=== PATIENT | female | born 1940 | race Caucasian/White ===

== ENCOUNTER → 2016-10-30 | Outpatient (CLI) | payer MEDICARE ==
--- NOTE | 2016-10-30 10:31 | XR ---
EXAMINATION TYPE: XR chest 2V, XR ribs RT DATE OF EXAM: 10/30/2016 CLINICAL HISTORY: Pain, Fall Four views of the ribs fail demonstrate evidence for displaced rib fracture or secondary sign of rib fracture. Visualized lungs are clear. No evidence for pneumothorax. IMPRESSION: 1. No displaced rib fractures seen. ICD 10 NO FRACTURE, INITIAL EVALUATION EXAMINATION TYPE: XR chest 2V, XR ribs RT DATE OF EXAM: 10/30/2016 COMPARISON: NONE HISTORY: Shortness of breath TECHNIQUE: Frontal and lateral views of the chest are obtained. FINDINGS: Scattered senescent parenchymal changes noted. Hyperinflation compatible with COPD. No evidence for infiltrate. No evidence for atelectasis. Heart size is stable. Mediastinal structures are stable and grossly unremarkable. No evidence for hilar prominence. Degenerative changes dorsal spine. IMPRESSION: 1. No evidence for acute pulmonary disease.
== END | disposition home or self-care (01) ==
LOC: RADXRMAIN 10:01
PROVIDERS: ATTEND Family Medicine
DX: S20.219A Contusion of unspecified front wall of thorax, initial encounter (principal)
CPT/HCPCS: 71020

== ENCOUNTER → 2016-12-03 | Outpatient (CLI) | payer MEDICARE ==
--- NOTE | 2016-12-05 09:31 | MM ---
Reason for exam: additional evaluation requested from prior study. Last mammogram was performed 1 year ago. History: Patient is postmenopausal and has history of breast cancer at age 50. Family history of premenopausal breast cancer in mother at age 40. Mastectomy of the right breast, July 29, 2002. Malignant lumpectomy of the right breast, July 12, 2002. Benign stereotactic core biopsy of the right breast, December 04, 2001. Core biopsy of the right breast. Excisional biopsy of the right breast. Physical Findings: Nurse did not find any significant physical abnormalities on exam. MG 3D Diag Mammo W/Cad LT ML, MLO, CC, LM with magnification, and CC with magnification view(s) were taken of the left breast. Prior study comparison: November 30, 2015, left breast MG diagnostic mammo LT w CAD. Finding: There are amorphous, grouped calcifications in the upper outer quadrant, anterior position of the left breast, 5 centimeters from nipple. New finding since November 30, 2015. These results were verbally communicated with the patient and result sheet given to the patient on 12/03/16. ASSESSMENT: Suspicious, BI-RAD 4 RECOMMENDATION: Stereotactic core biopsy and surgical consultation of the left breast. Called Dr. Ness with mammographic findings and has scheduled an appointment for the patient for 12/11/16 at 1:[address] Peterson PRELIMINARY REPORT CALLED AND FAXED TO DR. PETERSON ON 12/03/16 AT 300/TMP.
== END | disposition home or self-care (01) ==
LOC: RADMAMWWP 08:35
PROVIDERS: ATTEND Obstetrics & Gynecology
DX: Z08 Encounter for follow-up examination after completed treatment for malignant neoplasm (principal); Z85.3 Personal history of malignant neoplasm of breast
CPT/HCPCS: G0206; G0279

== ENCOUNTER → 2017-08-12 | Outpatient (CLI) | payer MEDICARE ==
--- NOTE | 2017-08-12 12:30 | XR ---
EXAMINATION TYPE: XR cervical spine comp DATE OF EXAM: 08/12/2017 COMPARISON: NONE HISTORY: 77-year-old female neck pain, bilateral finger tingling TECHNIQUE: 7 views FINDINGS: Multilevel uncovertebral joint and facet degenerative change. On the right, this results in mild multilevel bony neuroforaminal narrowing. On the left, this result s in mild multilevel bony neuroforaminal narrowing, more moderate at C3-C4. Moderate disc/endplate degenerative change C6-C7 and mild endplate spondylosis multiple other levels. There is trace grade 1 anterolisthesis at C7-T1. Otherwise, the remaining alignment is maintained. IMPRESSION: 1. Moderate spondylotic change throughout. Mild multilevel neuroforaminal narrowing, more moderate on the left at C3-C4. 2. A trace grade 1 anterolisthesis at C7-T1 likely on a degenerative basis.
--- NOTE | 2017-08-12 13:34 | XR ---
EXAMINATION TYPE: XR shoulder complete BILAT DATE OF EXAM: 08/12/2017 COMPARISON: NONE HISTORY: 77-year-old female bilateral shoulder soreness and bilateral finger tingling TECHNIQUE: 3 views each side FINDINGS: On both sides, there is moderate to severe degenerative spurring at the AC joints. Fragmented spurs o r loose bodies are present superiorly along the joint. The subacromial space is preserved on both [place] es. No acute fracture, subluxation, or dislocation. Subtle soft tissue calcifications are noted above the left humeral head on the AP internal rotation view. IMPRESSION: 1. At least moderate bilateral AC joint OA. 2. Some subtle calcification above the left humeral head could represent calcific tendinitis, CPPD, o r subclinical gout. Correlate with symptomatology. 3. No acute osseous abnormality seen.
== END | disposition home or self-care (01) ==
LOC: RADXRMAIN 11:59
PROVIDERS: ATTEND Family Medicine
DX: M99.71 Connective tissue and disc stenosis of intervertebral foramina of cervical region (principal); M43.12 Spondylolisthesis, cervical region; M19.012 Primary osteoarthritis, left shoulder; M19.011 Primary osteoarthritis, right shoulder; M25.812 Other specified joint disorders, left shoulder
CPT/HCPCS: 72050

== ENCOUNTER 2017-10-20 19:04 | Inpatient (IN) | payer MEDICARE ==
[2017-10-20] MEDS ORDERED: SODIUM CHLORIDE 0.9% 1,000 ML IV STA (19:57)
[2017-10-20 20:20] LABS: Basophils # (A) 0.1 k/uL (0-0.2); Basophils % (A) 0 %; Eosinophils # (A) 0.2 k/uL (0-0.7); Eosinophils % (A) 1 %; HCT 42.6 % (34.0-46.0); HGB 14.6 gm/dL (11.4-16.0); Lymphocytes # (A) 1.6 k/uL (1.0-4.8); Lymphocytes % (A) 10 %; MCH 29.7 pg (25.0-35.0); MCHC 34.3 g/dL (31.0-37.0); MCV 86.4 fL (80.0-100.0); Mean Platelet Volume 6.9; Monocytes # (A) 0.9 k/uL (0-1.0); Monocytes % (A) 6 %; Neutrophils # (A) 13.1 k/uL (1.3-7.7); Neutrophils % (A) 82 %; Platelet Count 236 k/uL (150-450); RBC 4.93 m/uL (3.80-5.40); RDW 13.6 % (11.5-15.5)
[2017-10-20 20:33] LABS: ALT 29 U/L (9-52); AST 23 U/L (14-36); Albumin 4.4 g/dL (3.5-5.0); Alkaline Phosphatase 168 U/L (38-126); Amylase 77 U/L (30-110); Anion Gap 11 mmol/L; Blood Urea Nitrogen 28 mg/dL (7-17); Carbon Dioxide 26 mmol/L (22-30); Chloride 101 mmol/L (98-107); Glucose 166 mg/dL (74-99); Lipase 79 U/L (23-300); Sodium 138 mmol/L (137-145); Total Bilirubin 0.8 mg/dL (0.2-1.3); Total Protein 7.2 g/dL (6.3-8.2)
[2017-10-20 20:34] LABS: Appearance,Urine Cloudy (Clear); Bacteria,Urine Rare /hpf; Bilirubin,Urine 1+ (Negative); Blood,Urine Moderate (Negative); Color,Urine Dark Brown; Glucose,Urine (UA) Negative (Negative); Hyaline Casts,Urine 28 /lpf (0-2); Ketones,Urine Trace (Negative); Leukocyte Esterase,Urine Small (Negative); Mucus,Urine Rare /hpf; Nitrite,Urine Negative (Negative); PH, Urine 5.5 (5.0-8.0); Protein,Urine 1+ (Negative); RBC,Urine 22 /hpf (0-5); Specific Gravity,Urine 1.019 (1.001-1.035); Squamous Epithelial Cell,Urine 5 /hpf (0-4); WBC,Urine 5 /hpf (0-5)
--- NOTE | 2017-10-20 21:11 | XR ---
EXAMINATION TYPE: XR KUB DATE OF EXAM: 10/20/2017 COMPARISON: NONE HISTORY: Abdominal pain TECHNIQUE: 2 views FINDINGS: There is no sign of intestinal obstruction or pneumoperitoneum. There are some fluid levels in the right upper quadrant. There is 2 cm calcification over the left upper quadrant that could be calcified splenic granuloma. Lung bases appear clear of consolidation. There are no pathologic calcif ications over the kidneys. IMPRESSION: Intestinal scattered fluid levels in the right upper quadrant could relate to diarrhea. N o free air. No sign of mechanical obstruction.
[2017-10-20] MEDS ORDERED: DICYCLOMINE 20 MG TAB PO STA (21:24)
--- NOTE | 2017-10-20 22:02 | CT ---
EXAMINATION TYPE: CT abdomen pelvis w con DATE OF EXAM: 10/20/2017 COMPARISON: 02/04/2010 HISTORY: Lower abdominal pain today. CT DLP: 1624 mGycm Automated exposure control for dose reduction was used. TECHNIQUE: Helical acquisition of images was performed from the lung bases through the pelvis. CONTRAST: Performed without Oral Contrast and with IV Contrast, patient injected with 100ml mL of Isovue 300. FINDINGS: There is some coarse linear density at the left lung base. There is no pleural effusion. There is no pericardial effusion. Abdominal aorta is atheromatous. Liver appears normal. Bile ducts are not dilat ed. Spleen appears normal. The stomach is large. There is no pancreatic mass. Gallbladder appears nor mal. There is no adrenal mass. Kidneys show satisfactory contrast opacification. There is no hydronephrosi s. There are multiple sigmoid diverticula. There is some inflammatory change and fat stranding around the left colon extending from the splenic flexure to the sigmoid colon. The small bowel appears norm al. The lumbar vertebra have normal spacing and alignment. Posterior elements are intact. There is no com pression fracture. I see no bony destructive process. There is no retroperitoneal adenopathy. There i s no evidence of a pelvic mass. Uterus is anteverted. There is a small calcified uterine fibroid on t he uterine fundus. Bladder distends smoothly. Appendix is not seen. No sign of appendicitis. IMPRESSION: MODERATE LEFT-SIDED COLONIC DIVERTICULOSIS. THERE IS DIFFUSE INFLAMMATORY CHANGE INVOLVING A LONG SEG MENT OF THE DESCENDING COLON THAT IS CONSISTENT WITH COLITIS OR DIVERTICULITIS. NO ABSCESS. THERE IS ALSO INVOLVEMENT OF THE SPLENIC FLEXURE. ATHEROSCLEROTIC VASCULAR DISEASE. MODERATELY SEVERE SIGMOID DIVERTICULOSIS.
--- NOTE | 2017-10-20 22:03 | ED ---
General Adult HPI - General Source: patient, EMS, RN notes reviewed Mode of arrival: EMS <Osmin Acosta - Last Filed: 10/20/17 22:37> <Fran Vee - Last Filed: 10/20/17 23:05> - General Chief complaint: Abdominal Pain Stated complaint: abd pain Time Seen by Provider: 10/20/17 19:12 - History of Present Illness Initial comments: 77-year-old female presents to the emergency department for a chief complaint of lower abdominal pain. Patient states the pain is a cramping pain. Patient states she last had a bowel movement yesterday. Patient states it was of normal consistency. Patient denies blood or mucus in the stool. Patient states she feels like she has to have a bowel movement at this time but cannot. Patient denies fevers or chills at home. Patient denies past abdominal issues. Patient denies nausea or vomiting. Patient has no other complaints at this time including shortness of breath, chest pain, abdominal pain, nausea or vomiting, headache, or visual changes. (Osmin Acosta) - Related Data Home Medications Medication Instructions Recorded Confirmed Acetaminophen [Tylenol] 650 mg PO Q6H PRN 10/20/17 10/20/17 Lisinopril [Zestril] 20 mg PO DAILY 10/20/17 10/20/17 Metoprolol Tartrate 25 mg PO BID 10/20/17 10/20/17 Simvastatin [Zocor] 20 mg PO HS 10/20/17 10/20/17 traMADol HCL [Ultram] 50 mg PO Q6HR PRN 10/20/17 10/20/17 Allergies Allergy/AdvReac Type Severity Reaction Status Date / Time No Known Allergies Allergy Verified 11/11/13 10:57 Review of Systems ROS Other: All systems not noted in ROS Statement are negative. <Osmin Acosta - Last Filed: 10/20/17 22:37> ROS Other: All systems not noted in ROS Statement are negative. <Fran Vee - Last Filed: 10/20/17 23:05> ROS Statement: Those systems with pertinent positive or pertinent negative responses have been documented in the HPI. Past Medical History Past Medical History: Hyperlipidemia, Hypertension History of Any Multi-Drug Resistant Organisms: None Reported Smoking Status: Never smoker Past Alcohol Use History: Rare Past Drug Use History: None Reported <Osmin Acosta - Last Filed: 10/20/17 22:37> General Exam General appearance: alert, in no apparent distress Head exam: Present: atraumatic, normocephalic, normal inspection Eye exam: Present: normal appearance, PERRL, EOMI. Absent: scleral icterus, conjunctival injection, periorbital swelling ENT exam: Present: normal exam, mucous membranes moist Neck exam: Present: normal inspection, full ROM. Absent: tenderness, meningismus, lymphadenopathy Respiratory exam: Present: normal lung sounds bilaterally. Absent: respiratory distress, wheezes, rales, rhonchi, stridor Cardiovascular Exam: Present: regular rate, normal rhythm, normal heart sounds. Absent: systolic murmur, diastolic murmur, rubs, gallop, clicks GI/Abdominal exam: Present: soft, tenderness (Patient has diffuse abdominal tenderness, more prominent in the right and left lower quadrants.), normal bowel sounds. Absent: guarding, rebound, rigid <Osmin Acosta - Last Filed: 10/20/17 22:37> Vital Signs 10/20/17 10/20/17 10/20/17 19:12 20:37 22:10 Temperature 98.2 F 97.7 F Pulse Rate 84 82 110 H Respiratory 22 18 20 Rate Blood Pressure 135/62 151/66 164/74 O2 Sat by Pulse 94 L 98 96 Oximetry Medical Decision Making - Lab Data Result diagrams: 10/20/17 20:00 10/20/17 20:00 <Osmin Acosta - Last Filed: 10/20/17 22:37> - Lab Data Result diagrams: 10/20/17 20:00 10/20/17 20:00 <Fran Vee - Last Filed: 10/20/17 23:05> - Medical Decision Making 77-year-old female presents to the emergency department for a chief complaint of lower abdominal cramping 2 hours. Patient states she felt like she needs to have a bowel movement. When patient presented to the emergency department she began to have diarrhea. On exam patient does have diffuse abdominal tenderness. It is slightly distended. No rebound tenderness. No back pain. No shortness of breath or chest pain. CBC shows a white count of 16 with a left shift. Chemistry within normal limits. lactic WNL. CDIFF neg. X-ray shows intestinal scattered fluid-filled levels in the right upper quadrant that could relate diarrhea. No free air or sign of mechanical obstruction. CT shows diffuse inflammatory change involving a long segment of the descending colon consistent with colitis or diverticulitis. No abscess. Patient will be admitted to the hospital with IV antibiotics and pain mgmt. (Osmin Acosta) I saw this patient in conjunction with the physician administrative assistant coordinator. I performed independent history and physical exam. Agree with case management. After reevaluating the patient myself, I discussed case with Dr. Hardwick who will admit the patient for further IV antibiotic therapy to ensure that there is improvement. (Fran Vee) - Lab Data Lab Results 10/20/17 10/20/17 10/20/17 Range/Units 20:00 20:00 20:00 WBC 16.0 H (3.8-10.6) k/uL RBC 4.93 (3.80-5.40) m/uL Hgb 14.6 (11.4-16.0) gm/dL Hct 42.6 (34.0-46.0) % MCV 86.4 (80.0-100.0) fL MCH 29.7 (25.0-35.0) pg MCHC 34.3 (31.0-37.0) g/dL RDW 13.6 (11.5-15.5) % Plt Count 236 (150-450) k/uL Neutrophils % 82 % Lymphocytes % 10 % Monocytes % 6 % Eosinophils % 1 % Basophils % 0 % Neutrophils # 13.1 H (1.3-7.7) k/uL Lymphocytes # 1.6 (1.0-4.8) k/uL Monocytes # 0.9 (0-1.0) k/uL Eosinophils # 0.2 (0-0.7) k/uL Basophils # 0.1 (0-0.2) k/uL Sodium 138 (137-145) mmol/L Potassium 5.0 (3.5-5.1) mmol/L Chloride 101 (98-107) mmol/L Carbon Dioxide 26 (22-30) mmol/L Anion Gap 11 mmol/L BUN 28 H (7-17) mg/dL Creatinine 0.70 (0.52-1.04) mg/dL Est GFR (CKD-EPI)AfAm >90 (>60 ml/min/1.73 sqM) Est GFR (CKD-EPI)NonAf 84 (>60 ml/min/1.73 sqM) Glucose 166 H (74-99) mg/dL Plasma Lactic Acid Vito 1.4 (0.7-2.0) mmol/L Calcium 10.0 (8.4-10.2) mg/dL Total Bilirubin 0.8 (0.2-1.3) mg/dL AST 23 (14-36) U/L ALT 29 (9-52) U/L Alkaline Phosphatase 168 H (38-126) U/L Total Protein 7.2 (6.3-8.2) g/dL Albumin 4.4 (3.5-5.0) g/dL Amylase 77 (30-110) U/L Lipase 79 (23-300) U/L Urine Color Urine Appearance (Clear) Urine pH (5.0-8.0) Ur Specific [place] (1.001-1.035) Urine Protein (Negative) Urine Glucose (UA) (Negative) Urine Ketones (Negative) Urine Blood (Negative) Urine Nitrite (Negative) Urine Bilirubin (Negative) Urine Urobilinogen (<2.0) mg/dL Ur Leukocyte Esterase (Negative) Urine RBC (0-5) /hpf Urine WBC (0-5) /hpf Ur Squamous Epith Cells (0-4) /hpf Urine Bacteria (None) /hpf Hyaline Casts (0-2) /lpf Urine Mucus (None) /hpf C. difficile (EIA) Intrp (Negative) 10/20/17 10/20/17 Range/Units 20:20 20:37 WBC (3.8-10.6) k/uL RBC (3.80-5.40) m/uL Hgb (11.4-16.0) gm/dL Hct (34.0-46.0) % MCV (80.0-100.0) fL MCH (25.0-35.0) pg MCHC (31.0-37.0) g/dL RDW (11.5-15.5) % Plt Count (150-450) k/uL Neutrophils % % Lymphocytes % % Monocytes % % Eosinophils % % Basophils % % Neutrophils # (1.3-7.7) k/uL Lymphocytes # (1.0-4.8) k/uL Monocytes # (0-1.0) k/uL Eosinophils # (0-0.7) k/uL Basophils # (0-0.2) k/uL Sodium (137-145) mmol/L Potassium (3.5-5.1) mmol/L Chloride (98-107) mmol/L Carbon Dioxide (22-30) mmol/L Anion Gap mmol/L BUN (7-17) mg/dL Creatinine (0.52-1.04) mg/dL Est GFR (CKD-EPI)AfAm (>60 ml/min/1.73 sqM) Est GFR (CKD-EPI)NonAf (>60 ml/min/1.73 sqM) Glucose (74-99) mg/dL Plasma Lactic Acid Vito (0.7-2.0) mmol/L Calcium (8.4-10.2) mg/dL Total Bilirubin (0.2-1.3) mg/dL AST (14-36) U/L ALT (9-52) U/L Alkaline Phosphatase (38-126) U/L Total Protein (6.3-8.2) g/dL Albumin (3.5-5.0) g/dL Amylase (30-110) U/L Lipase (23-300) U/L Urine Color Dark Brown Urine Appearance Cloudy H (Clear) Urine pH 5.5 (5.0-8.0) Ur Specific [place] 1.019 (1.001-1.035) Urine Protein 1+ H (Negative) Urine Glucose (UA) Negative (Negative) Urine Ketones Trace H (Negative) Urine Blood Moderate H (Negative) Urine Nitrite Negative (Negative) Urine Bilirubin 1+ H (Negative) Urine Urobilinogen 6.0 (<2.0) mg/dL Ur Leukocyte Esterase Small H (Negative) Urine RBC 22 H (0-5) /hpf Urine WBC 5 (0-5) /hpf Ur Squamous Epith Cells 5 H (0-4) /hpf Urine Bacteria Rare H (None) /hpf Hyaline Casts 28 H (0-2) /lpf Urine Mucus Rare H (None) /hpf C. difficile (EIA) Intrp Negative (Negative) Disposition Time of Disposition: 22:30 <Osmin Acosta P - Last Filed: 10/20/17 22:37> <Fran Vee - Last Filed: 10/20/17 23:05> Clinical Impression: Diverticulitis Disposition: ADMITTED IP TO THIS [facility] Condition: Good Referrals: Brandon Hardwick MD [Primary Care Provider] - 1-2 days
[2017-10-20] MEDS ORDERED: NALOXONE 0.4 MG/ML 1 ML VIAL IV PRN (22:37)
[2017-10-20] MEDS ORDERED: MORPHINE SULFATE 2 MG/ML SYRINGE IV PRN (22:37)
[2017-10-20] MEDS ORDERED: ACETAMINOPHEN TAB 325 MG TAB PO PRN (22:39)
[2017-10-20] MEDS ORDERED: LEVOFLOXACIN 750MG-D5W PMX 750 MG in DEXTROSE/WATER 1 150ML.BAG IVPB STA (22:44)
[2017-10-20] MEDS ORDERED: metroNIDAZOLE-NS PMX 500 MG in SALINE 1 100ML.BAG IVPB SCH (22:45)
[2017-10-20] MEDS: DICYCLOMINE 20 MG TAB PO SCH (22:52)
[2017-10-20] MEDS: SODIUM CHLORIDE 0.9% 1,000 ML IV SCH (22:59)
[2017-10-21] MEDS: DICYCLOMINE 20 MG TAB PO SCH ×4 (04:36→22:08)
[2017-10-21 05:28] VITALS: BMI 38.9
[2017-10-21] MEDS: metroNIDAZOLE-NS PMX 500 MG in SALINE 1 100ML.BAG IVPB SCH ×3 (05:49→22:08)
[2017-10-21] MEDS: METOPROLOL TARTRATE 25 MG TAB PO SCH ×2 (08:44→20:17)
[2017-10-21] MEDS: LISINOPRIL 20 MG TAB PO SCH (08:44)
[2017-10-21] MEDS: SODIUM CHLORIDE 0.9% 1,000 ML IV SCH ×4 (10:51→23:38)
[2017-10-21] MEDS: traMADol 50 MG TAB PO PRN (15:07)
--- NOTE | 2017-10-21 15:55 | P.GSCN ---
<Linda Lopez Justa - Last Filed: 10/21/17 15:36> History of Present Illness Consult date: 10/21/17 Reason for Consult: Abdominal pain History of present illness: 77-year-old female admitted to the emergency room with a chief complaint of developing bilateral lower abdominal pain described as intense cramping. Patient stated it came on suddenly felt nauseated did vomit. Stated that she did have a bowel movement "I thought it was bright red blood in the toilet bowl " patient stated that she felt dizzy lightheaded activated the EMS system for the above-mentioned symptoms . Patient states she was told she had diverticulosis given the above clinical presentation a surgical consultation has been requested by the attending . Patient stated she is experiencing significant abdominal discomfort. Patient states she is normally sees Dr. Gunter had a colonoscopy 4 years ago and was told that there were no acute findings. Review of Systems Essentially unremarkable except as mentioned in the present Past Medical History Past Medical History: Hyperlipidemia, Hypertension History of Any Multi-Drug Resistant Organisms: None Reported Past Surgical History: No Surgical Hx Reported Past Anesthesia/Blood Transfusion Reactions: No Reported Reaction Past Psychological History: No Psychological Hx Reported Smoking Status: Never smoker Past Alcohol Use History: Rare Past Drug Use History: None Reported - Past Family History Mother Family Medical History: Hypertension Medications and Allergies Home Medications Medication Instructions Recorded Confirmed Type Acetaminophen [Tylenol] 650 mg PO Q6H PRN 10/20/17 10/20/17 History Lisinopril [Zestril] 20 mg PO DAILY 10/20/17 10/20/17 History Metoprolol Tartrate 25 mg PO BID 10/20/17 10/20/17 History Simvastatin [Zocor] 20 mg PO HS 10/20/17 10/20/17 History traMADol HCL [Ultram] 50 mg PO Q6HR PRN 10/20/17 10/20/17 History Allergies Allergy/AdvReac Type Severity Reaction Status Date / Time No Known Allergies Allergy Verified 11/11/13 10:57 Surgical - Exam Vital Signs Temp Pulse Resp BP Pulse Ox 98.2 F 84 22 135/62 94 L 10/20/17 19:12 10/20/17 19:12 10/20/17 19:12 10/20/17 19:12 10/20/17 19:12 GENERAL APPEARANCE: 77-year-old female sitting up in bed states pain medication has decreased the cramping but continues to report a crampy sensation Reports nausea sensation no active emesis VITAL SIGNS: Reviewed HEENT: Head is normocephalic and atraumatic. Pupils are equal and reactive. The nares are patent. Oropharynx is clear without lesions. NECK: Supple without lymphadenopathy. Traches midline. HEART: S1, S2. Regular rate and rhythm. Denies chest pain LUNGS: No crackles or wheezes are heard. Adequate air entry on room air ABDOMEN: Soft, diffuse tenderness mildly distended .few Hypoactive active bowel sounds. No peritoneal signs. No palpable organomegaly or masses. EXTREMITIES: Normal skin color and turgor. No cyanosis, rash, ulceration, clubbing or edema. Radial pedal pulses are 2/4 bilaterally. NEUROLOGICAL: No focal deficits. Strength and sensation are grossly intact. Results - Labs 10/20/17 20:00 10/20/17 20:00 Abnormal Lab Results - Last 24 Hours (Table) 10/20/17 10/20/17 10/20/17 Range/Units 20:00 20:00 20:20 WBC 16.0 H (3.8-10.6) k/uL Neutrophils # 13.1 H (1.3-7.7) k/uL BUN 28 H (7-17) mg/dL Glucose 166 H (74-99) mg/dL Alkaline Phosphatase 168 H (38-126) U/L Urine Appearance Cloudy H (Clear) Urine Protein 1+ H (Negative) Urine Ketones Trace H (Negative) Urine Blood Moderate H (Negative) Urine Bilirubin 1+ H (Negative) Ur Leukocyte Esterase Small H (Negative) Urine RBC 22 H (0-5) /hpf Ur Squamous Epith Cells 5 H (0-4) /hpf Urine Bacteria Rare H (None) /hpf Hyaline Casts 28 H (0-2) /lpf Urine Mucus Rare H (None) /hpf Stool Occult Blood (Negative) Stool Lactoferrin (NEGATIVE) 10/20/17 10/21/17 Range/Units 20:37 14:55 WBC (3.8-10.6) k/uL Neutrophils # (1.3-7.7) k/uL BUN (7-17) mg/dL Glucose (74-99) mg/dL Alkaline Phosphatase (38-126) U/L Urine Appearance (Clear) Urine Protein (Negative) Urine Ketones (Negative) Urine Blood (Negative) Urine Bilirubin (Negative) Ur Leukocyte Esterase (Negative) Urine RBC (0-5) /hpf Ur Squamous Epith Cells (0-4) /hpf Urine Bacteria (None) /hpf Hyaline Casts (0-2) /lpf Urine Mucus (None) /hpf Stool Occult Blood Positive H (Negative) Stool Lactoferrin POSITIVE H (NEGATIVE) Microbiology - Last 24 Hours (Table) 10/20/17 20:20 Urine Culture - Preliminary Urine,Voided 10/20/17 20:27 Stool Culture - Preliminary Stool Diabetes panel 10/20/17 Range/Units 20:00 Sodium 138 (137-145) mmol/L Potassium 5.0 (3.5-5.1) mmol/L Chloride 101 (98-107) mmol/L Carbon Dioxide 26 (22-30) mmol/L BUN 28 H (7-17) mg/dL Creatinine 0.70 (0.52-1.04) mg/dL Glucose 166 H (74-99) mg/dL Calcium 10.0 (8.4-10.2) mg/dL AST 23 (14-36) U/L ALT 29 (9-52) U/L Alkaline Phosphatase 168 H (38-126) U/L Total Protein 7.2 (6.3-8.2) g/dL Albumin 4.4 (3.5-5.0) g/dL Calcium panel 10/20/17 Range/Units 20:00 Calcium 10.0 (8.4-10.2) mg/dL Albumin 4.4 (3.5-5.0) g/dL Pituitary panel 10/20/17 Range/Units 20:00 Sodium 138 (137-145) mmol/L Potassium 5.0 (3.5-5.1) mmol/L Chloride 101 (98-107) mmol/L Carbon Dioxide 26 (22-30) mmol/L BUN 28 H (7-17) mg/dL Creatinine 0.70 (0.52-1.04) mg/dL Glucose 166 H (74-99) mg/dL Calcium 10.0 (8.4-10.2) mg/dL Adrenal panel 10/20/17 Range/Units 20:00 Sodium 138 (137-145) mmol/L Potassium 5.0 (3.5-5.1) mmol/L Chloride 101 (98-107) mmol/L Carbon Dioxide 26 (22-30) mmol/L BUN 28 H (7-17) mg/dL Creatinine 0.70 (0.52-1.04) mg/dL Glucose 166 H (74-99) mg/dL Calcium 10.0 (8.4-10.2) mg/dL Total Bilirubin 0.8 (0.2-1.3) mg/dL AST 23 (14-36) U/L ALT 29 (9-52) U/L Alkaline Phosphatase 168 H (38-126) U/L Total Protein 7.2 (6.3-8.2) g/dL Albumin 4.4 (3.5-5.0) g/dL Assessment and Plan Assessment: Impression Present on admission abdominal pain bloating suspect due to diverticulosis Computed tomography scan abdomen and pelvis show moderately severe sigmoid diverticulosis Computed tomography scan abdomen and pelvis moderate left-sided colon diverticulosis with diffuse inflammatory changes involving the descending colon consistent with colitis or diverticulitis no abscess Present on admission leukocytosis likely reactive Present on admission tachycardia likely reactive Plan IV fluid for hydration IV Flagyl and Levaquin as ordered Pain control DVT and GI prophylaxis Further recommendations pending Surgical consultation note dictated for Dr. Garcia The above impression and plan of care have been discussed and directed by signing physician. Linda Lopez nurse practitioner acting as scribe for signing physician. <Gloria Garcia N - Last Filed: 10/21/17 17:37> Surgical - Exam Vital Signs Temp Pulse Resp BP Pulse Ox 98.2 F 84 22 135/62 94 L 10/20/17 19:12 10/20/17 19:12 10/20/17 19:12 10/20/17 19:12 10/20/17 19:12 Results - Labs 10/20/17 20:00 10/20/17 20:00 Abnormal Lab Results - Last 24 Hours (Table) 10/20/17 10/20/17 10/20/17 Range/Units 20:00 20:00 20:20 WBC 16.0 H (3.8-10.6) k/uL Neutrophils # 13.1 H (1.3-7.7) k/uL BUN 28 H (7-17) mg/dL Glucose 166 H (74-99) mg/dL Alkaline Phosphatase 168 H (38-126) U/L Urine Appearance Cloudy H (Clear) Urine Protein 1+ H (Negative) Urine Ketones Trace H (Negative) Urine Blood Moderate H (Negative) Urine Bilirubin 1+ H (Negative) Ur Leukocyte Esterase Small H (Negative) Urine RBC 22 H (0-5) /hpf Ur Squamous Epith Cells 5 H (0-4) /hpf Urine Bacteria Rare H (None) /hpf Hyaline Casts 28 H (0-2) /lpf Urine Mucus Rare H (None) /hpf Stool Occult Blood (Negative) Stool Lactoferrin (NEGATIVE) 10/20/17 10/21/17 Range/Units 20:37 14:55 WBC (3.8-10.6) k/uL Neutrophils # (1.3-7.7) k/uL BUN (7-17) mg/dL Glucose (74-99) mg/dL Alkaline Phosphatase (38-126) U/L Urine Appearance (Clear) Urine Protein (Negative) Urine Ketones (Negative) Urine Blood (Negative) Urine Bilirubin (Negative) Ur Leukocyte Esterase (Negative) Urine RBC (0-5) /hpf Ur Squamous Epith Cells (0-4) /hpf Urine Bacteria (None) /hpf Hyaline Casts (0-2) /lpf Urine Mucus (None) /hpf Stool Occult Blood Positive H (Negative) Stool Lactoferrin POSITIVE H (NEGATIVE) Microbiology - Last 24 Hours (Table) 10/20/17 20:20 Urine Culture - Preliminary Urine,Voided 10/20/17 20:27 Stool Culture - Preliminary Stool Diabetes panel 10/20/17 Range/Units 20:00 Sodium 138 (137-145) mmol/L Potassium 5.0 (3.5-5.1) mmol/L Chloride 101 (98-107) mmol/L Carbon Dioxide 26 (22-30) mmol/L BUN 28 H (7-17) mg/dL Creatinine 0.70 (0.52-1.04) mg/dL Glucose 166 H (74-99) mg/dL Calcium 10.0 (8.4-10.2) mg/dL AST 23 (14-36) U/L ALT 29 (9-52) U/L Alkaline Phosphatase 168 H (38-126) U/L Total Protein 7.2 (6.3-8.2) g/dL Albumin 4.4 (3.5-5.0) g/dL Calcium panel 10/20/17 Range/Units 20:00 Calcium 10.0 (8.4-10.2) mg/dL Albumin 4.4 (3.5-5.0) g/dL Pituitary panel 10/20/17 Range/Units 20:00 Sodium 138 (137-145) mmol/L Potassium 5.0 (3.5-5.1) mmol/L Chloride 101 (98-107) mmol/L Carbon Dioxide 26 (22-30) mmol/L BUN 28 H (7-17) mg/dL Creatinine 0.70 (0.52-1.04) mg/dL Glucose 166 H (74-99) mg/dL Calcium 10.0 (8.4-10.2) mg/dL Adrenal panel 10/20/17 Range/Units 20:00 Sodium 138 (137-145) mmol/L Potassium 5.0 (3.5-5.1) mmol/L Chloride 101 (98-107) mmol/L Carbon Dioxide 26 (22-30) mmol/L BUN 28 H (7-17) mg/dL Creatinine 0.70 (0.52-1.04) mg/dL Glucose 166 H (74-99) mg/dL Calcium 10.0 (8.4-10.2) mg/dL Total Bilirubin 0.8 (0.2-1.3) mg/dL AST 23 (14-36) U/L ALT 29 (9-52) U/L Alkaline Phosphatase 168 H (38-126) U/L Total Protein 7.2 (6.3-8.2) g/dL Albumin 4.4 (3.5-5.0) g/dL Assessment and Plan Plan: CT of the abdomen and pelvis reviewed by me. No colon perforation identified. She reports feeling better today than yesterday. She is tolerating diet. She has tachycardia as she takes heart medications at baseline. No surgical intervention. Continue antibiotics. May benefit from resuming heart meds for her heart rhythm.
[2017-10-21] MEDS: PANTOPRAZOLE 40 MG/10 ML VIAL IVP SCH (16:38)
[2017-10-21] MEDS: LEVOFLOXACIN 500MG-D5W PMX 500 MG in DEXTROSE/WATER 1 100ML.BAG IVPB SCH (16:38)
[2017-10-21] MEDS: ATORVASTATIN 10 MG TAB PO SCH (20:17)
[2017-10-22] MEDS: DICYCLOMINE 20 MG TAB PO SCH ×4 (04:49→22:08)
--- NOTE | 2017-10-22 04:56 | HP ---
HISTORY AND PHYSICAL CHIEF COMPLAINT: A 77-year-old white female with left lower quadrant abdominal pain, intense cramping, came to the emergency room, was found to have diverticulitis and GI bleed versus hematuria, due to from due to bright red blood in the toilet bowl and some lightheadedness and dizziness and hypertension acceleration with severe tachycardia and near syncope. She was brought to the emergency room and was immediately admitted to the hospital. She had a colonoscopy 4 years ago and was normal. REVIEW OF SYSTEMS: Fourteen point review of systems negative except for mentioned in HPI. PAST MEDICAL HISTORY: Hypertension, dyslipidemia. No smoking. No alcohol. No illicit drugs. FAMILY HISTORY: Mother hypertension. HOME MEDICINES: 1. Metoprolol 25 b.i.d. 2. Zocor 20 daily. 3. Zestril 20 daily. 4. Tramadol 50 q.6 hours. ALLERGIES: Negative. PHYSICAL EXAMINATION: Pulse is in the 140s this morning to 120s, respiratory 18 to 22, blood pressure 130/60, temp 98.2, O2 saturation 94% on 4 L. CARDIOVASCULAR: S1, S2. LUNGS: Transmitted upper airway sounds. HEART: S1, S2, tachy. ABDOMEN: Tenderness to palpation left lower quadrant. Mild guarding. No rebound or tenderness. EXTREMITIES: No cyanosis, clubbing, edema. VASCULAR: Normal dorsalis pedis, posterior tibial radial pulse. OPHTHALMOLOGIC: Pupils equal, round, reactive to light and accommodation. White count is16, hemoglobin 14.6, BUN 28, creatinine 0.7, sodium 138, potassium 5.0. UA shows 22 red cells, rare bacteria, moderate blood. Stool Hemoccult positive. ASSESSMENT: 1. Acute diverticulitis. 2. Severe abdominal pain with gastrointestinal bleed secondary to diverticular bleed, likely sigmoid diverticulosis, colon diverticulosis. IV Flagyl, Levaquin were given. IV hydration given. Pain control. 3. Hypertension, acceleration. Cardiology will have to see. Cardiology medicines will be adjusted accordingly. Please see further orders. MMODL / IJN: [id number] /
[2017-10-22] MEDS: METOPROLOL TARTRATE 50 MG TAB PO SCH ×2 (07:35→18:57)
[2017-10-22] MEDS: metroNIDAZOLE-NS PMX 500 MG in SALINE 1 100ML.BAG IVPB SCH ×3 (07:35→22:52)
[2017-10-22] MEDS: PANTOPRAZOLE 40 MG/10 ML VIAL IVP SCH (07:35)
[2017-10-22] MEDS: LISINOPRIL 20 MG TAB PO SCH (07:35)
--- NOTE | 2017-10-22 12:35 | P.CRDCN ---
History of Present Illness History of present illness: Mrs. Perez is a pleasant 77-year-old female past medical history significant for hypertension and dyslipidemia. She denies history of coronary artery disease or diabetes mellitus. She follows with Dr. Li in the office. We have been asked to see her in consultation for tachycardia. She initially for abdominal pain and nausea. CT of abdomen/pelvis reveals moderate left-sided colonic diverticulosis with diffuse inflammatory change involving a long segment of the descending colon consistent with colitis or diverticulitis with no abscess evident. She has been seen in consultation by surgery and has been started on IV antibiotics and was initially NPO after midnight. Heart rate on admission was up as high as 130. Today she is much more controlled with heart rate 100 this morning. She takes lopressor 25 mg BID and lisinopril 20 mg daily. Lopressor was resumed at 50 mg BID yesterday evening per primary care team. She denies symptoms of chest pain, shortness of breath, diaphoresis, palpitations or dizziness. EKG reveals sinus mechanism with no acute ST or T-wave abnormalities. Telemetry tracings have been unremarkable for arrhythmia. She has maintained sinus mechanism. Laboratory data reviewed, WBC 16, hemoglobin 14.6, platelets 236, sodium 138, potassium 5.0, creatinine 0.7. Most recent echocardiogram performed in the office reveals preserved left ventricular systolic function with ejection fraction 50%. Review of Systems At the time of my exam: CONSTITUTIONAL: Denies fever. Denies chills. EYES: Denies blurred vision. Denies vision changes. Denies eye pain. EARS, NOSE, MOUTH & THROAT: Denies headache. Denies sore throat. Denies ear pain. CARDIOVASCULAR: Denies chest pain. Denies shortness of breath. Denies orthopnea. Denies PND. Denies palpitations. RESPIRATORY: Denies cough. GASTROINTESTINAL: Complains of mild but improving abdominal pain. Denies diarrhea. Denies constipation. Denies nausea. Denies vomiting. MUSCULOSKELETAL: Denies myalgias. INTEGUMENTARY: Denies pruitis. Denies rash. NEUROLOGIC: Denies numbness. Denies tingling. Denies weakness. PSYCHIATRIC: Denies anxiety. Denies depression. ENDOCRINE: Denies fatigue. Denies weight change. Denies polydipsia. Denies polyurina. GENITOURINARY: Denies burning, hematuria or urgency with micturation. HEMATOLOGIC: Denies history of anemia. Denies bleeding. Past Medical History Past Medical History: Hyperlipidemia, Hypertension History of Any Multi-Drug Resistant Organisms: None Reported Past Surgical History: No Surgical Hx Reported Past Anesthesia/Blood Transfusion Reactions: No Reported Reaction Past Psychological History: No Psychological Hx Reported Smoking Status: Never smoker Past Alcohol Use History: Rare Past Drug Use History: None Reported - Past Family History Mother Family Medical History: Hypertension Medications and Allergies Home Medications Medication Instructions Recorded Confirmed Type Acetaminophen [Tylenol] 650 mg PO Q6H PRN 10/20/17 10/20/17 History Lisinopril [Zestril] 20 mg PO DAILY 10/20/17 10/20/17 History Metoprolol Tartrate 25 mg PO BID 10/20/17 10/20/17 History Simvastatin [Zocor] 20 mg PO HS 10/20/17 10/20/17 History traMADol HCL [Ultram] 50 mg PO Q6HR PRN 10/20/17 10/20/17 History Allergies Allergy/AdvReac Type Severity Reaction Status Date / Time No Known Allergies Allergy Verified 11/11/13 10:57 Physical Exam Vitals: Vital Signs Temp Pulse Resp BP Pulse Ox 10/22/17 07:55 99.0 F 100 15 134/62 94 L 10/22/17 05:23 98.1 F 108 H 18 158/83 92 L 10/21/17 20:44 98.3 F 106 H 16 132/76 95 10/21/17 16:00 104 H 16 10/21/17 13:47 98.8 F 104 H 16 184/83 93 L Intake and Output 10/21/17 10/22/17 10/22/17 22:59 06:59 14:59 Other: Voiding Method Toilet Toilet Toilet # Voids 1 2 Weight 99.79 kg Blood pressure 134/62 heart rate 100 afebrile maintaining oxygen saturation on room air GENERAL: This is a 77-year-old female in no apparent distress at the time of my examination. Obese. HEENT: Head is atraumatic, normocephalic. Pupils are equal, round. Sclerae anicteric. Conjunctivae are clear. Mucous membranes of the mouth are moist. Neck is supple. There is no jugular venous distention. No carotid bruit is heard. LUNGS: Clear to auscultation no wheezes, rales or rhonchi. No chest wall tenderness is noted on palpation or with deep breathing. HEART: Regular rate and rhythm without murmurs, rubs or gallops. S1 and S2 heard. ABDOMEN: Soft, mildly tender tender, bloated. Bowel sounds are heard. No organomegaly noted. EXTREMITIES: No evidence of peripheral edema and no calf tenderness noted. VASCULAR: Radial and dorsalis pedis pulses palpated, no evidence of clubbing. NEUROLOGIC: Patient is awake, alert and oriented x3. Results 10/20/17 20:00 10/20/17 20:00 Current Medications Generic Name Dose Route Start Last Admin Trade Name Freq PRN Reason Stop Dose Admin Acetaminophen 650 mg 10/20/17 22:39 Tylenol Tab PO Q6H PRN Pain Atorvastatin Calcium 10 mg 10/21/17 21:00 10/21/17 20:17 Lipitor PO 10 mg HS RICKIE Administration Dicyclomine HCl 20 mg 10/20/17 22:45 10/22/17 04:49 Bentyl PO 20 mg Q6H RICKIE Administration Sodium Chloride 1,000 mls @ 125 mls/hr 10/20/17 22:45 10/21/17 23:38 Saline 0.9% IV 125 mls/hr .Q8H RICKIE Administration Metronidazole 500 mg/ IV 100 mls @ 100 mls/hr 10/21/17 07:00 10/22/17 07:35 Solution IVPB 100 mls/hr Q8H RICKIE Administration Levofloxacin 500 mg/ IV 100 mls @ 100 mls/hr 10/21/17 15:30 10/21/17 16:38 Solution IVPB 100 mls/hr Q24H RICKIE Administration Lisinopril 20 mg 10/21/17 09:00 10/22/17 07:35 Zestril PO 20 mg DAILY RICKIE Administration Metoprolol Tartrate 50 mg 10/22/17 09:00 10/22/17 07:35 Lopressor PO 50 mg BID RICKIE Administration Morphine Sulfate 4 mg 10/20/17 22:37 Morphine Sulfate (Inj) IV Q4HR PRN Severe Pain Naloxone HCl 0.2 mg 10/20/17 22:37 Narcan IV Q2M PRN Opioid Reversal Pantoprazole Sodium 40 mg 10/21/17 15:30 10/22/17 07:35 Protonix IVP 40 mg DAILY RICKIE Administration Tramadol HCl 50 mg 10/20/17 22:39 10/21/17 15:07 Ultram PO 50 mg Q6HR PRN Administration Pain Intake and Output 10/21/17 10/22/17 10/22/17 22:59 06:59 14:59 Other: Voiding Method Toilet Toilet Toilet # Voids 1 2 Weight 99.79 kg 10/20/17 20:00 10/20/17 20:00 Assessment and Plan Assessment: ASSESSMENT 1. Sinus tachycardia secondary to infectious process 2. Acute diverticulitis 3. Hypertension 4. Dyslipidemia 5. Leukocytosis PLAN Sinus tachycardia secondary to infectious process. Check magnesium, TSH and free T4. Ongoing medical management. Continue with beta blockers and antihypertensives as previously ordered. No further cardiac evaluation required at this time. Thank you kindly for this consultation. She can follow-up with Dr. Li in 2-3 weeks. Nurse Practitioner note has been reviewed, I agree with a documented findings and plan of care. Patient was seen and examined.
[2017-10-22 15:24] LABS: Basophils % (A) 0 %; Eosinophils # (A) 0.2 k/uL (0-0.7); Eosinophils % (A) 2 %; HCT 37.2 % (34.0-46.0); HGB 12.4 gm/dL (11.4-16.0); Lymphocytes # (A) 2.4 k/uL (1.0-4.8); Lymphocytes % (A) 18 %; MCH 28.9 pg (25.0-35.0); MCHC 33.4 g/dL (31.0-37.0); MCV 86.6 fL (80.0-100.0); Monocytes # (A) 0.6 k/uL (0-1.0); Monocytes % (A) 5 %; Neutrophils # (A) 9.6 k/uL (1.3-7.7); Neutrophils % (A) 74 %; Platelet Count 210 k/uL (150-450)
[2017-10-22] MEDS: SODIUM CHLORIDE 0.9% 1,000 ML IV SCH ×2 (15:24→15:25)
[2017-10-22 15:43] LABS: ALT 25 U/L (9-52); AST 18 U/L (14-36); Albumin 3.4 g/dL (3.5-5.0); Alkaline Phosphatase 84 U/L (38-126); Anion Gap 9 mmol/L; Blood Urea Nitrogen 11 mg/dL (7-17); Calcium 9.1 mg/dL (8.4-10.2); Carbon Dioxide 22 mmol/L (22-30); Chloride 106 mmol/L (98-107); Glucose 115 mg/dL (74-99); Magnesium 1.8 mg/dL (1.6-2.3); Potassium 4.1 mmol/L (3.5-5.1); Sodium 137 mmol/L (137-145); Total Bilirubin 1.1 mg/dL (0.2-1.3); Total Protein 5.9 g/dL (6.3-8.2)
[2017-10-22 15:58] LABS: T4, Free (Free Thyroxine) 1.16 ng/dL (0.78-2.19)
[2017-10-22] MEDS: LEVOFLOXACIN 500MG-D5W PMX 500 MG in DEXTROSE/WATER 1 100ML.BAG IVPB SCH (16:40)
[2017-10-22] MEDS: ATORVASTATIN 10 MG TAB PO SCH (19:41)
--- NOTE | 2017-10-22 21:38 | P.PN ---
Subjective Progress Note Date: 10/22/17 She feels much better today. Abdominal pain has improved. No reports of fevers or chills. She is tolerating diet. Objective - Vital Signs Vital signs: Vital Signs Temp 97.8 F 10/22/17 20:35 Pulse 75 10/22/17 20:35 Resp 16 10/22/17 20:35 BP 138/73 10/22/17 20:35 Pulse Ox 93 L 10/22/17 20:35 Intake & Output 10/22/17 10/22/17 10/23/17 06:59 18:59 06:59 Intake Total 700 Balance 700 Intake: Oral 700 Other: Voiding Method Toilet Toilet Toilet # Voids 2 3 1 - Exam ABDOMEN: No peritonitis. Soft, protuberant. Mild distension. GENERAL: Well developed and in no acute distress. Pleasant. HEENT: No sclera icterus. Extraocular movements grossly intact. Moist buccal mucosa. Head is atraumatic, normocephalic. Hears conversational speech. No nasal drainage. NECK: Supple without lymphadenopathy. CHEST: Non-labored respirations and equal bilateral excursions. CARDIOVASCULAR: Regular rate and rhythm. Palpable 2+ radial pulses. MUSCULOSKELETAL: No clubbing, cyanosis or edema. NEUROLOGIC: No focal or lateralizing signs. PSYCH: Appropriate affect. Alert and oriented to person, place and time. BREAST: There are no palpable lesions along the bilateral breasts. No axillary adenopathy. SKIN: Good skin turgor. Well perfused. - Labs CBC & Chem 7: 10/22/17 14:55 10/22/17 14:55 Labs: Abnormal Lab Results - Last 24 Hours (Table) 10/22/17 10/22/17 Range/Units 14:55 14:55 WBC 13.0 H (3.8-10.6) k/uL Neutrophils # 9.6 H (1.3-7.7) k/uL Creatinine 0.40 L (0.52-1.04) mg/dL Glucose 115 H (74-99) mg/dL Total Protein 5.9 L (6.3-8.2) g/dL Albumin 3.4 L (3.5-5.0) g/dL Microbiology - Last 24 Hours (Table) 10/20/17 20:27 Stool Culture - Preliminary Stool 10/20/17 20:20 Urine Culture - Preliminary Urine,Voided Gram Neg Bacilli 10/20/17 20:00 Blood Culture - Preliminary Blood No Growth after 24 hours Assessment and Plan (1) Diverticulitis Current Visit: Yes Status: Acute Code(s): K57.92 - DVTRCLI OF INTEST, PART UNSP, W/O PERF OR ABSCESS W/O BLEED SNOMED Code(s): 275667094 Plan: 1. Continue with conservative management. 2. Low residue diet. 3. Patient may be cleared from a surgical standpoint when tolerating low residue diet. 4. Follow up as outpatient. 5. No surgical intervention. 6. Continue course of antibiotics for 7 days.
--- NOTE | 2017-10-22 23:09 | PN ---
PROGRESS NOTE SUBJECTIVE: This is a 77-year-old white female with diverticulitis. Left lower quadrant abdominal pain has greatly improved. Remains on IV antibiotics x2. Diet will be advanced. CARDIOVASCULAR: S1, S2. LUNGS: Clear. GI: Increased bowel sounds. HEMATOLOGY: Negative Homans. PSYCH: Fair mood and affect. Possible discharge home in the next 24 to 48 hours. MMODL / IJN: [id number] /
[2017-10-23] MEDS: SODIUM CHLORIDE 0.9% 1,000 ML IV SCH ×4 (01:00→22:49)
[2017-10-23] MEDS: DICYCLOMINE 20 MG TAB PO SCH ×4 (05:35→22:04)
[2017-10-23] MEDS: PANTOPRAZOLE 40 MG/10 ML VIAL IVP SCH (07:23)
[2017-10-23] MEDS: METOPROLOL TARTRATE 50 MG TAB PO SCH ×2 (07:23→21:20)
[2017-10-23] MEDS: LISINOPRIL 20 MG TAB PO SCH (07:23)
[2017-10-23] MEDS: metroNIDAZOLE-NS PMX 500 MG in SALINE 1 100ML.BAG IVPB SCH ×3 (07:23→22:49)
[2017-10-23] MEDS: LEVOFLOXACIN 500MG-D5W PMX 500 MG in DEXTROSE/WATER 1 100ML.BAG IVPB SCH (16:07)
--- NOTE | 2017-10-23 19:34 | P.PN ---
Subjective Progress Note Date: 10/23/17 Abdominal pain is resolved. She is tolerating low residue diet. No reports of fevers or chills. Objective - Vital Signs Vital signs: Vital Signs Temp 98.1 F 10/23/17 15:00 Pulse 79 10/23/17 15:00 Resp 14 10/23/17 15:00 BP 136/75 10/23/17 15:00 Pulse Ox 94 L 10/23/17 15:47 Intake & Output 10/23/17 10/23/17 10/24/17 06:59 18:59 06:59 Intake Total 100 Balance 100 Intake: Intake, IV Titration 100 Amount metroNIDAZOLE-NS PMX 500 100 mg In Saline 1 100ml.bag @ 100 mls/hr IVPB Q8H RICKIE Rx#:[id number] Other: Voiding Method Toilet Toilet # Voids 2 - Exam ABDOMEN: No peritonitis. Soft, protuberant. Nontender. GENERAL: Well developed and in no acute distress. Pleasant. HEENT: No sclera icterus. Extraocular movements grossly intact. Moist buccal mucosa. Head is atraumatic, normocephalic. Hears conversational speech. No nasal drainage. NECK: Supple without lymphadenopathy. CHEST: Non-labored respirations and equal bilateral excursions. CARDIOVASCULAR: Regular rate and rhythm. Palpable 2+ radial pulses. MUSCULOSKELETAL: No clubbing, cyanosis or edema. NEUROLOGIC: No focal or lateralizing signs. PSYCH: Appropriate affect. Alert and oriented to person, place and time. BREAST: There are no palpable lesions along the bilateral breasts. No axillary adenopathy. SKIN: Good skin turgor. Well perfused. - Labs CBC & Chem 7: 10/22/17 14:55 10/22/17 14:55 Labs: Microbiology - Last 24 Hours (Table) 10/20/17 20:27 Stool Culture - Final Stool 10/20/17 20:20 Urine Culture - Final Urine,Voided Escherichia coli 10/20/17 20:00 Blood Culture - Preliminary Blood No Growth after 48 hours Assessment and Plan (1) Diverticulitis Current Visit: Yes Status: Acute Code(s): K57.92 - DVTRCLI OF INTEST, PART UNSP, W/O PERF OR ABSCESS W/O BLEED SNOMED Code(s): 362336556 Plan: 1. Repeat CBC for morning. 2. Patient may be clear from a surgical standpoint once leukocytosis resolved. 3. Follow-up with primary care provider upon discharge.
[2017-10-23] MEDS: ATORVASTATIN 10 MG TAB PO SCH (21:20)
[2017-10-23] MEDS: traMADol 50 MG TAB PO PRN (21:41)
[2017-10-24] MEDS: DICYCLOMINE 20 MG TAB PO SCH ×2 (03:59→12:02)
--- NOTE | 2017-10-24 06:23 | PN ---
PROGRESS NOTE SUBJECTIVE: A 77-year-old white female with diverticulitis, acute abdominal pain, left lower quadrant abdominal pain. Remains on IV antibiotics. Her diet will be advanced from clear liquid diet to soft. Remains on IV Flagyl and possible discharge home in the morning if patient continues to have no pain, which is minimal at this time with soft diet. CARDIOVASCULAR: S1, S2. LUNGS: Clear. GI is tender to palpation, minimal in left lower quadrant. ASSESSMENT: 1. Acute diverticulitis. 2. Left lower quadrant abdominal pain. 3. Multiple medical conditions. Continue on IV antibiotics. Possible discharge home in the morning if pain free, Labs are better and she continues to eat well without any abdominal pain. Clear liquids will be stopped. Soft diet will be given and advanced. MMODL / IJN: [id number] /
[2017-10-24 07:30] LABS: Basophils % (A) 0 %; Eosinophils # (A) 0.2 k/uL (0-0.7); Eosinophils % (A) 3 %; HCT 35.9 % (34.0-46.0); HGB 11.7 gm/dL (11.4-16.0); Lymphocytes # (A) 1.7 k/uL (1.0-4.8); Lymphocytes % (A) 23 %; MCH 28.7 pg (25.0-35.0); MCHC 32.6 g/dL (31.0-37.0); MCV 88.2 fL (80.0-100.0); Monocytes # (A) 0.4 k/uL (0-1.0); Monocytes % (A) 6 %; Neutrophils # (A) 4.8 k/uL (1.3-7.7); Neutrophils % (A) 66 %; Platelet Count 193 k/uL (150-450); RBC 4.07 m/uL (3.80-5.40); RDW 13.9 % (11.5-15.5); WBC 7.3 k/uL (3.8-10.6)
[2017-10-24] MEDS ORDERED: PANTOPRAZOLE 40 MG TABLET PO SCH (07:30)
[2017-10-24] MEDS: SODIUM CHLORIDE 0.9% 1,000 ML IV SCH ×2 (09:16→15:47)
[2017-10-24] MEDS: metroNIDAZOLE-NS PMX 500 MG in SALINE 1 100ML.BAG IVPB SCH ×2 (09:17→15:47)
[2017-10-24] MEDS: METOPROLOL TARTRATE 50 MG TAB PO SCH (09:18)
[2017-10-24] MEDS: LISINOPRIL 20 MG TAB PO SCH (10:46)
--- NOTE | 2017-10-24 12:51 | P.PN ---
<Linda Lopez M - Last Filed: 10/24/17 12:47> Subjective Progress Note Date: 10/24/17 77-year-old female sitting up in bed states is tolerating a diet no abdominal pain "has, no nausea no vomiting. States anxious to be discharged home afebrile Objective - Vital Signs Vital signs: Vital Signs Temp 98.2 F 10/24/17 06:13 Pulse 77 10/24/17 06:13 Resp 16 10/24/17 06:13 BP 172/83 10/24/17 06:13 Pulse Ox 91 L 10/24/17 06:13 Intake & Output 10/23/17 10/24/17 10/24/17 18:59 06:59 18:59 Intake Total 100 Balance 100 Intake: Intake, IV Titration 100 Amount metroNIDAZOLE-NS PMX 500 100 mg In Saline 1 100ml.bag @ 100 mls/hr IVPB Q8H RICKIE Rx#:[id number] Other: Voiding Method Toilet Toilet Toilet # Voids 1 # Bowel Movements 1 - Exam Physical exam 77-year-old female sitting up in bed appears in no acute distress no fever chills Lungs adequate air movement bilaterally on room air Heart S1-S2 audible regular Abdomen soft nontender states no abdominal pain no nausea no vomiting no frequent stooling Extremities no edema - Labs CBC & Chem 7: 10/24/17 07:16 10/22/17 14:55 Labs: Microbiology - Last 24 Hours (Table) 10/20/17 20:27 Stool Culture - Final Stool 10/20/17 20:00 Blood Culture - Preliminary Blood No Growth after 72 hours Assessment and Plan Assessment: Impression Present on admission abdominal pain bloating suspect due to diverticulosis Computed tomography scan abdomen and pelvis show moderately severe sigmoid diverticulosis Computed tomography scan abdomen and pelvis moderate left-sided colon diverticulosis with diffuse inflammatory changes involving the descending colon consistent with colitis or diverticulitis no abscess Present on admission leukocytosis likely reactive resolved Present on admission tachycardia likely reactive resolved Plan From a surgical perspective felt to be appropriate to be discharged home defer to the timing to the attending DVT and GI prophylaxis Surgical consultation note dictated for Dr. Garcia The above impression and plan of care have been discussed and directed by signing physician. Linda Lopez nurse practitioner acting as scribe for signing physician. <Radha,Gloria N - Last Filed: 10/24/17 21:39> Objective - Vital Signs Vital signs: Vital Signs Temp 97.7 F 10/24/17 14:04 Pulse 80 10/24/17 14:04 Resp 18 10/24/17 14:04 BP 132/76 10/24/17 14:04 Pulse Ox 95 10/24/17 14:04 Intake & Output 10/24/17 10/24/17 10/25/17 06:59 18:59 06:59 Weight 99.79 kg Other: Voiding Method Toilet Toilet # Voids 1 4 # Bowel Movements 1 1 - Labs CBC & Chem 7: 10/24/17 07:16 10/22/17 14:55 Labs: Microbiology - Last 24 Hours (Table) 10/20/17 20:27 Stool Culture - Final Stool 10/20/17 20:00 Blood Culture - Preliminary Blood No Growth after 72 hours Assessment and Plan (1) Diverticulitis Status: Acute Code(s): K57.92 - DVTRCLI OF INTEST, PART UNSP, W/O PERF OR ABSCESS W/O BLEED SNOMED Code(s): 628781461
[2017-10-24 15:39] VITALS: BP 132/76; PULSE 80; RESP 18; TEMP 97.7
[2017-10-24] MEDS ORDERED: LEVOFLOXACIN 500 MG TAB PO SCH (16:00)
== END 2017-10-24 16:25 | disposition home or self-care (01) | DRG 379 ==
LOC: EC 19:04 → 5MS5E 22:30
PROVIDERS: ADMIT Family Medicine; ATTEND Family Medicine
DX: K57.33 Diverticulitis of large intestine without perforation or abscess with bleeding (principal); E78.5 Hyperlipidemia, unspecified; I10 Essential (primary) hypertension; Z79.899 Other long term (current) drug therapy; Z82.49 Family history of ischemic heart disease and other diseases of the circulatory system; K52.9 Noninfective gastroenteritis and colitis, unspecified
CPT/HCPCS: 36415; 74018; 74177; 80053; 81001; 82150; 82272; 83605; 83630; 83690; 83735; 84439; 84443; 85025; 87040; 87045; 87046; 87077; 87086; 87186; 87324; 93005; 96361; 96365; 99285

== ENCOUNTER → 2018-01-23 | Outpatient (CLI) | payer MEDICARE ==
--- NOTE | 2018-01-23 13:34 | MM ---
Reason for exam: additional evaluation requested from prior study. Last mammogram was performed 1 year and 2 months ago. History: Patient is postmenopausal and has history of breast cancer at age 50. Family history of premenopausal breast cancer in mother at age 40. Mastectomy of the right breast, July 29, 2002. Malignant lumpectomy of the right breast, July 12, 2002. Benign stereotactic core biopsy of the right breast, December 04, 2001. Core biopsy of the right breast. Excisional biopsy of the right breast. Physical Findings: Nurse did not find any significant physical abnormalities on exam. MG 3D Diag Mammo W/Cad LT CC and MLO view(s) were taken of the left breast. Prior study comparison: December 03, 2016, left breast MG 3d diag mammo w/cad LT. November 30, 2015, left breast MG diagnostic mammo LT w CAD. The breast tissue is heterogeneously dense. This may lower the sensitivity of mammography. Stable benign calcifications. Stable spiculation left breast from prior biopsy. These results were verbally communicated with the patient and result sheet given to the patient on 01/23/18. ASSESSMENT: Benign, BI-RAD 2 RECOMMENDATION: Follow-up diagnostic mammogram of the left breast in 1 year.
== END | disposition home or self-care (01) ==
LOC: RADMAMWWP 12:41
PROVIDERS: ATTEND Student in an Organized Health Care Education/Training Program
DX: Z08 Encounter for follow-up examination after completed treatment for malignant neoplasm (principal); Z85.3 Personal history of malignant neoplasm of breast
CPT/HCPCS: 77065; G0279; 77061

== ENCOUNTER → 2018-03-24 | Outpatient (CLI) | payer MEDICARE ==
--- NOTE | 2018-03-24 14:25 | BD ---
EXAMINATION TYPE: Axial Bone Density DATE OF EXAM: 03/24/2018 COMPARISON: NONE CLINICAL HISTORY: Postmenopausal female. Osteoporosis screening. Height: 5 FT 2 1/4 IN Weight: 225 FRAX RISK QUESTIONS: Secondary Osteoporosis: 3. Menopause before 45: YES RISK FACTORS HISTORY OF: Active: YES Postmenopausal woman: AGE 37 MEDICATIONS: Additional Medications: HEART MEDS, CHOLESTEROL MEDS, BLOOD PRESSURE MEDS Additional History: EXAM MEASUREMENTS: Bone mineral densitometry was performed using the [employer] System. Bone mineral density as measured about the Lumbar spine is: ----- L1-L4(G/cm2): 0.984 T Score Values are as follows: ----- L2: -2.2 ----- L3: -1.2 ----- L4: -1.3 ----- L1-L4: -1.6 Bone mineral density has: INCREASED 4.6 % since study of: 2013 Bone mineral density about the R hip (g/cm2): 0.855 Bone mineral density about the L hip (g/cm2): 0.824 T Score values are as follows: -----R Neck: -1.3 -----L Neck: -1.5 -----R Total: -0.7 -----L Total: -0.7 Bone mineral density has: DECREASED -4.9 % since study of: 2013 IMPRESSION: Osteopenia (T Score between -2.5 and -1). There is slightly increased risk of fracture and the patient may be considered for treatment. Re-Screen 2-5 years. NOTE: T-SCORE=SD OF THE YOUNG ADULT MEAN.
== END | disposition home or self-care (01) ==
LOC: RADBDWWP 12:09
PROVIDERS: ATTEND Family Medicine
DX: M85.80 Other specified disorders of bone density and structure, unspecified site (principal); N95.1 Menopausal and female climacteric states
CPT/HCPCS: 77080

== ENCOUNTER → 2019-01-28 | Outpatient (CLI) | payer MEDICARE ==
--- NOTE | 2019-01-28 08:28 | MM ---
Reason for exam: additional evaluation requested from prior study. Last mammogram was performed 1 year ago. History: Patient is postmenopausal and has history of breast cancer at age 50. Family history of premenopausal breast cancer in mother at age 40. Excisional biopsy of the right breast, 2017. Mastectomy of the right breast, July 29, 2002. Malignant lumpectomy of the right breast, July 12, 2002. Benign stereotactic core biopsy of the right breast, December 04, 2001. Core biopsy of the right breast. Physical Findings: Nurse did not find any significant physical abnormalities on exam. MG 3D Diag Mammo W/Cad LT CC and MLO view(s) were taken of the left breast. Prior study comparison: January 23, 2018, left breast MG 3d diag mammo w/cad LT. December 03, 2016, left breast MG 3d diag mammo w/cad LT. The breast tissue is heterogeneously dense. This may lower the sensitivity of mammography. Benign similar appearing bilateral calcifications. No suspicious abnormality. Left post surgical change. These results were verbally communicated with the patient and result sheet given to the patient on 01/28/19. ASSESSMENT: Benign, BI-RAD 2 RECOMMENDATION: Follow-up diagnostic mammogram of the left breast in 1 year.
== END ==
LOC: RADMAMWWP 07:28
PROVIDERS: ATTEND Student in an Organized Health Care Education/Training Program
DX: R92.8 Other abnormal and inconclusive findings on diagnostic imaging of breast (principal)
CPT/HCPCS: 77065; G0279; 77061

== ENCOUNTER → 2020-03-28 | Outpatient (CLI) | payer MEDICARE ==
--- NOTE | 2020-03-28 09:55 | MM ---
Reason for exam: additional evaluation requested from abnormal screening. Last mammogram was performed 1 year and 2 months ago. History: Patient is postmenopausal and has history of breast cancer at age 50. Family history of premenopausal breast cancer in mother at age 40. Excisional biopsy of the left breast, 2017. Mastectomy of the right breast, July 29, 2002. Malignant lumpectomy of the right breast, July 12, 2002. Benign stereotactic core biopsy of the right breast, December 04, 2001. Core biopsy of the right breast. Physical Findings: Nurse did not find any significant physical abnormalities on exam. MG 3D Diag Mammo W/Cad LT CC and MLO view(s) were taken of the left breast. Prior study comparison: January 28, 2019, left breast MG 3d diag mammo w/cad LT. January 23, 2018, left breast MG 3d diag mammo w/cad LT. The breast tissue is heterogeneously dense. This may lower the sensitivity of mammography. There is chronic nodularity in the left breast laterally. Benign vascular calcifications. Stable post surgical scar central CC view. No significant new findings when compared with previous films. These results were verbally communicated with the patient and result sheet given to the patient on 03/28/20. ASSESSMENT: Benign, BI-RAD 2 RECOMMENDATION: Follow-up diagnostic mammogram of the left breast in 1 year.
== END | disposition home or self-care (01) ==
LOC: RADMAMWWP 08:33
PROVIDERS: ATTEND Student in an Organized Health Care Education/Training Program
DX: R92.8 Other abnormal and inconclusive findings on diagnostic imaging of breast (principal); Z85.3 Personal history of malignant neoplasm of breast
CPT/HCPCS: 77065; G0279; 77061

== ENCOUNTER → 2021-04-03 | Outpatient (CLI) | payer MEDICARE ==
--- NOTE | 2021-04-03 11:37 | MM ---
Reason for exam: additional evaluation requested from prior study. Last mammogram was performed 1 year ago. History: Patient is postmenopausal and has history of breast cancer at age 50. Family history of premenopausal breast cancer in mother at age 40. Excisional biopsy of the left breast, 2017. Mastectomy of the right breast, July 29, 2002. Malignant lumpectomy of the right breast, July 12, 2002. Benign stereotactic core biopsy of the right breast, December 04, 2001. Core biopsy of the right breast. Physical Findings: Nurse did not find any significant physical abnormalities on exam. MG 3D Diag Mammo W/Cad LT CC and MLO view(s) were taken of the left breast. Prior study comparison: March 28, 2020, left breast MG 3d diag mammo w/cad LT. January 28, 2019, left breast MG 3d diag mammo w/cad LT. There are scattered fibroglandular densities. There are benign appearing vascular calcifications in the left breast. No significant new findings when compared with previous films. These results were verbally communicated with the patient and result sheet given to the patient on 04/03/21. ASSESSMENT: Benign, BI-RAD 2 RECOMMENDATION: Follow-up diagnostic mammogram of the left breast in 1 year.
== END | disposition home or self-care (01) ==
LOC: RADMAMWWP 10:42
PROVIDERS: ATTEND Student in an Organized Health Care Education/Training Program
DX: Z85.3 Personal history of malignant neoplasm of breast (principal)
CPT/HCPCS: 77065; G0279; 77061

== ENCOUNTER → 2022-03-15 | Outpatient (CLI) | payer MEDICARE ==
--- NOTE | 2022-03-15 08:29 | MM ---
Reason for Exam: Additional evaluation requested from prior study. Last screening mammogram was performed 12 month(s) ago. Patient History: Menarche at age 13. First Full-Term at age 17. Postmenopausal. Breast cancer, right, age 50. Core Biopsy on the Right side. 2017, Excisional Biopsy on the Left side. 07/12/2002, Malignant Lumpectomy on the right side. 07/29/2002, Mastectomy on the Right side. 12/04/2001, Benign Stereotactic Core Biopsy on the right side. Mother had breast cancer, age 40. Prior Study Comparison: 01/28/2019 Left Diagnostic Mammogram, [facility]. 03/28/2020 Left Diagnostic Mammogram, [facility]. 04/03/2021 Left Diagnostic Mammogram, [facility]. Tissue Density: Left: The breast tissue is heterogeneously dense. This may lower the sensitivity of mammography. Findings: Analyzed By CAD. Distortion left breast from prior excisional biopsy. Benign punctate and vascular calcifications. No evidence for mass. Overall Assessment: Benign, BI-RAD 2 Management: Diagnostic Mammogram of the left breast in 1 year. A clinical breast exam by your physician is recommended on an annual basis and results should be correlated with mammographic findings. This exam should not preclude additional follow-up of suspicious palpable abnormalities. Results were given to the patient verbally at the time of exam. Electronically signed and approved by: Garrett Roy M.D. Radiologis
== END | disposition home or self-care (01) ==
LOC: RADMAMWWP 07:52
PROVIDERS: ATTEND Family Medicine
DX: Z85.3 Personal history of malignant neoplasm of breast (principal); Z78.0 Asymptomatic menopausal state; Z80.3 Family history of malignant neoplasm of breast
CPT/HCPCS: 77065; G0279; 77061

== ENCOUNTER 2022-11-10 16:00 | Emergency (ER) | payer MEDICARE ==
[2022-11-10 16:27] VITALS: TEMP 99.1
[2022-11-10] MEDS ORDERED: SULFAMETHOX-TMP 800-160MG 1 EACH TAB PO STA (17:17)
--- NOTE | 2022-11-10 17:18 | ED ---
Extremity Problem HPI - General Chief complaint: Extremity Problem,Nontraumatic Stated complaint: infection on feet Time Seen by Provider: 11/10/22 16:51 Source: patient Mode of arrival: ambulatory Limitations: no limitations - History of Present Illness Initial comments: This patient is an 82-year-old woman who presents evaluation of redness and swelling to her left foot. She states that the symptoms seem to be getting worse and have been present for nearly a week now. She has not noted fevers. No chest pain, dyspnea, or other systemic symptoms. No proximal symptoms of the leg, calf pain or other symptoms. MD Complaint: extremity swelling Onset/Timin -: week(s) Location: left Radiation: none Quality: burning Consistency: constant Improves with: nothing Worsens with: nothing Associated Symptoms: denies other symptoms - Related Data Home Medications Medication Instructions Recorded Confirmed Metoprolol Tartrate 25 mg PO BID 10/20/17 11/10/22 Simvastatin [Zocor] 20 mg PO W/SUPPER 10/20/17 11/10/22 lisinopriL [Zestril] 20 mg PO DAILY 10/20/17 11/10/22 Budesonide 0.5 mg INHALATION RT-BID 11/10/22 11/10/22 Bumetanide [BUMEX] 2 mg PO DAILY 11/10/22 11/10/22 Ferrous Sulfate [Feosol] 325 mg PO DAILY 11/10/22 11/10/22 Ipratropium-Albuterol Nebulize 3 ml INHALATION RT-BID 11/10/22 11/10/22 [Duoneb 0.5 mg-3 mg/3 ml Soln] Potassium Chloride ER [K-Dur 20] 20 meq PO DAILY 11/10/22 11/10/22 Previous Rx's Medication Instructions Recorded Cephalexin [Keflex] 500 mg PO Q6HR #28 cap 11/10/22 Sulfamethox-Tmp 800-160Mg [Bactrim 2 each PO Q12HR #28 tab 11/10/22 Ds] Allergies Allergy/AdvReac Type Severity Reaction Status Date / Time No Known Allergies Allergy Verified 11/10/22 20:35 Review of Systems ROS Statement: Those systems with pertinent positive or pertinent negative responses have been documented in the HPI. ROS Other: All systems not noted in ROS Statement are negative. Constitutional: Denies: fever, chills, weakness Respiratory: Denies: cough, dyspnea Cardiovascular: Denies: chest pain, palpitations, edema Gastrointestinal: Denies: abdominal pain, vomiting Skin: Reports: as per HPI, change in color Neurological: Denies: weakness, numbness, paresthesias Past Medical History Past Medical History: Hyperlipidemia, Hypertension History of Any Multi-Drug Resistant Organisms: None Reported Past Surgical History: No Surgical Hx Reported Past Anesthesia/Blood Transfusion Reactions: No Reported Reaction Past Psychological History: No Psychological Hx Reported Smoking Status: Never smoker Past Alcohol Use History: Rare Past Drug Use History: None Reported - Past Family History Mother Family Medical History: Hypertension General Exam Limitations: no limitations General appearance: alert, in no apparent distress Head exam: Present: atraumatic, normocephalic Respiratory exam: Present: normal lung sounds bilaterally. Absent: respiratory distress, wheezes, rales, rhonchi, stridor Cardiovascular Exam: Present: regular rate, normal rhythm, normal heart sounds. Absent: systolic murmur, diastolic murmur, rubs, gallop Extremities exam: Present: normal capillary refill. Absent: pedal edema, calf tenderness Neurological exam: Present: alert. Absent: motor sensory deficit (No sensory deficits throughout the left foot) Skin exam: Present: warm, dry, erythema (The patient does have cellulitis to the left foot. It is not circumferential. There is no ulceration or purulent drainage.) Course Vital Signs 11/10/22 11/10/22 16:24 19:56 Temperature 99.1 F Pulse Rate 80 70 Respiratory 18 20 Rate Blood Pressure 116/63 130/80 O2 Sat by Pulse 95 99 Oximetry Medical Decision Making - Medical Decision Making Was pt. sent in by a medical professional or institution (, PA, NEUROPSYCHOLOGY SERVICE DIRECTOR, urgent care, hospital, or senior living...) When possible be specific @ -[No] Did you speak to anyone other than the patient for history (EMS, parent, family, police, friend...)? What history was obtained from this source @ -[No] Did you review nursing and triage notes (agree or disagree)? Why? @ -[I reviewed and agree with nursing and triage notes] Were old charts reviewed (outside hosp., previous admission, EMS record, old EKG, old radiological studies, urgent care reports/EKG's, senior living records)? Report findings @ -[No old charts were reviewed] Differential Diagnosis (chest pain, altered mental status, abdominal pain women, abdominal pain men, vaginal bleeding, weakness, fever, dyspnea, syncope, headache, dizziness, GI bleed, back pain, seizure, CVA, palpatations, mental health, musculoskeletal)? @ -[Differential diagnosis for the patient's foot symptoms includes cellulitis, other soft tissue infection, osteomyelitis, vasculitis, dermatitis or other rash EKG interpreted by me (3pts min.). @ -[ X-rays interpreted by me (1pt min.). @ -[None done] CT interpreted by me (1pt min.). @ -[None done] U/S interpreted by me (1pt. min.). @ -[None done] What testing was considered but not performed or refused? (CT, X-rays, U/S, labs)? Why? @ -[None] What meds were considered but not given or refused? Why? @ -[None] Did you discuss the management of the patient with other professionals (professionals i.e. , PA, NEUROPSYCHOLOGY SERVICE DIRECTOR, lab, RT, psych nurse, home health care social worker, pattern designer, teacher, correction officer city or county jail, child support case officer)? Give summary @ -[No] Was smoking cessation discussed for >3mins.? @ -[No] Was critical care preformed (if so, how long)? @ -[No] Were there social determinants of health that impacted care today? How? (Homelessness, low income, unemployed, alcoholism, drug addiction, transportation, low edu. Level, literacy, decrease access to med. care, long-term, rehab)? @ -[No] Was there de-escalation of care discussed even if they declined (Discuss DNR or withdrawal of care, Hospice)? DNR status @ -[No] What co-morbidities impacted this encounter? (DM, HTN, Smoking, COPD, CAD, Cancer, CVA, ARF, Chemo, Hep., AIDS, mental health diagnosis, sleep apnea, morbid obesity)? @ -[None] Was patient admitted / discharged? Hospital course, mention meds given and route, prescriptions, significant lab abnormalities, going to OR and other pertinent info. @ -[Patient is a 82-year-old woman with early cellulitis of left foot. We discussed appropriate further care and follow-up, the outpatient course and that she should have a low threshold to return here if she is not seeing rapid improvement or if there is any worsening at all. Undiagnosed new problem with uncertain prognosis? @ -[No] Drug Therapy requiring intensive monitoring for toxicity (Heparin, Nitro, Insulin, Cardizem)? @ -[No] Were any procedures done? @ -[No] Diagnosis/symptom? @ -Acute foot cellulitis Acute, or Chronic, or Acute on Chronic? @ -[Acute Uncomplicated (without systemic symptoms) or Complicated (systemic symptoms)? @ -[Uncomplicated Side effects of treatment? @ -[No] Exacerbation, Progression, or Severe Exacerbation? @ -[No] Poses a threat to life or bodily function? How? (Chest pain, [place], [place], pneumonia, PE, COPD, DKA, ARF, appy, cholecystitis, CVA, Diverticulitis, Homicidal, Suicidal, threat to staff... and all critical care pts) @ -[No] Disposition Clinical Impression: Cellulitis Disposition: HOME SELF-CARE Condition: Good Instructions (If sedation given, give patient instructions): Cellulitis (ED) Prescriptions: Sulfamethox-Tmp 800-160Mg [Bactrim Ds] 2 each PO Q12HR #28 tab Cephalexin [Keflex] 500 mg PO Q6HR #28 cap Is patient prescribed a controlled substance at d/c from ED?: No Referrals: Brandon Hardwick MD [Primary Care Provider] - 1-2 days
[2022-11-10 20:00] VITALS: BP 130/80; PULSE 70; RESP 20
== END 2022-11-10 20:09 | disposition home or self-care (01) ==
LOC: EC 16:00
DX: L03.116 Cellulitis of left lower limb (principal); I10 Essential (primary) hypertension; E78.5 Hyperlipidemia, unspecified; Z79.899 Other long term (current) drug therapy
CPT/HCPCS: 99283; 96365; J0690

== ENCOUNTER → 2023-01-21 | Outpatient (CLI) | payer MEDICARE ==
--- NOTE | 2023-01-21 12:00 | XR ---
EXAMINATION TYPE: XR knee complete LT DATE OF EXAM: 01/21/2023 COMPARISON: None HISTORY: Pain x6-7 months TECHNIQUE: 3 view left knee FINDINGS: There is narrowing of the medial compartment joint space. Milder narrowing of the lateral c ompartment joint space is evident. Meniscal calcification is present. Small joint effusion may be pre sent. Posterior superior patellar spurring is present. IMPRESSION: 1. Moderate degenerative changes left knee 2. Suggestion of small joint effusion
== END | disposition home or self-care (01) ==
LOC: RADXRMAIN 10:10
PROVIDERS: ATTEND Family Medicine
DX: M17.12 Unilateral primary osteoarthritis, left knee (principal); M25.462 Effusion, left knee

== ENCOUNTER → 2023-03-17 | Outpatient (CLI) | payer MEDICARE ==
--- NOTE | 2023-03-17 10:23 | MM ---
Reason for Exam: Follow-up at short interval from prior study. Last screening mammogram was performed 12 month(s) ago. Patient History: Menarche at age 13. First Full-Term at age 17. Postmenopausal. Breast cancer, right, age 50. Core Biopsy on the Right side. 2017, Excisional Biopsy on the Left side. 07/12/2002, Malignant Lumpectomy on the right side. 07/29/2002, Mastectomy on the Right side. 12/04/2001, Benign Stereotactic Core Biopsy on the right side. Prior Study Comparison: 03/28/2020 Left Diagnostic Mammogram, [facility]. 04/03/2021 Left Diagnostic Mammogram, [facility]. 03/15/2022 Left MG 3D diag mammo w/cad , [facility]. Tissue Density: Left: The breast tissue is heterogeneously dense. This may lower the sensitivity of mammography. Findings: Analyzed By CAD. Stable postoperative distortion left breast. No evidence for mass. No suspicious calcifications identified calcifications redemonstrated. Overall Assessment: Benign, BI-RAD 2 Management: Screening Mammogram of the left breast in 1 year. . Results were given to the patient verbally at the time of exam. Patient should continue monthly self-breast exams. A clinical breast exam by your physician is recommended on an annual basis. This exam should not preclude additional follow-up of suspicious palpable abnormalities. Note on Hyacinth scores and lifetime risk: 1. A Hyacinth score greater than 3% is considered moderate risk. If this is the case, consider specialist referral to assess eligibility for a risk reducing agent. 2. If overall lifetime risk for the development of breast cancer is 20% or higher, the patient may qualify for future screening with alternating mammogram and breast MRI. Electronically signed and approved by: Garrett Roy M.D. Radiologis
== END | disposition home or self-care (01) ==
LOC: RADMAMWWP 10:01
PROVIDERS: ATTEND Family Medicine
DX: R92.332 Mammographic heterogeneous density, left breast (principal); Z85.3 Personal history of malignant neoplasm of breast; Z78.0 Asymptomatic menopausal state
CPT/HCPCS: 77065; G0279; 77061

== ENCOUNTER 2023-10-14 07:51 | Inpatient (IN) | payer MEDICARE ==
--- NOTE | 2023-10-14 08:05 | ED ---
General Adult HPI - General Chief complaint: Chest Pain Stated complaint: chest pain Time Seen by Provider: 10/14/23 07:53 Source: patient, RN notes reviewed, old records reviewed (No history of A-fib) Mode of arrival: ambulatory Limitations: no limitations - History of Present Illness Initial comments: Patient is a 83-year-old female presents to the emergency department with concerns with chest discomfort. Onset of symptoms was 2 or 3 days ago. Sym ptoms have been intermittent. Discomfort is currently 5/10. Discomfort feels like an ache. Patient does have some palpitations. Heart rate has been as high as 114. Patient does have some associated dyspnea. Patient denies leg swelling. No calf pain. No history of similar symptoms previously. - Related Data Home Medications Medication Instructions Recorded Confirmed Metoprolol Tartrate 25 mg PO BID 10/20/17 11/10/22 Simvastatin [Zocor] 20 mg PO W/SUPPER 10/20/17 11/10/22 lisinopriL [Zestril] 20 mg PO DAILY 10/20/17 11/10/22 Budesonide 0.5 mg INHALATION RT-BID 11/10/22 11/10/22 Bumetanide [BUMEX] 2 mg PO DAILY 11/10/22 11/10/22 Ferrous Sulfate [Feosol] 325 mg PO DAILY 11/10/22 11/10/22 Ipratropium-Albuterol Nebulize 3 ml INHALATION RT-BID 11/10/22 11/10/22 [Duoneb 0.5 mg-3 mg/3 ml Soln] Potassium Chloride ER [K-Dur 20] 20 meq PO DAILY 11/10/22 11/10/22 Previous Rx's Medication Instructions Recorded Cephalexin [Keflex] 500 mg PO Q6HR #28 cap 11/10/22 Sulfamethox-Tmp 800-160Mg [Bactrim 2 each PO Q12HR #28 tab 11/10/22 Ds] Allergies Allergy/AdvReac Type Severity Reaction Status Date / Time No Known Allergies Allergy Verified 10/14/23 07:56 Review of Systems ROS Statement: Those systems with pertinent positive or pertinent negative responses have been documented in the HPI. ROS Other: All systems not noted in ROS Statement are negative. Constitutional: Denies: fever Eyes: Denies: eye pain ENT: Denies: ear pain Respiratory: Reports: as per HPI Cardiovascular: Reports: as per HPI, chest pain, palpitations Endocrine: Denies: fatigue Musculoskeletal: Denies: back pain Past Medical History Past Medical History: Hyperlipidemia, Hypertension History of Any Multi-Drug Resistant Organisms: None Reported Past Surgical History: Breast Surgery Past Anesthesia/Blood Transfusion Reactions: No Reported Reaction Past Psychological History: No Psychological Hx Reported Smoking Status: Never smoker Past Alcohol Use History: Rare Past Drug Use History: None Reported - Past Family History Mother Family Medical History: Hypertension General Exam Limitations: no limitations General appearance: alert, in no apparent distress Head exam: Present: normocephalic Eye exam: Present: normal appearance Neck exam: Present: normal inspection Respiratory exam: Present: normal lung sounds bilaterally Cardiovascular Exam: Present: regular rate, normal rhythm Expanded Peripheral pulses: 2+: Radial (R), Radial (L), Dorsalis Pedis (R), Dorsalis Pedis (L) GI/Abdominal exam: Present: soft. Absent: tenderness Extremities exam: Present: pedal edema. Absent: calf tenderness Neurological exam: Present: alert Psychiatric exam: Present: normal affect, normal mood Skin exam: Present: normal color Course Vital Signs 10/14/23 10/14/23 07:53 08:00 Temperature 97.6 F Pulse Rate 89 Pulse Rate [ 89 Medical Imaging Director ] Respiratory 18 Rate Blood Pressure 112/49 O2 Sat by Pulse 96 Oximetry EKG Findings - EKG Results: EKG: interpreted by ERMD, normal axis, normal QRS, normal ST/T EKG shows: atrial fibrillation Medical Decision Making - Medical Decision Making Was pt. sent in by a medical professional or institution (, PA, HVAC MANAGER, urgent care, hospital, or residential...) When possible be specific @ -No Did you speak to anyone other than the patient for history (EMS, parent, family, police, friend...)? What history was obtained from this source @ -No Did you review nursing and triage notes (agree or disagree)? Why? @ -I reviewed and agree with nursing and triage notes Were old charts reviewed (outside hosp., previous admission, EMS record, old EKG, old radiological studies, urgent care reports/EKG's, residential records)? Report findings @ -Previous charts reviewed without evidence of A-fib Differential Diagnosis (chest pain, altered mental status, abdominal pain women, abdominal pain men, vaginal bleeding, weakness, fever, dyspnea, syncope, headache, dizziness, GI bleed, back pain, seizure, CVA, palpatations, mental health, musculoskeletal)? @ -Differential Chest Pain: Stable Angina, Unstable Angina, STEMI, NSTEMI Aortic Dissection, Pneumothorax, Musculoskeletal, Esophageal Spasm GERD, Cholecystitis, Pancreatitis, Zoster, this is not meant to be an all-inclusive list. EKG interpreted by me (3pts min.). @ -As above X-rays interpreted by me (1pt min.). @ -Chest x-ray shows no acute process CT interpreted by me (1pt min.). @ -Consider CT scan however acute kidney injury with potential for significant kidney damage with contrast. Therefore echo and VQ scan will be ordered U/S interpreted by me (1pt. min.). @ -None done What testing was considered but not performed or refused? (CT, X-rays, U/S, labs)? Why? @ -Echo and VQ scan ordered What meds were considered but not given or refused? Why? @ -None Did you discuss the management of the patient with other professionals (professionals i.e. , PA, HVAC MANAGER, lab, RT, psych nurse, social services, burner technician, teacher, deputy probation officer, mattress spring encaser)? Give summary @ -Case discussed with Dr. Hardwick who will admit his patient with cardiology consult. Was smoking cessation discussed for >3mins.? @ -No Was critical care preformed (if so, how long)? @ -No Were there social determinants of health that impacted care today? How? (Homelessness, low income, unemployed, alcoholism, drug addiction, transportation, low edu. Level, literacy, decrease access to med. care, long term, rehab)? @ -No Was there de-escalation of care discussed even if they declined (Discuss DNR or withdrawal of care, Hospice)? DNR status @ -No What co-morbidities impacted this encounter? (DM, HTN, Smoking, COPD, CAD, Can cer, CVA, ARF, Chemo, Hep., AIDS, mental health diagnosis, sleep apnea, morbid obesity)? @ -None Was patient admitted / discharged? Hospital course, mention meds given and route, prescriptions, significant lab abnormalities, going to OR and other pertinent info. @ -Patient presents with chest discomfort. Patient does have A-fib on original EKG. On reevaluation monitor shows sinus rhythm. Patient is updated on results and plan. Patient will be admitted with echo, ultrasound of aorta and kidneys and perfusion scan. Admission orders written. Cardiology will be placed on consult. Patient will receive hydration and repeat renal function testing will be ordered. Undiagnosed new problem with uncertain prognosis? @ -No Drug Therapy requiring intensive monitoring for toxicity (Heparin, Nitro, Insulin, Cardizem)? @ -No Were any procedures done? @ -No Diagnosis/symptom? @ -Chest pain, A-fib, acute kidney injury Acute, or Chronic, or Acute on Chronic? @ -Acute, acute, acute Uncomplicated (without systemic symptoms) or Complicated (systemic symptoms)? @ -Default Side effects of treatment? @ -No Exacerbation, Progression, or Severe Exacerbation? @ -No Poses a threat to life or bodily function? How? (Chest pain, USA, NC, pneumonia, PE, COPD, DKA, ARF, appy, cholecystitis, CVA, Diverticulitis, Homicidal, Suicidal, threat to staff... and all critical care pts) @ -Potential for renal failure. Potential for cardiac dysfunction - Lab Data Result diagrams: 10/14/23 08:33 10/14/23 08:33 Lab Results 10/14/23 10/14/23 10/14/23 Range/Units 08:33 08:33 08:33 WBC 10.3 (3.8-10.6) k/uL RBC 3.71 L (3.80-5.40) m/uL Hgb 10.7 L (11.4-16.0) gm/dL Hct 33.0 L (34.0-46.0) % MCV 88.9 (80.0-100.0) fL MCH 28.9 (25.0-35.0) pg MCHC 32.5 (31.0-37.0) g/dL RDW 13.4 (11.5-15.5) % Plt Count 324 (150-450) k/uL MPV 7.7 Neutrophils % 76 % Lymphocytes % 13 % Monocytes % 8 % Eosinophils % 2 % Basophils % 1 % Neutrophils # 7.8 H (1.3-7.7) k/uL Lymphocytes # 1.4 (1.0-4.8) k/uL Monocytes # 0.8 (0-1.0) k/uL Eosinophils # 0.2 (0-0.7) k/uL Basophils # 0.1 (0-0.2) k/uL PT 10.0 (10.0-12.5) sec INR 0.9 (<1.2) APTT 23.2 (22.0-30.0) sec D-Dimer 6.68 H (<0.60) mg/L FEU Sodium 135 L (137-145) mmol/L Potassium 5.5 H (3.5-5.1) mmol/L Chloride 102 (98-107) mmol/L Carbon Dioxide 26 (22-30) mmol/L Anion Gap 7 mmol/L BUN 81 H (7-17) mg/dL Creatinine 1.83 H (0.52-1.04) mg/dL Est GFR (CKD-EPI)AfAm 29 (>60 ml/min/1.73 sqM) Est GFR (CKD-EPI)NonAf 25 (>60 ml/min/1.73 sqM) Glucose 118 H (74-99) mg/dL Calcium 9.2 (8.4-10.2) mg/dL Magnesium 2.2 (1.6-2.3) mg/dL Total Bilirubin 1.1 (0.2-1.3) mg/dL AST 22 (14-36) U/L ALT 15 (4-34) U/L Alkaline Phosphatase 68 (38-126) U/L Troponin I (0.000-0.034) ng/mL Total Protein 6.4 (6.3-8.2) g/dL Albumin 3.7 (3.5-5.0) g/dL 10/14/23 Range/Units 08:33 WBC (3.8-10.6) k/uL RBC (3.80-5.40) m/uL Hgb (11.4-16.0) gm/dL Hct (34.0-46.0) % MCV (80.0-100.0) fL MCH (25.0-35.0) pg MCHC (31.0-37.0) g/dL RDW (11.5-15.5) % Plt Count (150-450) k/uL MPV Neutrophils % % Lymphocytes % % Monocytes % % Eosinophils % % Basophils % % Neutrophils # (1.3-7.7) k/uL Lymphocytes # (1.0-4.8) k/uL Monocytes # (0-1.0) k/uL Eosinophils # (0-0.7) k/uL Basophils # (0-0.2) k/uL PT (10.0-12.5) sec INR (<1.2) APTT (22.0-30.0) sec D-Dimer (<0.60) mg/L FEU Sodium (137-145) mmol/L Potassium (3.5-5.1) mmol/L Chloride (98-107) mmol/L Carbon Dioxide (22-30) mmol/L Anion Gap mmol/L BUN (7-17) mg/dL Creatinine (0.52-1.04) mg/dL Est GFR (CKD-EPI)AfAm (>60 ml/min/1.73 sqM) Est GFR (CKD-EPI)NonAf (>60 ml/min/1.73 sqM) Glucose (74-99) mg/dL Calcium (8.4-10.2) mg/dL Magnesium (1.6-2.3) mg/dL Total Bilirubin (0.2-1.3) mg/dL AST (14-36) U/L ALT (4-34) U/L Alkaline Phosphatase (38-126) U/L Troponin I <0.012 (0.000-0.034) ng/mL Total Protein (6.3-8.2) g/dL Albumin (3.5-5.0) g/dL Disposition Clinical Impression: Chest pain, Acute kidney injury Disposition: ADMITTED IP TO THIS [facility] Condition: Serious Is patient prescribed a controlled substance at d/c from ED?: No Referrals: Brandon Hardwick MD [Primary Care Provider] - 1-2 days Time of Disposition: 09:55
[2023-10-14] MEDS: NITROGLYCERIN OINT 1 INCH/GM PACKET TOPICAL STA (08:23)
[2023-10-14] MEDS: ASPIRIN 81 MG PO STA (08:23)
[2023-10-14 08:44] LABS: Basophils # (A) 0.1 k/uL (0-0.2); Basophils % (A) 1 %; Eosinophils # (A) 0.2 k/uL (0-0.7); Eosinophils % (A) 2 %; HGB 10.7 gm/dL (11.4-16.0); Lymphocytes # (A) 1.4 k/uL (1.0-4.8); Lymphocytes % (A) 13 %; MCH 28.9 pg (25.0-35.0); MCHC 32.5 g/dL (31.0-37.0); MCV 88.9 fL (80.0-100.0); Mean Platelet Volume 7.7; Monocytes # (A) 0.8 k/uL (0-1.0); Monocytes % (A) 8 %; Neutrophils # (A) 7.8 k/uL (1.3-7.7); Neutrophils % (A) 76 %; Platelet Count 324 k/uL (150-450); RBC 3.71 m/uL (3.80-5.40); RDW 13.4 % (11.5-15.5); WBC 10.3 k/uL (3.8-10.6)
[2023-10-14 08:48] LABS: ALT 15 U/L (4-34); AST 22 U/L (14-36); African American GFR (CKD) 29 (>60 ml/min/1.73 sqM); Albumin 3.7 g/dL (3.5-5.0); Alkaline Phosphatase 68 U/L (38-126); Anion Gap 7 mmol/L; Blood Urea Nitrogen 81 mg/dL (7-17); Calcium 9.2 mg/dL (8.4-10.2); Carbon Dioxide 26 mmol/L (22-30); Chloride 102 mmol/L (98-107); Glucose 118 mg/dL (74-99); Magnesium 2.2 mg/dL (1.6-2.3); Non-African American GFR(CKD) 25 (>60 ml/min/1.73 sqM); Potassium 5.5 mmol/L (3.5-5.1); Sodium 135 mmol/L (137-145); Total Bilirubin 1.1 mg/dL (0.2-1.3); Total Protein 6.4 g/dL (6.3-8.2)
[2023-10-14 08:56] LABS: INR 0.9 (<1.2); Partial Thromboplastin Time 23.2 sec (22.0-30.0)
--- NOTE | 2023-10-14 09:15 | XR ---
EXAMINATION TYPE: XR chest 2V DATE OF EXAM: 10/14/2023 COMPARISON: NONE HISTORY: Shortness of breath TECHNIQUE: Frontal and lateral views of the chest are obtained. FINDINGS: Scattered senescent parenchymal changes noted. Hyperinflation compatible with COPD. No evidence for infiltrate. No evidence for atelectasis. Heart size is stable. Mediastinal structures are stable and grossly unremarkable. No evidence for hilar prominence. Degenerative changes dorsal spine. IMPRESSION: 1. No evidence for acute pulmonary disease.
[2023-10-14] MEDS ORDERED: NALOXONE 0.4 MG/ML 1 ML VIAL IV PRN (09:55)
--- NOTE | 2023-10-14 10:50 | US ---
EXAMINATION TYPE: US duplex aorta DATE OF EXAM: 10/14/2023 COMPARISON: NONE CLINICAL INDICATION: Female, 83 years old with history of chest pain; ER patient with chest pain TECHNIQUE: Multiple sonographic images of the abdominal aorta are obtained. FINDINGS: EXAM MEASUREMENTS: Abdominal Aorta: Proximal: 2.2 x 2.1cm Mid: obscured Distal: obscured Bifurcation: obscured PORTFOLIO ASSISTANT NOTES: Technical limitations due to patient's body habitus and large amount of overlyin g bowel gas. only proximal portion visualized IMPRESSION: Technically limited examination.
--- NOTE | 2023-10-14 10:51 | US ---
EXAMINATION TYPE: US kidneys/renal and bladder DATE OF EXAM: 10/14/2023 COMPARISON: NONE CLINICAL INDICATION: Female, 83 years old with history of charles; EXAM MEASUREMENTS: Right Kidney: 9.9 x 4.5 x 4.0 cm Left Kidney: 10.0 x 5.3 x 4.6 cm Right Kidney: anechoic lesion 1.6 x 1.8 x 1.9cm Left Kidney: no evidence of hydronephrosis Bladder: not fully distended Bilateral Jets seen: no incidental finding: abdominal ascites There is no evidence for hydronephrosis at this point in time. No nephrolithiasis is seen. No solid masses are identified. The urinary bladder is anechoic. Bilateral ureteral jets are seen. IMPRESSION: 1. Incidental ascites. 2. Simple cyst right kidney.
[2023-10-14] MEDS: SODIUM CHLORIDE 0.9% 1,000 ML IV SCH (11:20)
--- NOTE | 2023-10-14 13:17 | NM ---
EXAMINATION TYPE: NM pul vent and perfuse DATE OF EXAM: 10/14/2023 CLINICAL INDICATION: Female, 83 years old with history of dyspnea; COMPARISON: NONE TECHNIQUE: Utilizing inhalation of 38.9 mCi Tc 99m DTPA aerosol and intravenous injection of 5.23 mC i of Tc 99m MAA, ventilation and perfusion images are acquired post injection in multiple projections . FINDINGS: There is moderate matched defect at the left lower lobe. There is no evidence of mismatched defects. IMPRESSION: Moderate matched defect at the left lower lobe. Intermediate probability for pulmonary embolism.
--- NOTE | 2023-10-14 13:27 | P.CRDCN ---
History of Present Illness History of present illness: HISTORY OF PRESENT ILLNESS: This is a 83-year-old female with a past medical history significant for hypertension, hyperlipidemia, and morbid obesity. Patient follows in the office with Dr. Key. We have been asked to see the patient in consultation for chest pain and atrial fibrillation. Patient examined this afternoon in the nuclear department. Patient states she presented to the hospital with a chief complaint of dizziness. She states over the past week she has been having episodes of dizziness. She denies having any syncopal episodes. She also reports some chest pain underneath her left breast. She reports mild shortness of breath. She states that she had a viral infection with flulike symptoms about 2 weeks ago. EKG interpreted by computer revealed atrial fibrillation. However upon personal review EKG reveals sinus mechanism. The patient does report having kimberlyn e palpitations recently. She has no known history of atrial fibrillation. Patient was also found to have acute kidney injury with a creatinine of 1.83. Patient is prescribed Bumex and lisinopril on an outpatient basis. Patient states she has been taking a [employer] brand pain medication at night but she is unsure if this is an NSAID. DIAGNOSTICS: - EKG reveals sinus mechanism with no signs of acute ischemia. - Chest xray negative for acute process. - Laboratory data: WBC 10.3. Hemoglobin 10.7. Platelet count 324. D-dimer 6.68. Sodium 135. Potassium 5.5. BUN 81. Creatinine 1.83. Troponin negative x 1. - Current home cardiac medications include Bumex 0.5 mg twice a day, metoprolol titrate 25 mg twice a day, simvastatin 20 mg with dinner, lisinopril 20 mg daily, aspirin 81 mg daily. - Most recent echocardiogram obtained in January 2023 revealed ejection fraction 55%, moderate LVH, mild mitral regurgitation, mild tricuspid regurgitation - Cardiac catheterization history: February 2012 revealing normal coronary arteries -Patient underwent Lexiscan stress test in the office on September 09, 2023 which was negative for ischemia REVIEW OF SYSTEMS: At the time of my exam: CONSTITUTIONAL: Denies fever or chills. HEENT: Denies blurred vision, vision changes, or eye pain. Denies hemoptysis CARDIOVASCULAR: Denies chest pain. Denies orthopnea. Denies PND. Denies palpitations RESPIRATORY: Denies shortness of breath. GASTROINTESTINAL: Denies abdominal pain. Denies nausea or vomiting. HEMATOLOGIC: Denies bleeding disorders. GENITOURINARY: Denies any blood in urine. SKIN: Denies pruitis. Denies rash. PHYSICAL EXAM: VITAL SIGNS: Reviewed. GENERAL: Well-developed in no acute distress. HEENT: Head is normocephalic. Pupils are equal, round. Sclerae anicteric. Mucous membranes of the mouth are moist. Neck supple. No JVD or thyromegaly LUNGS: Respirations even and unlabored. Lungs essentially clear to auscultation bilaterally. HEART: Regular rate and rhythm. S1 and S2 heard. ABDOMEN: Soft. Nondistended. Nontender. EXTREMITIES: Normal range of motion. No clubbing or cyanosis. Peripheral pulses intact. Trace bilateral lower extremity edema NEUROLOGIC: Awake and alert. Oriented x 3. ASSESSMENT: Dizziness, rule out arrhythmia Chest pain with recent normal outpatient Lexiscan stress test in 09/2023 Home oxygen use at night Hyperkalemia Acute kidney injury Elevated D-dimer, rule out pulmonary embolism Atrial fibrillation, ruled out, EKG reveals sinus mechanism Normal coronary arteries, per cardiac catheterization 2011 Hypertension Hyperlipidemia Morbid obesity: BMI 45.7 PLAN: Obtain 2D echo to assess cardiac structure and function EKG interpreted by computer as atrial fibrillation. However upon personal review EKG reveals sinus mechanism. Continue telemetry monitoring VQ scan pending Hold Bumex and lisinopril secondary to acute kidney injury Hold potassium supplementation secondary to hyperkalemia Patient to receive 2-week event monitor at the time of discharge to rule out arrhythmia due to recent dizziness and palpitations Further recommendations pending patient course Nurse practitioner note has been reviewed by physician. Signing provider agrees with the documented findings, assessment, and plan of care documented by CONE TRUCKER as a scribe. Past Medical History Past Medical History: Hyperlipidemia, Hypertension History of Any Multi-Drug Resistant Organisms: None Reported Past Surgical History: Breast Surgery Past Anesthesia/Blood Transfusion Reactions: No Reported Reaction Past Psychological History: No Psychological Hx Reported Smoking Status: Never smoker Past Alcohol Use History: Rare Past Drug Use History: None Reported - Past Family History Mother Family Medical History: Hypertension Medications and Allergies Home Medications Medication Instructions Recorded Confirmed Type Metoprolol Tartrate 25 mg PO BID 10/20/17 10/14/23 History Simvastatin [Zocor] 20 mg PO W/SUPPER 10/20/17 10/14/23 History lisinopriL [Zestril] 20 mg PO DAILY 10/20/17 10/14/23 History Aspirin 81 mg PO DAILY 10/14/23 10/14/23 History Bumetanide [BUMEX] 0.5 mg PO BID 10/14/23 10/14/23 History Potassium Chloride [Klor-Con M10] 10 meq PO DAILY 10/14/23 10/14/23 History Allergies Allergy/AdvReac Type Severity Reaction Status Date / Time No Known Allergies Allergy Verified 10/14/23 10:00 Physical Exam Vitals: Vital Signs Temp Pulse Pulse Resp BP Pulse Ox 10/14/23 11:30 25 H 147/110 94 L 10/14/23 11:00 80 18 93 L 10/14/23 10:30 80 20 144/76 94 L 10/14/23 10:00 75 18 94 L 10/14/23 09:30 75 22 95 10/14/23 08:17 14 10/14/23 08:00 89 10/14/23 07:53 97.6 F 89 18 112/49 96 Intake and Output 10/13/23 10/14/23 10/14/23 22:59 06:59 14:59 Other: Weight 113.398 kg Results 10/14/23 08:33 10/14/23 08:33 Cardiac Enzymes 10/14/23 10/14/23 Range/Units 08:33 08:33 AST 22 (14-36) U/L Troponin I <0.012 (0.000-0.034) ng/mL Coagulation 10/14/23 Range/Units 08:33 PT 10.0 (10.0-12.5) sec APTT 23.2 (22.0-30.0) sec CBC 10/14/23 Range/Units 08:33 WBC 10.3 (3.8-10.6) k/uL RBC 3.71 L (3.80-5.40) m/uL Hgb 10.7 L (11.4-16.0) gm/dL Hct 33.0 L (34.0-46.0) % Plt Count 324 (150-450) k/uL Comprehensive Metabolic Panel 10/14/23 Range/Units 08:33 Sodium 135 L (137-145) mmol/L Potassium 5.5 H (3.5-5.1) mmol/L Chloride 102 (98-107) mmol/L Carbon Dioxide 26 (22-30) mmol/L BUN 81 H (7-17) mg/dL Creatinine 1.83 H (0.52-1.04) mg/dL Glucose 118 H (74-99) mg/dL Calcium 9.2 (8.4-10.2) mg/dL AST 22 (14-36) U/L ALT 15 (4-34) U/L Alkaline Phosphatase 68 (38-126) U/L Total Protein 6.4 (6.3-8.2) g/dL Albumin 3.7 (3.5-5.0) g/dL Current Medications Generic Name Dose Route Start Last Admin Trade Name Freq PRN Reason Stop Dose Admin Aspirin 81 mg 10/15/23 09:00 Aspirin 81 Mg PO DAILY RICKIE Atorvastatin Calcium 10 mg 10/14/23 17:30 Atorvastatin 10 Mg Tab PO W/SUPPER RICKIE Sodium Chloride 1,000 mls @ 75 mls/hr 10/14/23 10:00 10/14/23 11:20 Saline 0.9% IV 75 mls/hr .[id number] RICKIE Administration Metoprolol Tartrate 25 mg 10/14/23 21:00 Metoprolol Tartrate 25 Mg Tab PO BID RICKIE Naloxone HCl 0.2 mg 10/14/23 09:55 Naloxone 0.4 Mg/Ml 1 Ml Vial IV Q2M PRN Opioid Reversal Intake and Output 10/13/23 10/14/23 10/14/23 22:59 06:59 14:59 Other: Weight 113.398 kg Patient Weight 10/15/23 06:59 Weight 113.398 kg 10/14/23 08:33 10/14/23 08:33
[2023-10-14] MEDS ORDERED: HEPARIN SODIUM 1,000 UN/ML (10ML VL) IV PRN (16:43)
[2023-10-14] MEDS: ATORVASTATIN 10 MG TAB PO SCH (16:49)
[2023-10-14] MEDS: HEPARIN SOD,PORK IN 0.45% NACL 25,000 UNIT in 0.45% NACL 1 250ML.BAG IV SCH (16:50)
[2023-10-14] MEDS: HEPARIN SODIUM 1,000 UN/ML (10ML VL) IV ONE (16:56)
--- NOTE | 2023-10-14 18:29 | CA ---
Transthoracic Echo Report Name: Nelsy Perez Age: 83 Gender: F : 1940 Exam Date: 10/14/2023 11:26 Exam Location: [facility] Ht (in): 62 Wt (lb): 250 Ordering Physician: Edmar Franklin DO Attending/Referring Phys: Computer Support Specialist Dora Armenta RDCS Procedure CPT: Indications: cp, dyspnea, a fib Cardiac Hx: Technical Quality: Technically difficult study Contrast 1: Definity Total Dose (mL): 2 Contrast 2: Total Dose (mL): MEASUREMENTS (Male / Female) Normal Values 2D ECHO LV Diastolic Diameter PLAX 3.7 cm 4.2 - 5.9 / 3.9 - 5.3 cm LV Systolic Diameter PLAX 2.5 cm IVS Diastolic Thickness 1.8 cm 0.6 - 1.0 / 0.6 - 0.9 cm LVPW Diastolic Thickness 1.6 cm 0.6 - 1.0 / 0.6 - 0.9 cm LV Relative Wall Thickness 0.9 RV Internal Dim ED PLAX 3.3 cm M-MODE Aortic Root Diameter MM 2.7 cm LA Systolic Diameter MM 4.9 cm LA Ao Ratio MM 1.8 AV Cusp Separation MM 2.1 cm DOPPLER AV Peak Velocity 117.3 cm/s AV Peak Gradient 5.5 mmHg AV Mean Velocity 94.0 cm/s AV Mean Gradient 3.8 mmHg AV Velocity Time Integral 22.9 cm LVOT Peak Velocity 86.3 cm/s LVOT Peak Gradient 3.0 mmHg LVOT Velocity Time Integral 15.8 cm MV Area PHT 3.1 cm??? Mitral E Point Velocity 74.5 cm/s Mitral A Point Velocity 112.1 cm/s Mitral E to A Ratio 0.7 MV Deceleration Time 246.5 ms TR Peak Velocity 246.3 cm/s TR Peak Gradient 24.3 mmHg FINDINGS Left Ventricle Moderately increased left ventricular wall thickness. Left ventricular cavity size normal. Normal left ventricular systolic function with no obvious regional wall motion abnormalities. Left ventricular ejection fraction is estimated at 55-60 %. Grade 1 diastolic dysfunction. Right Ventricle Normal right ventricular size and function. Right ventricular systolic pressure within normal limits. Right Atrium Normal right atrial size. Left Atrium Normal left atrial size. Mitral Valve Structurally normal mitral valve. Mild mitral regurgitation. Mild mitral annular calcification. Aortic Valve Trileaflet aortic valve. No aortic valve stenosis or regurgitation. Tricuspid Valve Mild tricuspid regurgitation. Pulmonic Valve Pulmonic valve not well visualized. Pericardium No pericardial effusion. Aorta Mildly dilated proximal ascending aorta (tube). CONCLUSIONS LVH with preserved systolic function No regional wall motion abnormalities Previewed by: Dr. Anand Edwards MD (Electronically Signed) Final Date: 14 October 2023 18:28
--- NOTE | 2023-10-14 18:43 | CT ---
EXAMINATION TYPE: CT chest wo con DATE OF EXAM: 10/14/2023 COMPARISON: NONE HISTORY: cap/pe CT DLP: 450.6 mGycm. Automated Exposure Control for Dose Reduction was Utilized. TECHNIQUE: CT scan of the thorax is performed without IV contrast. FINDINGS: LUNGS: Mild bibasilar linear scarring and/or atelectasis. Small focus of consolidation and/or atelect asis in the anterior inferior right middle lobe axial image 35. No pleural effusion or pneumothorax s een bilaterally. MEDIASTINUM: Lack of IV contrast is noted to limit evaluation for mediastinal and especially hilar ad enopathy. There are no definitive greater than 1 cm mediastinal lymph nodes. Heart size upper limits of normal. Trace Pericardial effusion is seen. Coronary artery calcification is present. Ascending ao rta measures up to 4.1 cm in diameter coronal image 43. OTHER: Interperitoneal ascites is partially imaged. There is dextroconvex scoliosis centered in the m idthoracic spine. IMPRESSION: 1. Mild minimal bibasilar linear scarring and/or atelectasis. More focal consolidation/atelectasis in the anterior inferior right middle lobe. 2. Intraperitoneal ascites is partially imaged. Ascending aortic aneurysm up to 4.1 cm.
[2023-10-14] MEDS: METOPROLOL TARTRATE 25 MG TAB PO SCH (19:47)
[2023-10-14] MEDS: IPRATROPIUM-ALBUTEROL 3 ML NEB INHALATION SCH (20:50)
--- NOTE | 2023-10-15 03:20 | P.CNPUL ---
History of Present Illness Consult date: 10/15/23 Requesting physician: Brandon Hardwick Reason for consult: other (Possible PE) Chief complaint: Left-sided chest pain History of present illness: Patient is a 83-year-old white female with past medical history significant for hypertension, hyperlipidemia, morbid obesity, remote breast cancer with previous right-sided mastectomy. A pulmonary consult was placed for possible pulmonary embolism. Patient presents to emergency department yesterday morning complaining of 5 to 6 days of intermittent stabbing/aching left-sided chest pain localized to under her left breast. Pain rated as a 5 on a 10 point numerical scale. Not currently experiencing any pain. Not particularly reproducible. She does have some associated dyspnea, mostly on exertion. She does chronically wear 2 L of supplemental oxygen only at night. Denies any pre-existing chronic pulmonary disease processes. Of note, patient reports recent flulike symptoms that she just got over approximately 2 weeks ago. At this time, she was having frequent coughing and intermittent diarrhea. Denies any current infectious symptoms. Denies hemoptysis. She has been weak and occasionally dizzy when ambulating. Denies losing consciousness or passing out. D-dimer was elevated on arrival 6.68. She has acute kidney injury, unable to undergo CT angio PE protocol. She did have a VQ scan showing a matched defect at the left lower l obe and intermediate probability for pulmonary embolism. Based on this finding, patient was started on IV heparin protocol. Patient denies any previous personal or family history of DVT/PE. No recent trauma, surgeries, or hospitalizations. No current active malignancy. She does occasionally have bilateral lower extremity swelling, not particularly unilateral. She takes Bumex outpatient. A follow-up echocardiogram this admission demonstrated LVH with preserved systolic function of 55 to 60% and normal RVSP. A follow-up noncontrast CT of the chest shows mild minimal bibasilar linear scarring and/or atelectasis. No major observable abnormalities or focal consolidations in the left lower lobe. Incidental findings included a ascending aortic aneurysm measuring up to 4.1 cm and intraperitoneal ascites. CBC: WBC count 10.3, hemoglobin 10.7, hematocrit 33, platelets 324. CMP: Sodium 135, potassium 5.5, chloride 102, serum bicarb 26, BUN 81, creatinine 1.83, glucose 118. LFTs not elevated. Normal saline infusing at 75 mL/h. Troponin less than 0.012 x 3. EKG shows normal sinus rhythm without any obvious acute ischemic changes. She is currently resting comfortably on 2 L/min nasal cannula. SpO2 97%. No acute respiratory distress. Not tachycardic. No signs of hemodynamic compromise. Review of Systems REVIEW OF SYSTEMS: CONSTITUTIONAL: Denies any recent significant weight loss or weight gain. EYES: Denies change in vision. EARS, NOSE, MOUTH, THROAT: Denies headaches, denies sore throat. CARDIOVASCULAR: See HPI RESPIRATORY: See HPI GASTROINTESTINAL: Denies change in appetite, abdominal pain, nausea and vomiting, or diarrhea GENITOURINARY: Denies hematuria, denies infections. MUSKULOSKELETAL: Denies pain, denies swelling. INTEGUMENTARY: Denies rash, denies eczema. NEUROLOGICAL: Denies recent memory loss, no recent seizure activity. PSYCHIATRIC: Denies anxiety, denies depression. HEMATOLOGIC/LYMPHATIC: Denies anemia, denies enlarged lymph node Past Medical History Past Medical History: Cancer, Hyperlipidemia, Hypertension Additional Past Medical History / Comment(s): right breast mastectomy, History of Any Multi-Drug Resistant Organisms: None Reported Past Surgical History: Appendectomy, Breast Surgery, Tonsillectomy Past Anesthesia/Blood Transfusion Reactions: No Reported Reaction Past Psychological History: No Psychological Hx Reported Smoking Status: Never smoker Past Alcohol Use History: Rare Past Drug Use History: None Reported - Past Family History Mother Family Medical History: Hypertension Medications and Allergies Home Medications Medication Instructions Recorded Confirmed Type Metoprolol Tartrate 25 mg PO BID 10/20/17 10/14/23 History Simvastatin [Zocor] 20 mg PO W/SUPPER 10/20/17 10/14/23 History lisinopriL [Zestril] 20 mg PO DAILY 10/20/17 10/14/23 History Aspirin 81 mg PO DAILY 10/14/23 10/14/23 History Bumetanide [BUMEX] 0.5 mg PO BID 10/14/23 10/14/23 History Potassium Chloride [Klor-Con M10] 10 meq PO DAILY 10/14/23 10/14/23 History Allergies Allergy/AdvReac Type Severity Reaction Status Date / Time No Known Allergies Allergy Verified 10/14/23 10:00 Physical Exam Vitals: Vital Signs Temp Pulse Pulse Resp BP BP Pulse Ox 10/15/23 00:25 98.1 F 83 14 100/63 97 10/14/23 19:39 98.2 F 100 16 116/67 95 10/14/23 18:25 97.8 F 89 18 104/63 94 L 10/14/23 16:40 97.9 F 93 16 109/67 97 10/14/23 14:00 18 10/14/23 13:50 89 16 126/53 95 10/14/23 11:30 25 H 147/110 94 L 10/14/23 11:00 80 18 93 L 10/14/23 10:30 80 20 144/76 94 L 10/14/23 10:00 75 18 94 L 10/14/23 09:30 75 22 95 10/14/23 08:17 14 10/14/23 08:00 89 10/14/23 07:53 97.6 F 89 18 112/49 96 Intake and Output 10/14/23 10/14/23 10/15/23 14:59 22:59 06:59 Intake Total 483.152 Balance 483.152 Intake: Intake, IV Titration 123.152 Amount Heparin Sod,Pork in 0.45% 123.152 NaCl 25,000 unit In 0.45 % NaCl 1 250ml.bag @ 18 UNITS/KG/HR 20.412 mls/hr IV .[id number] [facility] Rx#: [id number] Oral 360 Other: Voiding Method Toilet # Voids 1 2 # Bowel Movements 0 Weight 113.398 kg 113.398 kg GENERAL EXAM: Alert, morbidly obese 83-year-old white female, comfortable in no apparent distress. HEAD: Normocephalic and atraumatic EYES: Normal reaction of pupils, equal size. NOSE: Clear with pink turbinates. THROAT: No erythema or exudates. NECK: No masses, no JVD. CHEST: No chest wall deformity. LUNGS: Equal air entry with no crackles, wheeze, rhonchi or dullness. On 2 L/min nasal cannula. No conversational dyspnea or accessory muscle use.. CVS: S1 and S2 normal with no audible murmur, regular rhythm. No extra heart sounds ABDOMEN: Distended abdomen, no appreciated hepatosplenomegaly, active bowel sounds, no guarding or rigidity. SPINE: No scoliosis or deformity SKIN: No rashes CENTRAL NERVOUS SYSTEM: No focal deficits, tone is normal in all 4 extremities. EXTREMITIES: There is no peripheral edema, clubbing, or cyanosis. Peripheral pulses are intact. Results - Laboratory Findings CBC and BMP: 10/15/23 07:42 10/15/23 07:42 PT/INR, D-dimer PT 10.0 sec (10.0-12.5) 10/14/23 08:33 INR 0.9 (<1.2) 10/14/23 08:33 D-Dimer 6.68 mg/L FEU (<0.60) H 10/14/23 08:33 Abnormal lab findings: Abnormal Labs 10/14/23 10/14/23 10/14/23 08:33 08:33 08:33 RBC 3.71 L Hgb 10.7 L Hct 33.0 L Neutrophils # 7.8 H APTT D-Dimer 6.68 H Sodium 135 L Potassium 5.5 H BUN 81 H Creatinine 1.83 H Glucose 118 H 10/14/23 22:19 RBC Hgb Hct Neutrophils # APTT 57.0 H D-Dimer Sodium Potassium BUN Creatinine Glucose - Diagnostic Findings Chest x-ray: image reviewed CT scan - chest: image reviewed Assessment and Plan Assessment: Possible left lower lobe pulmonary embolism, VQ scan showing a matched defect at the left lower lobe and intermediate probability for pulmonary embolism, c urrently on the high intensity IV heparin protocol. Follow-up CT of the chest without contrast shows mild bibasilar linear scarring and/or atelectasis. There is also likely some anterior right middle lobe atelectasis. No focal consolidations, pleural effusions, or pneumothoraces. Elevated D-dimer, 6.68 Atypical left-sided chest pain, possibly pleuritic Acute kidney injury Intraperitoneal ascites Ascending aortic aneurysm, measuring up to 4.1 cm History of hypertension History of hyperlipidemia Morbid obesity, with a BMI of 45.7 kg/m Remote history breast cancer, status post right-sided mastectomy, > 10 years ago Plan: Currently on 2 L of supplemental oxygen versus room air Hemodynamically stable Unable to completely rule out segmental or subsegmental PE Patient continues on the high intensity IV heparin protocol Obtain venous Doppler bilateral lower extremities Continue IV maintenance fluids Case will be discussed with my supervising physician, Dr. Lopez, and further recommendations are forthcoming. I have personally seen and examined the patient, performed the documentation and the assessment and plan as written. Number of minutes spent on the visit:20 On 10/15/2023, I am seeing this patient in a joint evaluation along with the nurse practitioner. In summary, the patient comes in with flulike illness, dehydration and acute kidney failure. The patient also experienced some pain across the left chest along the breast area. Not clearly pleuritic. CAT scan of the chest was done without contrast showed some mild bibasilar linear scarring/atelectasis. No areas of consolidation. Nevertheless, based on elevated D-dimer of 6.6, the patient was started on IV heparin. Doppler of the lower extremity has been negative. On today's evaluation, the patient is feeling better and her renal function is improving and the creatinine is down to 1.1 and the BUN is down to 63. She remains on IV heparin. CBC shows a WBC count of 10.8 with a hemoglobin 10.6 and a platelet count of 325. The patient is on Zithromax as an empiric antibiotic coverage. The patient remains on IV heparin. IV fluids are in the form of normal saline at rate of 75 cc an hour I intend to continue the IV heparin for now and as long as the patient renal function continues to improve, the patient will undergo a CTA of the chest in a.m. She was also complaining of some abdominal distention/constipation and the patient is going to undergo a CAT scan of the abdomen and pelvis today. General surgery is on the case. Will continue to follow. Echocardiogram shows no signi ficant RV dysfunction. Left ventricular ejection fraction is around 55 to 60%. No significant on the. Time with Patient: Greater than 30
--- NOTE | 2023-10-15 07:46 | US ---
EXAMINATION TYPE: US venous doppler duplex LE DATE OF EXAM: 10/15/2023 2:36 AM COMPARISON: NONE CLINICAL INDICATION: Female, 83 years old with history of rule out DVTS; Patient denies any signs, sy mptoms, or relevant history SIDE PERFORMED: Bilateral TECHNIQUE: The lower extremity deep venous system is examined utilizing real time linear array sonog donna with graded compression, doppler sonography and color-flow sonography. VESSELS IMAGED: Common Femoral Vein Deep Femoral Vein Greater Saphenous Vein * Femoral Vein Popliteal Vein Small Saphenous Vein * Proximal Calf Veins (* superficial vessels) Right Leg: Negative for DVT Left Leg: Negative for DVT IMPRESSION: Grayscale, color doppler, spectral doppler imaging performed of the deep veins of the lo wer extremities. There is normal flow, compressibility, vascular waveforms.
[2023-10-15 08:08] LABS: Basophils # (A) 0.1 k/uL (0-0.2); Basophils % (A) 1 %; Eosinophils # (A) 0.2 k/uL (0-0.7); Eosinophils % (A) 2 %; HCT 30.4 % (34.0-46.0); HGB 10.6 gm/dL (11.4-16.0); Lymphocytes % (A) 19 %; MCH 31.1 pg (25.0-35.0); MCHC 34.8 g/dL (31.0-37.0); MCV 89.4 fL (80.0-100.0); Mean Platelet Volume 7.5; Monocytes # (A) 0.8 k/uL (0-1.0); Monocytes % (A) 7 %; Neutrophils # (A) 7.6 k/uL (1.3-7.7); Neutrophils % (A) 70 %; Platelet Count 325 k/uL (150-450); RDW 13.5 % (11.5-15.5); WBC 10.8 k/uL (3.8-10.6)
[2023-10-15] MEDS: ASPIRIN 81 MG PO SCH (08:21)
[2023-10-15 09:21] LABS: AST 23 U/L (14-36); African American GFR (CKD) 53 (>60 ml/min/1.73 sqM); Albumin 3.5 g/dL (3.5-5.0); Anion Gap 7 mmol/L; Blood Urea Nitrogen 63 mg/dL (7-17); Calcium 9.8 mg/dL (8.4-10.2); Carbon Dioxide 23 mmol/L (22-30); Chloride 110 mmol/L (98-107); Glucose 123 mg/dL (74-99); Non-African American GFR(CKD) 46 (>60 ml/min/1.73 sqM); Sodium 140 mmol/L (137-145); Total Bilirubin 0.9 mg/dL (0.2-1.3); Total Protein 6.2 g/dL (6.3-8.2)
[2023-10-15 10:08] LABS: ALT 15 U/L (4-34); Alkaline Phosphatase 64 U/L (38-126)
--- NOTE | 2023-10-15 11:16 | HP ---
HISTORY AND PHYSICAL HISTORY OF PRESENT ILLNESS: Nelsy Perez is an 83-year-old white female who came in with some chest discomfort for 2 to 3 days, intermittent, feels like some palpitations. Heart rate went up to 114. Possible atrial fibrillation, but now is back in sinus rhythm. Denies any leg swelling. HOME MEDICINES: 1. Zocor 25 b.i.d. 2. Budesonide 0.5 b.i.d. 3. Bumex 2 mg daily. 4. Iron sulfate 325 daily. 5. DuoNeb b.i.d. 6. K-Dur 10 mEq daily. 7. Zocor 20 daily. ALLERGIES: Negative. REVIEW OF SYSTEMS: A 14-point review of systems, weakness, fatigue, some diarrhea, chest tightness. PAST MEDICAL HISTORY: Hypertension, dyslipidemia, breast surgery, hypertension. FAMILY HISTORY: PHYSICAL EXAMINATION: VITAL SIGNS: Temperature 97.6, pulse 87 to 89, blood pressure 112/49, and O2 96. HEENT: Head normocephalic, atraumatic. Pupils equal, round, reactive. LUNGS: Show normal breath sounds. CARDIOVASCULAR: S1, S2. EXTREMITIES: 2+ edema. PSYCH: Fair mood and affect. SKIN: Warm and dry. She has a little bit of respiratory distress and difficulty breathing and started her back on her breathing treatments, steroids. CAT scan of the chest has been done, is nondiagnostic. CTA may moderate amount and moderate probability we put her on IV heparin. Pulmonary has been consulted for possible PE. CT chest was done without contrast due to worsening renal function. She has a high D-dimer at 6.68. Sodium is 135, potassium 5.5 chest pain, acute kidney injury, dehydration, moderate, rule out PE chance with the abnormal V/Q scan and elevated D-dimer, put her on heparin drip in the meantime. Prognosis guarded. Continue home medicines. MMODL / IJN: [id number] /
--- NOTE | 2023-10-15 12:55 | P.PN ---
Subjective HISTORY OF PRESENT ILLNESS: This is a 83-year-old female with a past medical history significant for hypertension, hyperlipidemia, and morbid obesity. Patient follows in the office with Dr. Key. We have been asked to see the patient in consultation for chest pain and atrial fibrillation. Patient examined this afternoon in the nuclear department. Patient states she presented to the hospital with a chief complaint of dizziness. She states over the past week she has been having episodes of dizziness. She denies having any syncopal episodes. She also reports some chest pain underneath her left breast. She reports mild shortness of breath. She states that she had a viral infection with flulike symptoms about 2 weeks ago. EKG interpreted by computer revealed atrial fibrillation. However upon personal review EKG reveals sinus mechanism. The patient does report having some palpitations recently. She has no known history of atrial fibrillation. Patient was also found to have acute kidney injury with a creatinine of 1.83. Patient is prescribed Bumex and lisinopril on an outpatient basis. Patient states she has been taking a [employer] brand pain medication at night but she is unsure if this is an NSAID. DIAGNOSTICS: - EKG reveals sinus mechanism with no signs of acute ischemia. - Chest xray negative for acute process. - Laboratory data: WBC 10.3. Hemoglobin 10.7. Platelet count 324. D-dimer 6.68. Sodium 135. Potassium 5.5. BUN 81. Creatinine 1.83. Troponin negative x 1. - Current home cardiac medications include Bumex 0.5 mg twice a day, metoprolol titrate 25 mg twice a day, simvastatin 20 mg with dinner, lisinopril 20 mg daily, aspirin 81 mg daily. - Most recent echocardiogram obtained in January 2023 revealed ejection fraction 55%, moderate LVH, mild mitral regurgitation, mild tricuspid regurgitation - Cardiac catheterization history: February 2012 revealing normal coronary arteries -Patient underwent Lexiscan stress test in the office on September 09, 2023 which was negative for ischemia 10/15/2023 Patient examined this morning at the bedside. Patient still reports mild shortness of breath this morning. She denies any chest pain or pressure. She underwent a VQ scan revealing intermediate probability of pulmonary embolism. She was started on IV heparin. Echocardiogram completed revealing ejection fraction 55 to 60%. Patient's creatinine has improved today to 1.1. PHYSICAL EXAM: VITAL SIGNS: Reviewed. GENERAL: Well-developed in no acute distress. HEENT: Head is normocephalic. Pupils are equal, round. Sclerae anicteric. Mucous membranes of the mouth are moist. Neck supple. No JVD or thyromegaly LUNGS: Respirations even and unlabored. Lungs essentially clear to auscultation bilaterally. HEART: Regular rate and rhythm. S1 and S2 heard. ABDOMEN: Soft. Nondistended. Nontender. EXTREMITIES: Normal range of motion. No clubbing or cyanosis. Peripheral pulses intact. Trace bilateral lower extremity edema NEUROLOGIC: Awake and alert. Oriented x 3. ASSESSMENT: Dizziness, rule out arrhythmia Chest pain with recent normal outpatient Lexiscan stress test in 09/2023, acute coronary syndrome ruled out Home oxygen use at night Hyperkalemia Acute kidney injury Elevated D-dimer, VQ scan reveals intermediate probability for pulmonary embolism Atrial fibrillation, ruled out, EKG reveals sinus mechanism Normal coronary arteries, per cardiac catheterization 2011 Hypertension Hyperlipidemia Morbid obesity: BMI 45.7 PLAN: EKG interpreted by computer as atrial fibrillation. However upon personal review EKG reveals sinus mechanism. Continue telemetry monitoring Hold Bumex and lisinopril secondary to acute kidney injury Patient to receive 2-week event monitor at the time of discharge to rule out arrhythmia due to recent dizziness and palpitations Defer anticoagulation for possible pulmonary embolism to primary medicine No further inpatient recommendations from a cardiac standpoint We will sign off. Please reconsult if needed. Nurse practitioner note has been reviewed by physician. Signing provider agrees with the documented findings, assessment, and plan of care documented by ELECTRICIAN MANAGER as a scribe. Objective - Vital Signs Vital signs: Vital Signs Temp 97.7 F 10/15/23 08:00 Pulse 89 10/15/23 08:00 Resp 18 10/15/23 08:00 BP 106/56 10/15/23 08:00 Pulse Ox 96 10/15/23 08:00 FiO2 Intake & Output 10/14/23 10/15/23 10/15/23 18:59 06:59 18:59 Intake Total 360 232.016 118.39 Balance 360 232.016 118.39 Weight 113.398 kg Intake: Intake, IV Titration 232.016 118.39 Amount Heparin Sod,Pork in 0.45% 232.016 118.39 NaCl 25,000 unit In 0.45 % NaCl 1 250ml.bag @ 18 UNITS/KG/HR 20.412 mls/hr IV .[id number] [facility] Rx#: [id number] Oral 360 Other: Voiding Method Toilet # Voids 2 2 # Bowel Movements 0 - Labs CBC & Chem 7: 10/15/23 07:42 10/15/23 07:42 Labs: Abnormal Lab Results - Last 24 Hours (Table) 10/14/23 10/14/23 10/15/23 Range/Units 17:21 22:19 07:42 WBC 10.8 H (3.8-10.6) k/uL RBC 3.40 L (3.80-5.40) m/uL Hgb 10.6 L (11.4-16.0) gm/dL Hct 30.4 L (34.0-46.0) % APTT 57.0 H (22.0-30.0) sec Chloride (98-107) mmol/L BUN (7-17) mg/dL Creatinine (0.52-1.04) mg/dL Glucose (74-99) mg/dL Total Protein (6.3-8.2) g/dL Procalcitonin 0.22 H (0.02-0.09) ng/mL 10/15/23 10/15/23 Range/Units 07:42 07:42 WBC (3.8-10.6) k/uL RBC (3.80-5.40) m/uL Hgb (11.4-16.0) gm/dL Hct (34.0-46.0) % APTT 133.2 H* (22.0-30.0) sec Chloride 110 H (98-107) mmol/L BUN 63 H (7-17) mg/dL Creatinine 1.11 H (0.52-1.04) mg/dL Glucose 123 H (74-99) mg/dL Total Protein 6.2 L (6.3-8.2) g/dL Procalcitonin (0.02-0.09) ng/mL
[2023-10-15] MEDS: AZITHROMYCIN 500 MG in SODIUM CHLORIDE 0.9% 250 ML IVPB SCH (13:23)
--- NOTE | 2023-10-15 13:57 | PN ---
PROGRESS NOTE SUBJECTIVE: This is an 83-year-old white female, continues to improve. OBJECTIVE: VITAL SIGNS: Temperature is 97.7, pulse 89, respiratory rate 16 to 18, blood pressure 106/56, and O2 96 on room air. CARDIOVASCULAR: S1, S2. LUNGS: Transmitted upper sounds. She feels much better. Creatinine and GFR are much improved with fluids overnight. She was with acute tubular necrosis, dehydration, prerenal azotemia. She had the flu for 2 weeks with severe diarrhea. She is improved now. Her sats are up. Oxygen levels 96 from 91, blood pressure 106/56, temp 97.7, pulse 89, respiratory rate 16 to 18, but she has acute abdominal distention of unclear etiology. We are going to CAT scan her belly and we are going to get a surgical consult with Dr. Gunter to look at her belly for abdominal distention based on GERD precautions. She may be aspirating and getting her breathing worse. I will rule out any intraabdominal process. Remain on heparin for pulmonary embolism likely at this time. Continue current treatments. Wait for pulmonary recommendations. Please see further orders. MMODL / IJN: [id number] /
--- NOTE | 2023-10-15 13:59 | P.GSCN ---
History of Present Illness Consult date: 10/15/23 History of present illness: CHIEF COMPLAINT: Chest pain HISTORY OF PRESENT ILLNESS: This is a 83-year-old female who presented with chest pain with dizziness and lightheadedness. She has been evaluated by cardiology service and is scheduled for an event monitor outpatient. She also was found to have evidence of a possible PE and is currently on IV heparin. She is followed by pulmonary service. Surgical service has been consulted in regards to patient's abdominal distention. Patient reports that her abdomen has been distended over the last couple of days. She denies any pain. She is having flatus. She denies any bowel movement for 2 days. She reports she has known history of constipation and sometimes is unable to have a bowel movement for 2 to 3 days. She does report she can become distended but she is a little more distended than usual. Last colonoscopy was over 4 years ago and reports it was normal. She denies any nausea or vomiting. Denies any fever chills or sweats. PAST MEDICAL HISTORY: See list. PAST SURGICAL HISTORY: Appendectomy and MEDICATIONS: See list. ALLERGIES: See list. SOCIAL HISTORY: No illicit drug use. REVIEW OF SYSTEMS: CONSTITUTIONAL: Denies fever or chills. HEENT: Denies blurred vision, vision changes, or eye pain. Denies hemoptysis ENDOCRINE: Denies heat or cold intolerance. CARDIOVASCULAR: Denies chest pain or pressure. RESPIRATORY: No shortness of breath. GASTROINTESTINAL: Denies abdominal pain. Denies nausea or vomiting. NEURO: Denies history of seizures. PSYCH: No depression or suicidal ideation HEMATOLOGIC: Denies bleeding disorders. LYMPHATIC: The patient denies any lumps and bumps around the neck. GENITOURINARY: Denies any blood in urine or increased urinary frequency. MUSCULOSKELETAL: Denies myalgias. Denies joint swelling. Denies decreased range of motion beyond patients baseline. SKIN: Denies pruitis. Denies rash. PHYSICAL EXAM: VITAL SIGNS: Reviewed GENERAL: Well-developed in no acute distress. HEENT: No sclera icterus. Extraocular movements grossly intact. Moist buccal mucosa. Head is atraumatic, normocephalic. Hears conversational speech. No nasal drainage. NECK: Supple without lymphadenopathy. CHEST: Non-labored respirations and equal bilateral excursions. CARDIOVASCULAR: Palpable 2+ radial pulses. ABDOMEN: Soft. Distended. Nontender. Reducible ventral hernia MUSCULOSKELETAL: No clubbing or cyanosis. NEUROLOGIC: No focal or lateralizing signs. Cranial nerves II through XII grossly intact. PSYCH: Appropriate affect. Alert and oriented to person, place and time. SKIN: Well perfused. Good skin turgor. LABORATORY DATA: WBC 10.8 Hgb 10.6 platelets 325 Sodium is 140 potassium is 5.0 creatinine 1.11 IMAGING: Chest CT mild minimal bibasilar linear scarring and/or atelectasis. More focal consolidation/atelectasis in the anterior inferior right middle lobe. Intraperitoneal ascites is partially imaged. Ascending aortic aneurysm 4.1 cm VQ scan reports moderate mixed defect left lower lobe. intermediate probability for PE ASSESSMENT: 1. Abdominal distention 2. Constipation 3. Possibility of PE 4. Chest pain and dizziness 5. Acute kidney injury 6. Hyperkalemia 7. History of abdominal aortic aneurysm 4.1 cm 8. Prior history of abdominal surgeries PLAN: -Follow-up on CT scan abdomen and pelvis -Continue supportive care -Continue IV fluids -Downgrade diet to full liquids -Further recommendations forthcoming per surgeon Physician Mine Boss note has been reviewed by physician. Signing provider agrees with the documented findings, assessment, and plan of care. Past Medical History Past Medical History: Cancer, Hyperlipidemia, Hypertension Additional Past Medical History / Comment(s): right breast mastectomy, History of Any Multi-Drug Resistant Organisms: None Reported Past Surgical History: Appendectomy, Breast Surgery, Tonsillectomy Past Anesthesia/Blood Transfusion Reactions: No Reported Reaction Past Psychological History: No Psychological Hx Reported Smoking Status: Never smoker Past Alcohol Use History: Rare Past Drug Use History: None Reported - Past Family History Mother Family Medical History: Hypertension Medications and Allergies Home Medications Medication Instructions Recorded Confirmed Type Metoprolol Tartrate 25 mg PO BID 10/20/17 10/14/23 History Simvastatin [Zocor] 20 mg PO W/SUPPER 10/20/17 10/14/23 History lisinopriL [Zestril] 20 mg PO DAILY 10/20/17 10/14/23 History Aspirin 81 mg PO DAILY 10/14/23 10/14/23 History Bumetanide [BUMEX] 0.5 mg PO BID 10/14/23 10/14/23 History Potassium Chloride [Klor-Con M10] 10 meq PO DAILY 10/14/23 10/14/23 History Allergies Allergy/AdvReac Type Severity Reaction Status Date / Time No Known Allergies Allergy Verified 10/14/23 10:00 Surgical - Exam Vital Signs Temp Pulse Resp BP Pulse Ox 97.6 F 89 18 112/49 96 10/14/23 07:53 10/14/23 07:53 10/14/23 07:53 10/14/23 07:53 10/14/23 07:53 Results - Labs 10/15/23 07:42 10/15/23 07:42 Abnormal Lab Results - Last 24 Hours (Table) 10/14/23 10/14/23 10/15/23 Range/Units 17:21 22:19 07:42 WBC 10.8 H (3.8-10.6) k/uL RBC 3.40 L (3.80-5.40) m/uL Hgb 10.6 L (11.4-16.0) gm/dL Hct 30.4 L (34.0-46.0) % APTT 57.0 H (22.0-30.0) sec Chloride (98-107) mmol/L BUN (7-17) mg/dL Creatinine (0.52-1.04) mg/dL Glucose (74-99) mg/dL Total Protein (6.3-8.2) g/dL Procalcitonin 0.22 H (0.02-0.09) ng/mL 10/15/23 10/15/23 Range/Units 07:42 07:42 WBC (3.8-10.6) k/uL RBC (3.80-5.40) m/uL Hgb (11.4-16.0) gm/dL Hct (34.0-46.0) % APTT 133.2 H* (22.0-30.0) sec Chloride 110 H (98-107) mmol/L BUN 63 H (7-17) mg/dL Creatinine 1.11 H (0.52-1.04) mg/dL Glucose 123 H (74-99) mg/dL Total Protein 6.2 L (6.3-8.2) g/dL Procalcitonin (0.02-0.09) ng/mL Diabetes panel 10/15/23 Range/Units 07:42 Sodium 140 (137-145) mmol/L Potassium 5.0 (3.5-5.1) mmol/L Chloride 110 H (98-107) mmol/L Carbon Dioxide 23 (22-30) mmol/L BUN 63 H (7-17) mg/dL Creatinine 1.11 H (0.52-1.04) mg/dL Glucose 123 H (74-99) mg/dL Calcium 9.8 (8.4-10.2) mg/dL AST 23 (14-36) U/L ALT 15 (4-34) U/L Alkaline Phosphatase 64 (38-126) U/L Total Protein 6.2 L (6.3-8.2) g/dL Albumin 3.5 (3.5-5.0) g/dL Calcium panel 10/15/23 Range/Units 07:42 Calcium 9.8 (8.4-10.2) mg/dL Albumin 3.5 (3.5-5.0) g/dL Pituitary panel 10/15/23 Range/Units 07:42 Sodium 140 (137-145) mmol/L Potassium 5.0 (3.5-5.1) mmol/L Chloride 110 H (98-107) mmol/L Carbon Dioxide 23 (22-30) mmol/L BUN 63 H (7-17) mg/dL Creatinine 1.11 H (0.52-1.04) mg/dL Glucose 123 H (74-99) mg/dL Calcium 9.8 (8.4-10.2) mg/dL Adrenal panel 10/15/23 Range/Units 07:42 Sodium 140 (137-145) mmol/L Potassium 5.0 (3.5-5.1) mmol/L Chloride 110 H (98-107) mmol/L Carbon Dioxide 23 (22-30) mmol/L BUN 63 H (7-17) mg/dL Creatinine 1.11 H (0.52-1.04) mg/dL Glucose 123 H (74-99) mg/dL Calcium 9.8 (8.4-10.2) mg/dL Total Bilirubin 0.9 (0.2-1.3) mg/dL AST 23 (14-36) U/L ALT 15 (4-34) U/L Alkaline Phosphatase 64 (38-126) U/L Total Protein 6.2 L (6.3-8.2) g/dL Albumin 3.5 (3.5-5.0) g/dL
--- NOTE | 2023-10-15 15:13 | CT ---
EXAMINATION TYPE: CT abdomen pelvis wo con DATE OF EXAM: 10/15/2023 HISTORY: abdominal distension CT DLP: 1114.4 mGycm. Automated Exposure Control for Dose Reduction was Utilized. TECHNIQUE: CT scan of the abdomen and pelvis is performed without oral or IV contrast. COMPARISON: CT 2018 FINDINGS: Within the limitations of a non-contrast study, the following observations are made. LUNG BASES: No significant abnormality is appreciated. LIVER/GB: Lobulated anterior contour to liver suggestive of cirrhosis. Adjacent ascites. PANCREAS: No significant abnormality is seen. SPLEEN: Normal in size. ADRENALS: No significant abnormality is seen. KIDNEYS: Cortical thinning in both kidneys. No renal stones or hydronephrosis seen bilaterally BOWEL: Diffuse colonic diverticulosis greatest distally. No abnormal small or large bowel dilatation GENITAL ORGANS: No gross abnormality seen. LYMPH NODES: No greater than 1cm abdominal or pelvic lymph nodes are appreciated. OSSEOUS STRUCTURES: Mild to Moderate disc space narrowing with vacuum disc phenomenon at L2-L3 level. Multilevel facet arthropathy in the lower lumbar spine. OTHER: Moderate calcified plaque of the aorta extends into branch vessels. Moderate amount of intrape ritoneal ascites greatest in the lower abdomen and pelvis. There is slight nodularity along the anter ior aspect. Nonsimple ascites is not entirely excluded. Clinical correlation and correlation with lab results on paracentesis advised. IMPRESSION: Confirmation of a moderate amount of intraperitoneal ascites causing abdominal distention . Possible underlying cirrhosis. Correlate clinically.
--- NOTE | 2023-10-15 16:27 | P.CONS ---
History of Present Illness - Reason for Consult Consult date: 10/15/23 High procalcitonin Requesting physician: Brandon Hardwick - Chief Complaint Chest discomfort x 1 day - History of Present Illness This is a telehealth visit Patient is a 83-year-old female with a past medical history significant for hypertension hyperlipidemia right breast cancer presenting to the hospital yesterday morning for evaluation of chest discomfort describing it more often aches symptom has been going on for 2 to 3 days and has been intermittent patient also have a cough moderate intensity with some clear sputum no hemoptysis patient did have some mild but no vomiting and no diarrhea patient denies having any headache or URI symptoms patient on presentation to the hospital was afebrile and no fever have recorded subsequently patient was not tachycardic hypotensive or hypoxic currently on room air patient did have a white count of 10.3 BUN/creatinine has been mildly elevated liver enzymes are normal procalcitonin 0.22 influenza RSV COVID testing has been negative patient did have a chest x-ray no evidence for acute pulmonary process patient did have a CT of the chest which did shows minimal bibasilar scaring or atelectasis focal consolidation in the anterior inferior right middle lobe that has prompted this infectious disease consultation patient is currently on Zithromax Review of Systems Positive point and negatives has been mentioned in the HPI, complete review of systems was performed and all other systems are negative Past Medical History Past Medical History: Cancer, Hyperlipidemia, Hypertension Additional Past Medical History / Comment(s): right breast mastectomy, History of Any Multi-Drug Resistant Organisms: None Reported Past Surgical History: Appendectomy, Breast Surgery, Tonsillectomy Past Anesthesia/Blood Transfusion Reactions: No Reported Reaction Past Psychological History: No Psychological Hx Reported Smoking Status: Never smoker Past Alcohol Use History: Rare Past Drug Use History: None Reported - Past Family History Mother Family Medical History: Hypertension Medications and Allergies Home Medications Medication Instructions Recorded Confirmed Type Metoprolol Tartrate 25 mg PO BID 10/20/17 10/14/23 History Aspirin 81 mg PO DAILY 10/14/23 10/14/23 History Ipratropium-Albuterol Nebulize 3 ml INHALATION RT-QID 30 Days 10/17/23 Rx [Duoneb 0.5 mg-3 mg/3 ml Soln] #120 each Montelukast [Singulair] 10 mg PO HS tab 10/17/23 Rx Dapagliflozin Propanediol [Farxiga] 5 mg PO DAILY #30 tab 10/24/23 Rx Furosemide [Lasix] 40 mg PO DAILY 30 Days #30 tablet 10/24/23 Rx Spironolactone [Aldactone] 50 mg PO BID 30 Days #60 tab 10/24/23 Rx Sulfamethox-Tmp 800-160Mg [Bactrim 1 tab PO Q12HR 7 Days #14 tab 10/24/23 Rx DS 800-160 mg] Allergies Allergy/AdvReac Type Severity Reaction Status Date / Time No Known Allergies Allergy Verified 10/14/23 10:00 Physical Exam Vitals: Vital Signs Temp Pulse Pulse Resp BP BP Pulse Ox 10/15/23 08:00 97.7 F 89 18 106/56 96 10/15/23 04:09 98.1 F 87 14 101/64 91 L 10/15/23 00:25 98.1 F 83 14 100/63 97 10/14/23 19:39 98.2 F 100 16 116/67 95 10/14/23 18:25 97.8 F 89 18 104/63 94 L 10/14/23 16:40 97.9 F 93 16 109/67 97 10/14/23 14:00 18 10/14/23 13:50 89 16 126/53 95 Intake and Output 10/14/23 10/15/23 10/15/23 22:59 06:59 14:59 Intake Total 483.152 108.864 118.39 Balance 483.152 108.864 118.39 Intake: Intake, IV Titration 123.152 108.864 118.39 Amount Heparin Sod,Pork in 0.45% 123.152 108.864 118.39 NaCl 25,000 unit In 0.45 % NaCl 1 250ml.bag @ 18 UNITS/KG/HR 20.412 mls/hr IV .[id number] [facility] Rx#: [id number] Oral 360 Other: Voiding Method Toilet Toilet # Voids 1 2 Weight 113.398 kg Elderly female lying in bed in no distress Respiratory system unlabored breathing decreased breath sound the base Heart S1-S2 regular Abdominal soft,no tenderness Extremities no edema feet Skin no rashes, no masses palpable Patient is awake alert oriented x 3 mood and affect is normal Exam compleetd with help of [employer]ER Results CBC & Chem 7: 10/22/23 10:40 10/24/23 08:38 Labs: Abnormal Lab Results - Last 24 Hours (Table) 10/14/23 10/14/23 10/15/23 Range/Units 17:21 22:19 07:42 WBC 10.8 H (3.8-10.6) k/uL RBC 3.40 L (3.80-5.40) m/uL Hgb 10.6 L (11.4-16.0) gm/dL Hct 30.4 L (34.0-46.0) % APTT 57.0 H (22.0-30.0) sec Chloride (98-107) mmol/L BUN (7-17) mg/dL Creatinine (0.52-1.04) mg/dL Glucose (74-99) mg/dL Total Protein (6.3-8.2) g/dL Procalcitonin 0.22 H (0.02-0.09) ng/mL 10/15/23 10/15/23 Range/Units 07:42 07:42 WBC (3.8-10.6) k/uL RBC (3.80-5.40) m/uL Hgb (11.4-16.0) gm/dL Hct (34.0-46.0) % APTT 133.2 H* (22.0-30.0) sec Chloride 110 H (98-107) mmol/L BUN 63 H (7-17) mg/dL Creatinine 1.11 H (0.52-1.04) mg/dL Glucose 123 H (74-99) mg/dL Total Protein 6.2 L (6.3-8.2) g/dL Procalcitonin (0.02-0.09) ng/mL Assessment and Plan (1) Elevated procalcitonin Status: Acute Code(s): R79.89 - OTHER SPECIFIED ABNORMAL FINDINGS OF BLOOD CHEMISTRY SNOMED Code(s): 855701224 (2) Leukocytosis Status: Acute Code(s): D72.829 - ELEVATED WHITE BLOOD CELL COUNT, UNSPECIFIED SNOMED Code(s): 809247952 (3) Pneumonia Status: Acute Code(s): J18.9 - PNEUMONIA, UNSPECIFIED ORGANISM SNOMED Code(s): 084258783 Plan: 1patient presented to hospital with some discomfort in the chest she also have a cough bringing up some sputum no hemoptysis patient did have elevated procalcitonin though mildly elevated however CT of the chest that shows evidence of the right middle lobe consolidation concerning for community-acquired pneumonia 2-we will try to obtain a sputum for Gram stain culture 3-continue with azithromycin and Rocephin 1 g daily We will follow on clinical condition and cultures to further adjust medication if needed Thank you for this consultation we will follow the patient along with you Dictation was produced using [employer] dictation software. please excuse any grammatical, word or spelling errors. Time with Patient: Greater than 30
[2023-10-15] MEDS: MAGNESIUM SULFATE-D5W PMX 1 GM in DEXTROSE/WATER 1 100ML.BAG IVPB SCH (16:36)
[2023-10-15] MEDS: PANTOPRAZOLE SODIUM 40 MG GRANULE PKT PO SCH (16:47)
[2023-10-15] MEDS: LACTULOSE 20 GM/30 ML CUP PO ONE (19:34)
[2023-10-15] MEDS: MONTELUKAST 10 MG TAB PO SCH (20:01)
[2023-10-16 10:00] LABS: Basophils # (A) 0.1 k/uL (0-0.2); Basophils % (A) 1 %; Eosinophils # (A) 0.2 k/uL (0-0.7); Eosinophils % (A) 2 %; HCT 34.5 % (34.0-46.0); HGB 10.2 gm/dL (11.4-16.0); Hypochromasia Slight; Lymphocytes # (A) 1.7 k/uL (1.0-4.8); Lymphocytes % (A) 15 %; MCH 27.9 pg (25.0-35.0); MCHC 29.6 g/dL (31.0-37.0); MCV 94.3 fL (80.0-100.0); Mean Platelet Volume 7.5; Monocytes # (A) 0.8 k/uL (0-1.0); Monocytes % (A) 7 %; Neutrophils # (A) 8.4 k/uL (1.3-7.7); Neutrophils % (A) 74 %; Platelet Count 351 k/uL (150-450); RBC 3.66 m/uL (3.80-5.40); RDW 13.4 % (11.5-15.5); WBC 11.4 k/uL (3.8-10.6)
[2023-10-16 10:06] LABS: ALT 15 U/L (4-34); AST 22 U/L (14-36); African American GFR (CKD) 74 (>60 ml/min/1.73 sqM); Albumin 3.4 g/dL (3.5-5.0); Alkaline Phosphatase 63 U/L (38-126); Anion Gap 7 mmol/L; Blood Urea Nitrogen 39 mg/dL (7-17); Calcium 8.7 mg/dL (8.4-10.2); Carbon Dioxide 19 mmol/L (22-30); Chloride 111 mmol/L (98-107); Glucose 155 mg/dL (74-99); Non-African American GFR(CKD) 64 (>60 ml/min/1.73 sqM); Potassium 4.5 mmol/L (3.5-5.1); Sodium 137 mmol/L (137-145); Total Bilirubin 0.6 mg/dL (0.2-1.3)
--- NOTE | 2023-10-16 12:24 | P.PN ---
Subjective Progress Note Date: 10/16/23 Patient is a 83-year-old white female with past medical history significant for hypertension, hyperlipidemia, morbid obesity, remote breast cancer with previous right-sided mastectomy. A pulmonary consult was placed for possible pulmonary embolism. Patient presents to emergency department yesterday morning complaining of 5 to 6 days of intermittent stabbing/aching left-sided chest pain localized to under her left breast. Pain rated as a 5 on a 10 point numerical scale. Not currently experiencing any pain. Not particularly reproducible. She does have some associated dyspnea, mostly on exertion. She does chronically wear 2 L of supplemental oxygen only at night. Denies any pre-existing chronic pulmonary disease processes. Of note, patient reports recent flulike symptoms that she just got over approximately 2 weeks ago. At this time, she was having frequent coughing and intermittent diarrhea. Denies any current infectious symptoms. Denies hemoptysis. She has been weak and occasionally dizzy when ambulating. Denies losing consciousness or passing out. D-dimer was elevated on arrival 6.68. She has acute kidney injury, unable to undergo CT angio PE protocol. She did have a VQ scan showing a matched defect at the left lower lobe and intermediate probability for pulmonary embolism. Based on this finding, patient was started on IV heparin protocol. Patient denies any previous personal or family history of DVT/PE. No recent trauma, surgeries, or hospitalizations. No current active malignancy. She does occasionally have bilateral lower extremity swelling, not particularly unilateral. She takes Bumex outpatient. A follow-up echocardiogram this admission demonstrated LVH with preserved systolic function of 55 to 60% and normal RVSP. A follow-up noncontrast CT of the chest shows mild minimal bibasilar linear scarring and/or atelectasis. No major observable abnormalities or focal consolidations in the left lower lobe. Incidental findings included a ascending aortic aneurysm measuring up to 4.1 cm and intraperitoneal ascites. CBC: WBC count 10.3, hemoglobin 10.7, hematocrit 33, platelets 324. CMP: Sodium 135, potassium 5.5, chloride 102, serum bicarb 26, BUN 81, creatinine 1.83, glucose 118. LFTs not elevated. Normal saline infusing at 75 mL/h. Troponin less than 0.012 x 3. EKG shows normal sinus rhythm without any obvious acute ischemic changes. She is currently resting comfortably on 2 L/min nasal cannula. SpO2 97%. No acute respiratory distress. Not tachycardic. No signs of hemodynamic compromise. 10/16/2023, the patient is being seen for a follow-up and the patient is currently free of any chest pain. She remains on IV heparin for suspected or embolism. She was noted to have some abdominal distention. Based on that, a CAT scan of the abdomen pelvis was done and it showed changes consistent with liver cirrhosis and ascites. There is also some slight nodularity along the anterior aspect of the peritoneum. Otherwise, no other significant events overnight. The patient remains on 3 days of oxygen by nasal cannula with a pulse ox of 97%. WBC count is 11.4, hemoglobin 10 point indicated count of 351. BUN 39 with a creatinine of 0.8 and serum bicarb is 19 with a sodium level of 137 and a potassium level of 4.5. Objective - Vital Signs Vital signs: Vital Signs Temp 98.1 F 10/16/23 08:00 Pulse 94 10/16/23 08:00 Resp 19 10/16/23 08:00 BP 120/66 10/16/23 08:00 Pulse Ox 97 10/16/23 08:00 FiO2 Intake & Output 10/15/23 10/16/23 10/16/23 18:59 06:59 18:59 Intake Total 718.39 131.61 120 Output Total 1 Balance 718.39 131.61 119 Intake: Intake, IV Titration 118.39 131.61 Amount Heparin Sod,Pork in 0.45% 118.39 131.61 NaCl 25,000 unit In 0.45 % NaCl 1 250ml.bag @ 18 UNITS/KG/HR 20.412 mls/hr IV .[id number] [facility] Rx#: [id number] Oral 600 120 Output: Stool 1 Other: Voiding Method Toilet Toilet # Voids 3 1 1 - Exam GENERAL EXAM: Alert, morbidly obese 83-year-old white female, comfortable in no apparent distress. The patient is currently on 3 L of O2 nasal cannula HEAD: Normocephalic and atraumatic EYES: Normal reaction of pupils, equal size. NOSE: Clear with pink turbinates. THROAT: No erythema or exudates. NECK: No masses, no JVD. CHEST: No chest wall deformity. LUNGS: Equal air entry with no crackles, wheeze, rhonchi or dullness. No conversational dyspnea or accessory muscle use.. CVS: S1 and S2 normal with no audible murmur, regular rhythm. No extra heart sounds ABDOMEN: Distended abdomen, no appreciated hepatosplenomegaly, active bowel sounds, no guarding or rigidity. SPINE: No scoliosis or deformity SKIN: No rashes CENTRAL NERVOUS SYSTEM: No focal deficits, tone is normal in all 4 extremities. EXTREMITIES: There is no peripheral edema, clubbing, or cyanosis. Peripheral pulses are intact. - Labs CBC & Chem 7: 10/16/23 09:10/16/23 09:31 Labs: Abnormal Lab Results - Last 24 Hours (Table) 10/15/23 10/15/23 10/15/23 Range/Units 07:42 17:31 20:43 WBC (3.8-10.6) k/uL RBC (3.80-5.40) m/uL Hgb (11.4-16.0) gm/dL MCHC (31.0-37.0) g/dL Neutrophils # (1.3-7.7) k/uL APTT 31.8 H 45.6 H (22.0-30.0) sec Chloride (98-107) mmol/L Carbon Dioxide (22-30) mmol/L BUN (7-17) mg/dL Glucose (74-99) mg/dL Magnesium 2.7 H (1.6-2.3) mg/dL Total Protein (6.3-8.2) g/dL Albumin (3.5-5.0) g/dL 10/16/23 10/16/23 10/16/23 Range/Units 09:31 09:31 09:31 WBC 11.4 H (3.8-10.6) k/uL RBC 3.66 L (3.80-5.40) m/uL Hgb 10.2 L (11.4-16.0) gm/dL MCHC 29.6 L (31.0-37.0) g/dL Neutrophils # 8.4 H (1.3-7.7) k/uL APTT 69.8 H (22.0-30.0) sec Chloride 111 H (98-107) mmol/L Carbon Dioxide 19 L (22-30) mmol/L BUN 39 H (7-17) mg/dL Glucose 155 H (74-99) mg/dL Magnesium (1.6-2.3) mg/dL Total Protein 6.0 L (6.3-8.2) g/dL Albumin 3.4 L (3.5-5.0) g/dL Assessment and Plan Assessment: Possible left lower lobe pulmonary embolism, VQ scan showing a matched defect at the left lower lobe and intermediate probability for pulmonary embolism, currently on the high intensity IV heparin protocol. Follow-up CT of the chest without contrast shows mild bibasilar linear scarring and/or atelectasis. There is also likely some anterior right middle lobe atelectasis. No focal consolidations, pleural effusions, or pneumothoraces. The patient remains on IV heparin. No reported chest pain. Hemodynamically stable. Doppler of the lower extremities were negative. Elevated D-dimer, 6.68 Atypical left-sided chest pain, possibly pleuritic, recovered Acute kidney injury, recovered Intraperitoneal ascites, rule out liver cirrhosis although there is some limited amount of nodularity along the peritoneal wall. May consider a diagnostic and therapeutic paracentesis at a later stage. Ascending aortic aneurysm, measuring up to 4.1 cm History of hypertension History of hyperlipidemia Morbid obesity, with a BMI of 45.7 kg/m Remote history breast cancer, status post right-sided mastectomy, > 10 years ago Plan: Currently on 3 L of supplemental oxygen versus room air Hemodynamically stable Unable to completely rule out segmental or subsegmental PE, and I am going to proceed with a CTA of the chest as the patient's renal function has essentially normalized. Meanwhile, we will continue the IV heparin Doppler lower extremities were negative Continue IV fluids Consider and diagnostic and therapeutic paracentesis later stage Echocardiogram shows no significant RV dysfunction. Left ventricular ejection fraction is around 55 to 60%. Will continue to follow and will decide on anticoagulation based on the results of the CTA this will be done today. Continue to follow
--- NOTE | 2023-10-16 13:50 | CT ---
EXAMINATION TYPE: CT angio chest CT DLP: 455.10 mGycm, Automated exposure control for dose reduction was used. DATE OF EXAM: 10/16/2023 1:27 PM COMPARISON: CT chest 10/14/2023 CLINICAL INDICATION:Female, 83 years old with history of rule out PE; Rule out PE, pt only had 22 g I V TECHNIQUE/CONTRAST: CTA scan of the thorax is performed with IV Contrast, patient injected with 100 mL of Isovue 370, pul monary embolism protocol. MIP images are created and reviewed. FINDINGS: Pulmonary Artery: There is no evidence for a filling defect within the pulmonary vasculature to sugge st acute pulmonary embolism. The pulmonary artery is of normal size. Lungs/Pleura: Mild biapical pleural-parenchymal scarring. No pleural effusion, pneumothorax, focal co nsolidation. Bibasilar linear scarring and atelectasis. No suspicious pulmonary nodule or mass. Airway: Large airways are patent. Heart: Moderately enlarged. No pericardial effusion. Ascending aorta measures up to 4.0 cm in diamete r. Stable from prior exam. Vasculature: No evidence of aortic aneurysm. Mild atherosclerotic calcification of the aorta and its branches. Mediastinum: No gross evidence of adenopathy. Musculoskeletal: No acute osseous abnormalities. Multilevel degenerative disc disease of the mid thor acic spine. Dextroconvex scoliosis centered in the midthoracic spine again. Soft Tissues: Unremarkable. Lower neck: No significant findings. Upper Abdomen: Intraperitoneal ascites is partially imaged again. Surface nodularity involving the li [place]. IMPRESSION: 1. No evidence of pulmonary embolism. 2. Partially imaged intraperitoneal ascites again. 3. Surface nodularity of the liver. Correlate for cirrhosis.
--- NOTE | 2023-10-16 14:39 | P.PN ---
Subjective Progress Note Date: 10/16/23 CHIEF COMPLAINT: Chest pain HISTORY OF PRESENT ILLNESS: This is an 83-year-old female present with chest pain, dizziness and lightheadedness. She is followed by pulmonary service for possible PE. Surgical service is following regards to patient's abdominal distention. Patient did have a bowel movement this morning. She denies any abdominal pain. Her abdomen does remain distended CT scan reported confirmation of moderate amount of intraperitoneal ascites causing abdominal distention. Possible underlying cirrhosis. Patient denies any prior history of alcohol use or liver cirrhosis. PHYSICAL EXAM: VITAL SIGNS: Reviewed GENERAL: Well-developed in no acute distress. HEENT: No sclera icterus. Extraocular movements grossly intact. Moist buccal mucosa. Head is atraumatic, normocephalic. Hears conversational speech. No nasal drainage. NECK: Supple without lymphadenopathy. CHEST: Non-labored respirations and equal bilateral excursions. CARDIOVASCULAR: Palpable 2+ radial pulses. ABDOMEN: Soft. Distended. Umbilical hernia reducible. Nontender. MUSCULOSKELETAL: No clubbing or cyanosis. NEUROLOGIC: No focal or lateralizing signs. Cranial nerves II through XII grossly intact. PSYCH: Appropriate affect. Alert and oriented to person, place and time. SKIN: Well perfused. Good skin turgor. ASSESSMENT: 1. Abdominal distention with CAT scan evidence of moderate amount of intraperitoneal ascites 2. Constipation improved 3. Possibility of PE 4. Chest pain and dizziness 5. Acute kidney injury 6. Hyperkalemia 7. History of abdominal aortic aneurysm 4.1 cm 8. Prior history of abdominal surgeries PLAN: -Recommend medicine service to manage the abdominal ascites -No surgical intervention planned -Continue supportive care Physician Bilingual Account Manager note has been reviewed by physician. Signing provider agrees with the documented findings, assessment, and plan of care. Please see additional documentation below CHIEF COMPLAINT: Abdominal swelling HISTORY OF PRESENT ILLNESS: The patient is a 83-year-old female admitted for shortness of breath. She is currently being treated in a pulmonary embolism protocol with additional diagnostic studies pending. Incidentally, patient came in with abdominal distention. She reports constipation however symptoms have im proved. She is passing flatus and had a bowel movement. Incidentally, patient reports having intermittent abdominal swelling which she thought was from a hernia. ROS: No reports of nausea and vomiting. No fevers or chills. PHYSICAL EXAM: VITAL SIGNS: Reviewed CONSTITUTIONAL: Well developed and in no acute distress. EYES: Conjuctivae without sclera icterus. Extraocular movements grossly intact. HEAD, EARS, NOSE, THROAT: Moist buccal mucosa. Head is atraumatic, normocephalic. Hears conversational speech. No nasal drainage. RESPIRATORY: Non-labored respirations and equal bilateral excursions. CARDIOVASCULAR: Palpable 2+ radial pulses. ABDOMEN: Reducible umbilical hernia. Obese. MUSCULOSKELETAL: No gross deformity of the lower extremities noted. No clubbing. No cyanosis. SKIN: Good skin turgor. Well perfused. NEUROLOGIC: Cranial nerves II through XII grossly intact. No focal or lateralizing signs. PSYCH: Appropriate affect. Alert and oriented to person, place and time. CLINICAL LABS: Reviewed. STUDIES: CT of the abdomen pelvis independently reviewed demonstrating moderate abdominal ascites. Umbilical ventral hernia identified without obstruction or incarceration. No free air or bowel obstruction. No moderate fecal retention. This is my independent or potation. REPORT: CT report reviewed also consistent with ascites. Risk of cirrhosis. ASSESSMENT: 1. Abdominal distention due to ascites 2. Morbid obesity due to excess calories, BMI 45.7 3. Constipation PLAN: 1. Patient has new abdominal distention with ascites of unclear etiology. Paracentesis ordered for cell cytology including cultures. 2. Patient does have ventral hernia which may be deferred as an elective outpatient management Objective - Vital Signs Vital signs: Vital Signs Temp 98.1 F 10/16/23 08:00 Pulse 94 10/16/23 08:00 Resp 19 10/16/23 08:00 BP 120/66 10/16/23 08:00 Pulse Ox 97 10/16/23 08:00 FiO2 Intake & Output 10/15/23 10/16/23 10/16/23 18:59 06:59 18:59 Intake Total 718.39 131.61 120 Output Total 1 Balance 718.39 131.61 119 Intake: Intake, IV Titration 118.39 131.61 Amount Heparin Sod,Pork in 0.45% 118.39 131.61 NaCl 25,000 unit In 0.45 % NaCl 1 250ml.bag @ 18 UNITS/KG/HR 20.412 mls/hr IV .[id number] [facility] Rx#: [id number] Oral 600 120 Output: Stool 1 Other: Voiding Method Toilet Toilet # Voids 3 1 1 - Labs CBC & Chem 7: 10/16/23 09:31 10/16/23 09:31 Labs: Abnormal Lab Results - Last 24 Hours (Table) 10/15/23 10/15/23 10/15/23 Range/Units 07:42 17:31 20:43 WBC (3.8-10.6) k/uL RBC (3.80-5.40) m/uL Hgb (11.4-16.0) gm/dL MCHC (31.0-37.0) g/dL Neutrophils # (1.3-7.7) k/uL APTT 31.8 H 45.6 H (22.0-30.0) sec Chloride (98-107) mmol/L Carbon Dioxide (22-30) mmol/L BUN (7-17) mg/dL Glucose (74-99) mg/dL Magnesium 2.7 H (1.6-2.3) mg/dL Total Protein (6.3-8.2) g/dL Albumin (3.5-5.0) g/dL 10/16/23 10/16/23 10/16/23 Range/Units 09:31 09:31 09:31 WBC 11.4 H (3.8-10.6) k/uL RBC 3.66 L (3.80-5.40) m/uL Hgb 10.2 L (11.4-16.0) gm/dL MCHC 29.6 L (31.0-37.0) g/dL Neutrophils # 8.4 H (1.3-7.7) k/uL APTT 69.8 H (22.0-30.0) sec Chloride 111 H (98-107) mmol/L Carbon Dioxide 19 L (22-30) mmol/L BUN 39 H (7-17) mg/dL Glucose 155 H (74-99) mg/dL Magnesium (1.6-2.3) mg/dL Total Protein 6.0 L (6.3-8.2) g/dL Albumin 3.4 L (3.5-5.0) g/dL
--- NOTE | 2023-10-16 16:38 | US ---
EXAMINATION TYPE: US abdomen limited DATE OF EXAM: 10/16/2023 COMPARISON: CT 10/15/2023 CLINICAL INDICATION: Female, 83 years old with history of Assess for ascites.; Ascites Technique: Scanned all four quadrants of the abdomen. Findings: Ascites was seen in all four quadrants, some internal echoes seen within the fluid. IMPRESSION: Small to moderate ascites.
--- NOTE | 2023-10-16 22:10 | PN ---
PROGRESS NOTE Nelsy Perez was admitted after 2 weeks history of virus with severe diarrhea. She has acute dehydration, possibly pulmonary embolism. She was given fluids. Her creatinine improved enough to get a CTA of the chest. CT of the chest shows bibasilar linear scarring and is negative for PE. Abdominal aortic aneurysm is unchanged from before. Partially imaged intraperitoneal ascites again surface nodularity correlate for cirrhosis. She had increased abdominal distention, for which Surgery saw her. Abdominal ultrasound was done, which shows mild to moderate ascites. Dr. Garcia saw her to assess abdominal distention. Moderate amount of fluid. Constipation, improved. Possibility of PE which was ruled out. Acute kidney injury, hyperkalemia, severe dehydration, abdominal aortic aneurysm. Medical Service to manage abdominal ascites. No surgical intervention. Continue to make sure she is not constipated. Possibly have to give some Lasix. Dr. Lopez saw the patient. Pleuritic chest pain recovered. Kidney injury recovered. Ascites, nodularity of the liver, possibly paracentesis long- term. Plan; aortic aneurysm stable, hypertension stable, obesity, dyslipidemia, history of breast cancer. CT of the chest is negative. Dopplers are negative. Ejection fraction 55% to 60%. Continue current treatment. Possibly go home soon as she appears to be improving. MMODL / IJN: [id number] /
--- NOTE | 2023-10-17 09:52 | P.PN ---
Subjective Progress Note Date: 10/17/23 CHIEF COMPLAINT: Chest pain HISTORY OF PRESENT ILLNESS: This is an 83-year-old female present with chest pain, dizziness and lightheadedness. Surgical service following in regards to patient's abdominal distention. She was found to have small to moderate abdominal ascites on ultrasound. She is scheduled for paracentesis today with interventional radiology. Her CTA was negative for PE. Patient denies any abdominal pain. But does complain of abdominal distention. Denies any nausea or vomiting. Does report having bowel movements. Afebrile. No new labs PHYSICAL EXAM: VITAL SIGNS: Reviewed GENERAL: Well-developed in no acute distress. HEENT: No sclera icterus. Extraocular movements grossly intact. Moist buccal mucosa. Head is atraumatic, normocephalic. Hears conversational speech. No nasal drainage. NECK: Supple without lymphadenopathy. CHEST: Non-labored respirations and equal bilateral excursions. CARDIOVASCULAR: Palpable 2+ radial pulses. ABDOMEN: Soft. Distended. Ventral hernia reducible. Nontender. MUSCULOSKELETAL: No clubbing or cyanosis. NEUROLOGIC: No focal or lateralizing signs. Cranial nerves II through XII grossly intact. PSYCH: Appropriate affect. Alert and oriented to person, place and time. SKIN: Well perfused. Good skin turgor. ASSESSMENT: 1. Abdominal distention due to ascites 2. Constipation improved 3. Chest pain and dizziness 4. Acute kidney injury improved 5. History of abdominal aortic aneurysm 4.1 cm 6. Prior history of abdominal surgeries PLAN: -Patient scheduled for paracentesis today with IR service for abdominal ascites. Abdominal ascites etiology is unclear. Paracentesis ordered for cell cytology and cultures - Patient does have ventral hernia which may be deferred as an elective outpatient management Physician Cigar Packer note has been reviewed by physician. Signing provider agrees with the documented findings, assessment, and plan of care. Please see additional documentation below CHIEF COMPLAINT: Abdominal swelling HISTORY OF PRESENT ILLNESS: The patient is a 83-year-old female admitted for s hortness of breath. She underwent paracentesis with over 6+ L removed. Patient denies any prior episodes. She reports moderate improvement of her shortness of breath. ROS: No reports of nausea and vomiting. No fevers or chills. PHYSICAL EXAM: VITAL SIGNS: Reviewed CONSTITUTIONAL: Well developed and in no acute distress. EYES: Conjuctivae without sclera icterus. Extraocular movements grossly intact. HEAD, EARS, NOSE, THROAT: Moist buccal mucosa. Head is atraumatic, normocephalic. Hears conversational speech. No nasal drainage. RESPIRATORY: Non-labored respirations and equal bilateral excursions. CARDIOVASCULAR: Palpable 2+ radial pulses. ABDOMEN: Decreased size of abdominal girth. MUSCULOSKELETAL: No gross deformity of the lower extremities noted. No clubbing. No cyanosis. SKIN: Good skin turgor. Well perfused. NEUROLOGIC: Cranial nerves II through XII grossly intact. No focal or lateralizing signs. PSYCH: Appropriate affect. Alert and oriented to person, place and time. CLINICAL LABS: Reviewed. LFTs within normal limits. WBC normal. REPORT: CT report was negative for pulmonary embolism on repeat. Paracentesis report 6.5 L removed otherwise over 14 pounds of fluid removed from the abdomen ASSESSMENT: 1. Abdominal distention due to ascites 2. Morbid obesity due to excess calories, BMI 45.7 3. Constipation 4. Cryptogenic ascites PLAN: 1. Patient has a new ascites of unclear etiology for what cell cytology and cultures were obtained. 2. Clinically, patient reports breathing much better since her procedure. 3. Discharge once medically stable however will likely need follow-up with biological scientist and further workup for cryptogenic ascites Objective - Vital Signs Vital signs: Vital Signs Temp 97.9 F 10/17/23 08:00 Pulse 92 10/17/23 08:00 Resp 20 10/17/23 08:00 BP 140/70 10/17/23 08:00 Pulse Ox 98 10/17/23 08:00 FiO2 Intake & Output 10/16/23 10/17/23 10/17/23 18:59 06:59 18:59 Intake Total 610 231.052 462 Output Total 1 Balance 609 231.052 462 Intake: Intake, IV Titration 250 231.052 Amount Heparin Sod,Pork in 0.45% 250 231.052 NaCl 25,000 unit In 0.45 % NaCl 1 250ml.bag @ 18 UNITS/KG/HR 20.412 mls/hr IV .[id number] [facility] Rx#: [id number] Oral 360 462 Output: Stool 1 Other: Voiding Method Toilet Toilet Toilet # Voids 2 1 - Labs CBC & Chem 7: 10/17/23 08:55 10/17/23 08:55 Labs: Abnormal Lab Results - Last 24 Hours (Table) 10/16/23 10/16/23 10/16/23 Range/Units 09:31 09:31 09:31 WBC 11.4 H (3.8-10.6) k/uL RBC 3.66 L (3.80-5.40) m/uL Hgb 10.2 L (11.4-16.0) gm/dL MCHC 29.6 L (31.0-37.0) g/dL Neutrophils # 8.4 H (1.3-7.7) k/uL APTT 69.8 H (22.0-30.0) sec Chloride 111 H (98-107) mmol/L Carbon Dioxide 19 L (22-30) mmol/L BUN 39 H (7-17) mg/dL Glucose 155 H (74-99) mg/dL Total Protein 6.0 L (6.3-8.2) g/dL Albumin 3.4 L (3.5-5.0) g/dL Microbiology - Last 24 Hours (Table) 10/15/23 11:14 Blood Culture - Preliminary Blood 10/15/23 11:30 Urine Culture - Final Urine,Clean Catch
[2023-10-17 10:30] LABS: Basophils # (A) 0.1 k/uL (0-0.2); Basophils % (A) 1 %; Eosinophils # (A) 0.2 k/uL (0-0.7); Eosinophils % (A) 2 %; HCT 32.7 % (34.0-46.0); HGB 10.1 gm/dL (11.4-16.0); Hypochromasia Slight; Lymphocytes # (A) 1.4 k/uL (1.0-4.8); Lymphocytes % (A) 16 %; MCH 29.2 pg (25.0-35.0); MCHC 30.8 g/dL (31.0-37.0); MCV 94.6 fL (80.0-100.0); Mean Platelet Volume 8.6; Monocytes # (A) 0.7 k/uL (0-1.0); Monocytes % (A) 7 %; Neutrophils # (A) 6.7 k/uL (1.3-7.7); Neutrophils % (A) 73 %; Platelet Count 306 k/uL (150-450); RBC 3.45 m/uL (3.80-5.40); RDW 13.5 % (11.5-15.5); WBC 9.2 k/uL (3.8-10.6)
[2023-10-17 11:03] LABS: ALT 15 U/L (4-34); AST 25 U/L (14-36); African American GFR (CKD) >90 (>60 ml/min/1.73 sqM); Alkaline Phosphatase 58 U/L (38-126); Anion Gap 4 mmol/L; Blood Urea Nitrogen 23 mg/dL (7-17); Calcium 8.7 mg/dL (8.4-10.2); Carbon Dioxide 21 mmol/L (22-30); Chloride 112 mmol/L (98-107); Glucose 147 mg/dL (74-99); Non-African American GFR(CKD) 80 (>60 ml/min/1.73 sqM); Potassium 4.5 mmol/L (3.5-5.1); Sodium 137 mmol/L (137-145); Total Bilirubin 0.6 mg/dL (0.2-1.3); Total Protein 5.6 g/dL (6.3-8.2)
--- NOTE | 2023-10-17 15:53 | US ---
Ultrasound-guided paracentesis. DATE OF EXAM: 10/17/2023 CLINICAL HISTORY: Ascites The procedure was discussed with the patient. The risks, complications, benefits, and alternatives we re discussed and any questions were answered. Informed consent was obtained. The patient was placed s upine on the ultrasound table and prepped and draped in the usual sterile fashion. All elements of maximal barrier technique were utilized. Under ultrasound guidance, access into the right lower quadrant was obtained, via the paracentesis catheter system and direct ultrasound guidanc e. Approximately 6.5 liters of straw-colored fluid was removed. The patient was stable throughout the pr ocedure and remained stable upon discharge from Department of Radiology. IMPRESSION: Successful paracentesis under ultrasound guidance.
--- NOTE | 2023-10-17 16:00 | P.PN ---
Subjective Progress Note Date: 10/17/23 Patient is a 83-year-old white female with past medical history significant for hypertension, hyperlipidemia, morbid obesity, remote breast cancer with previous right-sided mastectomy. A pulmonary consult was placed for possible pulmonary embolism. Patient presents to emergency department yesterday morning complaining of 5 to 6 days of intermittent stabbing/aching left-sided chest pain localized to under her left breast. Pain rated as a 5 on a 10 point numerical scale. Not currently experiencing any pain. Not particularly reproducible. She does have some associated dyspnea, mostly on exertion. She does chronically wear 2 L of supplemental oxygen only at night. Denies any pre-existing chronic pulmonary disease processes. Of note, patient reports recent flulike symptoms that she just got over approximately 2 weeks ago. At this time, she was having frequent coughing and intermittent diarrhea. Denies any current infectious symptoms. Denies hemoptysis. She has been weak and occasionally dizzy when ambulating. Denies losing consciousness or passing out. D-dimer was elevated on arrival 6.68. She has acute kidney injury, unable to undergo CT angio PE protocol. She did have a VQ scan showing a matched defect at the left lower lobe and intermediate probability for pulmonary embolism. Based on this finding, patient was started on IV heparin protocol. Patient denies any previous personal or family history of DVT/PE. No recent trauma, surgeries, or hospitalizations. No current active malignancy. She does occasionally have bilateral lower extremity swelling, not particularly unilateral. She takes Bumex outpatient. A follow-up echocardiogram this admission demonstrated LVH with preserved systolic function of 55 to 60% and normal RVSP. A follow-up noncontrast CT of the chest shows mild minimal bibasilar linear scarring and/or atelectasis. No major observable abnormalities or focal consolidations in the left lower lobe. Incidental findings included a ascending aortic aneurysm measuring up to 4.1 cm and intraperitoneal ascites. CBC: WBC count 10.3, hemoglobin 10.7, hematocrit 33, platelets 324. CMP: Sodium 135, potassium 5.5, chloride 102, serum bicarb 26, BUN 81, creatinine 1.83, glucose 118. LFTs not elevated. Normal saline infusing at 75 mL/h. Troponin less than 0.012 x 3. EKG shows normal sinus rhythm without any obvious acute ischemic changes. She is currently resting comfortably on 2 L/min nasal cannula. SpO2 97%. No acute respiratory distress. Not tachycardic. No signs of hemodynamic compromise. 10/16/2023, the patient is being seen for a follow-up and the patient is currently free of any chest pain. She remains on IV heparin for suspected or embolism. She was noted to have some abdominal distention. Based on that, a CAT scan of the abdomen pelvis was done and it showed changes consistent with liver cirrhosis and ascites. There is also some slight nodularity along the anterior aspect of the peritoneum. Otherwise, no other significant events overnight. The patient remains on 3 days of oxygen by nasal cannula with a pulse ox of 97%. WBC count is 11.4, hemoglobin 10 point indicated count of 351. BUN 39 with a creatinine of 0.8 and serum bicarb is 19 with a sodium level of 137 and a potassium level of 4.5. On 10/17/2023, the patient is being seen for a follow-up. The patient is doing well. No specific complaints. A CT of the chest was done yesterday on 10/18/2023 and the patient was found to have no evidence of any pulmonary embolism. There was again abdominal ascites and findings consistent with liver cirrhosis. Based on that, IV heparin has been discontinued and the patient is to undergo a paracentesis for diagnostic and therapeutic purposes. White cell count is at 9 with a hemoglobin level of 10.1 and a platelet count of 306. The patient also has a BUN of 23 with a creatinine 0.7 and sodium is at 137. The patient is currently on IV Rocephin. IV heparin has been discontinued. The patient is also on normal citrate of 75 cc an hour. No respiratory difficulties. The patient is currently on 2 L of oxygen by nasal cannula with a pulse ox of 95%. Objective - Vital Signs Vital signs: Vital Signs Temp 98.2 F 10/17/23 15:52 Pulse 95 10/17/23 15:52 Resp 20 10/17/23 15:52 BP 139/66 10/17/23 15:52 Pulse Ox 95 10/17/23 15:52 FiO2 Intake & Output 10/16/23 10/17/23 10/17/23 18:59 06:59 18:59 Intake Total 610 231.052 702 Output Total 1 Balance 609 231.052 702 Intake: Intake, IV Titration 250 231.052 Amount Heparin Sod,Pork in 0.45% 250 231.052 NaCl 25,000 unit In 0.45 % NaCl 1 250ml.bag @ 18 UNITS/KG/HR 20.412 mls/hr IV .[id number] [facility] Rx#: [id number] Oral 360 702 Output: Stool 1 Other: Voiding Method Toilet Toilet Toilet # Voids 2 1 1 - Exam GENERAL EXAM: Alert, morbidly obese 83-year-old white female, comfortable in no apparent distress. The patient is currently on 3 L of O2 nasal cannula HEAD: Normocephalic and atraumatic EYES: Normal reaction of pupils, equal size. NOSE: Clear with pink turbinates. THROAT: No erythema or exudates. NECK: No masses, no JVD. CHEST: No chest wall deformity. LUNGS: Equal air entry with no crackles, wheeze, rhonchi or dullness. No conversational dyspnea or accessory muscle use.. CVS: S1 and S2 normal with no audible murmur, regular rhythm. No extra heart sounds ABDOMEN: Distended abdomen, no appreciated hepatosplenomegaly, active bowel sounds, no guarding or rigidity. SPINE: No scoliosis or deformity SKIN: No rashes CENTRAL NERVOUS SYSTEM: No focal deficits, tone is normal in all 4 extremities. EXTREMITIES: There is no peripheral edema, clubbing, or cyanosis. Peripheral pu lses are intact. - Labs CBC & Chem 7: 10/17/23 08:55 10/17/23 08:55 Labs: Abnormal Lab Results - Last 24 Hours (Table) 10/17/23 10/17/23 Range/Units 08:55 08:55 RBC 3.45 L (3.80-5.40) m/uL Hgb 10.1 L (11.4-16.0) gm/dL Hct 32.7 L (34.0-46.0) % MCHC 30.8 L (31.0-37.0) g/dL Chloride 112 H (98-107) mmol/L Carbon Dioxide 21 L (22-30) mmol/L BUN 23 H (7-17) mg/dL Glucose 147 H (74-99) mg/dL Total Protein 5.6 L (6.3-8.2) g/dL Albumin 3.0 L (3.5-5.0) g/dL Microbiology - Last 24 Hours (Table) 10/15/23 11:14 Blood Culture - Preliminary Blood 10/15/23 11:30 Urine Culture - Final Urine,Clean Catch Assessment and Plan Assessment: Suspected pulmonary embolism based on a VQ scan showing a matched defect at the left lower lobe and intermediate probability for pulmonary embolism, currently on the high intensity IV heparin protocol. Follow-up CT of the chest without contrast shows mild bibasilar linear scarring and/or atelectasis. There is also likely some anterior right middle lobe atelectasis. No focal consolidations, pleural effusions, or pneumothoraces. The patient remains on IV heparin. No reported chest pain. Hemodynamically stable. Doppler of the lower extremities were negative. Furthermore, CT of the chest was done on 10/16/2023 and there was no evidence of any filling defects and the patient will be taken off the IV heparin. Elevated D-dimer, 6.68 Atypical left-sided chest pain, possibly pleuritic, recovered Acute kidney injury, recovered Intraperitoneal ascites, rule out liver cirrhosis although there is some limited amount of nodularity along the peritoneal wall. Paracentesis today Ascending aortic aneurysm, measuring up to 4.1 cm History of hypertension History of hyperlipidemia Morbid obesity, with a BMI of 45.7 kg/m Remote history breast cancer, status post right-sided mastectomy, > 10 years ago Plan: Currently on 2 L of O2 nasal cannula Hemodynamically stable No evidence of any pulmonary embolism and IV heparin will be discontinued Doppler lower extremities were negative Continue IV fluids Paracentesis today IV Rocephin Echocardiogram shows no significant RV dysfunction. Left ventricular ejection fraction is around 55 to 60%. Will continue to follow and will decide on anticoagulation based on the results of the CTA this will be done today. Continue to follow
[2023-10-17] MEDS: ALBUMIN HUMAN 25% 50 ML in EMPTY BAG 1 BAG IVPB SCH (17:08)
--- NOTE | 2023-10-17 20:37 | PN ---
PROGRESS NOTE SUBJECTIVE: An 83-year-old white female, on Rocephin, DuoNeb. GERD. Currently, she had her bowel tap for paracentesis today, which she had a normal bowel. OBJECTIVE: VITAL SIGNS: Oxygen is 95 on 2 L. Blood pressure 139/66, respiratory rate 18 to 20, temp 98.2. White count is 9.2, hemoglobin is 10.1. Sodium 137, potassium 4.5, glucose 140s, albumin is 3. Surgery apparently ordered a paracentesis. Dr. Garcia apparently did this, I do not know how much he took off, approximately 6.5 L of straw-colored fluid with monitored overnight at this point for blood pressure. Gave her 2 g albumin postop. Prognosis guarded. Please see further orders. MMODL / IJN: [id number] /
[2023-10-18 05:06] LABS: Appearance,BF Cloudy (Clear)
--- NOTE | 2023-10-18 07:59 | P.PN ---
Progress Note - Text Progress Note Date: 10/18/23 CHIEF COMPLAINT: Chest pain HISTORY OF PRESENT ILLNESS: NAEO PHYSICAL EXAM: VITAL SIGNS: Reviewed GENERAL: Well-developed in no acute distress. HEENT: No sclera icterus. Extraocular movements grossly intact. Moist buccal mucosa. Head is atraumatic, normocephalic. Hears conversational speech. No nasal drainage. NECK: Supple without lymphadenopathy. CHEST: Non-labored respirations and equal bilateral excursions. CARDIOVASCULAR: Palpable 2+ radial pulses. ABDOMEN: Soft. Distended. Ventral hernia reducible. Nontender. MUSCULOSKELETAL: No clubbing or cyanosis. NEUROLOGIC: No focal or lateralizing signs. Cranial nerves II through XII grossly intact. PSYCH: Appropriate affect. Alert and oriented to person, place and time. SKIN: Well perfused. Good skin turgor. ASSESSMENT: 1. Abdominal distention due to ascites 2. Constipation improved 3. Chest pain and dizziness 4. Acute kidney injury improved 5. History of abdominal aortic aneurysm 4.1 cm 6. Prior history of abdominal surgeries PLAN: -Paracentesis per IR. Abdominal ascites etiology is unclear. Paracentesis ordered for cell cytology and cultures - Patient does have ventral hernia which may be deferred as an elective outpatient management
--- NOTE | 2023-10-18 11:52 | PN ---
PROGRESS NOTE An 83-year-old white female. Temperature 96.8, pulse is 86, respiratory rate 16 to 18, saturating on 2 L of 97%. Possibly going home today. She is status post paracentesis yesterday. White count is normal. LABORATORY DATA: is 10.1. BUN is 23, creatinine . Fluid shows of lymphocytes, nothing terribly abnormal. White cells are 1100. Please see further orders. Await for recommendations for surgery. Possibly discharge home. MMODL / IJN: [id number] /
[2023-10-18 13:29] LABS: Hepatitis A Antibody IgM Nonreactive (Nonreactive); Hepatitis B Core IgM Nonreactive (Nonreactive); Hepatitis B Surface Antigen Nonreactive (Nonreactive); Hepatitis C IgG Antibody Nonreactive (Nonreactive)
--- NOTE | 2023-10-18 14:23 | P.PN ---
Subjective Progress Note Date: 10/16/23 Principal diagnosis: Reason for follow-up is possible pneumonia Patient is a 83-year-old female with a past medical history significant for hypertension hyperlipidemia right breast cancer presenting to the hospital for evaluation of chest discomfort weakness and generalized bodyaches patient did have CT of the chest focal consolidation in the anterior right middle lobe prompting this consultation. On today's evaluation that is 10/16/2023, patient has been afebrile, patient is breathing comfortably and is currently on 2 L nasal cannula oxygen , patient denies having any significant cough no chest pain shortness of breath, patient denies nausea vomiting or diarrhea and no abdominal pain. Patient white count is 11.4, creatinine 0.84, procalcitonin 0.22 Objective - Vital Signs Vital signs: Vital Signs Temp 98.1 F 10/16/23 08:00 Pulse 94 10/16/23 08:00 Resp 19 10/16/23 08:00 BP 120/66 10/16/23 08:00 Pulse Ox 97 10/16/23 08:00 FiO2 Intake & Output 10/15/23 10/16/23 10/16/23 18:59 06:59 18:59 Intake Total 718.39 131.61 120 Output Total 1 Balance 718.39 131.61 119 Intake: Intake, IV Titration 118.39 131.61 Amount Heparin Sod,Pork in 0.45% 118.39 131.61 NaCl 25,000 unit In 0.45 % NaCl 1 250ml.bag @ 18 UNITS/KG/HR 20.412 mls/hr IV .[id number] [facility] Rx#: [id number] Oral 600 120 Output: Stool 1 Other: Voiding Method Toilet Toilet # Voids 3 1 1 - Exam GENERAL DESCRIPTION: An elderly female lying in bed in no distress RESPIRATORY SYSTEM: Unlabored breathing , decreased breath sounds at bases HEART: S1 S2 regular rate and rhythm , ABDOMEN: Soft , no tenderness EXTREMITIES: No edema feet Exam completed with help of POLYSOMNOGRAPHIC TECHNOLOGIST - Labs CBC & Chem 7: 10/17/23 08:55 10/17/23 08:55 Labs: Abnormal Lab Results - Last 24 Hours (Table) 10/15/23 10/15/23 10/15/23 Range/Units 07:42 17:31 20:43 APTT 31.8 H 45.6 H (22.0-30.0) sec Magnesium 2.7 H (1.6-2.3) mg/dL Assessment and Plan (1) Pneumonia Current Visit: Yes Status: Acute Code(s): J18.9 - PNEUMONIA, UNSPECIFIED ORGANISM SNOMED Code(s): 364139530 (2) Elevated procalcitonin Current Visit: Yes Status: Acute Code(s): R79.89 - OTHER SPECIFIED ABNORMAL FINDINGS OF BLOOD CHEMISTRY SNOMED Code(s): 618248968 (3) Leukocytosis Current Visit: Yes Status: Acute Code(s): D72.829 - ELEVATED WHITE BLOOD CELL COUNT, UNSPECIFIED SNOMED Code(s): 044394053 Plan: This is a telehealth visit 1patient presented to hospital with some discomfort in the chest she also have a cough bringing up some sputum no hemoptysis patient did have elevated procalcitonin though mildly elevated however CT of the chest that shows evidence of the right middle lobe consolidation concerning for community-acquired pneumonia 2-patient to continue with with azithromycin and Rocephin 1 g daily while alan madeline for the workup to be completed Dictation was produced using [employer] dictation software. please excuse any grammatical, word or spelling errors. Time with Patient: Less than 30
--- NOTE | 2023-10-18 14:25 | P.PN ---
Subjective Progress Note Date: 10/17/23 Principal diagnosis: Reason for follow-up is possible pneumonia, ascites and question of SBP Patient is a 83-year-old female with a past medical history significant for hypertension hyperlipidemia right breast cancer presenting to the hospital for evaluation of chest discomfort weakness and generalized bodyaches patient did have CT of the chest focal consolidation in the anterior right middle lobe prompting this consultation. On today's evaluation that is 10/17/2023, Patient is afebrile this morning and denies any chills, patient mention breathing comfortably and is currently on 2 L nasal cannula oxygen, patient denies any chest pain occasional cough patient did have some chronic constipation abdominal distention nausea but no vomiting patient white count is normal at 9.2 creatinine 0.70 Objective - Vital Signs Vital signs: Vital Signs Temp 97.9 F 10/17/23 20:00 Pulse 98 10/17/23 20:00 Resp 18 10/17/23 20:00 BP 129/62 10/17/23 20:00 Pulse Ox 96 10/17/23 20:00 FiO2 Intake & Output 10/17/23 10/17/23 10/18/23 06:59 18:59 06:59 Intake Total 081.508 3352 Balance 090.490 2873 Intake: Intake, IV Titration 855.074 6952 Amount Albumin Human 25% 50 ml 100 In Empty Bag 1 bag @ 50 mls/hr IVPB Q1H [facility] Rx#: [id number] Azithromycin 500 mg In 250 Sodium Chloride 0.9% 250 ml @ 250 mls/hr IVPB DAILY [facility] Rx#:[id number] Heparin Sod,Pork in 0.45% 231.052 NaCl 25,000 unit In 0.45 % NaCl 1 250ml.bag @ 18 UNITS/KG/HR 20.412 mls/hr IV .[id number] [facility] Rx#: [id number] Sodium Chloride 0.9% 1, 600 000 ml @ 75 mls/hr IV . [id number] [facility] Rx#:[id number] cefTRIAXone 1 gm In 50 Sodium Chloride 0.9% 50 ml @ 100 mls/hr IVPB Q24HR [facility] Rx#:[id number] Oral 702 Other: Voiding Method Toilet Toilet Toilet # Voids 1 1 - Labs CBC & Chem 7: 10/17/23 08:55 10/17/23 08:55 Labs: Abnormal Lab Results - Last 24 Hours (Table) 10/17/23 10/17/23 Range/Units 08:55 08:55 RBC 3.45 L (3.80-5.40) m/uL Hgb 10.1 L (11.4-16.0) gm/dL Hct 32.7 L (34.0-46.0) % MCHC 30.8 L (31.0-37.0) g/dL Chloride 112 H (98-107) mmol/L Carbon Dioxide 21 L (22-30) mmol/L BUN 23 H (7-17) mg/dL Glucose 147 H (74-99) mg/dL Total Protein 5.6 L (6.3-8.2) g/dL Albumin 3.0 L (3.5-5.0) g/dL Microbiology - Last 24 Hours (Table) 10/15/23 11:14 Blood Culture - Preliminary Blood Assessment and Plan (1) Ascites Current Visit: Yes Status: Acute Code(s): R18.8 - OTHER ASCITES SNOMED Code(s): 003576750 (2) Elevated procalcitonin Current Visit: Yes Status: Acute Code(s): R79.89 - OTHER SPECIFIED ABNORMAL FINDINGS OF BLOOD CHEMISTRY SNOMED Code(s): 491503927 (3) Leukocytosis Current Visit: Yes Status: Acute Code(s): D72.829 - ELEVATED WHITE BLOOD CELL COUNT, UNSPECIFIED SNOMED Code(s): 700139175 (4) Pneumonia Current Visit: Yes Status: Acute Code(s): J18.9 - PNEUMONIA, UNSPECIFIED ORGANISM SNOMED Code(s): 906836544 Plan: This is a telehealth visit 1patient presented to hospital with some discomfort in the chest she also have a cough bringing up some sputum no hemoptysis patient did have elevated procalcitonin though mildly elevated however CT of the chest that shows evidence of the right middle lobe consolidation concerning for community-acquired pneumonia 2-patient did have a new onset ascites in this patient with no history of heavy drinking hepatitis panel has been negative CT abdominal pelvis showed ascites but no other abnormality currently waiting for paracentesis recommend holding the discharge till the workup is completed patient is covered with Rocephin ascitic fluid should be sent for Gram stain and culture as well as cell count Dictation was produced using [employer] dictation software. please excuse any grammatical, word or spelling errors. Time with Patient: Less than 30
--- NOTE | 2023-10-18 14:26 | P.PN ---
Subjective Progress Note Date: 10/18/23 Principal diagnosis: Reason for follow-up is possible pneumonia, ascites and question of SBP Patient is a 83-year-old female with a past medical history significant for hypertension hyperlipidemia right breast cancer presenting to the hospital for evaluation of chest discomfort weakness and generalized bodyaches patient did have CT of the chest focal consolidation in the anterior right middle lobe prompting this consultation. On today's evaluation that is 10/18/2023,the patient denies any fever or any chills, patient is breathing comfortably on 2 L nasal oxygen, the patient denies chest pain shortness of breath and no significant cough, patient has been complaining of some abdominal pain from the paracentesis yesterday nausea but no vomiting he did have a chronic constipation denies any change in the bowel pattern. Patient did have a paracentesis done yesterday which was cloudy with 1100 WBC 39% PMN patient did have abdominal pelvis CT moderate ascites and possible cirrhosis Objective - Vital Signs Vital signs: Vital Signs Temp 96.8 F L 10/18/23 07:42 Pulse 72 10/18/23 11:09 Resp 18 10/18/23 11:09 BP 118/56 10/18/23 11:09 Pulse Ox 97 10/18/23 11:09 FiO2 Intake & Output 10/17/23 10/18/23 10/18/23 18:59 06:59 18:59 Intake Total 1702 540 220 Balance 1702 540 220 Intake: Intake, IV Titration 1000 Amount Albumin Human 25% 50 ml 100 In Empty Bag 1 bag @ 50 mls/hr IVPB Q1H [facility] Rx#: [id number] Azithromycin 500 mg In 250 Sodium Chloride 0.9% 250 ml @ 250 mls/hr IVPB DAILY [facility] Rx#:[id number] Sodium Chloride 0.9% 1, 600 000 ml @ 75 mls/hr IV . [id number] [facility] Rx#:[id number] cefTRIAXone 1 gm In 50 Sodium Chloride 0.9% 50 ml @ 100 mls/hr IVPB Q24HR [facility] Rx#:[id number] Oral 702 540 220 Other: Voiding Method Toilet Toilet Toilet # Voids 1 3 2 - Exam GENERAL DESCRIPTION: An elderly female lying in bed in no distress RESPIRATORY SYSTEM: Unlabored breathing , decreased breath sounds at bases HEART: S1 S2 regular rate and rhythm , ABDOMEN: Soft , no tenderness EXTREMITIES: No edema feet - Labs CBC & Chem 7: 10/17/23 08:55 10/17/23 08:55 Labs: Abnormal Lab Results - Last 24 Hours (Table) 10/17/23 Range/Units 14:20 Fluid Appearance Cloudy A (Clear) Microbiology - Last 24 Hours (Table) 10/15/23 11:14 Blood Culture - Preliminary Blood Assessment and Plan (1) Ascites Current Visit: Yes Status: Acute Code(s): R18.8 - OTHER ASCITES SNOMED Code(s): 590803542 (2) Elevated procalcitonin Current Visit: Yes Status: Acute Code(s): R79.89 - OTHER SPECIFIED ABNORMAL FINDINGS OF BLOOD CHEMISTRY SNOMED Code(s): 746345372 (3) Leukocytosis Current Visit: Yes Status: Acute Code(s): D72.829 - ELEVATED WHITE BLOOD CELL COUNT, UNSPECIFIED SNOMED Code(s): 328343589 Plan: 1patient presented to hospital with some discomfort in the chest she also have a cough bringing up some sputum no hemoptysis patient did have elevated procalcitonin though mildly elevated however CT of the chest that shows evidence of the right middle lobe consolidation concerning for community-acquired pneumonia 2-patient did have a new onset ascites in this patient with no history of heavy drinking hepatitis panel has been negative CT abdominal pelvis showed ascites but no other abnormality hepatitis panel has been negative, patient did have a white count of 1100 and the ascitic fluid concerning for SBP patient white count normalized we will give the patient Rocephin while waiting for the peritoneal fluid cultures to be completed at the bedside multiple questions were answered Dictation was produced using [email or web address] dictation software. please excuse any grammatical, word or spelling errors. Time with Patient: Less than 30
--- NOTE | 2023-10-18 18:28 | P.PN ---
Subjective Progress Note Date: 10/18/23 Patient is a 83-year-old white female with past medical history significant for hypertension, hyperlipidemia, morbid obesity, remote breast cancer with previous right-sided mastectomy. A pulmonary consult was placed for possible pulmonary embolism. Patient presents to emergency department yesterday morning complaining of 5 to 6 days of intermittent stabbing/aching left-sided chest pain localized to under her left breast. Pain rated as a 5 on a 10 point numerical scale. Not currently experiencing any pain. Not particularly reproducible. She does have some associated dyspnea, mostly on exertion. She does chronically wear 2 L of supplemental oxygen only at night. Denies any pre-existing chronic pulmonary disease processes. Of note, patient reports recent flulike symptoms that she just got over approximately 2 weeks ago. At this time, she was having frequent coughing and intermittent diarrhea. Denies any current infectious symptoms. Denies hemoptysis. She has been weak and occasionally dizzy when ambulating. Denies losing consciousness or passing out. D-dimer was elevated on arrival 6.68. She has acute kidney injury, unable to undergo CT angio PE protocol. She did have a VQ scan showing a matched defect at the left lower lobe and intermediate probability for pulmonary embolism. Based on this finding, patient was started on IV heparin protocol. Patient denies any previous personal or family history of DVT/PE. No recent trauma, surgeries, or hospitalizations. No current active malignancy. She does occasionally have bilateral lower extremity swelling, not particularly unilateral. She takes Bumex outpatient. A follow-up echocardiogram this admission demonstrated LVH with preserved systolic function of 55 to 60% and normal RVSP. A follow-up noncontrast CT of the chest shows mild minimal bibasilar linear scarring and/or atelectasis. No major observable abnormalities or focal consolidations in the left lower lobe. Incidental findings included a ascending aortic aneurysm measuring up to 4.1 cm and intraperitoneal ascites. CBC: WBC count 10.3, hemoglobin 10.7, hematocrit 33, platelets 324. CMP: Sodium 135, potassium 5.5, chloride 102, serum bicarb 26, BUN 81, creatinine 1.83, glucose 118. LFTs not elevated. Normal saline infusing at 75 mL/h. Troponin less than 0.012 x 3. EKG shows normal sinus rhythm without any obvious acute ischemic changes. She is currently resting comfortably on 2 L/min nasal cannula. SpO2 97%. No acute respiratory distress. Not tachycardic. No signs of hemodynamic compromise. 10/16/2023, the patient is being seen for a follow-up and the patient is currently free of any chest pain. She remains on IV heparin for suspected or embolism. She was noted to have some abdominal distention. Based on that, a CAT scan of the abdomen pelvis was done and it showed changes consistent with liver cirrhosis and ascites. There is also some slight nodularity along the anterior aspect of the peritoneum. Otherwise, no other significant events overnight. The patient remains on 3 days of oxygen by nasal cannula with a pulse ox of 97%. WBC count is 11.4, hemoglobin 10 point indicated count of 351. BUN 39 with a creatinine of 0.8 and serum bicarb is 19 with a sodium level of 137 and a potassium level of 4.5. On 10/17/2023, the patient is being seen for a follow-up. The patient is doing well. No specific complaints. A CT of the chest was done yesterday on 10/18/2023 and the patient was found to have no evidence of any pulmonary embolism. There was again abdominal ascites and findings consistent with liver cirrhosis. Based on that, IV heparin has been discontinued and the patient is to undergo a paracentesis for diagnostic and therapeutic purposes. White cell count is at 9 with a hemoglobin level of 10.1 and a platelet count of 306. The patient also has a BUN of 23 with a creatinine 0.7 and sodium is at 137. The patient is currently on IV Rocephin. IV heparin has been discontinued. The patient is also on normal citrate of 75 cc an hour. No respiratory difficulties. The patient is currently on 2 L of oxygen by nasal cannula with a pulse ox of 95%. 10/18/2023, patient is being seen for a follow-up. Patient is doing well with no specific complaints. No chest pain. No shortness of breath. Paracentesis was done and the patient is abdomen seems to be less distended. The ascitic fluid showed a higher count of white cell which was in order of 1100. Consider the possibility of spontaneous bacterial peritonitis. The patient is currently on IV Rocephin. White cell count is at 9.2 with a hemoglobin of 10 and a platelet count of 306. IV fluids are running at rate of 75 cc an hour and the patient's creatinine is at 0.7. Objective - Vital Signs Vital signs: Vital Signs Temp 96.8 F L 10/18/23 07:42 Pulse 72 10/18/23 11:09 Resp 18 10/18/23 11:09 BP 118/56 10/18/23 11:09 Pulse Ox 97 10/18/23 11:09 FiO2 Intake & Output 10/17/23 10/18/23 10/18/23 18:59 06:59 18:59 Intake Total 1702 540 110 Balance 1702 540 110 Intake: Intake, IV Titration 1000 Amount Albumin Human 25% 50 ml 100 In Empty Bag 1 bag @ 50 mls/hr IVPB Q1H [facility] Rx#: [id number] Azithromycin 500 mg In 250 Sodium Chloride 0.9% 250 ml @ 250 mls/hr IVPB DAILY [facility] Rx#:[id number] Sodium Chloride 0.9% 1, 600 000 ml @ 75 mls/hr IV . [id number] [facility] Rx#:[id number] cefTRIAXone 1 gm In 50 Sodium Chloride 0.9% 50 ml @ 100 mls/hr IVPB Q24HR [facility] Rx#:[id number] Oral 702 540 110 Other: Voiding Method Toilet Toilet Toilet # Voids 1 3 - Exam GENERAL EXAM: Alert, morbidly obese 83-year-old white female, comfortable in no apparent distress. The patient is currently on 3 L of O2 nasal cannula HEAD: Normocephalic and atraumatic EYES: Normal reaction of pupils, equal size. NOSE: Clear with pink turbinates. THROAT: No erythema or exudates. NECK: No masses, no JVD. CHEST: No chest wall deformity. LUNGS: Equal air entry with no crackles, wheeze, rhonchi or dullness. No conversational dyspnea or accessory muscle use.. CVS: S1 and S2 normal with no audible murmur, regular rhythm. No extra heart sounds ABDOMEN: Distended abdomen, no appreciated hepatosplenomegaly, active bowel sounds, no guarding or rigidity. SPINE: No scoliosis or deformity SKIN: No rashes CENTRAL NERVOUS SYSTEM: No focal deficits, tone is normal in all 4 extremities. EXTREMITIES: There is no peripheral edema, clubbing, or cyanosis. Peripheral pulses are intact. - Labs CBC & Chem 7: 10/17/23 08:55 10/17/23 08:55 Labs: Abnormal Lab Results - Last 24 Hours (Table) 10/17/23 Range/Units 14:20 Fluid Appearance Cloudy A (Clear) Microbiology - Last 24 Hours (Table) 10/15/23 11:14 Blood Culture - Preliminary Blood Assessment and Plan Assessment: Suspected pulmonary embolism based on a VQ scan showing a matched defect at the left lower lobe and intermediate probability for pulmonary embolism, currently on the high intensity IV heparin protocol. Follow-up CT of the chest without contrast shows mild bibasilar linear scarring and/or atelectasis. There is also likely some anterior right middle lobe atelectasis. No focal consolidations, pleural effusions, or pneumothoraces. The patient remains on IV heparin. No reported chest pain. Hemodynamically stable. Doppler of the lower extremities were negative. Furthermore, CT of the chest was done on 10/16/2023 and there was no evidence of any filling defects and the patient will be taken off the IV heparin. Elevated D-dimer, 6.68 Atypical left-sided chest pain, possibly pleuritic, recovered Acute kidney injury, recovered Spontaneous bacterial peritonitis and the patient had intraperitoneal ascites, secondary to liver cirrhosis although there is some limited amount of nodularity along the peritoneal wall. Paracentesis was completed and the cell count is elevated, cultures are still pending, consider spontaneous bacterial peritonitis and the patient is currently on IV Rocephin. Ascending aortic aneurysm, measuring up to 4.1 cm History of hypertension History of hyperlipidemia Morbid obesity, with a BMI of 45.7 kg/m Remote history breast cancer, status post right-sided mastectomy, > 10 years ago Plan: Currently on 2 L of O2 nasal cannula Hemodynamically stable No evidence of any pulmonary embolism and IV heparin was discontinued Doppler lower extremities were negative Continue IV fluids Paracentesis completed and the patient is currently on IV Rocephin IV Rocephin to be continued pending cultures Echocardiogram shows no significant RV dysfunction. Left ventricular ejection fraction is around 55 to 60%. Continue to follow
--- NOTE | 2023-10-19 12:12 | P.PN ---
Subjective Progress Note Date: 10/19/23 Patient is a 83-year-old white female with past medical history significant for hypertension, hyperlipidemia, morbid obesity, remote breast cancer with previous right-sided mastectomy. A pulmonary consult was placed for possible pulmonary embolism. Patient presents to emergency department yesterday morning complaining of 5 to 6 days of intermittent stabbing/aching left-sided chest pain localized to under her left breast. Pain rated as a 5 on a 10 point numerical scale. Not currently experiencing any pain. Not particularly reproducible. She does have some associated dyspnea, mostly on exertion. She does chronically wear 2 L of supplemental oxygen only at night. Denies any pre-existing chronic pulmonary disease processes. Of note, patient reports recent flulike symptoms that she just got over approximately 2 weeks ago. At this time, she was having frequent coughing and intermittent diarrhea. Denies any current infectious symptoms. Denies hemoptysis. She has been weak and occasionally dizzy when ambulating. Denies losing consciousness or passing out. D-dimer was elevated on arrival 6.68. She has acute kidney injury, unable to undergo CT angio PE protocol. She did have a VQ scan showing a matched defect at the left lower lobe and intermediate probability for pulmonary embolism. Based on this finding, patient was started on IV heparin protocol. Patient denies any previous personal or family history of DVT/PE. No recent trauma, surgeries, or hospitalizations. No current active malignancy. She does occasionally have bilateral lower extremity swelling, not particularly unilateral. She takes Bumex outpatient. A follow-up echocardiogram this admission demonstrated LVH with preserved systolic function of 55 to 60% and normal RVSP. A follow-up noncontrast CT of the chest shows mild minimal bibasilar linear scarring and/or atelectasis. No major observable abnormalities or focal consolidations in the left lower lobe. Incidental findings included a ascending aortic aneurysm measuring up to 4.1 cm and intraperitoneal ascites. CBC: WBC count 10.3, hemoglobin 10.7, hematocrit 33, platelets 324. CMP: Sodium 135, potassium 5.5, chloride 102, serum bicarb 26, BUN 81, creatinine 1.83, glucose 118. LFTs not elevated. Normal saline infusing at 75 mL/h. Troponin less than 0.012 x 3. EKG shows normal sinus rhythm without any obvious acute ischemic changes. She is currently resting comfortably on 2 L/min nasal cannula. SpO2 97%. No acute respiratory distress. Not tachycardic. No signs of hemodynamic compromise. 10/16/2023, the patient is being seen for a follow-up and the patient is currently free of any chest pain. She remains on IV heparin for suspected or embolism. She was noted to have some abdominal distention. Based on that, a CAT scan of the abdomen pelvis was done and it showed changes consistent with liver cirrhosis and ascites. There is also some slight nodularity along the anterior aspect of the peritoneum. Otherwise, no other significant events overnight. The patient remains on 3 days of oxygen by nasal cannula with a pulse ox of 97%. WBC count is 11.4, hemoglobin 10 point indicated count of 351. BUN 39 with a creatinine of 0.8 and serum bicarb is 19 with a sodium level of 137 and a potassium level of 4.5. On 10/17/2023, the patient is being seen for a follow-up. The patient is doing well. No specific complaints. A CT of the chest was done yesterday on 10/18/2023 and the patient was found to have no evidence of any pulmonary embolism. There was again abdominal ascites and findings consistent with liver cirrhosis. Based on that, IV heparin has been discontinued and the patient is to undergo a paracentesis for diagnostic and therapeutic purposes. White cell count is at 9 with a hemoglobin level of 10.1 and a platelet count of 306. The patient also has a BUN of 23 with a creatinine 0.7 and sodium is at 137. The patient is currently on IV Rocephin. IV heparin has been discontinued. The patient is also on normal citrate of 75 cc an hour. No respiratory difficulties. The patient is currently on 2 L of oxygen by nasal cannula with a pulse ox of 95%. 10/18/2023, patient is being seen for a follow-up. Patient is doing well with no specific complaints. No chest pain. No shortness of breath. Paracentesis was done and the patient is abdomen seems to be less distended. The ascitic fluid showed a higher count of white cell which was in order of 1100. Consider the possibility of spontaneous bacterial peritonitis. The patient is currently on IV Rocephin. White cell count is at 9.2 with a hemoglobin of 10 and a platelet count of 306. IV fluids are running at rate of 75 cc an hour and the patient's creatinine is at 0.7. 10/19/2023, patient is being seen for a follow-up. The patient is doing extremely well and the patient is currently on 2 L of oxygen by nasal cannula with pulse ox of 98%. She is being treated with IV Rocephin for a suspected SBP. Ascitic fluid culture still pending. Pulm embolism was ruled out by a CT angiogram. The patient is currently on no anticoagulants. She is known to have underlying liver cirrhosis. Blood work is still pending from today. She remains on IV Rocephin. IV fluids will be cut down to KVO. No other significan t events. Objective - Vital Signs Vital signs: Vital Signs Temp 98.2 F 10/19/23 07:47 Pulse 92 10/19/23 07:47 Resp 24 10/19/23 07:47 BP 137/71 10/19/23 07:47 Pulse Ox 98 10/19/23 07:47 FiO2 Intake & Output 10/18/23 10/19/23 10/19/23 18:59 06:59 18:59 Intake Total 330 540 240 Balance 330 540 240 Intake: Oral 330 540 240 Other: Voiding Method Toilet Toilet # Voids 2 3 1 - Exam GENERAL EXAM: Alert, morbidly obese 83-year-old white female, comfortable in no apparent distress. The patient is currently on 2 L of O2 nasal cannula HEAD: Normocephalic and atraumatic EYES: Normal reaction of pupils, equal size. NOSE: Clear with pink turbinates. THROAT: No erythema or exudates. NECK: No masses, no JVD. CHEST: No chest wall deformity. LUNGS: Equal air entry with no crackles, wheeze, rhonchi or dullness. No conversational dyspnea or accessory muscle use.. CVS: S1 and S2 normal with no audible murmur, regular rhythm. No extra heart sounds ABDOMEN: Distended abdomen, no appreciated hepatosplenomegaly, active bowel sounds, no guarding or rigidity. SPINE: No scoliosis or deformity SKIN: No rashes CENTRAL NERVOUS SYSTEM: No focal deficits, tone is normal in all 4 extremities. EXTREMITIES: There is no peripheral edema, clubbing, or cyanosis. Peripheral pulses are intact. - Labs CBC & Chem 7: 10/17/23 08:55 10/17/23 08:55 Labs: Microbiology - Last 24 Hours (Table) 10/17/23 14:20 Gram Stain - Preliminary Ascites Fluid Body Fluid Culture - Preliminary 10/15/23 11:14 Blood Culture - Preliminary Blood Assessment and Plan Assessment: Suspected pulmonary embolism based on a VQ scan showing a matched defect at the left lower lobe and intermediate probability for pulmonary embolism, currently on the high intensity IV heparin protocol. Follow-up CT of the chest without contrast shows mild bibasilar linear scarring and/or atelectasis. There is also likely some anterior right middle lobe atelectasis. No focal consolidations, pleural effusions, or pneumothoraces. The patient remains on IV heparin. No reported chest pain. Hemodynamically stable. Doppler of the lower extremities were negative. Furthermore, CT of the chest was done on 10/16/2023 and there was no evidence of any filling defects and the patient will be taken off the IV heparin. Elevated D-dimer, 6.68, nonspecific, could be related to SBP, Atypical left-sided chest pain, possibly pleuritic, recovered Acute kidney injury, recovered Spontaneous bacterial peritonitis and the patient had intraperitoneal ascites, secondary to liver cirrhosis although there is some limited amount of nodularity along the peritoneal wall. Paracentesis was completed and the cell count is elevated, cultures are still pending, consider spontaneous bacterial peritonitis and the patient is currently on IV Rocephin. Ascending aortic aneurysm, measuring up to 4.1 cm History of hypertension History of hyperlipidemia Morbid obesity, with a BMI of 45.7 kg/m Remote history breast cancer, status post right-sided mastectomy, > 10 years ago Plan: Currently on 2 L of O2 nasal cannula, should be able to wean down to room air Hemodynamically stable No evidence of any pulmonary embolism and IV heparin was discontinued Doppler lower extremities were negative IV fluids to KVO Paracentesis completed and the patient is currently on IV Rocephin IV Rocephin to be continued pending cultures Echocardiogram shows no significant RV dysfunction. Left ventricular ejection fraction is around 55 to 60%. Respiratory status is stable
--- NOTE | 2023-10-19 14:52 | P.PN ---
Subjective Progress Note Date: 10/19/23 CHIEF COMPLAINT: Abdominal swelling HISTORY OF PRESENT ILLNESS: The patient is a 83-year-old female admitted for shortness of breath. She underwent paracentesis with over 6+ L removed. She denies diffuse abdominal pain. She remains short of breath. She is being followed by infectious disease including pulmonary team. She is tolerating diet. ROS: No reports of nausea and vomiting. No fevers or chills. PHYSICAL EXAM: VITAL SIGNS: Reviewed CONSTITUTIONAL: Well developed and in no acute distress. EYES: Conjuctivae without sclera icterus. Extraocular movements grossly intact. HEAD, EARS, NOSE, THROAT: Moist buccal mucosa. Head is atraumatic, normocephalic. Hears conversational speech. No nasal drainage. RESPIRATORY: Non-labored respirations and equal bilateral excursions. CARDIOVASCULAR: Palpable 2+ radial pulses. ABDOMEN: Decreased size of abdominal girth. Palpable incisional hernia without obstruction MUSCULOSKELETAL: No gross deformity of the lower extremities noted. No clubbing. No cyanosis. SKIN: Good skin turgor. Well perfused. NEUROLOGIC: Cranial nerves II through XII grossly intact. No focal or lateralizing signs. PSYCH: Appropriate affect. Alert and oriented to person, place and time. CLINICAL LABS: Reviewed. WBC normal. MICROBIOLOGY: Results are still pending. ASSESSMENT: 1. Abdominal distention due to ascites 2. Morbid obesity due to excess calories, BMI 45.7 3. Constipation 4. Cryptogenic ascites with paracentesis 6 L removed over PLAN: 1. Ideally follow-up with gastroenterology for cryptogenic ascites advised. 2. Antibiotic management per infectious disease. 3. At this time, pulmonary risk assessment in progress. 4. Do recommend consultation to GI for cryptogenic ascites which may be performed as outpatient. Objective - Vital Signs Vital signs: Vital Signs Temp 98.2 F 10/19/23 07:47 Pulse 77 10/19/23 13:56 Resp 24 10/19/23 11:20 BP 145/74 10/19/23 11:20 Pulse Ox 98 10/19/23 11:55 FiO2 Intake & Output 10/18/23 10/19/23 10/19/23 18:59 06:59 18:59 Intake Total 330 540 360 Balance 330 540 360 Intake: Oral 330 540 360 Other: Voiding Method Toilet Toilet Toilet # Voids 2 3 1 - Labs CBC & Chem 7: 10/17/23 08:55 10/17/23 08:55 Labs: Microbiology - Last 24 Hours (Table) 10/17/23 14:20 Gram Stain - Preliminary Ascites Fluid Body Fluid Culture - Preliminary 10/15/23 11:14 Blood Culture - Preliminary Blood
--- NOTE | 2023-10-19 14:53 | P.PN ---
Subjective Progress Note Date: 10/19/23 Principal diagnosis: Reason for follow-up is possible pneumonia, ascites and question of SBP Patient is a 83-year-old female with a past medical history significant for hypertension hyperlipidemia right breast cancer presenting to the hospital for evaluation of chest discomfort weakness and generalized bodyaches patient did have CT of the chest focal consolidation in the anterior right middle lobe prompting this consultation. On today's evaluation that is 10/19/2023,the patient remains to be afebrile, patient is on 2 L nasal cannula supplemental oxygen and denies any worsening shortness of breath no chest pain or any worsening cough.Patient denies having any nausea or vomiting, no abdominal pain and no diarrhea has been reported. Patient white count is 9.2 as of 614 no new labs has been obtained today cultures currently pending Objective - Vital Signs Vital signs: Vital Signs Temp 98.2 F 10/19/23 07:47 Pulse 92 10/19/23 07:47 Resp 24 10/19/23 07:47 BP 137/71 10/19/23 07:47 Pulse Ox 95 10/19/23 09:22 FiO2 Intake & Output 10/18/23 10/19/23 10/19/23 18:59 06:59 18:59 Intake Total 330 540 240 Balance 330 540 240 Intake: Oral 330 540 240 Other: Voiding Method Toilet Toilet Toilet # Voids 2 3 1 - Exam GENERAL DESCRIPTION: An elderly female lying in bed in no distress RESPIRATORY SYSTEM: Unlabored breathing , decreased breath sounds at bases HEART: S1 S2 regular rate and rhythm , ABDOMEN: Soft , no tenderness EXTREMITIES: No edema feet - Labs CBC & Chem 7: 10/17/23 08:55 10/17/23 08:55 Labs: Microbiology - Last 24 Hours (Table) 10/17/23 14:20 Gram Stain - Preliminary Ascites Fluid Body Fluid Culture - Preliminary 10/15/23 11:14 Blood Culture - Preliminary Blood Assessment and Plan (1) Ascites Current Visit: Yes Status: Acute Code(s): R18.8 - OTHER ASCITES SNOMED Cod e(s): 567164633 (2) Elevated procalcitonin Current Visit: Yes Status: Acute Code(s): R79.89 - OTHER SPECIFIED ABNORMAL FINDINGS OF BLOOD CHEMISTRY SNOMED Code(s): 107836530 (3) Leukocytosis Current Visit: Yes Status: Acute Code(s): D72.829 - ELEVATED WHITE BLOOD CELL COUNT, UNSPECIFIED SNOMED Code(s): 398382328 Plan: 1patient presented to hospital with some discomfort in the chest she also have a cough bringing up some sputum no hemoptysis patient did have elevated procalcitonin though mildly elevated however CT of the chest that shows evidence of the right middle lobe consolidation concerning for community-acquired pneumonia 2-patient did have a new onset ascites in this patient with no history of heavy drinking hepatitis panel has been negative CT abdominal pelvis showed ascites but no other abnormality hepatitis panel has been negative, patient did have a white count of 1100 and the ascitic fluid concerning for SBP patient white count normalized patient is currently covered Rocephin to continue while waiting for the peritoneal fluid culture finalized will benefit from GI evaluation for f urther workup for her cirrhosis which is a new diagnosis for her discussed with admitting physician Dictation was produced using [employer] dictation software. please excuse any grammatical, word or spelling errors. Time with Patient: Less than 30
--- NOTE | 2023-10-19 21:55 | PN ---
PROGRESS NOTE 83-year-old white female. Blood pressure is 137/71. She is breathing better now. Oxygen levels 95 on room air, temp 98.2, pulse 80-90, respiratory rate 18-24. White count is . Dr. Yousif was consulted for abnormal paracentesis, possible for infection. We are going to await for the culture of the paracentesis fluid. She has 1100 white blood cells, 39% PMN. She has possible cirrhosis on abdominal CT. Ascites is thought secondary to viral syndrome, autoimmune hepatitis. Hepatitis panel pending. Abdomen is soft better, nontender. Lungs are better. Less wheezing and rhonchi. Cardiovascular S1, S2. Hemoglobin is 10.1. BUN is 23, creatinine 0.7. ASSESSMENT: Ascites, elevated procalcitonin, leukocytosis, had no paracentesis. X-ray of chest showed evidence of right middle lobe pneumonia, which we have been treating her for. No new onset ascites. Status post paracentesis 6.5 L. Waiting for cultures to be completed. Continue with IV antibiotics. PROGNOSIS: Guarded. MMODL / IJN: [id number] /
[2023-10-20 09:39] LABS: Basophils # (A) 0.1 k/uL (0-0.2); Basophils % (A) 1 %; Eosinophils # (A) 0.1 k/uL (0-0.7); Eosinophils % (A) 1 %; HCT 29.7 % (34.0-46.0); HGB 9.4 gm/dL (11.4-16.0); Hypochromasia Slight; Lymphocytes # (A) 1.2 k/uL (1.0-4.8); Lymphocytes % (A) 11 %; MCH 29.6 pg (25.0-35.0); MCHC 31.5 g/dL (31.0-37.0); Mean Platelet Volume 7.6; Monocytes # (A) 0.8 k/uL (0-1.0); Monocytes % (A) 8 %; Neutrophils # (A) 8.4 k/uL (1.3-7.7); Neutrophils % (A) 79 %; Platelet Count 276 k/uL (150-450); RBC 3.16 m/uL (3.80-5.40); RDW 13.3 % (11.5-15.5); WBC 10.7 k/uL (3.8-10.6)
[2023-10-20 09:58] LABS: ALT 17 U/L (4-34); AST 24 U/L (14-36); African American GFR (CKD) >90 (>60 ml/min/1.73 sqM); Albumin 2.9 g/dL (3.5-5.0); Alkaline Phosphatase 54 U/L (38-126); Anion Gap 5 mmol/L; Blood Urea Nitrogen 11 mg/dL (7-17); Calcium 8.9 mg/dL (8.4-10.2); Carbon Dioxide 24 mmol/L (22-30); Chloride 108 mmol/L (98-107); Glucose 144 mg/dL (74-99); Non-African American GFR(CKD) 81 (>60 ml/min/1.73 sqM); Potassium 4.1 mmol/L (3.5-5.1); Sodium 137 mmol/L (137-145); Total Bilirubin 0.9 mg/dL (0.2-1.3); Total Protein 5.4 g/dL (6.3-8.2)
--- NOTE | 2023-10-20 13:11 | P.PN ---
Subjective Progress Note Date: 10/20/23 CHIEF COMPLAINT: Chest pain HISTORY OF PRESENT ILLNESS: This is an 83-year-old female present with chest pain, dizziness and lightheadedness. Patient status post paracentesis with over 6 L removed. She denies any abdominal pain. She reports tolerating diet. She is having bowel movements. Afebrile. Patient's ascites fluid had elevated white count. There are concerns for possible SBP. Fluid culture pending. WBC 10.7 Hgb 9.4 PLT 276 PHYSICAL EXAM: VITAL SIGNS: Reviewed GENERAL: Well-developed in no acute distress. HEENT: No sclera icterus. Extraocular movements grossly intact. Moist buccal mucosa. Head is atraumatic, normocephalic. Hears conversational speech. No nasal drainage. NECK: Supple without lymphadenopathy. CHEST: Non-labored respirations and equal bilateral excursions. CARDIOVASCULAR: Palpable 2+ radial pulses. ABDOMEN: Soft. Distended. Ventral hernia reducible. Nontender. MUSCULOSKELETAL: No clubbing or cyanosis. NEUROLOGIC: No focal or lateralizing signs. Cranial nerves II through XII grossly intact. PSYCH: Appropriate affect. Alert and oriented to person, place and time. SKIN: Well perfused. Good skin turgor. ASSESSMENT: 1. Abdominal distention due to ascites with paracentesis and over 6 L removed 2. Possible spontaneous bacterial peritonitis. Culture results pending 3. Constipation 4. Cryptogenic ascites 5. Reducible ventral hernia PLAN: -Recommend follow-up with gastroenterology for abdominal ascites -Antibiotic management per infectious disease -Continue supportive care Physician Feather Baler note has been reviewed by physician. Signing provider agrees with the documented findings, assessment, and plan of care. Objective - Vital Signs Vital signs: Vital Signs Temp 98.4 F 10/20/23 03:08 Pulse 94 10/20/23 03:08 Resp 20 10/20/23 03:08 BP 146/72 10/20/23 03:08 Pulse Ox 93 L 10/20/23 03:08 FiO2 Intake & Output 10/19/23 10/20/23 10/20/23 18:59 06:59 18:59 Intake Total 360 120 Balance 360 120 Weight 101.7 kg Intake: Oral 360 120 Other: Voiding Method Toilet Toilet # Voids 1 3 - Labs CBC & Chem 7: 10/20/23 08:34 10/20/23 08:34 Labs: Abnormal Lab Results - Last 24 Hours (Table) 10/20/23 10/20/23 Range/Units 08:34 08:34 WBC 10.7 H (3.8-10.6) k/uL RBC 3.16 L (3.80-5.40) m/uL Hgb 9.4 L (11.4-16.0) gm/dL Hct 29.7 L (34.0-46.0) % Neutrophils # 8.4 H (1.3-7.7) k/uL Chloride 108 H (98-107) mmol/L Glucose 144 H (74-99) mg/dL Total Protein 5.4 L (6.3-8.2) g/dL Albumin 2.9 L (3.5-5.0) g/dL Microbiology - Last 24 Hours (Table) 10/17/23 14:20 Anaerobic Culture - Preliminary Ascites Fluid
[2023-10-20] MEDS: HYDROcodone/APAP 5-325MG 1 EACH TAB PO PRN (17:00)
[2023-10-20] MEDS ORDERED: FUROSEMIDE 10 MG/ML 4 ML VIAL IV SCH (18:15)
[2023-10-20] MEDS: PIPERACILLIN-TAZOBACTAM 3.375 GM in SODIUM CHLORIDE 0.9% 100 ML IVPB SCH (18:31)
[2023-10-20] MEDS: methylPREDNISolone SOD SUCCI 40 MG/ML 1 ML VIAL IV SCH (18:31)
--- NOTE | 2023-10-20 20:47 | CT ---
EXAMINATION TYPE: CT chest wo con CT DLP: 500.5 mGycm, Automated exposure control for dose reduction was used. DATE OF EXAM: 10/20/2023 8:32 PM COMPARISON: 10/16/2023 CLINICAL INDICATION:Female, 83 years old with history of worsening breathing/ca p; PHH, kelly TECHNIQUE: Multiple axial images were obtained through the chest. Sagittal and coronal reformats were created for review. Contrast used: mL of (None if empty) Oral contrast used: (None if empty) FINDINGS: LUNGS/ PLEURA: No focal consolidation, pneumothorax or pleural effusion. AIRWAY: Patent and unremarkable. HEART: The heart is enlarged for size.r the thoracic aorta ectasia up to 42 mm. Moderate coronary art alma calcifications. MEDIASTINUM: No gross evidence of adenopathy. VASCULATURE: No aortic aneurysm. Atherosclerosis of the arterial vasculature. MUSCULOSKELETAL: Mild disc degeneration changes are present throughout the thoracolumbar spine. SOFT TISSUES/LYMPH NODES: Unremarkable. LOWER NECK: No significant findings. UPPER ABDOMEN:Trace abdominal ascites partially visualized. There is a nodular contour to liver. IMPRESSION: 1. No significant change from prior. No airspace consolidation. Trace right pleural effusion. 2. Cardiomegaly. 3. Ascending thoracic aorta ectasia upper 42 mm. 4. Nodular contour to liver with trace ascites correlate for hepatic cirrhosis.
[2023-10-20] MEDS: FORMOTEROL FUMARATE 20 MCG/2 ML NEBU INHALATION SCH (20:48)
--- NOTE | 2023-10-20 23:16 | PN ---
PROGRESS NOTE An 83-year-old white female, paracentesis, over 6 L of fluid removed, suspected possible spontaneous bacterial peritonitis. Cultures are pending. Cryptogenic abscess, ventral hernia, right lower lobe pneumonia, COPD, viral syndrome for 2 weeks at home prior to admission. White count is a little bit elevated. Hemoglobin is 9 4, platelets 276. IV Rocephin until cultures come back. Physically, she is better. She is moving around better. Nonlabored breathing. Normally, she wears oxygen at home at night, but not during the day. Abdomen is distended, but soft. Ventral hernia, reducible, nontender. Skin warm, dry, intact. Hepatitis panel is negative. Hemoglobin is 9.4, white count is 10.7. Cultures, ascitic fluid pending. Continue Rocephin. Wait for Dr. Fu's recommendations for possible cirrhosis. Possibly use Xifaxan outpatient. Wait for cytology specimen prior to discharge. Otherwise, she possibly could go home if cleared. Prognosis guarded. MMODL / IJN: [id number] /
[2023-10-21] MEDS ORDERED: VANCOMYCIN IV PER PHARMACY 1 EACH MISC MISCELLANE PRN (08:49)
--- NOTE | 2023-10-21 08:49 | P.PN ---
Subjective Progress Note Date: 10/20/23 Principal diagnosis: Reason for follow-up is possible pneumonia, ascites and question of SBP Patient is a 83-year-old female with a past medical history significant for hypertension hyperlipidemia right breast cancer presenting to the hospital for evaluation of chest discomfort weakness and generalized bodyaches patient did have CT of the chest focal consolidation in the anterior right middle lobe prompting this consultation. On today's evaluation that is 10/20/2023, the patient continues to be afebrile, the patient is on 2 L nasal cannula oxygen and breathing comfortably, the Pt denies having any chest pain or worsening cough, the patient denies having any abdominal pain no vomiting or any diarrhea has been reported by the nursing staff. Patient white count is 10.7, creatinine 0.69 abdominal cultures currently pending Objective - Vital Signs Vital signs: Vital Signs Temp 98.4 F 10/20/23 03:08 Pulse 94 10/20/23 03:08 Resp 20 10/20/23 03:08 BP 146/72 10/20/23 03:08 Pulse Ox 93 L 10/20/23 03:08 FiO2 Intake & Output 10/19/23 10/20/23 10/20/23 18:59 06:59 18:59 Intake Total 360 120 Balance 360 120 Weight 101.7 kg Intake: Oral 360 120 Other: Voiding Method Toilet Toilet # Voids 1 3 - Exam GENERAL DESCRIPTION: An elderly female lying in bed in no distress RESPIRATORY SYSTEM: Unlabored breathing , decreased breath sounds at bases HEART: S1 S2 regular rate and rhythm , ABDOMEN: Soft , no tenderness - Labs CBC & Chem 7: 10/20/23 08:34 10/20/23 08:34 Labs: Abnormal Lab Results - Last 24 Hours (Table) 10/20/23 10/20/23 Range/Units 08:34 08:34 WBC 10.7 H (3.8-10.6) k/uL RBC 3.16 L (3.80-5.40) m/uL Hgb 9.4 L (11.4-16.0) gm/dL Hct 29.7 L (34.0-46.0) % Neutrophils # 8.4 H (1.3-7.7) k/uL Chloride 108 H (98-107) mmol/L Glucose 144 H (74-99) mg/dL Total Protein 5.4 L (6.3-8.2) g/dL Albumin 2.9 L (3.5-5.0) g/dL Microbiology - Last 24 Hours (Table) 10/17/23 14:20 Anaerobic Culture - Preliminary Ascites Fluid Assessment and Plan (1) Ascites Current Visit: Yes Status: Acute Code(s): R18.8 - OTHER ASCITES SNOMED Code(s): 305516836 (2) Elevated procalcitonin Current Visit: Yes Status: Acute Code(s): R79.89 - OTHER SPECIFIED ABNORMAL FINDINGS OF BLOOD CHEMISTRY SNOMED Code(s): 182332708 (3) Leukocytosis Current Visit: Yes Status: Acute Code(s): D72.829 - ELEVATED WHITE BLOOD CELL COUNT, UNSPECIFIED SNOMED Code(s): 513613715 Plan: 1patient presented to hospital with some discomfort in the chest she also have a cough bringing up some sputum no hemoptysis patient did have elevated proca lcitonin though mildly elevated however CT of the chest that shows evidence of the right middle lobe consolidation concerning for community-acquired pneumonia 2-patient did have a new onset ascites in this patient with no history of heavy drinking hepatitis panel has been negative CT abdominal pelvis showed ascites but no other abnormality hepatitis panel has been negative, patient did have a white count of 1100 and the ascitic fluid concerning for SBP patient white count normalized patient peritoneal fluid culture currently pending to continue with Rocephin while waiting for the culture to finalize Dictation was produced using [employer] dictation software. please excuse any grammatical, word or spelling errors. Time with Patient: Less than 30
[2023-10-21] MEDS: FUROSEMIDE 10 MG/ML 4 ML VIAL IV SCH (09:27)
[2023-10-21] MEDS: AZITHROMYCIN 500 MG in SODIUM CHLORIDE 0.9% 250 ML IVPB SCH (09:27)
[2023-10-21] MEDS: VANCOMYCIN 1,750 MG in SODIUM CHLORIDE 0.9% 500 ML 500 ML IVPB SCH (11:59)
--- NOTE | 2023-10-21 12:46 | P.CONS ---
History of Present Illness - Reason for Consult Consult date: 10/21/23 Cryptogenic ascites Requesting physician: Gloria Garcia - Chief Complaint Shortness of breath - History of Present Illness This is a pleasant 83-year-old female admitted 8 days ago with complaints of shortness of breath and chest pain. She has a past medical history including hyperlipidemia, hypertension, and remote history of left breast cancer s/p mastectomy. Patient was noted to have elevated D-dimer on admission was concerned and worked up for possible pulmonary embolism was suspected PE on VQ scan. She was started on a heparin infusion. She had a repeat chest CT angiogram that showed no pulmonary embolism and anticoagulation was discontinued. Apparently patient also had abdominal distention and general surgery was consulted. They did a CT of the abdomen pelvis that showed moderate amount of ascites and nodular liver with possible underlying liver disease. They had ordered a paracentesis with fluid studies, culture and cytology. Patient did have a white count on admission. They were concerned for possible SBP and patient was started on Rocephin. Preliminary fluid culture positive for coagulase negative staph. Patient remains on IV Rocephin. Gastroenterology was consulted for ascites. Patient denies any previous history of liver disease, no history of alcoholism and no previous paracentesis. She states that she has been overweight for much of her life. She was started on Lasix and is currently on IV Lasix 40 mg daily. She currently has 2 L of nasal cannula oxygen supplementation, no abdominal pain, nausea or vomiting. She has been afebrile. Chest pain improved, shortness of breath improved. Patient underwent paracentesis on 10/17/2023 with 6.5 L removed. Cytology pending. Review of Systems REVIEW OF SYSTEMS: CARDIOPULMONARY: No chest pain or shortness of breath. Gastrointestinal: No abdominal pain. No nausea or vomiting. No hematemesis, coffee-ground emesis. No rectal bleeding, or melena. GENITOURINARY: No dysuria or hematuria. MUSCULOSKELETAL: Reports normal range of motion., Joint pain. SKIN: No rashes. No jaundice. ENDOCRINE: No chills, fevers. No excessive weight gain or loss. No polydipsia or polyuria. PSYCHIATRIC: Unremarkable. NEUROLOGY: No change in mental status. Denies dizziness, headache. ENT: Vision unremarkable. CONSTITUTIONAL: No recent weight loss. No fever, chills, night sweats. Past Medical History Past Medical History: Cancer, Hyperlipidemia, Hypertension Additional Past Medical History / Comment(s): right breast mastectomy, History of Any Multi-Drug Resistant Organisms: None Reported Past Surgical History: Appendectomy, Breast Surgery, Tonsillectomy Past Anesthesia/Blood Transfusion Reactions: No Reported Reaction Past Psychological History: No Psychological Hx Reported Smoking Status: Never smoker Past Alcohol Use History: Rare Past Drug Use History: None Reported - Past Family History Mother Family Medical History: Hypertension Medications and Allergies Home Medications Medication Instructions Recorded Confirmed Type Metoprolol Tartrate 25 mg PO BID 10/20/17 10/14/23 History Simvastatin [Zocor] 20 mg PO W/SUPPER 10/20/17 10/14/23 History Aspirin 81 mg PO DAILY 10/14/23 10/14/23 History Bumetanide [BUMEX] 0.5 mg PO BID 10/14/23 10/14/23 History Potassium Chloride [Klor-Con M10] 10 meq PO DAILY 10/14/23 10/14/23 History Ipratropium-Albuterol Nebulize 3 ml INHALATION RT-QID 30 Days 10/17/23 Rx [Duoneb 0.5 mg-3 mg/3 ml Soln] #120 each Montelukast [Singulair] 10 mg PO HS tab 10/17/23 Rx Allergies Allergy/AdvReac Type Severity Reaction Status Date / Time No Known Allergies Allergy Verified 10/14/23 10:00 Physical Exam Vitals: Vital Signs Temp Pulse Resp BP Pulse Ox 10/21/23 03:12 74 20 120/62 95 10/20/23 23:09 73 18 113/69 96 10/20/23 19:50 98.9 F 96 20 129/70 93 L 10/20/23 15:58 98.5 F 88 20 126/64 95 10/20/23 14:00 94 20 10/20/23 12:00 98.4 F 90 20 142/65 97 Intake and Output 10/20/23 10/21/23 10/21/23 22:59 06:59 14:59 Intake Total 730 120 Balance 730 120 Intake: Intake, IV Titration 130 Amount Sodium Chloride 0.9% 1, 80 000 ml @ 10 mls/hr IV . Q24H [facility] Rx#:[id number] cefTRIAXone 1 gm In 50 Sodium Chloride 0.9% 50 ml @ 100 mls/hr IVPB Q24HR [facility] Rx#:[id number] Oral 600 120 Other: Voiding Method Toilet Toilet # Voids 4 3 Weight 101.5 kg General appearance: The patient is alert, oriented, appears in no acute distress. HET: Head is normocephalic and atraumatic. Conjunctiva pink. Sclera anicteric. Neck: Supple without lymphadenopathy. Trachea midline. Heart: Regular. Lungs: Equal expansion, normal respiratory effort. Abdomen: Soft, nontender, reducible ventral hernia, nondistended. Skin: No rashes. No jaundice. Extremities: Normal skin color and turgor. No pedal edema. Neurological: No focal deficits. Alert and oriented x3. Results CBC & Chem 7: 10/20/23 08:34 10/20/23 08:34 Labs: Abnormal Lab Results - Last 24 Hours (Table) 10/20/23 10/20/23 10/20/23 Range/Units 08:34 08:34 18:11 WBC 10.7 H (3.8-10.6) k/uL RBC 3.16 L (3.80-5.40) m/uL Hgb 9.4 L (11.4-16.0) gm/dL Hct 29.7 L (34.0-46.0) % Neutrophils # 8.4 H (1.3-7.7) k/uL Chloride 108 H (98-107) mmol/L Glucose 144 H (74-99) mg/dL Total Protein 5.4 L (6.3-8.2) g/dL Albumin 2.9 L (3.5-5.0) g/dL Procalcitonin 0.17 H (0.02-0.09) ng/mL Microbiology - Last 24 Hours (Table) 10/15/23 11:14 Blood Culture - Final Blood 10/17/23 14:20 Gram Stain - Preliminary Ascites Fluid Body Fluid Culture - Preliminary Coagulase Negative Staph Comments: CT abdomen pelvis without contrast reports confirmation of moderate amount of intraperitoneal ascites causing abdominal distention. Possibly underlying cirrhosis. Correlate clinically. Abdominal ultrasound reports mild to moderate ascites Assessment and Plan (1) Ascites Narrative/Plan: 83-year-old presenting with shortness of breath and chest pain found to have abdominal distention with CT evidence of ascites. New onset of ascites from portal hypertension secondary to liver cirrhosis. No previous history of known liver disease, no previous ascites. Hepatitis panel nonreactive. CT scan shows nodular liver consider possible underlying cirrhosis. Unclear etiology, possible fatty liver disease. Will obtain further liver serologies. Unfortunately fluid albumin and protein were not collected. Peritoneal fluid preliminary culture positive, continue with Rocephin. Current Visit: Yes Status: Acute Code(s): R18.8 - OTHER ASCITES SNOMED Code(s): 243839013 (2) Spontaneous bacterial peritonitis Current Visit: Yes Status: Acute Code(s): K65.2 - SPONTANEOUS BACTERIAL SHIRA TONITIS SNOMED Code(s): 58894234 (3) Urinary tract infection Current Visit: Yes Status: Acute Code(s): N39.0 - URINARY TRACT INFECTION, SITE NOT SPECIFIED SNOMED Code(s): 97051531 (4) Leukocytosis Current Visit: Yes Status: Acute Code(s): D72.829 - ELEVATED WHITE BLOOD CELL COUNT, UNSPECIFIED SNOMED Code(s): 017970349 Plan: 1. Continue symptomatic and supportive care 2. Continue Lasix 40 mg daily 3. Spironolactone 50 mg twice daily ordered 4. Continue Rocephin 5. Await fluid cytology and final fluid culture 6. Liver serologies ordered 7. Recommend patient follow-up with gastroenterology on discharge Thank you for this consultation, we will continue to follow. Dr. Rubin Lemus I agree with the dictator's note, documented as a scribe by Bethany Edwards.
--- NOTE | 2023-10-21 13:25 | P.PN ---
Subjective Progress Note Date: 10/21/23 CHIEF COMPLAINT: Chest pain HISTORY OF PRESENT ILLNESS: This is an 83-year-old female present abdominal d istention and evidence of abdominal ascites. Status post paracentesis. She currently denies any abdominal pain. Culture was positive with coagulase- negative staph. Antibiotics have been adjusted per infectious disease. Patient reports having bowel movements. She has been seen by GI service. Afebrile. PHYSICAL EXAM: VITAL SIGNS: Reviewed GENERAL: Well-developed in no acute distress. HEENT: No sclera icterus. Extraocular movements grossly intact. Moist buccal mucosa. Head is atraumatic, normocephalic. Hears conversational speech. No nasal drainage. NECK: Supple without lymphadenopathy. CHEST: Non-labored respirations and equal bilateral excursions. CARDIOVASCULAR: Palpable 2+ radial pulses. ABDOMEN: Soft. Distended. ventral hernia reducible. Nontender. MUSCULOSKELETAL: No clubbing or cyanosis. NEUROLOGIC: No focal or lateralizing signs. Cranial nerves II through XII grossly intact. PSYCH: Appropriate affect. Alert and oriented to person, place and time. SKIN: Well perfused. Good skin turgor. ASSESSMENT: 1. Abdominal distention due to ascites with paracentesis and over 6 L removed 2. Possible spontaneous bacterial peritonitis. Culture results pending 3. Constipation improved 4. Cryptogenic ascites 5. Reducible ventral hernia PLAN: -GI recommendations appreciated -Antibiotic management per infectious disease -No surgical intervention planned Physician Pyroglazer note has been reviewed by physician. Signing provider agrees with the documented findings, assessment, and plan of care. Objective - Vital Signs Vital signs: Vital Signs Temp 98.9 F 10/20/23 19:50 Pulse 74 10/21/23 03:12 Resp 20 10/21/23 03:12 BP 120/62 10/21/23 03:12 Pulse Ox 95 10/21/23 03:12 FiO2 Intake & Output 10/20/23 10/21/23 10/21/23 18:59 06:59 18:59 Intake Total 850 240 Output Total 2 Balance 848 240 Weight 101.5 kg Intake: Intake, IV Titration 130 Amount Sodium Chloride 0.9% 1, 80 000 ml @ 10 mls/hr IV . Q24H [facility] Rx#:[id number] cefTRIAXone 1 gm In 50 Sodium Chloride 0.9% 50 ml @ 100 mls/hr IVPB Q24HR [facility] Rx#:[id number] Oral 720 240 Output: Stool 2 Other: Voiding Method Toilet Toilet # Voids 4 3 - Labs CBC & Chem 7: 10/20/23 08:34 10/20/23 08:34 Labs: Abnormal Lab Results - Last 24 Hours (Table) 10/20/23 Range/Units 18:11 Procalcitonin 0.17 H (0.02-0.09) ng/mL Microbiology - Last 24 Hours (Table) 10/15/23 11:14 Blood Culture - Final Blood 10/17/23 14:20 Gram Stain - Preliminary Ascites Fluid Body Fluid Culture - Preliminary Coagulase Negative Staph
[2023-10-21 15:03] VITALS: BMI 40.9
[2023-10-21] MEDS: SPIRONOLACTONE 25 MG TAB PO SCH (19:55)
--- NOTE | 2023-10-22 00:28 | PN ---
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 Started antibiotics for pneumonia. OBJECTIVE: VITAL SIGNS: Temp 98.2, blood pressure 160/58, O2 is 94 on 2 L, pulse 95, respiratory rate 18 to 16. CARDIOVASCULAR: S1, S2. LUNGS: Scattered rhonchi and wheeze and she has 2 L of oxygen on. EXTREMITIES: No edema. Chest CT shows moderate coronary artery disease, trace ascites, nodular contour of liver, cardiomegaly, possibly hepatic cirrhosis. GI recommendations, wait for cultures to come back from the peritoneal tap, and the patient possibly can be discharged home once antibiotics have cleared up, much better overnight with IV Lasix, etc. Please refer Dr. Yousif's recommendations. Coagulase-negative Staph from the body fluid. We are not sure what sounds to be that is going to be and when antibiotics to be given. Prognosis guarded. MMODL / IJN: [id number] /
[2023-10-22 11:13] LABS: Basophils % (A) 0 %; Eosinophils % (A) 0 %; HCT 30.8 % (34.0-46.0); HGB 9.7 gm/dL (11.4-16.0); Hypochromasia Slight; Lymphocytes # (A) 0.8 k/uL (1.0-4.8); Lymphocytes % (A) 6 %; MCH 29.2 pg (25.0-35.0); MCHC 31.4 g/dL (31.0-37.0); MCV 92.9 fL (80.0-100.0); Mean Platelet Volume 7.8; Monocytes # (A) 0.5 k/uL (0-1.0); Monocytes % (A) 4 %; Neutrophils # (A) 11.7 k/uL (1.3-7.7); Neutrophils % (A) 89 %; Platelet Count 291 k/uL (150-450); RBC 3.32 m/uL (3.80-5.40); RDW 13.3 % (11.5-15.5); WBC 13.2 k/uL (3.8-10.6)
[2023-10-22 12:17] LABS: ALT 123 U/L (4-34); AST 143 U/L (14-36); African American GFR (CKD) 61 (>60 ml/min/1.73 sqM); Albumin 3.1 g/dL (3.5-5.0); Alkaline Phosphatase 85 U/L (38-126); Anion Gap 9 mmol/L; Blood Urea Nitrogen 31 mg/dL (7-17); Calcium 8.8 mg/dL (8.4-10.2); Carbon Dioxide 23 mmol/L (22-30); Chloride 105 mmol/L (98-107); Glucose 343 mg/dL (74-99); Non-African American GFR(CKD) 53 (>60 ml/min/1.73 sqM); Potassium 4.1 mmol/L (3.5-5.1); Sodium 137 mmol/L (137-145); Total Bilirubin 0.5 mg/dL (0.2-1.3); Total Protein 5.7 g/dL (6.3-8.2)
--- NOTE | 2023-10-22 12:21 | P.PN ---
Subjective Progress Note Date: 10/22/23 Principal diagnosis: Reason for follow-up is possible pneumonia, ascites and question of SBP Patient is a 83-year-old female with a past medical history significant for hypertension hyperlipidemia right breast cancer presenting to the hospital for evaluation of chest discomfort weakness and generalized bodyaches patient did have CT of the chest focal consolidation in the anterior right middle lobe prompting this consultation. On today's evaluation that is 10/22/2023, patient has been afebrile, patient is breathing comfortably and is currently on 2 L current oxygen patient denies having any significant cough no chest pain shortness of breath, patient denies nausea vomiting or diarrhea and no abdominal pain, mention feeling better. Patient white count is 13.2 creatinine 0.99 Objective - Vital Signs Vital signs: Vital Signs Temp 98.1 F 10/22/23 03:05 Pulse 84 10/22/23 08:00 Resp 18 10/22/23 08:00 BP 147/62 10/22/23 08:00 Pulse Ox 96 10/22/23 08:07 FiO2 Intake & Output 10/21/23 10/22/23 10/22/23 18:59 06:59 18:59 Intake Total 1590 240 Output Total 2 2 Balance 1588 238 Weight 101.5 kg Intake: Intake, IV Titration 750 Amount Azithromycin 500 mg In 250 Sodium Chloride 0.9% 250 ml @ 250 mls/hr IVPB DAILY [facility] Rx#:[id number] Vancomycin 1,750 mg In 500 Sodium Chloride 0.9% 500 ml 500 ml @ 167 mls/hr IVPB Q24H [facility] Rx#: [id number] Oral 840 240 Output: Stool 2 2 Other: Voiding Method Toilet Toilet # Voids 4 3 - Exam GENERAL DESCRIPTION: An elderly female up in the chair in no distress RESPIRATORY SYSTEM: Unlabored breathing , decreased breath sounds at bases HEART: S1 S2 regular rate and rhythm , ABDOMEN: Soft , mild distention Extremities no edema feet - Labs CBC & Chem 7: 10/22/23 10:40 10/22/23 10:40 Labs: Microbiology - Last 24 Hours (Table) 10/17/23 14:20 Anaerobic Culture - Final Ascites Fluid 10/17/23 14:20 Gram Stain - Final Ascites Fluid Body Fluid Culture - Final Coagulase Negative Staph Assessment and Plan (1) Ascites Current Visit: Yes Status: Acute Code(s): R18.8 - OTHER ASCITES SNOMED Code(s): 437793187 (2) Elevated procalcitonin Current Visit: Yes Status: Acute Code(s): R79.89 - OTHER SPECIFIED ABNORMAL FINDINGS OF BLOOD CHEMISTRY SNOMED Code(s): 944691000 (3) Leukocytosis Current Visit: Yes Status: Acute Code(s): D72.829 - ELEVATED WHITE BLOOD CELL COUNT, UNSPECIFIED SNOMED Code(s): 604920160 Plan: 1patient presented to hospital with some discomfort in the chest she also have a cough bringing up some sputum no hemoptysis patient did have elevated procalcitonin though mildly elevated however CT of the chest that shows evidence of the right middle lobe consolidation concerning for community-acquired pneumonia 2-patient did have a new onset ascites in this patient with no history of heavy drinking hepatitis panel has been negative CT abdominal pelvis showed ascites but no other abnormality hepatitis panel has been negative, patient did have a white count of 1100 in the ascitic fluid concerning for SBP, patient peritoneal fluid culture currently growing coagulase-negative staph with sensitivities pending, patient to continue vancomycin with the discharge antibiotics once sensitivities are finalized 3-leukocytosis more likely steroid related and will be monitored closely Dictation was produced using [employer] dictation software. please excuse any grammatical, word or spelling errors. Time with Patient: Less than 30
--- NOTE | 2023-10-22 12:21 | P.PN ---
Subjective Progress Note Date: 10/21/23 Principal diagnosis: Reason for follow-up is possible pneumonia, ascites and question of SBP Patient is a 83-year-old female with a past medical history significant for hypertension hyperlipidemia right breast cancer presenting to the hospital for evaluation of chest discomfort weakness and generalized bodyaches patient did have CT of the chest focal consolidation in the anterior right middle lobe prompting this consultation. On today's evaluation that is 10/21/2023, Patient is afebrile patient is currently on 2 L current oxygen and denies having any shortness of breath, the patient denies any chest pain or cough, the patient denies any nausea vomiting did not have any abdominal pain, abdominal distention slightly decreased and no diarrhea. Patient did not have any lab draw today, abdominal fluid with COVID is negative staff Objective - Vital Signs Vital signs: Vital Signs Temp 98.9 F 10/20/23 19:50 Pulse 74 10/21/23 03:12 Resp 20 10/21/23 03:12 BP 120/62 10/21/23 03:12 Pulse Ox 95 10/21/23 03:12 FiO2 Intake & Output 10/20/23 10/21/23 10/21/23 18:59 06:59 18:59 Intake Total 850 240 Output Total 2 Balance 848 240 Weight 101.5 kg Intake: Intake, IV Titration 130 Amount Sodium Chloride 0.9% 1, 80 000 ml @ 10 mls/hr IV . Q24H [facility] Rx#:[id number] cefTRIAXone 1 gm In 50 Sodium Chloride 0.9% 50 ml @ 100 mls/hr IVPB Q24HR [facility] Rx#:[id number] Oral 720 240 Output: Stool 2 Other: Voiding Method Toilet Toilet # Voids 4 3 - Exam GENERAL DESCRIPTION: An elderly female up in the chair in no distress RESPIRATORY SYSTEM: Unlabored breathing , decreased breath sounds at bases HEART: S1 S2 regular rate and rhythm , ABDOMEN: Soft , mild distention Extremities no edema feet - Labs CBC & Chem 7: 10/22/23 10:40 10/22/23 10:40 Labs: Abnormal Lab Results - Last 24 Hours (Table) 10/20/23 Range/Units 18:11 Procalcitonin 0.17 H (0.02-0.09) ng/mL Microbiology - Last 24 Hours (Table) 10/15/23 11:14 Blood Culture - Final Blood 10/17/23 14:20 Gram Stain - Preliminary Ascites Fluid Body Fluid Culture - Preliminary Coagulase Negative Staph Assessment and Plan (1) Ascites Current Visit: Yes Status: Acute Code(s): R18.8 - OTHER ASCITES SNOMED Code(s): 090716803 (2) Elevated procalcitonin Current Visit: Yes Status: Acute Code(s): R79.89 - OTHER SPECIFIED ABNORMAL FINDINGS OF BLOOD CHEMISTRY SNOMED Code(s): 328512644 (3) Leukocytosis Current Visit: Yes Status: Acute Code(s): D72.829 - ELEVATED WHITE BLOOD CELL COUNT, UNSPECIFIED SNOMED Code(s): 729651661 Plan: 1patient presented to hospital with some discomfort in the chest she also have a cough bringing up some sputum no hemoptysis patient did have elevated procalcitonin though mildly elevated however CT of the chest that shows evidence of the right middle lobe consolidation concerning for community-acquired pneumonia 2-patient did have a new onset ascites in this patient with no history of heavy drinking hepatitis panel has been negative CT abdominal pelvis showed ascites but no other abnormality hepatitis panel has been negative, patient did have a white count of 1100 in the ascitic fluid concerning for SBP, patient peritoneal fluid culture currently growing coagulase-negative staph with sensitivities pending vancomycin has been added clinical not behaving as pneumonia discontinue Zosyn to decrease risk of nephrotoxicity Dictation was produced using [employer] dictation software. please excuse any grammatical, word or spelling errors. Time with Patient: Less than 30
--- NOTE | 2023-10-22 13:06 | P.PN ---
Subjective Progress Note Date: 10/22/23 Principal diagnosis: New onset ascites This is a pleasant 83-year-old female admitted 8 days ago with complaints of shortness of breath and chest pain. She has a past medical history including hyperlipidemia, hypertension, and remote history of left breast cancer s/p mastectomy. Patient was noted to have elevated D-dimer on admission was concerned and worked up for possible pulmonary embolism was suspected PE on VQ scan. She was started on a heparin infusion. She had a repeat chest CT angiogram that showed no pulmonary embolism and anticoagulation was discontinued. Apparently patient also had abdominal distention and general surgery was consulted. They did a CT of the abdomen pelvis that showed moderate amount of ascites and nodular liver with possible underlying liver disease. They had ordered a paracentesis with fluid studies, culture and cytology. Patient did have a white count on admission. They were concerned for possible SBP and patient was started on Rocephin. Preliminary fluid culture positive for coagulase negative staph. Patient remains on IV Rocephin. Gastroenterology was consulted for ascites. Patient denies any previous history of liver disease, no history of alcoholism and no previous paracentesis. She states that she has been overweight for much of her life. She was started on Lasix and is currently on IV Lasix 40 mg daily. She currently has 2 L of nasal cannula oxygen supplementation, no abdominal pain, nausea or vomiting. She has been afebrile. Chest pain improved, shortness of breath improved. Patient underwent parac entesis on 10/17/2023 with 6.5 L removed. Cytology pending. 10/22/2023 Patient seen and examined today as a follow-up. She is without any complaints. No abdominal pain, nausea or vomiting. She is afebrile. Final fluid culture coagulase-negative staph. AST and ALT elevated today 143 and 123 respectively. Rocephin was discontinued and patient started on IV vancomycin and IV azithromycin. Objective - Vital Signs Vital signs: Vital Signs Temp 98.1 F 10/22/23 03:05 Pulse 80 10/22/23 03:05 Resp 18 10/22/23 03:05 BP 148/80 10/22/23 03:05 Pulse Ox 96 10/22/23 08:07 FiO2 Intake & Output 10/21/23 10/22/23 10/22/23 18:59 06:59 18:59 Intake Total 1590 240 Output Total 2 2 Balance 1588 238 Weight 101.5 kg Intake: Intake, IV Titration 750 Amount Azithromycin 500 mg In 250 Sodium Chloride 0.9% 250 ml @ 250 mls/hr IVPB DAILY [facility] Rx#:[id number] Vancomycin 1,750 mg In 500 Sodium Chloride 0.9% 500 ml 500 ml @ 167 mls/hr IVPB Q24H [facility] Rx#: [id number] Oral 840 240 Output: Stool 2 2 Other: Voiding Method Toilet Toilet # Voids 4 3 - Exam General appearance: The patient is alert, oriented, appears in no acute distress. HET: Head is normocephalic and atraumatic. Conjunctiva pink. Sclera anicteric. Neck: Supple without lymphadenopathy. Abdomen: Soft, nontender, nondistended, reducible ventral hernia. Extremities: Normal skin color and turgor. No pedal edema Skin: No rashes, no jaundice Neurological: No focal deficits. Alert and oriented. - Labs CBC & Chem 7: 10/22/23 10:40 10/22/23 10:40 Labs: Microbiology - Last 24 Hours (Table) 10/17/23 14:20 Anaerobic Culture - Final Ascites Fluid 10/17/23 14:20 Gram Stain - Final Ascites Fluid Body Fluid Culture - Final Coagulase Negative Staph Assessment and Plan (1) Ascites Narrative/Plan: 83-year-old presenting with shortness of breath and chest pain found to have abdominal distention with CT evidence of ascites. New onset of ascites from portal hypertension secondary to liver cirrhosis. No previous history of known liver disease, no previous ascites. Hepatitis panel nonreactive. CT scan shows nodular liver consider possible underlying cirrhosis. Unclear etiology, possible fatty liver disease. Will obtain further liver serologies. Unfortunately fluid albumin and protein were not collected. Peritoneal fluid p reliminary culture positive, continue with Rocephin. Current Visit: Yes Status: Acute Code(s): R18.8 - OTHER ASCITES SNOMED Code(s): 216965496 (2) Spontaneous bacterial peritonitis Current Visit: Yes Status: Acute Code(s): K65.2 - SPONTANEOUS BACTERIAL PERITONITIS SNOMED Code(s): 90701665 (3) Urinary tract infection Current Visit: Yes Status: Acute Code(s): N39.0 - URINARY TRACT INFECTION, SITE NOT SPECIFIED SNOMED Code(s): 25992743 (4) Leukocytosis Current Visit: Yes Status: Acute Code(s): D72.829 - ELEVATED WHITE BLOOD CELL COUNT, UNSPECIFIED SNOMED Code(s): 371818567 (5) Elevated LFTs Narrative/Plan: Likely medication induced, avoid hepatotoxic medications. Hold atorvastatin for now. Current Visit: Yes Status: Acute Code(s): R79.89 - OTHER SPECIFIED ABNORMAL FINDINGS OF BLOOD CHEMISTRY SNOMED Code(s): 895134663 Plan: 1. Continue symptomatic and supportive care 2. Continue Lasix 40 mg daily 3. Spironolactone 50 mg twice daily ordered 4. Antibiotics per recommendations from infectious disease, avoid hepatotoxic medications. Patient with acute elevation AST and ALT 5. Avoid hepatotoxic medications. Hold atorvastatin. 6. Liver serologies ordered 7. Recommend patient follow-up with gastroenterology on discharge Thank you for this consultation, we will continue to follow. Dr. Rubin Lemus I agree with the dictator's note, documented as a scribe by Bethany Edwards.
[2023-10-22] MEDS: DAPAGLIFLOZIN PROPANEDIOL 5 MG TABLET PO SCH (17:09)
[2023-10-23 09:19] LABS: African American GFR (CKD) 54 (>60 ml/min/1.73 sqM); Non-African American GFR(CKD) 47 (>60 ml/min/1.73 sqM)
--- NOTE | 2023-10-23 10:51 | PN ---
PROGRESS NOTE DATE OF SERVICE: 10/22/2023 SUBJECTIVE: 83-year-old white female with chest pain, acute kidney injury, status post paracentesis for flash autoimmune hepatitis. She has 6.5 L gram-negative bacilli. Wait for Dr. Yousif to finalize final cultures. She possibly wants to go home on oral antibiotics, if possible tomorrow. Breathing is much better with the IV Lasix, IV steroids, IV antibiotics. She will need to be tapered off this at home and she will have to go home on oral Lasix daily supply once a day 20 mg to 40 mg. Wait for final cultures from Dr. Yousif. OBJECTIVE: CARDIOVASCULAR: S1, S2. ABDOMEN: Soft. LUNGS: Transmitted upper sounds. She is on 2 L oxygen currently. Tried to wean her down on her daytime oxygen. She wears nighttime oxygen at home. Continue current breathing treatments and antibiotics per Dr. Yousif. Possible discharge home in the morning. DIAGNOSES: Aspiration pneumonia/autoimmune hepatitis. Acute on chronic diastolic heart failure. Aspiration pneumonia causing acute hypoxemic respiratory failure. Prognosis guarded. Possibly discharge home tomorrow on oral antibiotics or IV antibiotics. MMODL / IJN: [id number] /
--- NOTE | 2023-10-23 13:24 | P.PN ---
Subjective Progress Note Date: 10/23/23 Patient is a 83-year-old female with a past medical history significant for hypertension hyperlipidemia right breast cancer presenting to the hospital for evaluation of chest discomfort weakness and generalized bodyaches patient did have CT of the chest focal consolidation in the anterior right middle lobe 10/22. Patient seen examined. States she feels much better. Currently we are waiting on final culture results REVIEW OF SYSTEMS: CONSTITUTIONAL: No fever, no malaise,. CARDIOVASCULAR: No chest pain, no palpitations, no syncope. PULMONARY: No shortness of breath, no cough, GASTROINTESTINAL: No diarrhea, no nausea, no vomiting, no abdominal pain. NEUROLOGICAL: No headaches, no weakness, PHYSICAL EXAMINATION: GENERAL: The patient is alert and oriented x3, not in any acute distress. Well developed, well nourished. HEENT: Pupils are round and equally reacting to light. EOMI. No scleral icterus. No conjunctival pallor. Normocephalic, atraumatic. No pharyngeal erythema. No thyromegaly. CARDIOVASCULAR: S1 and S2 present. No murmurs, rubs, or gallops. PULMONARY: Chest is clear to auscultation, no wheezing or crackles. ABDOMEN: Soft, nontender, nondistended, normoactive bowel sounds. No palpable organomegaly. MUSCULOSKELETAL: No joint swelling or deformity. EXTREMITIES: No cyanosis, clubbing, or pedal edema. NEUROLOGICAL: Gross neurological examination did not reveal any focal deficits. SKIN: No rashes. Assessment and plan Ascites SBP Leukocytosis Acute on chronic diastolic heart failure Aspiration pneumonia Hypertension hyperlipidemia Elevated LFTs History of left breast cancer Monitor vital signs Monitor CBC Monitor CMP Follow-up on ascitc fluid cultures Continue Lasix, Aldactone Continue pharmacy vancomycin Continue IV Lasix Continue IV Solu-Medrol GI following ID following Labs and medication were reviewed.. Continue same treatment. Continue with symptomatic treatment. Resume home medication. Monitor labs and vitals. DVT and GI prophylaxis. Further recommendations as per clinical course of the patient Dictation was produced using [employer] dictation software. please excuse any grammatical, word or spelling errors. Objective - Vital Signs Vital signs: Vital Signs Temp 97.3 F L 10/23/23 11:42 Pulse 84 10/23/23 13:01 Resp 20 10/23/23 11:42 BP 170/75 10/23/23 11:42 Pulse Ox 91 L 10/23/23 11:42 FiO2 Intake & Output 10/22/23 10/23/23 10/23/23 18:59 06:59 18:59 Intake Total 360 Output Total 2 Balance 358 Weight 103 kg Intake: Oral 360 Output: Stool 2 Other: Voiding Method Toilet Toilet Toilet # Voids 2 1 - Labs CBC & Chem 7: 10/22/23 10:40 10/23/23 07:49 Labs: Abnormal Lab Results - Last 24 Hours (Table) 10/22/23 10/23/23 Range/Units 16:13 07:49 Creatinine 1.10 H (0.52-1.04) mg/dL [id number]-[id number] 275.0 H (99.0-242.0) mg/dL
--- NOTE | 2023-10-23 16:25 | P.PN ---
Subjective Progress Note Date: 10/23/23 Principal diagnosis: New onset ascites This is a pleasant 83-year-old female admitted 8 days ago with complaints of shortness of breath and chest pain. She has a past medical history including hyperlipidemia, hypertension, and remote history of left breast cancer s/p mastectomy. Patient was noted to have elevated D-dimer on admission was concerned and worked up for possible pulmonary embolism was suspected PE on VQ scan. She was started on a heparin infusion. She had a repeat chest CT angiogram that showed no pulmonary embolism and anticoagulation was discontinued. Apparently patient also had abdominal distention and general surgery was consulted. They did a CT of the abdomen pelvis that showed moderate amount of ascites and nodular liver with possible underlying liver disease. They had ordered a paracentesis with fluid studies, culture and cytology. Patient did have a white count on admission. They were concerned for possible SBP and patient was started on Rocephin. Preliminary fluid culture positive for coagulase negative staph. Patient remains on IV Rocephin. Gastroenterology was consulted for ascites. Patient denies any previous history of liver disease, no history of alcoholism and no previous paracentesis. She states that she has been overweight for much of her life. She was started on Lasix and is currently on IV Lasix 40 mg daily. She currently has 2 L of nasal cannula oxygen supplementation, no abdominal pain, nausea or vomiting. She has been afebrile. Chest pain improved, shortness of breath improved. Patient underwent parac entesis on 10/17/2023 with 6.5 L removed. Cytology pending. 10/22/2023 Patient seen and examined today as a follow-up. She is without any complaints. No abdominal pain, nausea or vomiting. She is afebrile. Final fluid culture coagulase-negative staph. AST and ALT elevated today 143 and 123 respectively. Rocephin was discontinued and patient started on IV vancomycin and IV azithromycin. 10/23/2023 Patient seen and examined today as a follow-up. Continues without any complaints of abdominal pain, nausea or vomiting. No abdominal distention. Swelling in her lower extremities improving. She remains on diuretics. Liver serologies negative to date. Objective - Vital Signs Vital signs: Vital Signs Temp 97.3 F L 10/23/23 11:42 Pulse 84 10/23/23 13:01 Resp 20 10/23/23 11:42 BP 170/75 10/23/23 11:42 Pulse Ox 91 L 10/23/23 11:42 FiO2 Intake & Output 10/22/23 10/23/23 10/23/23 18:59 06:59 18:59 Intake Total 360 Output Total 2 Balance 358 Weight 103 kg Intake: Oral 360 Output: Stool 2 Other: Voiding Method Toilet Toilet Toilet # Voids 2 1 - Exam General appearance: The patient is alert, oriented, appears in no acute distress. HET: Head is normocephalic and atraumatic. Conjunctiva pink. Sclera anicteric. Neck: Supple without lymphadenopathy. Abdomen: Soft, nontender, nondistended, reducible ventral hernia. Extremities: Normal skin color and turgor. No pedal edema Skin: No rashes, no jaundice Neurological: No focal deficits. Alert and oriented. - Labs CBC & Chem 7: 10/22/23 10:40 10/23/23 07:49 Labs: Abnormal Lab Results - Last 24 Hours (Table) 10/22/23 10/23/23 Range/Units 16:13 07:49 Creatinine 1.10 H (0.52-1.04) mg/dL Trzdu-3-Jsidabmnlwf 275.0 H (99.0-242.0) mg/dL Assessment and Plan (1) Ascites Narrative/Plan: 83-year-old presenting with shortness of breath and chest pain found to have abdominal distention with CT evidence of ascites. New onset of ascites from portal hypertension secondary to liver cirrhosis. No previous history of known liver disease, no previous ascites. Hepatitis panel nonreactive. CT scan shows nodular liver consider possible underlying cirrhosis. Unclear etiology, possible fatty liver disease. Will obtain further liver serologies. Unfortunately fluid albumin and protein were not collected. Peritoneal fluid preliminary culture positive, continue with Rocephin. Current Visit: Yes Status: Acute Code(s): R18.8 - OTHER ASCITES SNOMED Code(s): 600207735 (2) Spontaneous bacterial peritonitis Current Visit: Yes Status: Acute Code(s): K65.2 - SPONTANEOUS BACTERIAL PERITONITIS SNOMED Code(s): 19167845 (3) Urinary tract infection Current Visit: Yes Status: Acute Code(s): N39.0 - URINARY TRACT INFECTION, SITE NOT SPECIFIED SNOMED Code(s): 01625481 (4) Leukocytosis Current Visit: Yes Status: Acute Code(s): D72.829 - ELEVATED WHITE BLOOD CELL COUNT, UNSPECIFIED SNOMED Code(s): 573993950 (5) Elevated LFTs Narrative/Plan: Likely medication induced, avoid hepatotoxic medications. Hold atorvastatin for now. Current Visit: Yes Status: Acute Code(s): R79.89 - OTHER SPECIFIED ABNORMAL FINDINGS OF BLOOD CHEMISTRY SNOMED Code(s): 239962049 Plan: 1. Continue symptomatic and supportive care 2. Continue Lasix 40 mg daily 3. Spironolactone 50 mg twice daily ordered 4. Antibiotics per recommendations from infectious disease, avoid hepatotoxic medications. Patient with acute elevation AST and ALT 5. Avoid hepatotoxic medications. Hold atorvastatin. 6. Liver serologies ordered and reviewed 7. Recommend patient follow-up with gastroenterology on discharge Thank you for this consultation, patient is cleared from gastroenterology for discharge. We will sign off at this time. Dr. Rubin Lemus I agree with the dictator's note, documented as a scribe by Bethany Edwards.
[2023-10-24 03:53] VITALS: RESP 19
[2023-10-24 08:44] VITALS: TEMP 97.6
[2023-10-24 09:53] LABS: African American GFR (CKD) 52 (>60 ml/min/1.73 sqM); Non-African American GFR(CKD) 46 (>60 ml/min/1.73 sqM)
[2023-10-24 12:19] VITALS: BP 172/74; PULSE 80
--- NOTE | 2023-10-24 12:54 | P.DS ---
Providers Date of admission: 10/14/23 09:58 Expected date of discharge: 10/24/23 Attending physician: Brandon Hardwick Consults: 10/14/23 16:42 Consult Physician Urgent Consulting Provider: Mely Lopez Consult Reason/Comments: poss Pulmonary embolism Do you want consulting provider notified?: Yes 10/15/23 10:41 Consult Physician Routine Consulting Provider: Ly Yousif Consult Reason/Comments: high procalcitonin Do you want consulting provider notified?: Yes [facility] Course: Discharge diagnoses; Ascites SBP Leukocytosis Acute on chronic diastolic heart failure Aspiration pneumonia Hypertension hyperlipidemia Elevated LFTs History of left breast cancer Hospital course; Patient is a 83-year-old female with a past medical history significant for hypertension hyperlipidemia right breast cancer presenting to the hospital for evaluation of chest discomfort weakness and generalized bodyaches patient did have CT of the chest focal consolidation in the anterior right middle lobe 10/22. Patient seen examined. States she feels much better. Currently we are waiting on final culture results 10/23. Dr. Calvillo took over care. Discussed with ID, they recommended starting patient on Bactrim. Patient needs to be on Lasix and Aldactone for her cirrhosis, Aldactone to be started after completing a course of Bactrim. PHYSICAL EXAMINATION: GENERAL: The patient is alert and oriented x3, not in any acute distress. Well developed, well nourished. HEENT: Pupils are round and equally reacting to light. EOMI. No scleral icterus. No conjunctival pallor. Normocephalic, atraumatic. No pharyngeal erythema. No thyromegaly. CARDIOVASCULAR: S1 and S2 present. No murmurs, rubs, or gallops. PULMONARY: Chest is clear to auscultation, no wheezing or crackles. ABDOMEN: Soft, nontender, nondistended, normoactive bowel sounds. No palpable organomegaly. MUSCULOSKELETAL: No joint swelling or deformity. EXTREMITIES: No cyanosis, clubbing, or pedal edema. NEUROLOGICAL: Gross neurological examination did not reveal any focal deficits. SKIN: No rashes. Dictation was produced using [employer] dictation software. please excuse any grammatical, word or spelling errors. Patient Condition at Discharge: Good Plan - Discharge Summary Discharge Rx Participant: No New Discharge Prescriptions: New Spironolactone [Aldactone] 50 mg PO BID 30 Days #60 tab Furosemide [Lasix] 40 mg PO DAILY 30 Days #30 tablet Ipratropium-Albuterol Nebulize [Duoneb 0.5 mg-3 mg/3 ml Soln] 3 ml INHALATION RT-QID 30 Days #120 each Montelukast [Singulair] 10 mg PO HS tab Sulfamethox-Tmp 800-160Mg [Bactrim DS 800-160 mg] 1 tab PO Q12HR 7 Days #14 tab Dapagliflozin Propanediol [Farxiga] 5 mg PO DAILY #30 tab Continue Metoprolol Tartrate 25 mg PO BID Aspirin 81 mg PO DAILY Discontinued lisinopriL [Zestril] 20 mg PO DAILY Simvastatin [Zocor] 20 mg PO W/SUPPER Potassium Chloride [Klor-Con M10] 10 meq PO DAILY Bumetanide [BUMEX] 0.5 mg PO BID Discharge Medication List Metoprolol Tartrate 25 mg PO BID 10/20/17 [History] Aspirin 81 mg PO DAILY 10/14/23 [History] Ipratropium-Albuterol Nebulize [Duoneb 0.5 mg-3 mg/3 ml Soln] 3 ml INHALATION RT-QID 30 Days #120 each 10/17/23 [Rx] Montelukast [Singulair] 10 mg PO HS tab 10/17/23 [Rx] Dapagliflozin Propanediol [Farxiga] 5 mg PO DAILY #30 tab 10/24/23 [Rx] Furosemide [Lasix] 40 mg PO DAILY 30 Days #30 tablet 10/24/23 [Rx] Spironolactone [Aldactone] 50 mg PO BID 30 Days #60 tab 10/24/23 [Rx] Sulfamethox-Tmp 800-160Mg [Bactrim DS 800-160 mg] 1 tab PO Q12HR 7 Days #14 tab 10/24/23 [Rx] Follow up Appointment(s)/Referral(s): Amber Lafleur [facility] [REFERRING] - 2 Weeks (Gastroenterology follow-up for new onset ascites) Brandon Hardwick MD [Primary Care Provider] - 1 Week Patient Instructions/Handouts: Cirrhosis (DC), Ascites (DC), DASH Eating Plan (DC), Low-Sodium Diet (DC) Activity/Diet/Wound Care/Special Instructions: Start taking Aldactone from 10/30 after completing the course of Bactrim Discharge Disposition: HOME SELF-CARE
--- NOTE | 2023-10-24 17:36 | P.PN ---
Subjective Progress Note Date: 10/24/23 Principal diagnosis: Reason for follow-up is possible pneumonia, ascites and question of SBP Patient is a 83-year-old female with a past medical history significant for hypertension hyperlipidemia right breast cancer presenting to the hospital for evaluation of chest discomfort weakness and generalized bodyaches patient did have CT of the chest focal consolidation in the anterior right middle lobe prompting this consultation. On today's evaluation that is 10/24/2023,the patient denies any fever or any chills, patient is breathing comfortably on 2 L current oxygen the patient denies chest pain shortness of breath and no significant cough, patient denies abdominal pain, no nausea vomiting or diarrhea, patient mention feeling better wants to go home Patient did have a creatinine 1.12 labs have not finalized sensitivities on the coagulase-negative staph even though 2 days ago did mention they were doing it Objective - Vital Signs Vital signs: Vital Signs Temp 97.6 F 10/24/23 08:40 Pulse 86 10/24/23 10:12 Resp 19 10/24/23 10:12 BP 147/75 10/24/23 08:40 Pulse Ox 94 L 10/24/23 11:55 FiO2 Intake & Output 10/23/23 10/24/23 10/24/23 18:59 06:59 18:59 Intake Total 928 Output Total 1 Balance 928 -1 Intake: Intake, IV Titration 810 Amount Azithromycin 500 mg In 250 Sodium Chloride 0.9% 250 ml @ 250 mls/hr IVPB DAILY RICKIE Rx#:[id number] Sodium Chloride 0.9% 1, 60 000 ml @ 10 mls/hr IV . Q24H RICKIE Rx#:[id number] Vancomycin 1,750 mg In 500 Sodium Chloride 0.9% 500 ml 500 ml @ 167 mls/hr IVPB Q24H RICKIE Rx#: [id number] Oral 118 Output: Stool 1 Other: Voiding Method Toilet Toilet Toilet # Voids 1 1 - Exam GENERAL DESCRIPTION: An elderly female up in the chair in no distress RESPIRATORY SYSTEM: Unlabored breathing , decreased breath sounds at bases HEART: S1 S2 regular rate and rhythm , ABDOMEN: Soft , mild distention Extremities no edema feet - Labs CBC & Chem 7: 10/22/23 10:40 10/24/23 08:38 Labs: Abnormal Lab Results - Last 24 Hours (Table) 10/24/23 Range/Units 08:38 Creatinine 1.12 H (0.52-1.04) mg/dL Assessment and Plan (1) Ascites Status: Acute Code(s): R18.8 - OTHER ASCITES SNOMED Code(s): 849897875 (2) Elevated procalcitonin Status: Acute Code(s): R79.89 - OTHER SPECIFIED ABNORMAL FINDINGS OF BLOOD CHEMISTRY SNOMED Code(s): 668085517 (3) Leukocytosis Status: Acute Code(s): D72.829 - ELEVATED WHITE BLOOD CELL COUNT, UNSPECIFIED SNOMED Code(s): 789782195 Plan: 1patient presented to hospital with some discomfort in the chest she also have a cough bringing up some sputum no hemoptysis patient did have elevated procalcitonin though mildly elevated however CT of the chest that shows evidence of the right middle lobe consolidation concerning for community-acquired pneumonia 2-patient did have a new onset ascites in this patient with no history of heavy drinking hepatitis panel has been negative CT abdominal pelvis showed ascites but no other abnormality hepatitis panel has been negative, patient did have a white count of 1100 in the ascitic fluid concerning for SBP, patient peritoneal fluid culture currently growing coagulase-negative staph with sensitivities pending micro lab 2 days ago mention they were doing it today they are saying they cannot do it we cannot keep the patient to hospital any further as she has been insisting on going home we will consider a 7-day course of oral Bactrim DS on discharge and close outpatient follow-up advised if any worsening abdominal pain or fever come back to the hospital right away Dictation was produced using [employer] dictation software. please excuse any grammatical, word or spelling errors. Time with Patient: Less than 30
--- NOTE | 2023-10-24 17:36 | P.PN ---
Subjective Progress Note Date: 10/23/23 Principal diagnosis: Reason for follow-up is possible pneumonia, ascites and question of SBP Patient is a 83-year-old female with a past medical history significant for hypertension hyperlipidemia right breast cancer presenting to the hospital for evaluation of chest discomfort weakness and generalized bodyaches patient did have CT of the chest focal consolidation in the anterior right middle lobe prompting this consultation. On today's evaluation that is 10/23/2023, Patient is afebrile this morning and denies any chills, patient mention breathing comfortably and is currently on 2 L current oxygen, patient denies any chest pain occasional cough patient denies any abdominal pain no diarrhea no nausea no vomiting No CBC was done today creatinine is 1.10 abdominal culture the coagulase- negative staph sensitivities pending Objective - Vital Signs Vital signs: Vital Signs Temp 97.9 F 10/23/23 08:00 Pulse 79 10/23/23 08:00 Resp 20 10/23/23 08:00 BP 149/76 10/23/23 08:00 Pulse Ox 96 10/23/23 08:00 FiO2 Intake & Output 10/22/23 10/23/23 10/23/23 18:59 06:59 18:59 Intake Total 360 Output Total 2 Balance 358 Weight 103 kg Intake: Oral 360 Output: Stool 2 Other: Voiding Method Toilet Toilet Toilet # Voids 2 1 - Exam GENERAL DESCRIPTION: An elderly female up in the chair in no distress RESPIRATORY SYSTEM: Unlabored breathing , decreased breath sounds at bases HEART: S1 S2 regular rate and rhythm , ABDOMEN: Soft , mild distention Extremities no edema feet - Labs CBC & Chem 7: 10/22/23 10:40 10/24/23 08:38 Labs: Abnormal Lab Results - Last 24 Hours (Table) 10/22/23 10/22/23 10/22/23 Range/Units 10:40 10:40 16:13 WBC 13.2 H (3.8-10.6) k/uL RBC 3.32 L (3.80-5.40) m/uL Hgb 9.7 L (11.4-16.0) gm/dL Hct 30.8 L (34.0-46.0) % Neutrophils # 11.7 H (1.3-7.7) k/uL Lymphocytes # 0.8 L (1.0-4.8) k/uL BUN 31 H (7-17) mg/dL Creatinine (0.52-1.04) mg/dL Glucose 343 H (74-99) mg/dL AST 143 H (14-36) U/L ALT 123 H (4-34) U/L Total Protein 5.7 L (6.3-8.2) g/dL Albumin 3.1 L (3.5-5.0) g/dL Bshsb-4-Lswbnvahcvc 275.0 H (99.0-242.0) mg/dL 10/23/23 Range/Units 07:49 WBC (3.8-10.6) k/uL RBC (3.80-5.40) m/uL Hgb (11.4-16.0) gm/dL Hct (34.0-46.0) % Neutrophils # (1.3-7.7) k/uL Lymphocytes # (1.0-4.8) k/uL BUN (7-17) mg/dL Creatinine 1.10 H (0.52-1.04) mg/dL Glucose (74-99) mg/dL AST (14-36) U/L ALT (4-34) U/L Total Protein (6.3-8.2) g/dL Albumin (3.5-5.0) g/dL Plmxf-6-Euuifkvchlw (99.0-242.0) mg/dL Assessment and Plan (1) Ascites Status: Acute Code(s): R18.8 - OTHER ASCITES SNOMED Code(s): 670759366 (2) Elevated procalcitonin Status: Acute Code(s): R79.89 - OTHER SPECIFIED ABNORMAL FINDINGS OF BLOOD CHEMISTRY SNOMED Code(s): 927719798 (3) Leukocytosis Status: Acute Code(s): D72.829 - ELEVATED WHITE BLOOD CELL COUNT, UNSPECIFIED SNOMED Code(s): 565671165 Plan: 1patient presented to hospital with some discomfort in the chest she also have a cough bringing up some sputum no hemoptysis patient did have elevated procalcitonin though mildly elevated however CT of the chest that shows evidence of the right middle lobe consolidation concerning for community-acquired pneumonia 2-patient did have a new onset ascites in this patient with no history of heavy drinking hepatitis panel has been negative CT abdominal pelvis showed ascites but no other abnormality hepatitis panel has been negative, patient did have a white count of 1100 in the ascitic fluid concerning for SBP, patient peritoneal fluid culture currently growing coagulase-negative staph with sensitivities pending not sent off has been advised to contact the micro lab again to get the sensitivities so we can discharge the patient for now continue with the vancomycin while watching her clinical course closely Dictation was produced using [employer] dictation software. please excuse any grammatical, word or spelling errors. Time with Patient: Less than 30
[2023-10-25] MEDS ORDERED: VANCOMYCIN TROUGH DUE 1 EACH MISC MISCELLANE ONE (09:00)
== END 2023-10-24 14:48 | disposition home or self-care (01) | DRG 175 ==
LOC: EC 07:51 → 3SCARD 09:58
PROVIDERS: ADMIT Family Medicine; ATTEND Family Medicine
DX: I26.99 Other pulmonary embolism without acute cor pulmonale (principal); I50.33 Acute on chronic diastolic (congestive) heart failure; J69.0 Pneumonitis due to inhalation of food and vomit; K65.2 Spontaneous bacterial peritonitis; J98.11 Atelectasis; N17.9 Acute kidney failure, unspecified; R18.8 Other ascites; Z68.42 Body mass index [BMI] 45.0-49.9, adult; K76.6 Portal hypertension; N39.0 Urinary tract infection, site not specified; E66.01 Morbid (severe) obesity due to excess calories; Z20.822 Contact with and (suspected) exposure to COVID-19; E78.5 Hyperlipidemia, unspecified; I10 Essential (primary) hypertension; I71.21 Aneurysm of the ascending aorta, without rupture; Z85.3 Personal history of malignant neoplasm of breast; K59.00 Constipation, unspecified; Z86.79 Personal history of other diseases of the circulatory system; E86.0 Dehydration; E87.5 Hyperkalemia; I11.0 Hypertensive heart disease with heart failure; I48.91 Unspecified atrial fibrillation; K21.9 Gastro-esophageal reflux disease without esophagitis; R07.89 Other chest pain; K74.60 Unspecified cirrhosis of liver; K75.4 Autoimmune hepatitis; Z79.82 Long term (current) use of aspirin; Z82.49 Family history of ischemic heart disease and other diseases of the circulatory system; Z79.899 Other long term (current) drug therapy; Z90.13 Acquired absence of bilateral breasts and nipples; Z79.84 Long term (current) use of oral hypoglycemic drugs
CPT/HCPCS: 36415; 49083; 71046; 71250; 71275; 74176; 76705; 76770; 78582; 80053; 80074; 82103; 82390; 82565; 83516; 83735; 83880; 84145; 84484; 85025; 85379; 85610; 85730; 86038; 87040; 87070; 87075; 87086; 87102; 87205; 87449; 87636; 88108; 88305; 88341; 88342; 89050; 93005; 93270; 93306; 93970; 93979; 94640; 94760; 99285

== ENCOUNTER → 2023-11-03 | Outpatient (CLI) | payer MEDICARE ==
--- NOTE | 2023-11-03 14:58 | MM ---
Reason for Exam: Hx of breast cancer, mastectomy. Last screening mammogram was performed 8 month(s) ago. Patient History: Menarche at age 13. First Full-Term at age 17. Postmenopausal. Breast cancer, right, age 50. Core Biopsy on the Right side. 2017, Excisional Biopsy on the Left side. 07/12/2002, Malignant Lumpectomy on the right side. 07/29/2002, Mastectomy on the Right side. 12/04/2001, Benign Stereotactic Core Biopsy on the right side. Prior Study Comparison: 04/03/2021 Left Diagnostic Mammogram, [facility]. 03/15/2022 Left MG 3D diag mammo w/cad LT, [facility]. 03/17/2023 Left MG 3D diag mammo w/cad LT, [facility]. Tissue Density: Left: There are scattered areas of fibroglandular density. Findings: Analyzed By CAD. Vascular calcification. Unchanged tiny intramammary lymph node upper aspect of the left breast anterior depth. Subtle asymmetry 12:00 middle depth less pronounced compared to older priors, compatible with excisional scar. No significant change from prior exams. Overall Assessment: Incomplete: need additional imaging evaluation, BI-RAD 0 Management: Diagnostic Breast Ultrasound of both breasts. As ordered. Electronically signed and approved by: Brenda Arora M.D. Radiologist
--- NOTE | 2023-11-03 18:06 | USB ---
Reason for Exam: Additional evaluation requested from abnormal screening. Patient History: Menarche at age 13. First Full-Term at age 17. Postmenopausal. Breast cancer, right, age 50. Core Biopsy on the Right side. 2017, Excisional Biopsy on the Left side. 07/12/2002, Malignant Lumpectomy on the right side. 07/29/2002, Mastectomy on the Right side. 12/04/2001, Benign Stereotactic Core Biopsy on the right side. Prior Study Comparison: 04/03/2021 Left Diagnostic Mammogram, [facility]. 03/15/2022 Left MG 3D diag mammo w/cad LT, [facility]. 03/17/2023 Left MG 3D diag mammo w/cad LT, [facility]. Findings: The whole breast of the left breast, the periareolar of the right breast, the axilla of both breasts and the retroareolar of both breasts were scanned. Targeted ultrasound right chest wall status post mastectomy shows no suspicious solid or cystic lesion or axillary lymphadenopathy. Additional whole left breast ultrasound including scanning of the subareolar region and axilla. There is a benign 5 mm cyst at 11:00. Additional tiny benign 3 mm cyst at 2:00. No other solid or cystic lesion or axillary lymphadenopathy. Overall Assessment: Benign, BI-RAD 2 Management: Screening Mammogram of the left breast in 1 year. But with appropriate oncologic management of patient's known recurrence; malignant ascites. Results were given to the patient verbally at the time of exam. Electronically signed and approved by: Brenda Arora M.D. Radiologist
== END | disposition home or self-care (01) ==
LOC: RADMAMWWP 14:19
PROVIDERS: ATTEND Family Medicine
DX: R92.322 Mammographic fibroglandular density, left breast (principal); Z85.3 Personal history of malignant neoplasm of breast; Z78.0 Asymptomatic menopausal state
CPT/HCPCS: 77065; 76642; G0279; 77061

== ENCOUNTER → 2023-11-20 | Outpatient (CLI) | payer MEDICARE ==
--- NOTE | 2023-11-24 18:26 | PE ---
EXAMINATION TYPE: PET CT fusion skull to thigh DATE OF EXAM: 11/20/2023 COMPARISON: CT chest 10/20/2023 Prior PET/CT: None dislocation HISTORY: Breast cancer TECHNIQUE: Following the intravenous administration of 11.53 mCi of F-18 FDG, whole body images are performed from the skull base to the midthigh. Images are reviewed on the computer in the coronal, a xial, and sagittal planes. Reconstructed rotating images are created on independent workstation and reviewed on the computer. A localization and attenuation correction CT is performed in conjunction with the PET scan. DLP: 704.2 mGycm SCAN: Initial Blood glucose: 122 mg/dL Average Mediastinum SUV: 2.31 Average Liver SUV: 3.07 FINDINGS: NECK: No abnormal uptake THORAX: No abnormal uptake ABDOMEN: There may be some hepatic uptake, image 142, SUV 8.99 and image 142, SUV 7.82. Medial right lobe image 155, SUV 7.7 PELVIS: There may be abnormal uptake within the bilateral adenexa. Right SUV image 198, SUV 9.71. Le ft-sided image 194, SUV 10.29. Some uptake may be within the Fundus of the uterus. OSSEOUS STRUCTURES: There is uptake within the posterior lateral upper thoracic spine, image 64, SUV 9.56 there may be some mild uptake within the midthoracic vertebral body, image 86, SUV 4.62. There i s uptake within the anterior mid thoracic vertebral body, image 94, SUV 6. Some additional uptake is within some osseous spurring mid thoracic level. Image 99, SUV 5.95 there is uptake within the building components designer ior lumbar spine, image 176, SUV 5.87 focus of radiotracer is within the posterior lateral left sacra l level, image 179, SUV 7.77. Some uptake is within the pubic symphysis which could be related to deg enerative change, SUV is elevated at 6.0. LOCALIZATION CT: There is a prominent lymph node near the epigastric region anterior to the heart, im age 9. There is some mild uptake in 3.74. There is a hypodense collection adjacent to the liver could be a subcapsular hematoma. Small amount of free fluid is within the pelvis COMPARISON: No significant change IMPRESSION: 1. Mild uptake within a epigastric enlarged lymph node. 2. At least 3 hepatic lesions suspicious for metastasis. 3. Suspicious uptake within the adnexa and possibly uterus. 4. Multiple osseous metastasis within the spine.
== END | disposition home or self-care (01) ==
LOC: RADPETMAIN 13:30
PROVIDERS: ATTEND Family Medicine
DX: C50.919 Malignant neoplasm of unspecified site of unspecified female breast (principal); C79.51 Secondary malignant neoplasm of bone; K76.9 Liver disease, unspecified; R59.0 Localized enlarged lymph nodes
CPT/HCPCS: 78815; A9552

== ENCOUNTER → 2023-11-28 | Outpatient (CLI) | payer MEDICARE ==
--- NOTE | 2023-11-28 14:32 | US ---
EXAMINATION TYPE: US pelvic complete DATE OF EXAM: 11/28/2023 COMPARISON: NONE CLINICAL INDICATION: Female, 83 years old with history of C55 MALIGNANT NEOPLASM OF UTERUS, PART UNSP ECIFIED; abnormal PET scan TECHNIQUE: Transabdominal (TA). Transabdominal sonographic images of the pelvis were acquired. Tra nsvaginal sonographic images were medically necessary to better assess the following anatomy: patient refused TV at this time Date of LMP: unknown EXAM MEASUREMENTS: Uterus: 8.9 x 3.3 x 3.9 cm Endometrial Stripe: 0.4 cm Right Ovary: 2.6 x 2.6 x 1.4 cm Left Ovary: unable to visualize 1. Uterus: Anteverted heterogeneous. calcification fundus = 1.4cm 2. Endometrium: fluid within 3. Right Ovary: cystic area = 1.0 x 1.1 x 1.4cm 4. Left Ovary: Obscured by overlying bowel gas 5. Bilateral Adnexa: appears wnl 6. Posterior cul-de-sac: wnl IMPRESSION: Cyst right ovary. Fibroid uterus
== END | disposition home or self-care (01) ==
LOC: RADUSWWP 12:49
PROVIDERS: ATTEND Family Medicine
DX: C55 Malignant neoplasm of uterus, part unspecified (principal); N83.201 Unspecified ovarian cyst, right side; D25.9 Leiomyoma of uterus, unspecified
CPT/HCPCS: 76856

== ENCOUNTER → 2023-12-09 | Day surgery (SDC) | payer MEDICARE ==
--- NOTE | 2024-01-06 12:45 | US ---
EXAMINATION TYPE: US paracentesis abd w/image DATE OF EXAM: 12/29/2023 CLINICAL HISTORY: 83-year-old female when distention, referred for paracentesis The procedure was discussed with the patient. The risks, complications, benefits, and alternatives we re discussed and any questions were answered. Informed consent was obtained. The patient was placed s upine on the ultrasound table and prepped and draped in the usual sterile fashion. All elements of maximal barrier technique were utilized. Ultrasound was utilized to determine the precise skin entry site along the right lower quadrant. Utilizing 5 [place] one-step catheter, access into the right lower quadrant was obtained with direct u ltrasound guidance. Approximately 1.7 liters of fluid was removed. The patient was stable throughout the procedure and re mained stable upon discharge from Department of Radiology. IMPRESSION: Successful paracentesis under ultrasound guidance. 1.7 L of fluid removed.
== END ==
LOC: RADPROMAIN 08:36
PROVIDERS: ATTEND Internal Medicine
DX: R18.8 Other ascites (principal)
CPT/HCPCS: 49083; 85049; 85610

== ENCOUNTER 2024-01-08 06:41 | Emergency (ER) | payer MEDICARE, SELFPAY ==
[2024-01-08 06:46] VITALS: TEMP 97.9
--- NOTE | 2024-01-08 07:08 | ED ---
Abdominal Pain HPI - General Chief Complaint: Abdominal Pain Stated Complaint: Constipation, Fluid retention Time Seen by Provider: 01/08/24 06:47 Source: patient, RN notes reviewed Mode of arrival: wheelchair Limitations: no limitations - History of Present Illness Initial Comments: 83-year-old female presents emergency department chief plaint of abdominal pain, abdominal distention. Patient states she has ovarian cancer with metastasis. Patient states she is scheduled for paracentesis today she states that her oncologist Dr. Lepe she does receive chemotherapy she states she is on her second round tomorrow. Patient states that she just does not feel well she has been constipated, decreased oral intake and feels dehydrated. Patient denies any chest pain palpitations no reported fever. Patient states she is on medications for constipation but is not helping. - Related Data Home Medications Medication Instructions Recorded Confirmed Metoprolol Tartrate 25 mg PO BID 10/20/17 01/08/24 Aspirin 81 mg PO DAILY 10/14/23 01/08/24 Previous Rx's Medication Instructions Recorded Ipratropium-Albuterol Nebulize 3 ml INHALATION RT-QID 30 Days 10/17/23 [Duoneb 0.5 mg-3 mg/3 ml Soln] #120 each Spironolactone [Aldactone] 50 mg PO BID 30 Days #60 tab 10/24/23 Allergies Allergy/AdvReac Type Severity Reaction Status Date / Time No Known Allergies Allergy Verified 01/08/24 13:47 Review of Systems ROS Statement: Those systems with pertinent positive or pertinent negative responses have been documented in the HPI. ROS Other: All systems not noted in ROS Statement are negative. Past Medical History Past Medical History: Cancer, Hyperlipidemia, Hypertension Additional Past Medical History / Comment(s): right breast mastectomy, new cancer diagnosis, ovarian and liver 12/2023. History of Any Multi-Drug Resistant Organisms: None Reported Past Surgical History: Appendectomy, Breast Surgery, Tonsillectomy Past Anesthesia/Blood Transfusion Reactions: No Reported Reaction Past Psychological History: No Psychological Hx Reported Smoking Status: Never smoker Past Alcohol Use History: Rare Past Drug Use History: None Reported - Past Family History Mother Family Medical History: Hypertension General Exam Limitations: no limitations General appearance: alert, in no apparent distress Head exam: Present: atraumatic, normocephalic, normal inspection Eye exam: Present: normal appearance, PERRL, EOMI. Absent: scleral icterus, conjunctival injection, periorbital swelling Neck exam: Present: normal inspection. Absent: tenderness, meningismus, lymphadenopathy Respiratory exam: Present: normal lung sounds bilaterally. Absent: respiratory distress, wheezes, rales, rhonchi, stridor Cardiovascular Exam: Present: normal rhythm, tachycardia, normal heart sounds. Absent: systolic murmur, diastolic murmur, rubs, gallop, clicks GI/Abdominal exam: Present: soft, distended, tenderness, rigid, normal bowel sounds. Absent: guarding, rebound Neurological exam: Present: alert, oriented X3 Skin exam: Present: warm, dry, intact, normal color. Absent: rash Course Vital Signs 01/08/24 01/08/24 01/08/24 06:42 07:00 09:05 Temperature 97.9 F Pulse Rate 112 H 107 H 91 Respiratory 18 18 16 Rate Blood Pressure 153/76 148/82 142/72 O2 Sat by Pulse 97 96 98 Oximetry Medical Decision Making - Medical Decision Making Was pt. sent in by a medical professional or institution (Dr. PA, CONSTRUCTION LABORER, urgent care, hospital, or fpc...) When possible be specific @ -No Did you speak to anyone other than the patient for history (EMS, parent, family, police, friend...)? What history was obtained from this source @ -No Did you review nursing and triage notes (agree or disagree)? Why? @ -I reviewed and agree with nursing and triage notes Were old charts reviewed (outside hosp., previous admission, EMS record, old EKG, old radiological studies, urgent care reports/EKG's, fpc records)? Report findings @ -No old charts were reviewed Differential Diagnosis (chest pain, altered mental status, abdominal pain women, abdominal pain men, vaginal bleeding, weakness, fever, dyspnea, syncope, headache, dizziness, GI bleed, back pain, seizure, CVA, palpatations, mental health, musculoskeletal)? @ -Differential Abdominal Pain Women: Appendicitis, Cholecystitis, diverticulosis, ischemic bowel, pancreatitis, hepatitis, UTI, gastroenteritis, AAA, incarcerated hernia, bowel obstruction, constipation, inflammatory bowel, hepatitis, peptic ulcer disease, splenic infarction, perforated viscus, vulvitis, ovarian torsion, PID, kidney stone, placenta abruption, this is not meant to be an all-inclusive list EKG interpreted by me (3pts min.). @ -None X-rays interpreted by me (1pt min.). @ -X-ray shows constipation CT interpreted by me (1pt min.). @ -None done U/S interpreted by me (1pt. min.). @ -None done What testing was considered but not performed or refused? (CT, X-rays, U/S, labs)? Why? @ -None What meds were considered but not given or refused? Why? @ -None Did you discuss the management of the patient with other professionals (professionals i.e. DrPanda, PA, CONSTRUCTION LABORER, lab, RT, psych nurse, high school social studies tutor, medical records receptionist, teacher, forest fire control officer, skilled nursing case manager)? Give summary @ -No Was smoking cessation discussed for >3mins.? @ -No Was critical care preformed (if so, how long)? @ -No Were there social determinants of health that impacted care today? How? (Homelessness, low income, unemployed, alcoholism, drug addiction, transportation, low edu. Level, literacy, decrease access to med. care, half-way, rehab)? @ -No Was there de-escalation of care discussed even if they declined (Discuss DNR or withdrawal of care, Hospice)? DNR status @ -No What co-morbidities impacted this encounter? (DM, HTN, Smoking, COPD, CAD, Cancer, CVA, ARF, Chemo, Hep., AIDS, mental health diagnosis, sleep apnea, morbid obesity)? @ -Metastatic ovarian cancer Was patient admitted / discharged? Hospital course, mention meds given and route, prescriptions, significant lab abnormalities, going to OR and other pertinent info. @ -Discharge patient was found to have constipation patient of feels improved wi th IV fluids and analgesics. She is scheduled for paracentesis at 1:00 she prefers to wait to treat her constipation with oral medications after her paracentesis. Patient is discharged in stable condition with close follow-up return for as discussed Undiagnosed new problem with uncertain prognosis? @ -No Drug Therapy requiring intensive monitoring for toxicity (Heparin, Nitro, Insulin, Cardizem)? @ -No Were any procedures done? @ -No Diagnosis/symptom? @ -Abdominal pain, ascites, metastatic cancer, constipation Acute, or Chronic, or Acute on Chronic? @ -Acute Uncomplicated (without systemic symptoms) or Complicated (systemic symptoms)? @ -Complicated Side effects of treatment? @ -No Exacerbation, Progression, or Severe Exacerbation? @ -No Poses a threat to life or bodily function? How? (Chest pain, USA, ME, pneumonia, PE, COPD, DKA, ARF, appy, cholecystitis, CVA, Diverticulitis, Homicidal, Suicidal, threat to staff... and all critical care pts) @ -No - Lab Data Result diagrams: 01/08/24 07:34 01/08/24 07:34 Lab Results 01/08/24 01/08/24 01/08/24 Range/Units 07:34 07:34 07:34 WBC 8.9 (3.8-10.6) k/uL RBC 4.28 (3.80-5.40) m/uL Hgb 12.0 (11.4-16.0) gm/dL Hct 36.8 (34.0-46.0) % MCV 85.9 (80.0-100.0) fL MCH 28.0 (25.0-35.0) pg MCHC 32.6 (31.0-37.0) g/dL RDW 14.9 (11.5-15.5) % Plt Count 411 (150-450) k/uL MPV 6.9 Neutrophils % 78 % Lymphocytes % 15 % Monocytes % 3 % Eosinophils % 3 % Basophils % 0 % Neutrophils # 7.0 (1.3-7.7) k/uL Lymphocytes # 1.4 (1.0-4.8) k/uL Monocytes # 0.2 (0-1.0) k/uL Eosinophils # 0.2 (0-0.7) k/uL Basophils # 0.0 (0-0.2) k/uL PT 10.2 (10.0-12.5) sec INR 0.9 (<1.2) APTT 22.4 (22.0-30.0) sec Sodium 129 L (137-145) mmol/L Potassium 4.7 (3.5-5.1) mmol/L Chloride 94 L (98-107) mmol/L Carbon Dioxide 28 (22-30) mmol/L Anion Gap 7 mmol/L BUN 33 H (7-17) mg/dL Creatinine 0.97 (0.52-1.04) mg/dL Est GFR (CKD-EPI)AfAm 63 (>60 ml/min/1.73 sqM) Est GFR (CKD-EPI)NonAf 54 (>60 ml/min/1.73 sqM) Glucose 137 H (74-99) mg/dL Plasma Lactic Acid Vito (0.7-2.0) mmol/L Calcium 9.2 (8.4-10.2) mg/dL Total Bilirubin 1.4 H (0.2-1.3) mg/dL AST 27 (14-36) U/L ALT 15 (4-34) U/L Alkaline Phosphatase 81 (38-126) U/L Total Protein 5.9 L (6.3-8.2) g/dL Albumin 3.4 L (3.5-5.0) g/dL Lipase 56 (23-300) U/L Urine Color Urine Appearance (Clear) Urine pH (5.0-8.0) Ur Specific [place] (1.001-1.035) Urine Protein (Negative) Urine Glucose (UA) (Negative) Urine Ketones (Negative) Urine Blood (Negative) Urine Nitrite (Negative) Urine Bilirubin (Negative) Urine Urobilinogen (<2.0) mg/dL Ur Leukocyte Esterase (Negative) Urine WBC (0-5) /hpf Ur Squamous Epith Cells (0-4) /hpf Urine Bacteria (None) /hpf Hyaline Casts (0-2) /lpf Urine Mucus (None) /hpf 01/08/24 01/08/24 Range/Units 07:34 07:34 WBC (3.8-10.6) k/uL RBC (3.80-5.40) m/uL Hgb (11.4-16.0) gm/dL Hct (34.0-46.0) % MCV (80.0-100.0) fL MCH (25.0-35.0) pg MCHC (31.0-37.0) g/dL RDW (11.5-15.5) % Plt Count (150-450) k/uL MPV Neutrophils % % Lymphocytes % % Monocytes % % Eosinophils % % Basophils % % Neutrophils # (1.3-7.7) k/uL Lymphocytes # (1.0-4.8) k/uL Monocytes # (0-1.0) k/uL Eosinophils # (0-0.7) k/uL Basophils # (0-0.2) k/uL PT (10.0-12.5) sec INR (<1.2) APTT (22.0-30.0) sec Sodium (137-145) mmol/L Potassium (3.5-5.1) mmol/L Chloride (98-107) mmol/L Carbon Dioxide (22-30) mmol/L Anion Gap mmol/L BUN (7-17) mg/dL Creatinine (0.52-1.04) mg/dL Est GFR (CKD-EPI)AfAm (>60 ml/min/1.73 sqM) Est GFR (CKD-EPI)NonAf (>60 ml/min/1.73 sqM) Glucose (74-99) mg/dL Plasma Lactic Acid Vito 1.1 (0.7-2.0) mmol/L Calcium (8.4-10.2) mg/dL Total Bilirubin (0.2-1.3) mg/dL AST (14-36) U/L ALT (4-34) U/L Alkaline Phosphatase (38-126) U/L Total Protein (6.3-8.2) g/dL Albumin (3.5-5.0) g/dL Lipase (23-300) U/L Urine Color Yellow Urine Appearance Clear (Clear) Urine pH 5.0 (5.0-8.0) Ur Specific [place] 1.018 (1.001-1.035) Urine Protein Negative (Negative) Urine Glucose (UA) Negative (Negative) Urine Ketones Negative (Negative) Urine Blood Negative (Negative) Urine Nitrite Negative (Negative) Urine Bilirubin Negative (Negative) Urine Urobilinogen <2.0 (<2.0) mg/dL Ur Leukocyte Esterase Moderate H (Negative) Urine WBC 3 (0-5) /hpf Ur Squamous Epith Cells 5 H (0-4) /hpf Urine Bacteria Rare H (None) /hpf Hyaline Casts 14 H (0-2) /lpf Urine Mucus Rare H (None) /hpf Disposition Clinical Impression: Ascites, Abdominal pain, Constipation Disposition: HOME SELF-CARE Condition: Stable Instructions (If sedation given, give patient instructions): Abdominal Pain (ED) Additional Instructions: Please return to the Emergency Department if symptoms worsen or any other concerns. Is patient prescribed a controlled substance at d/c from ED?: No Referrals: Brandon Hardwick MD [Primary Care Provider] - 1-2 days Time of Disposition: 08:57
[2024-01-08] MEDS: MORPHINE SULFATE 2 MG/ML SYRINGE IVP ONE (07:39)
[2024-01-08] MEDS: ONDANSETRON 4 MG/2 ML VIAL IVP STA (07:39)
[2024-01-08] MEDS: SODIUM CHLORIDE 0.9% 1,000 ML IV STA (07:40)
[2024-01-08 07:59] LABS: Basophils % (A) 0 %; Eosinophils # (A) 0.2 k/uL (0-0.7); Eosinophils % (A) 3 %; HCT 36.8 % (34.0-46.0); Lymphocytes # (A) 1.4 k/uL (1.0-4.8); Lymphocytes % (A) 15 %; MCHC 32.6 g/dL (31.0-37.0); MCV 85.9 fL (80.0-100.0); Mean Platelet Volume 6.9; Monocytes # (A) 0.2 k/uL (0-1.0); Monocytes % (A) 3 %; Neutrophils % (A) 78 %; Platelet Count 411 k/uL (150-450); RBC 4.28 m/uL (3.80-5.40); RDW 14.9 % (11.5-15.5); WBC 8.9 k/uL (3.8-10.6)
[2024-01-08 08:11] LABS: ALT 15 U/L (4-34); AST 27 U/L (14-36); African American GFR (CKD) 63 (>60 ml/min/1.73 sqM); Albumin 3.4 g/dL (3.5-5.0); Alkaline Phosphatase 81 U/L (38-126); Anion Gap 7 mmol/L; Blood Urea Nitrogen 33 mg/dL (7-17); Calcium 9.2 mg/dL (8.4-10.2); Carbon Dioxide 28 mmol/L (22-30); Chloride 94 mmol/L (98-107); Glucose 137 mg/dL (74-99); INR 0.9 (<1.2); Lipase 56 U/L (23-300); Non-African American GFR(CKD) 54 (>60 ml/min/1.73 sqM); Partial Thromboplastin Time 22.4 sec (22.0-30.0); Potassium 4.7 mmol/L (3.5-5.1); Prothrombin Time 10.2 sec (10.0-12.5); Sodium 129 mmol/L (137-145); Total Bilirubin 1.4 mg/dL (0.2-1.3); Total Protein 5.9 g/dL (6.3-8.2)
--- NOTE | 2024-01-08 08:16 | XR ---
EXAMINATION TYPE: XR KUB DATE OF EXAM: 01/08/2024 Comparison: 10/20/2017 Clinical History: 83-year-old female Abdominal pain, constipation Findings: Prominent overlying soft tissue densities at the lower lungs. No evidence for free intraperitoneal air. No dilated small bowel or air-fluid levels. Moderate stool within the lower abdomen. Increased centra l abdominal density likely reflects underlying ascites fluid. IMPRESSION: 1. Overall nonobstructive bowel gas pattern. No evidence for free air. 2. Moderate stool within the lower abdomen. 3. Increased central abdominal density suggesting the presence of underlying ascites fluid.
[2024-01-08 08:38] LABS: Appearance,Urine Clear (Clear); Bacteria,Urine Rare /hpf; Bilirubin,Urine Negative (Negative); Blood,Urine Negative (Negative); Color,Urine Yellow; Glucose,Urine (UA) Negative (Negative); Hyaline Casts,Urine 14 /lpf (0-2); Ketones,Urine Negative (Negative); Leukocyte Esterase,Urine Moderate (Negative); Mucus,Urine Rare /hpf; Nitrite,Urine Negative (Negative); Protein,Urine Negative (Negative); Specific Gravity,Urine 1.018 (1.001-1.035); Squamous Epithelial Cell,Urine 5 /hpf (0-4); Urobilinogen,Urine <2.0 mg/dL (<2.0); WBC,Urine 3 /hpf (0-5)
[2024-01-08] MEDS: MAGNESIUM CITRATE 296 ML BOTTLE PO ONE (09:01)
[2024-01-08 09:07] VITALS: BP 142/72; PULSE 91; RESP 16
== END 2024-01-08 09:07 | disposition home or self-care (01) ==
LOC: EC 06:41
CPT/HCPCS: 36415; 74018; 80053; 81001; 83605; 83690; 85025; 85610; 85730; 96374; 96375; 99284

== ENCOUNTER 2024-01-08 12:23 | Day surgery (SDC) | payer MEDICARE, SELFPAY ==
[2024-01-08 14:04] VITALS: RESP 18; TEMP 98.1
--- NOTE | 2024-01-08 14:59 | US ---
Ultrasound-guided paracentesis. DATE OF EXAM: 01/08/2024 CLINICAL HISTORY: Ascites The procedure was discussed with the patient. The risks, complications, benefits, and alternatives we re discussed and any questions were answered. Informed consent was obtained. The patient was placed s upine on the ultrasound table and prepped and draped in the usual sterile fashion. All elements of maximal barrier technique were utilized. Under ultrasound guidance, access into the right lower quadrant was obtained, via the paracentesis catheter system and direct ultrasound guidanc e. Approximately 8.6 liters of straw-colored fluid was removed. The patient was stable throughout the pr ocedure and remained stable upon discharge from Department of Radiology. IMPRESSION: Successful paracentesis under ultrasound guidance.
[2024-01-08 15:46] VITALS: BP 128/78; PULSE 74
== END 2024-01-08 15:25 | disposition home or self-care (01) ==
LOC: RADPROMAIN 12:23
PROVIDERS: ATTEND Internal Medicine
DX: R18.8 Other ascites (principal)
CPT/HCPCS: 49083

== ENCOUNTER 2024-01-12 06:06 | Emergency (ER) | payer MEDICARE, SELFPAY ==
[2024-01-12 06:11] VITALS: TEMP 98.2
--- NOTE | 2024-01-12 06:36 | ED ---
Weakness HPI - General Chief complaint: Weakness Stated complaint: Nausea, Diarrhea Time Seen by Provider: 01/12/24 06:12 Source: patient, RN notes reviewed Mode of arrival: wheelchair Limitations: no limitations - History of Present Illness Initial comments: This is an 83-year-old female who presents to the emergency department for weakness and diarrhea. Patient is currently receiving chemotherapy for ovarian cancer. She had her second round of chemotherapy 3 days ago and states that she is supposed to be getting it each week. She has since been experiencing diarrhea and going to the bathroom every 1-2 hours. Reports generalized abdominal discomfort from the diarrhea and minor nausea. Denies any vomiting. Denies any chest pain, shortness of breath, fevers, or chills. States that she just feels very weak and rundown and has no energy. Her abdomen is fairly bloated, and states that she has a history of ascites requiring paracentesis, w hich she most recently had a couple of days ago. MD Complaint: generalized weakness - Related Data Home Medications Medication Instructions Recorded Confirmed Metoprolol Tartrate 25 mg PO BID 10/20/17 01/08/24 Aspirin 81 mg PO DAILY 10/14/23 01/08/24 Previous Rx's Medication Instructions Recorded Ipratropium-Albuterol Nebulize 3 ml INHALATION RT-QID 30 Days 10/17/23 [Duoneb 0.5 mg-3 mg/3 ml Soln] #120 each Spironolactone [Aldactone] 50 mg PO BID 30 Days #60 tab 10/24/23 Amoxic-Pot Clav 875-125Mg 1 tab PO Q12HR 10 Days #20 tab 01/12/24 [Augmentin 875-125] Allergies Allergy/AdvReac Type Severity Reaction Status Date / Time No Known Allergies Allergy Verified 01/08/24 13:47 Review of Systems ROS Statement: Those systems with pertinent positive or pertinent negative responses have been documented in the HPI. ROS Other: All systems not noted in ROS Statement are negative. Past Medical History Past Medical History: Cancer, Hyperlipidemia, Hypertension Additional Past Medical History / Comment(s): right breast mastectomy, new cancer diagnosis, ovarian and liver 12/2023. History of Any Multi-Drug Resistant Organisms: None Reported Past Surgical History: Appendectomy, Breast Surgery, Tonsillectomy Past Anesthesia/Blood Transfusion Reactions: No Reported Reaction Past Psychological History: No Psychological Hx Reported Smoking Status: Never smoker Past Alcohol Use History: Rare Past Drug Use History: None Reported - Past Family History Mother Family Medical History: Hypertension General Exam Limitations: no limitations General appearance: alert, in no apparent distress Head exam: Present: atraumatic, normocephalic, normal inspection Respiratory exam: Present: normal lung sounds bilaterally. Absent: respiratory distress, wheezes, rales, rhonchi, stridor Cardiovascular Exam: Present: regular rate, normal rhythm, normal heart sounds. Absent: systolic murmur, diastolic murmur, rubs, gallop, clicks GI/Abdominal exam: Present: distended, tenderness, normal bowel sounds Neurological exam: Present: alert, oriented X3, CN II-XII intact Psychiatric exam: Present: normal affect, normal mood Skin exam: Present: warm, dry, intact, normal color. Absent: rash Course Vital Signs 01/12/24 01/12/24 01/12/24 06:08 08:11 08:57 Temperature 98.2 F Pulse Rate 104 H 90 Respiratory 20 18 18 Rate Blood Pressure 141/66 131/73 131/72 O2 Sat by Pulse 96 96 98 Oximetry Medical Decision Making - Medical Decision Making This is an 83-year-old female who presents to the emergency department for weakness. Was pt. sent in by a medical professional or institution? @ -No Did you speak to anyone other than the patient for history? @ -No Did you review nursing and triage notes? @ -Yes, and I agree, it is accurate with regards to the patient's symptoms. Were old charts reviewed? @ -No Differential Diagnosis? @ -Differential Weakness: Hypoglycemia, shock, sepsis, hyponatremia, anemia, infection, NM, ETOH, adverse medicine reaction, overdose, stroke, this is not meant to be an all-inclusive list. EKG interpreted by me (3pts min.)? @ -EKG interpreted by me demonstrating the following: Sinus tachycardia with occasional PVCs. Ventricular rate 100 bpm, [place] interval 160 ms, QRS duration 86 ms, QTc 390 ms. X-rays interpreted by me (1pt min.)? @ -Not obtained CT interpreted by me (1pt min.)? @ -CT scan of the abdomen and pelvis obtained. My interpretation identifies abdominal pelvic ascites. U/S interpreted by me (1pt. min.)? @ -Not obtained What testing was considered but not performed? (CT, X-rays, U/S, labs)? Why? @ -None What meds were considered but not given? Why? @ -None Did you discuss the management of the patient with other professionals? @ -No Did you reconcile home meds? @ -No Was smoking cessation discussed for >3mins.? @ -No Was critical care preformed (if so, how long)? @ -No Were there social determinants of health that impacted care today? How? (Homelessness, low income, unemployed, alcoholism, drug addiction, transportation, low edu. Level, literacy, decrease access to med. care, long term, rehab)? @ -No Was there de-escalation of care discussed even if they declined? (Discuss DNR or withdrawal of care, Hospice)? @ -No What co-morbidities impacted this encounter? (DM, HTN, Smoking, COPD, CAD, Cancer, CVA, Hep., AIDS, mental health diagnosis, sleep apnea, morbid obesity)? @ -Ovarian cancer Was patient admitted / discharged? @ -Discharged. Lab work demonstrates signs of dehydration and was otherwise unremarkable. COVID, influenza, and RSV testing negative. Urinalysis negative for signs of infection. CT scan of the abdomen and pelvis obtained demonstrating known peritoneal disease with scattered omental caking and peritoneal deposits along the adnexa and cul-de-sac. There is worsening now moderate abdominal pelvic ascites. She also has new moderate circumferential thickening along the mid sigmoid colon. Acute diverticulitis is not excluded. New serosal disease is also a possibility. There is also some increasing prominence of the bile duct. LFTs are within normal limits. Findings reviewed with the patient. I did offer admission for further management, however she declined and requested to go home. Prescription for Augmentin provided for possible diverticulitis. Otherwise advised close follow-up with her PCP and oncology. Patient discharged home in stable condition. Case discussed with ED attending Dr. Duval. Return precautions reviewed in depth, the patient is instructed to return to the emergency department with any new, worsening, or concerning symptoms. Patient verbalized understanding. Undiagnosed new problem with uncertain prognosis? @ -None Drug Therapy requiring intensive monitoring for toxicity (Heparin, Nitro, Insulin, Cardizem)? @ -None Were any procedures done? @ -None Diagnosis/symptom? @ -Diverticulitis, diarrhea Acute, or Chronic, or Acute on Chronic? @ -Acute Uncomplicated (without systemic symptoms) or Complicated (systemic symptoms)? @ -Uncomplicated Side effects of treatment? @ -None Exacerbation, Progression, or Severe Exacerbation] @ -Not applicable Poses a threat to life or bodily function? @ -No - Lab Data Result diagrams: 01/12/24 06:36 01/12/24 06:36 Lab Results 01/12/24 01/12/24 01/12/24 Range/Units 06:36 06:36 06:36 WBC 6.8 (3.8-10.6) k/uL RBC 4.15 (3.80-5.40) m/uL Hgb 11.9 (11.4-16.0) gm/dL Hct 35.5 (34.0-46.0) % MCV 85.5 (80.0-100.0) fL MCH 28.7 (25.0-35.0) pg MCHC 33.6 (31.0-37.0) g/dL RDW 15.2 (11.5-15.5) % Plt Count 343 (150-450) k/uL MPV 7.2 Neutrophils % 74 % Lymphocytes % 20 % Monocytes % 2 % Eosinophils % 3 % Basophils % 0 % Neutrophils # 5.0 (1.3-7.7) k/uL Lymphocytes # 1.3 (1.0-4.8) k/uL Monocytes # 0.2 (0-1.0) k/uL Eosinophils # 0.2 (0-0.7) k/uL Basophils # 0.0 (0-0.2) k/uL PT 10.0 (10.0-12.5) sec INR 0.9 (<1.2) APTT 22.8 (22.0-30.0) sec Sodium 131 L (137-145) mmol/L Potassium 4.0 (3.5-5.1) mmol/L Chloride 98 (98-107) mmol/L Carbon Dioxide 29 (22-30) mmol/L Anion Gap 4 mmol/L BUN 24 H (7-17) mg/dL Creatinine 0.60 (0.52-1.04) mg/dL Est GFR (CKD-EPI)AfAm >90 (>60 ml/min/1.73 sqM) Est GFR (CKD-EPI)NonAf 85 (>60 ml/min/1.73 sqM) Glucose 130 H (74-99) mg/dL Plasma Lactic Acid Vito (0.7-2.0) mmol/L Calcium 8.2 L (8.4-10.2) mg/dL Phosphorus 2.6 (2.5-4.5) mg/dL Magnesium 2.0 (1.6-2.3) mg/dL Total Bilirubin 1.0 (0.2-1.3) mg/dL AST 25 (14-36) U/L ALT 16 (4-34) U/L Alkaline Phosphatase 87 (38-126) U/L Troponin I (0.000-0.034) ng/mL Total Protein 4.9 L (6.3-8.2) g/dL Albumin 2.7 L (3.5-5.0) g/dL Urine Color Urine Appearance (Clear) Urine pH (5.0-8.0) Ur Specific [place] (1.001-1.035) Urine Protein (Negative) Urine Glucose (UA) (Negative) Urine Ketones (Negative) Urine Blood (Negative) Urine Nitrite (Negative) Urine Bilirubin (Negative) Urine Urobilinogen (<2.0) mg/dL Ur Leukocyte Esterase (Negative) Urine RBC (0-5) /hpf Urine WBC (0-5) /hpf Ur Squamous Epith Cells (0-4) /hpf Hyaline Casts (0-2) /lpf Urine Mucus (None) /hpf Influenza Type A (PCR) (Not Detectd) Influenza Type B (PCR) (Not Detectd) RSV (PCR) (Not Detectd) SARS-CoV-2 (PCR) (Not Detectd) 01/12/24 01/12/24 01/12/24 Range/Units 06:36 06:36 06:36 WBC (3.8-10.6) k/uL RBC (3.80-5.40) m/uL Hgb (11.4-16.0) gm/dL Hct (34.0-46.0) % MCV (80.0-100.0) fL MCH (25.0-35.0) pg MCHC (31.0-37.0) g/dL RDW (11.5-15.5) % Plt Count (150-450) k/uL MPV Neutrophils % % Lymphocytes % % Monocytes % % Eosinophils % % Basophils % % Neutrophils # (1.3-7.7) k/uL Lymphocytes # (1.0-4.8) k/uL Monocytes # (0-1.0) k/uL Eosinophils # (0-0.7) k/uL Basophils # (0-0.2) k/uL PT (10.0-12.5) sec INR (<1.2) APTT (22.0-30.0) sec Sodium (137-145) mmol/L Potassium (3.5-5.1) mmol/L Chloride (98-107) mmol/L Carbon Dioxide (22-30) mmol/L Anion Gap mmol/L BUN (7-17) mg/dL Creatinine (0.52-1.04) mg/dL Est GFR (CKD-EPI)AfAm (>60 ml/min/1.73 sqM) Est GFR (CKD-EPI)NonAf (>60 ml/min/1.73 sqM) Glucose (74-99) mg/dL Plasma Lactic Acid Vito 1.1 (0.7-2.0) mmol/L Calcium (8.4-10.2) mg/dL Phosphorus (2.5-4.5) mg/dL Magnesium (1.6-2.3) mg/dL Total Bilirubin (0.2-1.3) mg/dL AST (14-36) U/L ALT (4-34) U/L Alkaline Phosphatase (38-126) U/L Troponin I <0.012 (0.000-0.034) ng/mL Total Protein (6.3-8.2) g/dL Albumin (3.5-5.0) g/dL Urine Color Urine Appearance (Clear) Urine pH (5.0-8.0) Ur Specific [place] (1.001-1.035) Urine Protein (Negative) Urine Glucose (UA) (Negative) Urine Ketones (Negative) Urine Blood (Negative) Urine Nitrite (Negative) Urine Bilirubin (Negative) Urine Urobilinogen (<2.0) mg/dL Ur Leukocyte Esterase (Negative) Urine RBC (0-5) /hpf Urine WBC (0-5) /hpf Ur Squamous Epith Cells (0-4) /hpf Hyaline Casts (0-2) /lpf Urine Mucus (None) /hpf Influenza Type A (PCR) Not Detected (Not Detectd) Influenza Type B (PCR) Not Detected (Not Detectd) RSV (PCR) Not Detected (Not Detectd) SARS-CoV-2 (PCR) Not Detected (Not Detectd) 01/12/24 Range/Units 06:53 WBC (3.8-10.6) k/uL RBC (3.80-5.40) m/uL Hgb (11.4-16.0) gm/dL Hct (34.0-46.0) % MCV (80.0-100.0) fL MCH (25.0-35.0) pg MCHC (31.0-37.0) g/dL RDW (11.5-15.5) % Plt Count (150-450) k/uL MPV Neutrophils % % Lymphocytes % % Monocytes % % Eosinophils % % Basophils % % Neutrophils # (1.3-7.7) k/uL Lymphocytes # (1.0-4.8) k/uL Monocytes # (0-1.0) k/uL Eosinophils # (0-0.7) k/uL Basophils # (0-0.2) k/uL PT (10.0-12.5) sec INR (<1.2) APTT (22.0-30.0) sec Sodium (137-145) mmol/L Potassium (3.5-5.1) mmol/L Chloride (98-107) mmol/L Carbon Dioxide (22-30) mmol/L Anion Gap mmol/L BUN (7-17) mg/dL Creatinine (0.52-1.04) mg/dL Est GFR (CKD-EPI)AfAm (>60 ml/min/1.73 sqM) Est GFR (CKD-EPI)NonAf (>60 ml/min/1.73 sqM) Glucose (74-99) mg/dL Plasma Lactic Acid Vito (0.7-2.0) mmol/L Calcium (8.4-10.2) mg/dL Phosphorus (2.5-4.5) mg/dL Magnesium (1.6-2.3) mg/dL Total Bilirubin (0.2-1.3) mg/dL AST (14-36) U/L ALT (4-34) U/L Alkaline Phosphatase (38-126) U/L Troponin I (0.000-0.034) ng/mL Total Protein (6.3-8.2) g/dL Albumin (3.5-5.0) g/dL Urine Color Yellow Urine Appearance Clear (Clear) Urine pH 5.5 (5.0-8.0) Ur Specific [place] 1.020 (1.001-1.035) Urine Protein Negative (Negative) Urine Glucose (UA) Negative (Negative) Urine Ketones Negative (Negative) Urine Blood Small H (Negative) Urine Nitrite Negative (Negative) Urine Bilirubin Negative (Negative) Urine Urobilinogen 2.0 (<2.0) mg/dL Ur Leukocyte Esterase Trace H (Negative) Urine RBC 2 (0-5) /hpf Urine WBC 2 (0-5) /hpf Ur Squamous Epith Cells 1 (0-4) /hpf Hyaline Casts 1 (0-2) /lpf Urine Mucus Rare H (None) /hpf Influenza Type A (PCR) (Not Detectd) Influenza Type B (PCR) (Not Detectd) RSV (PCR) (Not Detectd) SARS-CoV-2 (PCR) (Not Detectd) - Radiology Data Radiology results: report reviewed, image reviewed Disposition Clinical Impression: Diverticulitis, Diarrhea Disposition: HOME SELF-CARE Instructions (If sedation given, give patient instructions): Diverticulitis (ED) Additional Instructions: Return to the emergency department with any new, worsening, or concerning symptoms. Take the antibiotic as prescribed for 10 days. Follow up with your primary care provider in 1-2 days. Prescriptions: Amoxic-Pot Clav 875-125Mg [Augmentin 875-125] 1 tab PO Q12HR 10 Days #20 tab Is patient prescribed a controlled substance at d/c from ED?: No Referrals: Brandon Hardwick MD [Primary Care Provider] - 1-2 days Time of Disposition: 10:20
[2024-01-12 06:47] LABS: Basophils % (A) 0 %; Eosinophils # (A) 0.2 k/uL (0-0.7); Eosinophils % (A) 3 %; HCT 35.5 % (34.0-46.0); HGB 11.9 gm/dL (11.4-16.0); Lymphocytes # (A) 1.3 k/uL (1.0-4.8); Lymphocytes % (A) 20 %; MCH 28.7 pg (25.0-35.0); MCHC 33.6 g/dL (31.0-37.0); MCV 85.5 fL (80.0-100.0); Mean Platelet Volume 7.2; Monocytes # (A) 0.2 k/uL (0-1.0); Monocytes % (A) 2 %; Neutrophils % (A) 74 %; Platelet Count 343 k/uL (150-450); RBC 4.15 m/uL (3.80-5.40); RDW 15.2 % (11.5-15.5); WBC 6.8 k/uL (3.8-10.6)
[2024-01-12 06:58] LABS: INR 0.9 (<1.2); Partial Thromboplastin Time 22.8 sec (22.0-30.0)
[2024-01-12] MEDS: SODIUM CHLORIDE 0.9% 500 ML 500 ML IV STA (06:58)
[2024-01-12 07:15] LABS: Appearance,Urine Clear (Clear); Bilirubin,Urine Negative (Negative); Blood,Urine Small (Negative); Color,Urine Yellow; Glucose,Urine (UA) Negative (Negative); Hyaline Casts,Urine 1 /lpf (0-2); Ketones,Urine Negative (Negative); Leukocyte Esterase,Urine Trace (Negative); Mucus,Urine Rare /hpf; Nitrite,Urine Negative (Negative); PH, Urine 5.5 (5.0-8.0); Protein,Urine Negative (Negative); RBC,Urine 2 /hpf (0-5); Squamous Epithelial Cell,Urine 1 /hpf (0-4); WBC,Urine 2 /hpf (0-5)
[2024-01-12 07:36] LABS: ALT 16 U/L (4-34); AST 25 U/L (14-36); African American GFR (CKD) >90 (>60 ml/min/1.73 sqM); Albumin 2.7 g/dL (3.5-5.0); Alkaline Phosphatase 87 U/L (38-126); Anion Gap 4 mmol/L; Blood Urea Nitrogen 24 mg/dL (7-17); Calcium 8.2 mg/dL (8.4-10.2); Carbon Dioxide 29 mmol/L (22-30); Chloride 98 mmol/L (98-107); Glucose 130 mg/dL (74-99); Non-African American GFR(CKD) 85 (>60 ml/min/1.73 sqM); Phosphorus 2.6 mg/dL (2.5-4.5); Sodium 131 mmol/L (137-145); Total Protein 4.9 g/dL (6.3-8.2)
[2024-01-12 08:21] VITALS: PULSE 90; RESP 18
[2024-01-12] MEDS: DIPHENOX-ATROP 2.5-0.025 MG 1 EACH TAB PO STA (08:57)
[2024-01-12 09:00] VITALS: BP 131/72
--- NOTE | 2024-01-12 10:01 | CT ---
EXAMINATION TYPE: CT abdomen pelvis w con DATE OF EXAM: 01/12/2024 COMPARISON: 11/20/2023 HISTORY: 83-year-old female Abdominal pain, diarrhea TECHNIQUE: Contiguous axial scanning of the abdomen and pelvis following administration of 100 ml Iso tod 300 IV contrast. Delayed images through the kidneys and coronal/sagittal reconstructions perform ed. CT DLP: 1473 mGycm Automated exposure control for dose reduction was used. FINDINGS: The heart is mildly enlarged with prominent epicardial fat pad. Prominent subpleural atelec tasis or scarring at the left lung base. No pleural effusion. Gallbladder is hydropic measuring 4.2 cm wide, similar to prior exam. There may be some increasing pr ominence of the bile duct measuring up to 8 mm. Portal venous system is patent. No focal liver lesion . Adrenal glands, left kidney, spleen, atrophic pancreas grossly unremarkable. 1.8 cm centrally located cyst within the upper to midpole right kidney. Mild to moderate atherosclerotic calcifications throughout the abdominal aorta and iliac arteries. No dilated small bowel or free air. Increasing now moderate abdominopelvic ascites. Redemonstrated scattered omental cake, for example, a xial images 32, 40, 42, and 52 Redemonstrated is soft tissue thickening along the left and right adnexa and cul-de-sac uterus is ant everted. Scattered mild stool. There is left-sided colonic diverticulosis. There is moderate annular thickenin g along the mid sigmoid colon, for example, axial image 63. The presence of generalized mesenteric edema limits assessment for pericolonic inflammation. Bones: Osseous pubis. Moderate changes left hip. Osteopenia. Advanced hypertrophic facet arthropathy mid to lower lumbar spine. Levoconvex curvature lumbar spine. IMPRESSION: 1. Known peritoneal disease with scattered omental caking and peritoneal deposits along the adnexa an d cul-de-sac. Worsening, now moderate abdominopelvic ascites. 2. New moderate circumferential thickening along the mid sigmoid colon. There is background diverticu losis. Acute diverticulitis not excluded. No abscess or free air. New serosal disease is also a diffe rential consideration. 3. Some increasing prominence to the bile duct now measuring up to 8 mm. Correlate with alkaline phos phatase and bilirubin levels to exclude biliary obstruction.
== END 2024-01-12 10:34 | disposition home or self-care (01) ==
LOC: EC 06:06
DX: K57.32 Diverticulitis of large intestine without perforation or abscess without bleeding (principal)
CPT/HCPCS: 36415; 74177; 80053; 81001; 83605; 83735; 84100; 84484; 85025; 85610; 85730; 87636; 93005; 96360; 96361; 99285

== ENCOUNTER 2024-01-12 16:09 | Observation (INO) | payer MEDICARE, SELFPAY ==
--- NOTE | 2024-01-12 17:05 | ED ---
Nausea/Vomiting/Diarrhea HPI - General Source: patient, RN notes reviewed Mode of arrival: wheelchair Limitations: no limitations <Lee Ann Weiner - Last Filed: 01/12/24 17:04> <Vandana Schmidt - Last Filed: 01/13/24 01:39> - General Chief complaint: Nausea/Vomiting/Diarrhea Stated complaint: Abdominal Pain Time Seen by Provider: 01/12/24 17:04 - History of Present Illness Initial comments: Quick note: 83-year-old female presented to the ER with a chief complaint of abdominal pain. Patient seen here earlier today and was diagnosed with diverticulitis. Patient was offered admission for symptom control. Patient refused. Patient returns as she "changed her mind and would like to be admitted". (Lee Ann Weiner) Patient is a pleasant 83-year-old female presenting today for cramping abdominal pain, diarrhea and decreased appetite. History ovarian cancer actively receiving chemotherapy. Presented this morning for similar complaint stated that she had imaging and labs done and was discharged home on antibiotics was offered admission however attempted wanting to try to go home. Said upon returning home she felt too weak, became nauseous and realize she could not control the pain at home I did not feel if she would be able to keep her antibiotics down at home. Denies any change in symptoms since earlier today. No new pain. No vomiting. No bloody stools does have history of hemorrhoids. No dysuria or hematuria. (Vandana Schmidt) - Related Data Home Medications Medication Instructions Recorded Confirmed Metoprolol Tartrate 25 mg PO BID 10/20/17 01/12/24 Aspirin 81 mg PO DAILY 10/14/23 01/12/24 Furosemide [Lasix] 20 mg PO DAILY 01/12/24 01/12/24 Ondansetron [Zofran] 4 - 8 mg PO Q4H PRN 01/12/24 01/12/24 Allergies Allergy/AdvReac Type Severity Reaction Status Date / Time No Known Allergies Allergy Verified 01/12/24 18:52 Review of Systems ROS Other: All systems not noted in ROS Statement are negative. <Lee Ann Weiner - Last Filed: 01/12/24 17:04> ROS Other: All systems not noted in ROS Statement are negative. <Vandana Schmidt - Last Filed: 01/13/24 01:39> ROS Statement: Those systems with pertinent positive or pertinent negative responses have been documented in the HPI. Past Medical History Past Medical History: Cancer, Hyperlipidemia, Hypertension Additional Past Medical History / Comment(s): right breast mastectomy, new cancer diagnosis, ovarian and liver 12/2023. History of Any Multi-Drug Resistant Organisms: None Reported Past Surgical History: Appendectomy, Breast Surgery, Tonsillectomy Past Anesthesia/Blood Transfusion Reactions: No Reported Reaction Past Psychological History: No Psychological Hx Reported Smoking Status: Never smoker Past Alcohol Use History: Rare Past Drug Use History: None Reported - Past Family History Mother Family Medical History: Hypertension <Lee Ann Weiner - Last Filed: 01/12/24 17:04> General Exam Limitations: no limitations <Lee Ann Weiner - Last Filed: 01/12/24 17:04> <Vandana Schmidt - Last Filed: 01/13/24 01:39> - General Exam Comments Initial Comments: Visual Physical Exam Vital signs reviewed General: Well-appearing, nontoxic, no acute distress. Head: Normocephalic, atraumatic Eyes: PERRLA, EOMI ENT: Airway patent Chest: Nonlabored breathing Skin: No visual rash, normal skin tone Neuro: Alert and oriented 3 Musculoskeletal: No gross abnormalities (Lee Ann Weiner) PE: CONSTITUTIONAL: No apparent distress, well appearing SKIN: Warm, dry, no jaundice, hives or petechiae EYES: Pupils are equally round, extraocular movements intact without nystagmus, clear conjunctiva, non-icteric sclera HENT: Normocephalic, atraumatic, dry mucus membranes, oropharynx clear without exudates NECK: , Full range of motion, normal appearance PULMONARY: Clear to auscultation without wheezes, rhonchi, or rales, normal excursion, no accessory muscle use and no stridor CARDIOVASCULAR: Regular rate, rhythm, normal S1 and S2. No appreciated murmurs, rubs or gallops. Strong radial pulses with intact distal perfusion. No lower extremity edema GASTROINTESTINAL: Soft, distended, mid abdominal TTP, no palpable masses, no rebound or guarding. No hepatosplenomegaly MUSCULOSKELETAL: Extremities have no gross deformity, no edema, redness, or swelling NEUROLOGIC:_a/o x 3, GCS 15, normal mentation and speech. Moves all extremities x 4 without motor or sensory deficit PSYCHIATRIC:_normal mood and affect, thought process is clear and linear (Vandana Schmidt) Course Vital Signs 01/12/24 01/12/24 16:12 19:48 Temperature 97.9 F Pulse Rate 95 72 Respiratory 16 16 Rate Blood Pressure 121/64 128/84 O2 Sat by Pulse 94 L 93 L Oximetry Medical Decision Making <Lee Ann Weiner - Last Filed: 01/12/24 17:04> - Lab Data Result diagrams: 01/12/24 17:04 01/12/24 17:04 <Vandana Schmidt - Last Filed: 01/13/24 01:39> - Medical Decision Making I performed the quick note portion of this chart. Electronically signed by Lee Ann Weiner PA-C (Lee Ann Weiner) Was pt. sent in by a medical professional or institution (JOHN Briceno, BAR ATTENDANT, urgent care, hospital, or alf...) When possible be specific @ -No Did you speak to anyone other than the patient for history (EMS, parent, family, police, friend...)? What history was obtained from this source @ -No Did you review nursing and triage notes (agree or disagree)? Why? @ -I reviewed and agree with nursing and triage notes Were old charts reviewed (outside hosp., previous admission, EMS record, old EKG, old radiological studies, urgent care reports/EKG's, alf records)? Report findings @I reviewed CT scan performed this morning, does not show appear to show acute any acute surgical process does seem to show possible diverticulitis and ascites reviewed labs from this morning, patient had no leukocytosis or anemia sodium 131, potassium 4, chloride 98, bicarb 29 creatinine 0.60, GFR 85 total bilirubin 1.0, AST/ALT 25/16, alkaline phosphatase 87 troponin was less than 0.012 Differential Diagnosis (chest pain, altered mental status, abdominal pain women, abdominal pain men, vaginal bleeding, weakness, fever, dyspnea, syncope, heada chelo, dizziness, GI bleed, back pain, seizure, CVA, palpatations, mental health, musculoskeletal)? @ Differential dx remains broad however top considerations include diverticulitis, diverticulosis, obstruction, ileus, gastroenteritis this is not all inclusive list EKG interpreted by me (3pts min.). @ -As above X-rays interpreted by me (1pt min.). @ -None done CT interpreted by me (1pt min.). @ -None done U/S interpreted by me (1pt. min.). @ -None done What testing was considered but not performed or refused? (CT, X-rays, U/S, labs)? Why? @ Considered repeat CT however pt had one performed in the same day and symptoms have not changed since that imaging was performed, patient has not had any acute changes from earlier What meds were considered but not given or refused? Why? @ -None Did you discuss the management of the patient with other professionals (professionals i.e. DrPanda, PA, BAR ATTENDANT, lab, RT, psych nurse, professor of social work, medication technician, teacher, title officer, nurse outreach case manager)? Give summary @ -No Was smoking cessation discussed for >3mins.? @ -No Was critical care preformed (if so, how long)? @ -No Were there social determinants of health that impacted care today? How? (Homelessness, low income, unemployed, alcoholism, drug addiction, transportation, low edu. Level, literacy, decrease access to med. care, senior living, rehab)? @ -No Was there de-escalation of care discussed even if they declined (Discuss DNR or withdrawal of care, Hospice)? @ -No What co-morbidities impacted this encounter? (DM, HTN, Smoking, COPD, CAD, Cancer, CVA, ARF, Chemo, Hep., AIDS, mental health diagnosis, sleep apnea, morbid obesity)? @ Ovarian CA Was patient admitted / discharged? Hospital course, mention meds given and route, prescriptions, significant lab abnormalities, going to OR and other pertinent info. @ -Hospital course admitted- Pt is a pleasant 83 y/o female hx Ovarian CA presenting for lower abdominal pain, diarrhea, was here earlier and labs imaging done indicated diverticulitis. Pt offered discharged home and intended to go home however was too uncomfortable to remain home and cannot tolerate PO intake. Plan for admission. Pt admitted for inpt treatment diverticulitis. Abx, pain control ordered. Discussed with Dr. Hardwick, kindly accepts for admission. Undiagnosed new problem with uncertain prognosis? @ -No Drug Therapy requiring intensive monitoring for toxicity (Heparin, Nitro, Insulin, Cardizem)? @ -No Were any procedures done? @ -No Diagnosis/symptom? @ -Acute diverticulitis Acute, or Chronic, or Acute on Chronic? @ Acute Uncomplicated (without systemic symptoms) or Complicated (systemic symptoms)? @ -Complicated Side effects of treatment? @ -No Exacerbation, Progression, or Severe Exacerbation? @ -No Poses a threat to life or bodily function? How? (Chest pain, [place], [place], pneumonia, PE, COPD, DKA, ARF, appy, cholecystitis, CVA, Diverticulitis, Homicidal, Suicidal, threat to staff... and all critical care pts) @ -Unlikely, however if infection remained untreated or patient was unable to tolerate oral antibiotics or p.o. intake could potentially progress to sepsis (Vandana Schmidt) - Lab Data Lab Results 01/12/24 01/12/24 01/12/24 Range/Units 17:04 17:04 17:04 WBC 6.2 (3.8-10.6) k/uL RBC 4.00 (3.80-5.40) m/uL Hgb 11.2 L (11.4-16.0) gm/dL Hct 34.4 (34.0-46.0) % MCV 85.9 (80.0-100.0) fL MCH 28.1 (25.0-35.0) pg MCHC 32.7 (31.0-37.0) g/dL RDW 15.2 (11.5-15.5) % Plt Count 327 (150-450) k/uL MPV 7.1 Neutrophils % 74 % Lymphocytes % 19 % Monocytes % 3 % Eosinophils % 3 % Basophils % 0 % Neutrophils # 4.6 (1.3-7.7) k/uL Lymphocytes # 1.2 (1.0-4.8) k/uL Monocytes # 0.2 (0-1.0) k/uL Eosinophils # 0.2 (0-0.7) k/uL Basophils # 0.0 (0-0.2) k/uL Sodium 131 L (137-145) mmol/L Potassium 4.1 (3.5-5.1) mmol/L Chloride 99 (98-107) mmol/L Carbon Dioxide 31 H (22-30) mmol/L Anion Gap 1 mmol/L BUN 22 H (7-17) mg/dL Creatinine 0.59 (0.52-1.04) mg/dL Est GFR (CKD-EPI)AfAm >90 (>60 ml/min/1.73 sqM) Est GFR (CKD-EPI)NonAf 85 (>60 ml/min/1.73 sqM) Glucose 138 H (74-99) mg/dL Calcium 8.0 L (8.4-10.2) mg/dL Total Bilirubin 1.3 (0.2-1.3) mg/dL AST 27 (14-36) U/L ALT 15 (4-34) U/L Alkaline Phosphatase 72 (38-126) U/L Total Protein 5.0 L (6.3-8.2) g/dL Albumin 2.7 L (3.5-5.0) g/dL Urine Color Yellow Urine Appearance Clear (Clear) Urine pH 5.5 (5.0-8.0) Ur Specific [place] 1.031 (1.001-1.035) Urine Protein Negative (Negative) Urine Glucose (UA) Negative (Negative) Urine Ketones Negative (Negative) Urine Blood Moderate H (Negative) Urine Nitrite Negative (Negative) Urine Bilirubin Negative (Negative) Urine Urobilinogen <2.0 (<2.0) mg/dL Ur Leukocyte Esterase Negative (Negative) Urine RBC 1 (0-5) /hpf Urine WBC 2 (0-5) /hpf Ur Squamous Epith Cells 1 (0-4) /hpf Disposition <Lee Ann Weiner - Last Filed: 01/12/24 17:04> <Vandana Schmidt - Last Filed: 01/13/24 01:39> Clinical Impression: Diverticulitis Disposition: ADMITTED IP TO THIS HOSP Condition: Good
[2024-01-12] MEDS ORDERED: NALOXONE 0.4 MG/ML 1 ML VIAL IV PRN (18:20)
[2024-01-12] MEDS ORDERED: CALCIUM CARBONATE 500 MG CHEWABLE PO PRN (18:20)
[2024-01-12] MEDS ORDERED: MAG HYDROX/AL HYDROX/SIMETH 30 ML CUP PO PRN (18:20)
[2024-01-12] MEDS ORDERED: ONDANSETRON 4 MG/2 ML VIAL IVP PRN (18:20)
[2024-01-12] MEDS: cefTRIAXone IN SWFI 1,000 MG/10 ML SYRINGE IVP SCH (18:21)
[2024-01-12] MEDS: SODIUM CHLORIDE 0.9% 1,000 ML IV ONE (18:22)
[2024-01-12] MEDS: fentaNYL (PF) 50 MCG/ML 2 ML AMP IVP STA (18:22)
[2024-01-12] MEDS: ONDANSETRON 4 MG/2 ML VIAL IVP STA (18:22)
[2024-01-12 18:28] LABS: Basophils % (A) 0 %; Eosinophils # (A) 0.2 k/uL (0-0.7); Eosinophils % (A) 3 %; HCT 34.4 % (34.0-46.0); HGB 11.2 gm/dL (11.4-16.0); Lymphocytes # (A) 1.2 k/uL (1.0-4.8); Lymphocytes % (A) 19 %; MCH 28.1 pg (25.0-35.0); MCHC 32.7 g/dL (31.0-37.0); MCV 85.9 fL (80.0-100.0); Mean Platelet Volume 7.1; Monocytes # (A) 0.2 k/uL (0-1.0); Monocytes % (A) 3 %; Neutrophils # (A) 4.6 k/uL (1.3-7.7); Neutrophils % (A) 74 %; Platelet Count 327 k/uL (150-450); RDW 15.2 % (11.5-15.5); WBC 6.2 k/uL (3.8-10.6)
[2024-01-12 18:33] LABS: Appearance,Urine Clear (Clear); Bilirubin,Urine Negative (Negative); Blood,Urine Moderate (Negative); Color,Urine Yellow; Glucose,Urine (UA) Negative (Negative); Ketones,Urine Negative (Negative); Leukocyte Esterase,Urine Negative (Negative); Nitrite,Urine Negative (Negative); PH, Urine 5.5 (5.0-8.0); Protein,Urine Negative (Negative); RBC,Urine 1 /hpf (0-5); Specific Gravity,Urine 1.031 (1.001-1.035); Squamous Epithelial Cell,Urine 1 /hpf (0-4); Urobilinogen,Urine <2.0 mg/dL (<2.0); WBC,Urine 2 /hpf (0-5)
[2024-01-12 18:38] LABS: ALT 15 U/L (4-34); African American GFR (CKD) >90 (>60 ml/min/1.73 sqM); Albumin 2.7 g/dL (3.5-5.0); Anion Gap 1 mmol/L; Blood Urea Nitrogen 22 mg/dL (7-17); Carbon Dioxide 31 mmol/L (22-30); Chloride 99 mmol/L (98-107); Glucose 138 mg/dL (74-99); Non-African American GFR(CKD) 85 (>60 ml/min/1.73 sqM); Sodium 131 mmol/L (137-145); Total Bilirubin 1.3 mg/dL (0.2-1.3)
[2024-01-12 18:40] LABS: AST 27 U/L (14-36); Alkaline Phosphatase 72 U/L (38-126); Potassium 4.1 mmol/L (3.5-5.1)
[2024-01-12] MEDS: SODIUM CHLORIDE 0.9% 1,000 ML IV SCH (20:05)
[2024-01-12] MEDS: FAMOTIDINE 20 MG TAB PO SCH (20:06)
[2024-01-12] MEDS: metroNIDAZOLE-NS PMX 500 MG in SALINE 1 100ML.BAG IVPB SCH (20:06)
[2024-01-12] MEDS: METOPROLOL TARTRATE 25 MG TAB PO SCH (21:23)
--- NOTE | 2024-01-12 22:27 | HP ---
HISTORY AND PHYSICAL HISTORY OF PRESENT ILLNESS: This is an 83-year-old female, came back with abdominal pain, diverticulitis, chronic abdominal pain, diarrhea, decreased appetite, history of ovarian cancer recently after receiving chemotherapy. She went home on oral antibiotics and was sent back because she was too weak, could not control the pain at home. She was unable to keep the antibiotics down. She is admitted to hospital at this time for severe dehydration and generalized weakness. C diff culture is pending. MEDICATIONS: See list. ALLERGIES: Negative. REVIEW OF SYSTEMS: A 14-point review of systems, weakness, fatigue, diarrhea, otherwise, negative. PAST MEDICAL HISTORY: History of ovarian cancer, on chemotherapy; hypertension; dyslipidemia; history of breast cancer. PAST SURGICAL HISTORY: Right breast mastectomy; appendectomy; breast surgery; tonsillectomy. SOCIAL HISTORY: Does not smoke. Does not drink alcohol. FAMILY HISTORY: Mother with hypertension. PHYSICAL EXAMINATION: GENERAL: Well appearing, nontoxic, in no acute distress. CARDIOVASCULAR: S1, S2. NEUROLOGIC: Cranial nerves intact. PSYCH: Fair mood and affect. INTEGUMENT: Dry skin turgor. VITAL SIGNS: Temp 97.9, pulse 95, respiratory rate 16 to 18, blood pressure 121/64, O2 94. ASSESSMENT: Dehydration, abdominal pain, COPD, ascites, history of breast cancer, ovarian cancer. Continue home medications. Keep her on oxygen. Continue to rehydrate. Prognosis guarded. Please see further orders. MMODL / IJN: [id number] /
[2024-01-13] MEDS: IPRATROPIUM-ALBUTEROL 3 ML NEB INHALATION SCH (08:41)
[2024-01-13] MEDS: ASPIRIN 81 MG PO SCH (08:58)
[2024-01-13 10:10] LABS: Basophils # (A) 0.02 X 10*3/uL (0.00-0.10); Basophils % (A) 0.4 %; HCT 34.9 % (37.2-46.3); HGB 10.9 g/dL (12.0-15.0); Lymphocytes # (A) 1.51 X 10*3/uL (0.90-5.00); Lymphocytes % (A) 29.9 %; MCH 28.2 pg (27.0-32.0); MCHC 31.2 g/dL (32.0-37.0); MCV 90.4 FL (80.0-97.0); Mean Platelet Volume 9.4 FL (9.5-12.2); Monocytes # (A) 0.22 X 10*3/uL (0.20-1.00); Monocytes % (A) 4.4 %; NRBC Per 100 WBC 0 X 10*3/uL (0.00-0.01); Neutrophils # (A) 3.07 X 10*3/uL (1.80-7.70); Neutrophils % (A) 60.7 %; Platelet Count 279 X 10*3/uL (140-440); RBC 3.86 X 10*6/uL (4.10-5.20); RDW 15.4 % (11.5-14.5); WBC 5.05 X 10*3/uL (4.50-10.00)
[2024-01-13 10:25] LABS: ALT 15 U/L (8-44); AST 21 U/L (13-35); Albumin 2.7 g/dL (3.8-4.9); Alkaline Phosphatase 82 U/L (41-126); BUN/Creat Ratio 25.17 Ratio (12.00-20.00); Blood Urea Nitrogen 15.1 mg/dL (9.0-27.0); Carbon Dioxide 26.9 mmol/L (21.6-31.8); Chloride 102 mmol/L (96-109); Globulin 1.8 g/dL (1.6-3.3); Glucose 103 mg/dL (70-110); Sodium 137 mmol/L (135-145); Total Bilirubin 0.6 mg/dL (0.3-1.2); Total Protein 4.5 g/dL (6.2-8.2)
--- NOTE | 2024-01-13 14:42 | P.GSCN ---
History of Present Illness Consult date: 01/13/24 History of present illness: CHIEF COMPLAINT: Abdominal pain HISTORY OF PRESENT ILLNESS: This is a 83-year-old female with a known history of metastatic ovarian cancer. Her last chemo treatment was on Friday, 4 days ago. Patient reports she had been doing well on Friday and then started having abdominal pain mostly across the lower abdomen and diarrhea. She reports she has had a few small amounts of blood in the stool and contributes that to hemorrhoids. She denies any nausea or vomiting. But reports a decreased appetite. She came into the ER early yesterday and was diagnosed with diverticulitis but discharged home with antibiotics. Patient returned and felt that she was unable to manage at home. CT scan abdomen pelvis had reported peritoneal disease with scattered omental caking and peritoneal deposits along the adnexa and cul-de-sac. Worsening moderate abdominal pelvic ascites. New moderate thickening of along the sigmoid colon. Acute diverticulitis not excluded. No abscess or free air. Some increasing prominence to the bile duct now measuring up to 8 mm. Patient does report history of diverticulitis. She reports her last colonoscopy was 7 years ago and was unremarkable. Her last paracentesis with 8.6 L removed was on January 07. Her past abdominal surgeries include appendectomy and . Patient also has a known history of breast cancer with mastectomy. Patient also with a known history of spontaneous bacterial peritonitis. Surgical service consulted for abdominal pain. PAST MEDICAL HISTORY: Ovarian cancer with mets to bone and liver diagnosed December 2023, hyperlipidemia, hypertension PAST SURGICAL HISTORY: Appendectomy, breast surgery, tonsillectomy, MEDICATIONS: See below ALLERGIES: See below SOCIAL HISTORY: No illicit drug use. Denies alcohol use REVIEW OF SYSTEMS: CONSTITUTIONAL: Denies fever or chills. HEENT: Denies blurred vision, vision changes, or eye pain. Denies hemoptysis CARDIOVASCULAR: Denies chest pain or pressure. RESPIRATORY: No shortness of breath. GASTROINTESTINAL: See HPI for pertinent findings HEMATOLOGIC: Denies bleeding disorders. GENITOURINARY: Denies any blood in urine or increased urinary frequency. SKIN: Denies pruitis. Denies rash. PHYSICAL EXAM: VITAL SIGNS: Reviewed GENERAL: in no acute distress. ABDOMEN: Soft. Distended. Tenderness palpation across the lower abdomen. NEUROLOGIC: Alert and oriented. Cranial nerves II through XII grossly intact. LABORATORY DATA: WBC 5.05 Hgb 10.9 platelets 279 Sodium 137 potassium is 4.0 creatinine 0.6 Total bilirubin 0.6 AST 21 ALT 15 alk phos 82 IMAGING: CT scan abdomen pelvis known peritoneal disease with scattered omental caking and peritoneal deposits along the adnexa and cul-de-sac. Worsening now moderate abdominal pelvic ascites. New moderate circumferential thickening along the sigmoid colon. Acute diverticulitis not excluded. Increasing prominence of bile duct now measuring 8 mm. ASSESSMENT: 1. Lower abdominal pain, abdominal distention with diarrhea 2. Abdominal pain is likely related to patient's metastatic ovarian cancer and ascites. Patient with evidence of diverticulosis unlikely to be diverticulitis. Patient has normal white count. CAT scan revealing scattered omental caking and peritoneal deposits along the adnexa and cul-de-sac 3. History of malignant abdominal ascites 4. History of ovarian cancer with metastatic disease to the back and liver 5. Recent chemotherapy 4 days ago PLAN: -Continue antibiotics for possible diverticulitis. No surgical intervention planned. -Continue with clear liquid diet -Follow-up on abdominal ultrasound results to evaluate for ascites -Continue to monitor Case discussed with Dr. Terry Physician [place] [facility] note has been reviewed by physician. Signing provider agrees with the documented findings, assessment, and plan of care. Past Medical History Past Medical History: Cancer, Hyperlipidemia, Hypertension Additional Past Medical History / Comment(s): right breast mastectomy, new cancer diagnosis, ovarian and liver 12/2023. History of Any Multi-Drug Resistant Organisms: None Reported Past Surgical History: Appendectomy, Breast Surgery, Tonsillectomy Past Anesthesia/Blood Transfusion Reactions: No Reported Reaction Past Psychological History: No Psychological Hx Reported Smoking Status: Never smoker Past Alcohol Use History: Rare Past Drug Use History: None Reported - Past Family History Mother Family Medical History: Hypertension Medications and Allergies Home Medications Medication Instructions Recorded Confirmed Type Metoprolol Tartrate 25 mg PO BID 10/20/17 01/12/24 History Aspirin 81 mg PO DAILY 10/14/23 01/12/24 History Furosemide [Lasix] 20 mg PO DAILY 01/12/24 01/12/24 History Ondansetron [Zofran] 4 - 8 mg PO Q4H PRN 01/12/24 01/12/24 History Allergies Allergy/AdvReac Type Severity Reaction Status Date / Time No Known Allergies Allergy Verified 01/12/24 18:52 Surgical - Exam Vital Signs Temp Pulse Resp BP Pulse Ox 97.9 F 95 16 121/64 94 L 01/12/24 16:12 01/12/24 16:12 01/12/24 16:12 01/12/24 16:12 01/12/24 16:12 Results - Labs 01/13/24 06:39 01/13/24 06:39 Abnormal Lab Results - Last 24 Hours (Table) 01/12/24 01/12/24 01/12/24 Range/Units 17:04 17:04 17:04 RBC (4.10-5.20) X 10*6/uL Hgb 11.2 L (11.4-16.0) gm/dL Hct (37.2-46.3) % MCHC (32.0-37.0) g/dL RDW (11.5-14.5) % MPV (9.5-12.2) FL Sodium 131 L (137-145) mmol/L Carbon Dioxide 31 H (22-30) mmol/L BUN 22 H (7-17) mg/dL BUN/Creatinine Ratio (12.00-20.00) Ratio Glucose 138 H (74-99) mg/dL Calcium 8.0 L (8.4-10.2) mg/dL Total Protein 5.0 L (6.3-8.2) g/dL Albumin 2.7 L (3.5-5.0) g/dL Albumin/Globulin Ratio (1.60-3.17) Ratio Urine Blood Moderate H (Negative) 01/13/24 01/13/24 Range/Units 06:39 06:39 RBC 3.86 L (4.10-5.20) X 10*6/uL Hgb 10.9 L (11.4-16.0) gm/dL Hct 34.9 L (37.2-46.3) % MCHC 31.2 L (32.0-37.0) g/dL RDW 15.4 H (11.5-14.5) % MPV 9.4 L (9.5-12.2) FL Sodium (137-145) mmol/L Carbon Dioxide (22-30) mmol/L BUN (7-17) mg/dL BUN/Creatinine Ratio 25.17 H (12.00-20.00) Ratio Glucose (74-99) mg/dL Calcium 8.0 L (8.4-10.2) mg/dL Total Protein 4.5 L (6.3-8.2) g/dL Albumin 2.7 L (3.5-5.0) g/dL Albumin/Globulin Ratio 1.50 L (1.60-3.17) Ratio Urine Blood (Negative) Diabetes panel 01/12/24 01/13/24 Range/Units 17:04 06:39 Sodium 131 L 137 (137-145) mmol/L Potassium 4.1 4.0 (3.5-5.1) mmol/L Chloride 99 102 (98-107) mmol/L Carbon Dioxide 31 H 26.9 (22-30) mmol/L BUN 22 H 15.1 (7-17) mg/dL Creatinine 0.59 0.6 (0.52-1.04) mg/dL Glucose 138 H 103 (74-99) mg/dL Calcium 8.0 L 8.0 L (8.4-10.2) mg/dL AST 27 21 (14-36) U/L ALT 15 15 (4-34) U/L Alkaline Phosphatase 72 82 (38-126) U/L Total Protein 5.0 L 4.5 L (6.3-8.2) g/dL Albumin 2.7 L 2.7 L (3.5-5.0) g/dL Calcium panel 01/12/24 01/13/24 Range/Units 17:04 06:39 Calcium 8.0 L 8.0 L (8.4-10.2) mg/dL Albumin 2.7 L 2.7 L (3.5-5.0) g/dL Pituitary panel 01/12/24 01/13/24 Range/Units 17:04 06:39 Sodium 131 L 137 (137-145) mmol/L Potassium 4.1 4.0 (3.5-5.1) mmol/L Chloride 99 102 (98-107) mmol/L Carbon Dioxide 31 H 26.9 (22-30) mmol/L BUN 22 H 15.1 (7-17) mg/dL Creatinine 0.59 0.6 (0.52-1.04) mg/dL Glucose 138 H 103 (74-99) mg/dL Calcium 8.0 L 8.0 L (8.4-10.2) mg/dL Adrenal panel 01/12/24 01/13/24 Range/Units 17:04 06:39 Sodium 131 L 137 (137-145) mmol/L Potassium 4.1 4.0 (3.5-5.1) mmol/L Chloride 99 102 (98-107) mmol/L Carbon Dioxide 31 H 26.9 (22-30) mmol/L BUN 22 H 15.1 (7-17) mg/dL Creatinine 0.59 0.6 (0.52-1.04) mg/dL Glucose 138 H 103 (74-99) mg/dL Calcium 8.0 L 8.0 L (8.4-10.2) mg/dL Total Bilirubin 1.3 0.6 (0.2-1.3) mg/dL AST 27 21 (14-36) U/L ALT 15 15 (4-34) U/L Alkaline Phosphatase 72 82 (38-126) U/L Total Protein 5.0 L 4.5 L (6.3-8.2) g/dL Albumin 2.7 L 2.7 L (3.5-5.0) g/dL
--- NOTE | 2024-01-13 20:28 | PN ---
PROGRESS NOTE The patient is improving daily. Now, she is on IV antibiotics, IV Flagyl, and wait for surgical consult for diverticulitis. We will just wait for the ultrasound. Get Dr. Yousif involved to make sure there is no peritoneal infection. Ultrasound check for any kind of ascites. Wait for Infectious Disease. Surgical consult. C diff for diarrhea, which has improved. C diff is pending. Prognosis is guarded. Ambulate as tolerated. She feels much better than yesterday. Continue current treatments. MMODL / IJN: [id number] /
[2024-01-13] MEDS: traMADol 50 MG TAB PO PRN (21:08)
[2024-01-14 08:25] LABS: ALT 15 U/L (4-34); AST 24 U/L (14-36); African American GFR (CKD) >90 (>60 ml/min/1.73 sqM); Albumin 2.5 g/dL (3.5-5.0); Alkaline Phosphatase 83 U/L (38-126); Anion Gap 3 mmol/L; Blood Urea Nitrogen 11 mg/dL (7-17); Calcium 8.2 mg/dL (8.4-10.2); Carbon Dioxide 27 mmol/L (22-30); Chloride 103 mmol/L (98-107); Glucose 94 mg/dL (74-99); Non-African American GFR(CKD) 90 (>60 ml/min/1.73 sqM); Potassium 3.9 mmol/L (3.5-5.1); Sodium 133 mmol/L (137-145); Total Bilirubin 0.9 mg/dL (0.2-1.3); Total Protein 4.6 g/dL (6.3-8.2)
[2024-01-14 08:59] LABS: Basophils % (A) 1 %; Eosinophils # (A) 0.2 k/uL (0-0.7); Eosinophils % (A) 3 %; HCT 37.4 % (34.0-46.0); Lymphocytes # (A) 1.8 k/uL (1.0-4.8); Lymphocytes % (A) 30 %; MCH 28.2 pg (25.0-35.0); MCHC 32.2 g/dL (31.0-37.0); MCV 87.7 fL (80.0-100.0); Mean Platelet Volume 7.3; Monocytes # (A) 0.3 k/uL (0-1.0); Monocytes % (A) 5 %; Neutrophils # (A) 3.6 k/uL (1.3-7.7); Neutrophils % (A) 61 %; Platelet Count 321 k/uL (150-450); RBC 4.26 m/uL (3.80-5.40); RDW 15.3 % (11.5-15.5); WBC 5.8 k/uL (3.8-10.6)
--- NOTE | 2024-01-14 10:07 | US ---
EXAMINATION TYPE: US abdomen complete DATE OF EXAM: 01/14/2024 COMPARISON: NONE CLINICAL INDICATION: Female, 83 years old with history of cirrhosis/ascites; ? Ovarian cancer TECHNIQUE: Multiple sonographic images of the abdomen are obtained. FINDINGS: EXAM MEASUREMENTS: Liver Length: 15.8 cm Gallbladder Wall: 0.4 cm CBD: 1.2 cm Spleen: 12.1 cm Right Kidney: 10.3 x 4.8 x 4.7 cm Left Kidney: 10.0 x 6.4 x 4.8 cm SERVICE OR WORK DISPATCHER NOTES: Pancreas: Obscured by bowel gas Liver: Lobular and difficult to evaluate Gallbladder: Hydropic Evidence for sonographic Isabel's sign: No CBD: Dilated Spleen: wnl Right Kidney: Simple cyst noted medial mid pole Left Kidney: wnl Upper IVC: wnl Abd Aorta: wnl in upper abdomen The pancreas is obscured by overlying bowel gas. Lobulated appearance of the liver without focal lesi on identified. Ascites demonstrated. Hydropic gallbladder redemonstrated. Negative sonographic Isabel 's sign. Dilated common bile duct redemonstrated. Spleen is within normal limits. Simple cyst identif ied within the right kidney. Left kidney is unremarkable. No hydronephrosis. The visualized portions of the upper IVC and abdominal aorta are within normal limits. IMPRESSION: 1. Gallbladder hydrops with dilated common bile duct redemonstrated. Correlate with alkaline phospha tase and bilirubin levels to exclude biliary extraction. Otherwise consider further evaluation with M VIDEOTAPE OPERATOR/ERCP. 2. Ascites. 3. Lobulated appearance of the liver without focal lesion identified. Possible cirrhosis. Correlate w ith liver function tests.
--- NOTE | 2024-01-14 10:56 | P.CONS ---
History of Present Illness - Reason for Consult Consult date: 01/14/24 Abdominal pain/ascites Requesting physician: Brandon Hardwick - Chief Complaint Abdominal pain, diarrhea - History of Present Illness This is a 83-year-old female with a known history of metastatic ovarian cancer. She was seen by gastroenterology back in October of this year with new onset of abdominal ascites. Her last chemo treatment was on Friday, 4 days ago. Patient reports she had been doing well on Friday and then started having abdominal pain mostly across the lower abdomen and diarrhea following her chemo. She reports she has had a few small amounts of blood in the stool and contributes that to hemorrhoids. She denies any nausea or vomiting. But reports a decreased appetite. She came into the ER Friday morning and was diagnosed with diverticulitis, discharged home with antibiotics. However, patient states she was still not feeling well and did not feel she could manage at home so return to the emergency department. She was admitted at that time. CT scan abdomen pelvis had reported peritoneal disease with scattered omental caking and peritoneal deposits along the adnexa and cul-de-sac. Worsening moderate abdominal pelvic ascites. New moderate thickening of along the sigmoid colon. Acute diverticulitis not excluded. No abscess or free air. Some increasing prominence to the bile duct now measuring up to 8 mm. Patient does report histo ry of diverticulitis. She reports her last colonoscopy was 7 years ago and was unremarkable. Her last paracentesis with 8.6 L removed was on January 07. Her past abdominal surgeries include appendectomy and . Patient also has a known history of breast cancer with mastectomy. Patient was treated for spontaneous bacterial peritonitis in October of this year. She follows with oncologist Dr. Lepe who manages her paracentesis. She states abdominal pain is controlled right now with pain medication, she has no further diarrhea since she has been admitted to the hospital and no nausea or vomiting. She is tolerating her diet. Patient has been afebrile, no leukocytosis. LFTs are all normal. Review of Systems REVIEW OF SYSTEMS: CARDIOPULMONARY: No chest pain or shortness of breath. Gastrointestinal: Abdominal pain. No nausea or vomiting. No hematemesis, coffee-ground emesis. No rectal bleeding, or melena. Patient had diarrhea now resolved. GENITOURINARY: No dysuria or hematuria. MUSCULOSKELETAL: Reports normal range of motion. SKIN: No rashes. No jaundice. ENDOCRINE: No chills, fevers. No excessive weight gain or loss. No polydipsia or polyuria. PSYCHIATRIC: Unremarkable. NEUROLOGY: No change in mental status. Denies dizziness, headache. ENT: Vision unremarkable. CONSTITUTIONAL: No recent weight loss. No fever, chills, night sweats. Generalized weakness. Past Medical History Past Medical History: Cancer, Hyperlipidemia, Hypertension Additional Past Medical History / Comment(s): right breast mastectomy, new cancer diagnosis, ovarian and liver 12/2023. History of Any Multi-Drug Resistant Organisms: None Reported Past Surgical History: Appendectomy, Breast Surgery, Tonsillectomy Past Anesthesia/Blood Transfusion Reactions: No Reported Reaction Past Psychological History: No Psychological Hx Reported Smoking Status: Never smoker Past Alcohol Use History: Rare Past Drug Use History: None Reported - Past Family History Mother Family Medical History: Hypertension Medications and Allergies Home Medications Medication Instructions Recorded Confirmed Type Metoprolol Tartrate 25 mg PO BID 10/20/17 01/12/24 History Aspirin 81 mg PO DAILY 10/14/23 01/12/24 History Furosemide [Lasix] 20 mg PO DAILY 01/12/24 01/12/24 History Ondansetron [Zofran] 4 - 8 mg PO Q4H PRN 01/12/24 01/12/24 History Allergies Allergy/AdvReac Type Severity Reaction Status Date / Time No Known Allergies Allergy Verified 01/12/24 18:52 Physical Exam Vitals: Vital Signs Temp Pulse Pulse Resp BP BP Pulse Ox 01/14/24 08:18 72 01/14/24 08:07 74 01/14/24 07:00 98.2 F 92 17 140/60 94 L 01/14/24 00:14 97.8 F 76 15 98/43 95 01/13/24 19:03 97.8 F 102 H 18 128/61 96 01/13/24 16:20 72 01/13/24 16:10 67 01/13/24 15:00 98.2 F 67 17 110/46 96 01/13/24 13:00 101 H 01/13/24 12:52 103 H 01/13/24 11:26 62 18 119/56 95 01/13/24 08:52 90 Intake and Output 01/13/24 01/14/24 01/14/24 22:59 06:59 14:59 Intake Total 10 10 Balance 10 10 Intake: IV 10 10 Invasive Line 1 10 10 Other: # Voids 1 2 # Bowel Movements 0 General appearance: The patient is alert, oriented, appears in no acute distress. HET: Head is normocephalic and atraumatic. Conjunctiva pink. Sclera anicteric. Neck: Supple without lymphadenopathy. Trachea midline. Heart: Regular. Lungs: Equal expansion, normal respiratory effort. Abdomen: Soft, abdominal hernia, mild tenderness with palpation along lower abdomen, nondistended. Skin: No rashes. No jaundice. Extremities: Normal skin color and turgor. No pedal edema. Neurological: No focal deficits. Alert and oriented x3. Results CBC & Chem 7: 01/14/24 07:33 01/14/24 07:33 Labs: Abnormal Lab Results - Last 24 Hours (Table) 01/13/24 01/13/24 01/14/24 Range/Units 06:39 06:39 07:33 RBC 3.86 L (4.10-5.20) X 10*6/uL Hgb 10.9 L (12.0-15.0) g/dL Hct 34.9 L (37.2-46.3) % MCHC 31.2 L (32.0-37.0) g/dL RDW 15.4 H (11.5-14.5) % MPV 9.4 L (9.5-12.2) FL Sodium 133 L (137-145) mmol/L Creatinine 0.51 L (0.52-1.04) mg/dL BUN/Creatinine Ratio 25.17 H (12.00-20.00) Ratio Calcium 8.0 L 8.2 L (8.7-10.3) mg/dL Total Protein 4.5 L 4.6 L (6.2-8.2) g/dL Albumin 2.7 L 2.5 L (3.8-4.9) g/dL Albumin/Globulin Ratio 1.50 L (1.60-3.17) Ratio Comments: CT scan abdomen pelvis had reported peritoneal disease with scattered omental caking and peritoneal deposits along the adnexa and cul-de-sac. Worsening moderate abdominal pelvic ascites. New moderate thickening of along the sigmoid colon. Acute diverticulitis not excluded. No abscess or free air. Some increasing prominence to the bile duct now measuring up to 8 mm. Patient does report history of diverticulitis. Assessment and Plan (1) Abdominal pain Narrative/Plan: 83-year-old female with metastatic ovarian cancer currently following with oncology with new onset abdominal ascites diagnosed in October of this year also at that time being treated for SBP. Patient returns to the emergency department 2 days ago with complaints of weakness, diarrhea and abdominal pain following chemotherapy. She is on her second treatment of chemotherapy last Friday and following that over the weekend she was very weak, had diarrhea and abdominal pain. She is scheduled to have chemo again this Friday. On admission she had no leukocytosis and has been afebrile. She was thought to have possible diverticulitis and started on Rocephin and Flagyl. Gastroenterology consulted for ascites and abdominal pain. Oncology manages her ascites secondary to metastatic ovarian cancer. Will consult with interventional radiology for therapeutic paracentesis, can obtain culture and cell count however not likely dealing with SBP. Current Visit: No Status: Acute Code(s): R10.9 - UNSPECIFIED ABDOMINAL PAIN SNOMED Code(s): 34309478 (2) Ascites Narrative/Plan: Unlikely SBP as ascites is secondary to malignancy not cirrhosis of the liver Current Visit: No Status: Acute Code(s): R18.8 - OTHER ASCITES SNOMED Code(s): 940935517 (3) Diarrhea Narrative/Plan: Resolved, likely secondary to chemotherapy Current Visit: No Status: Acute Code(s): R19.7 - DIARRHEA, UNSPECIFIED SNOMED Code(s): 64238191 (4) Adenocarcinoma Current Visit: Yes Status: Acute Code(s): C80.1 - MALIGNANT (PRIMARY) NEOPLASM, UNSPECIFIED SNOMED Code(s): 064051274 (5) History of breast cancer Current Visit: Yes Status: Acute Code(s): Z85.3 - PERSONAL HISTORY OF MALIGNANT NEOPLASM OF BREAST SNOMED Code(s): 306529835 (6) Ovarian cancer Current Visit: Yes Status: Acute Code(s): C56.9 - MALIGNANT NEOPLASM OF UNSPECIFIED OVARY SNOMED Code(s): 837896862 Plan: 1. Continue symptomatic and supportive care 2. Consult to interventional radiology for possible therapeutic paracentesis 3. Oncology consulted as they are managing patient for recent chemotherapy and ascites 4. Continue with recommendations from general surgery 5. No further workup indicated by gastroenterology. LFTs are all normal. Thank you for this consultation, we will continue to follow. Dr. Rubin Lemus I agree with the dictator's note, documented as a scribe by Bethany Edwards.
[2024-01-14] MEDS ORDERED: ONDANSETRON 4 MG/2 ML VIAL IVP PRN (12:41)
[2024-01-14 13:28] LABS: Prothrombin Time 10.7 sec (10.0-12.5)
--- NOTE | 2024-01-14 13:35 | P.PN ---
Subjective Progress Note Date: 01/14/24 CHIEF COMPLAINT: Abdominal pain HISTORY OF PRESENT ILLNESS: Patient reports being able to eat breakfast. She continues to have pain across the lower abdomen. She reports the pain is better though than yesterday. Denies any nausea or vomiting. Afebrile. Abdominal ultrasound reports gallbladder hydrops with dilated common bile duct demonstrated. Ascites. Lobulated appearance of the liver with focal lesion identified. Possible cirrhosis. WBC 5.8 Hgb 12 platelets 321 sodium is 133 potassium 3.9 creatinine 0.51 LFTs and bilirubin are normal. IR consulted for evaluation of possible paracentesis. Patient seen and examined with Dr. Terry PHYSICAL EXAM: VITAL SIGNS: Reviewed. GENERAL: no acute distress. ABDOMEN: Soft. distended. tender across lower abdomen NEUROLOGIC: Alert and oriented. Cranial nerves II through XII grossly intact. ASSESSMENT: 1. Lower abdominal pain, abdominal distention with diarrhea 2. Abdominal pain is likely related to patient's metastatic ovarian cancer and ascites. Patient with evidence of diverticulosis, unlikely to be diverticulitis. Patient has normal white count. CAT scan revealing scattered omental caking and peritoneal deposits along the adnexa and cul-de-sac 3. History of malignant abdominal ascites 4. History of ovarian cancer with metastatic disease to the back and liver 5. Recent chemotherapy 4 days ago 6. Chronic cholecystitis PLAN: -Continue antibiotics for possible diverticulitis. -Discussed ultrasound results with Dr. Terry. Findings are likely due to chronic cholecystitis. No surgical intervention planned -Agree with regular diet Physician Payable Representative note has been reviewed by physician. Signing provider agrees with the documented findings, assessment, and plan of care. Objective - Vital Signs Vital signs: Vital Signs Temp 98.2 F 01/14/24 07:00 Pulse 72 01/14/24 08:18 Resp 17 01/14/24 08:00 BP 140/60 01/14/24 07:00 Pulse Ox 94 L 01/14/24 07:00 FiO2 Intake & Output 01/13/24 01/14/24 01/14/24 18:59 06:59 18:59 Intake Total 20 10 Balance 20 10 Intake: IV 20 10 Invasive Line 1 20 10 Other: # Voids 1 2 # Bowel Movements 0 - Labs CBC & Chem 7: 01/14/24 07:33 01/14/24 07:33 Labs: Abnormal Lab Results - Last 24 Hours (Table) 01/14/24 Range/Units 07:33 Sodium 133 L (137-145) mmol/L Creatinine 0.51 L (0.52-1.04) mg/dL Calcium 8.2 L (8.4-10.2) mg/dL Total Protein 4.6 L (6.3-8.2) g/dL Albumin 2.5 L (3.5-5.0) g/dL
[2024-01-14 15:01] VITALS: BMI 38.4
[2024-01-14] MEDS: ACETAMINOPHEN TAB 325 MG TAB PO PRN (20:08)
--- NOTE | 2024-01-14 20:37 | P.CONS ---
History of Present Illness - Reason for Consult Consult date: 01/14/24 hx ovarian cancer Requesting physician: Bethany Hu - Chief Complaint abd pain, diarrhea - History of Present Illness Ms. Perez is an 83-year-old woman with a history of ovarian cancer. She follows with Dr. Neil Lepe. She was admitted to [facility] on 10/14/2023 with chest discomfort along with generalized weakness. Abdominal imaging noted abdominal ascites along with possible cirrhosis. She underwent paracentesis on 10/17/2023 for obtaining 6.5 L of straw-colored fluid. Cytology was reported as adenocarcinoma with possible mammary primary that was positive for MOC-31 and E-cadherin along with focal GATA3 positivity. Mammogram on 11/03/2023 noted subtle asymmetry at the 12 o'clock position in the middle depth of the left breast with breast ultrasound revealing benign cyst measuring 5 mm 11 o'clock position with no findings concerning for malignancy in either breast. PET/CT on 11/20/2023 noted concern for FDG avid malignancy in the thoracic and lumbar spine, 3 FDG avid lesions in the liver along with enlarged bilateral adnexa. Pelvic ultrasound of the uterus on 11/28/2023 revealed cyst in the right ovary measuring 1.4 cm in the largest parameter with fibroid uterus. She had a history of breast cancer in the right breast status post mastectomy in 2002 and subsequently had lumpectomy in the left breast in 2017. She did not receive any adjuvant radiation, endocrine, or chemotherapy. PET/CT performed on 11/20/2023 noted evidence of FDG avid malignancy in the thoracic and lumbar spine, liver, and bilateral adnexa. Following discussion with pathology, in light of the clinical findings on PET/CT, additional testing was performed and it was felt that the adenocarcinoma was of an ovarian primary She was started on weekly carboplatin/paclitaxel and completed cycle 1 day 8 on 01/09/24 Patient presented to the emergency room for abdominal pain, nausea and diarrhea. She was also reporting weakness, lightheadedness and decreased oral intake. Of note patient was seen on 01/08/2024 and underwent paracentesis with 8.6L removed. She was then again seen on 01/11 and was diagnosed with diverticulitis but declined admission and was sent home on oral antibiotics. However, patient had persisting symptoms and represented the same day and was admitted. Patient currently on Flagyl and Rocephin. Labs reviewed, WBC 5.8, hemoglobin 12.0, platelets are in 21,000. Bilirubin 1.3, LFTs WNL. Magnesium 2.0. Creatinine 0.59, GFR 90. Sodium 131, potassium 4.0. Patient states she was experiencing lower abdominal cramping and persisting diarrhea but did take Imodium with some relief in symptoms. She denies vomiting and states since admission nausea has subsided and diarrhea is improving. C. difficile has been ordered. Abd US showing gallbladder hydrops with dilated common bile duct redemonstrated. Ascites and lobulated appearance of the liver without focal lesion. GI following and IR has been consulted for repeat paracentesis. Pt afebrile, HDS Review of Systems 10 point ROS is negative except as stated in the HPI Past Medical History Past Medical History: Cancer, Hyperlipidemia, Hypertension Additional Past Medical History / Comment(s): right breast mastectomy, new cancer diagnosis, ovarian and liver 12/2023. History of Any Multi-Drug Resistant Organisms: None Reported Past Surgical History: Appendectomy, Breast Surgery, Tonsillectomy Past Anesthesia/Blood Transfusion Reactions: No Reported Reaction Past Psychological History: No Psychological Hx Reported Smoking Status: Never smoker Past Alcohol Use History: Rare Past Drug Use History: None Reported - Past Family History Mother Family Medical History: Hypertension Medications and Allergies Home Medications Medication Instructions Recorded Confirmed Type Metoprolol Tartrate 25 mg PO BID 10/20/17 01/12/24 History Aspirin 81 mg PO DAILY 10/14/23 01/12/24 History Furosemide [Lasix] 20 mg PO DAILY 01/12/24 01/12/24 History Ondansetron [Zofran] 4 - 8 mg PO Q4H PRN 01/12/24 01/12/24 History Allergies Allergy/AdvReac Type Severity Reaction Status Date / Time No Known Allergies Allergy Verified 01/12/24 18:52 Physical Exam Vitals: Vital Signs Temp Pulse Pulse Resp BP Pulse Ox 01/14/24 08:18 72 01/14/24 08:07 74 01/14/24 08:00 92 17 01/14/24 07:00 98.2 F 92 17 140/60 94 L 01/14/24 00:14 97.8 F 76 15 98/43 95 01/13/24 19:03 97.8 F 102 H 18 128/61 96 01/13/24 16:20 72 01/13/24 16:10 67 01/13/24 15:00 98.2 F 67 17 110/46 96 01/13/24 13:00 101 H 01/13/24 12:52 103 H Intake and Output 01/13/24 01/14/24 01/14/24 22:59 06:59 14:59 Intake Total 10 10 10 Balance 10 10 10 Intake: IV 10 10 10 Invasive Line 1 10 10 10 Other: # Voids 1 2 # Bowel Movements 0 - Constitutional General appearance: no acute distress - EENT Eyes: anicteric sclerae, EOMI ENT: hearing grossly normal - Respiratory Respiratory: bilateral: CTA - Cardiovascular Rhythm: regular - Gastrointestinal General gastrointestinal: distended, tenderness - Integumentary Integumentary: no cyanotic, no jaundiced - Neurologic Neurologic: CNII-XII intact - Musculoskeletal Musculoskeletal: strength equal bilaterally - Psychiatric Psychiatric: A&O x's 3 Results CBC & Chem 7: 01/14/24 07:33 01/14/24 07:33 Labs: Abnormal Lab Results - Last 24 Hours (Table) 01/14/24 Range/Units 07:33 Sodium 133 L (137-145) mmol/L Creatinine 0.51 L (0.52-1.04) mg/dL Calcium 8.2 L (8.4-10.2) mg/dL Total Protein 4.6 L (6.3-8.2) g/dL Albumin 2.5 L (3.5-5.0) g/dL CT scan - abdomen: report reviewed CT scan - pelvis: report reviewed US - abdomen: report reviewed Assessment and Plan (1) Diverticulitis Current Visit: Yes Status: Acute Code(s): K57.92 - DVTRCLI OF INTEST, PART UNSP, W/O PERF OR ABSCESS W/O BLEED SNOMED Code(s): 711001548 (2) Ovarian cancer Current Visit: Yes Status: Acute Priority: High Code(s): C56.9 - MALIGNANT NEOPLASM OF UNSPECIFIED OVARY SNOMED Code(s): 328061103 (3) Abdominal pain Current Visit: Yes Status: Acute Priority: High Code(s): R10.9 - UNSPECIFIED ABDOMINAL PAIN SNOMED Code(s): 60250595 (4) Ascites Current Visit: Yes Status: Acute Priority: High Code(s): R18.8 - OTHER ASCITES SNOMED Code(s): 077371835 Plan: Abd pain, recurrent ascites, diverticulitis: Presented to the emergency room for abdominal pain, nausea and diarrhea. Patient was seen in the ER on 01/08/2024 and underwent paracentesis with 8.6L removed. She was then again seen on 01/11 and was diagnosed with diverticulitis but declined admission and was sent home on oral antibiotics. However, patient had persisting symptoms and represented the same day and was admitted. -Currently on Flagyl and Rocephin. -Admit labs showing WBC 5.8, hemoglobin 12.0, platelets are in 21,000. Bilirubin 1.3, LFTs WNL. Magnesium 2.0. Creatinine 0.59, GFR 90. Sodium 131, potassium 4.0. -C. difficile ordered -Abd US showing gallbladder hydrops with dilated common bile duct redemonstrated. Ascites and lobulated appearance of the liver without focal lesion -GI following and IR has been consulted for repeat paracentesis -Continue supportive medications, IV hydration Ovarian cancer: -Oncology history and plan as dictated in HPI -Completed cycle 1 day 8 of weekly Carbo/Taxol on 01/09/24 -Will likely have to delay treatment by 1 week. Will f/u on abx recommendations attests: I have seen and examined patient, performed H&P, developed impression and plan of care. Discussed with dictator. Agree with documentation, dictated as a scribe
--- NOTE | 2024-01-14 22:09 | P.CONS ---
History of Present Illness - Reason for Consult Consult date: 01/14/24 Abdominal infection Requesting physician: Brandon Hardwick - Chief Complaint Not feeling well x few days - History of Present Illness Patient is a 83-year-old female with a past medical history significant for metastatic ovarian cancer for the patient has been on c hemotherapy last chemo was on Friday 2 days before admission to the hospital presenting to the hospital for evaluation of abdominal distention pain and diarrhea patient symptom has been going on for about a day or 2 before presentation to the hospital. Pain is mostly in the lower abdominal area mod erate intensity without any radiation associated nausea no vomiting did have some diarrhea apparently did have some blood in the stool patient was initially evaluated in the ER and the patient did have a CT of abdominal pelvis completed on January 12, 2024 known peritoneal disease with scattered omental caking and peritoneal deposit moderate abdominal pelvic ascites moderate circumferential thickening along the mid sigmoid colon acute diverticulitis not excluded. The patient was discharged on oral antibiotics however the patient did have persistent abdominal and presenting back to the hospital and was admitted the hospital he was started on Rocephin and Flagyl infectious disease was consulted last night for further management of antibiotic therapy, patient did have abdominal ultrasound this morning with gallbladder hydrops dilated common bile duct redemonstrated lobulated appearance of the liver without focal lesion identified, patient on presentation to the hospital was afebrile and no fever have recorded subsequently patient did have a white count of 5.8 creatinine has been normal electrolytes are normal liver isms normal urine has been negative Review of Systems Positive point and negatives has been mentioned in the HPI, complete review of systems was performed and all other systems are negative Past Medical History Past Medical History: Cancer, Hyperlipidemia, Hypertension Additional Past Medical History / Comment(s): right breast mastectomy, new cancer diagnosis, ovarian and liver 12/2023. History of Any Multi-Drug Resistant Organisms: None Reported Past Surgical History: Appendectomy, Breast Surgery, Tonsillectomy Past Anesthesia/Blood Transfusion Reactions: No Reported Reaction Past Psychological History: No Psychological Hx Reported Smoking Status: Never smoker Past Alcohol Use History: Rare Past Drug Use History: None Reported - Past Family History Mother Family Medical History: Hypertension Medications and Allergies Home Medications Medication Instructions Recorded Confirmed Type Metoprolol Tartrate 25 mg PO BID 10/20/17 01/12/24 History Aspirin 81 mg PO DAILY 10/14/23 01/12/24 History Furosemide [Lasix] 20 mg PO DAILY 01/12/24 01/12/24 History Ondansetron [Zofran] 4 - 8 mg PO Q4H PRN 01/12/24 01/12/24 History Allergies Allergy/AdvReac Type Severity Reaction Status Date / Time No Known Allergies Allergy Verified 01/12/24 18:52 Physical Exam Vitals: Vital Signs Temp Pulse Pulse Resp BP BP Pulse Ox 01/14/24 08:18 72 01/14/24 08:07 74 01/14/24 08:00 92 17 01/14/24 07:00 98.2 F 92 17 140/60 94 L 01/14/24 00:14 97.8 F 76 15 98/43 95 01/13/24 19:03 97.8 F 102 H 18 128/61 96 01/13/24 16:20 72 01/13/24 16:10 67 01/13/24 15:00 98.2 F 67 17 110/46 96 01/13/24 13:00 101 H 01/13/24 12:52 103 H 01/13/24 11:26 62 18 119/56 95 Intake and Output 01/13/24 01/14/24 01/14/24 22:59 06:59 14:59 Intake Total 10 10 10 Balance 10 10 10 Intake: IV 10 10 10 Invasive Line 1 10 10 10 Other: # Voids 1 2 # Bowel Movements 0 GENERAL DESCRIPTION: Elderly female lying in bed, no distress. No tachypnea or a ccessory muscle of respiration use. HEENT: Shows Pallor , no scleral icterus. Oral mucous membrane is dry. No pharyngeal erythema or thrush NECK: Trachea central, no thyromegaly. LUNGS: Unlabored breathing. Clear to auscultation anteriorly. No wheeze or crackle. HEART: S1, S2, regular rate and rhythm. No loud murmur ABDOMEN: Soft, did have significant distention but no tenderness EXTREMITIES: No edema of feet. SKIN: No rash, no masses palpable. NEUROLOGICAL: The patient is awake, alert, oriented x3, mood and affect normal. Results CBC & Chem 7: 01/14/24 07:33 01/14/24 07:33 Labs: Abnormal Lab Results - Last 24 Hours (Table) 01/14/24 Range/Units 07:33 Sodium 133 L (137-145) mmol/L Creatinine 0.51 L (0.52-1.04) mg/dL Calcium 8.2 L (8.4-10.2) mg/dL Total Protein 4.6 L (6.3-8.2) g/dL Albumin 2.5 L (3.5-5.0) g/dL Assessment and Plan (1) Diverticulitis Current Visit: Yes Status: Acute Code(s): K57.92 - DVTRCLI OF INTEST, PART UNSP, W/O PERF OR ABSCESS W/O BLEED SNOMED Code(s): 561765669 Plan: 1patient with metastatic ovarian cancer on chemotherapy presents hospital abdominal pain in this patient with evidence of ascites and there was concern for possible acute semidiverticulitis patient however not running any fever did not have any elevated white count 2-IR has been consulted for paracentesis fluid should be sent for Gram stain and culture 3-continue with Rocephin and Flagyl while waiting for the workup to be completed We will follow on clinical condition and cultures to further adjust medication if needed Thank you for this consultation we will follow the patient along with you Dictation was produced using [email or web address] dictation software. please excuse any grammatical, word or spelling errors. Time with Patient: Greater than 30
--- NOTE | 2024-01-15 12:00 | P.PN ---
Subjective Progress Note Date: 01/15/24 Principal diagnosis: Ascites This is a 83-year-old female with a known history of metastatic ovarian cancer. She was seen by gastroenterology back in October of this year with new onset of abdominal ascites. Her last chemo treatment was on Friday, 4 days ago. Patient reports she had been doing well on Friday and then started having abdominal pain mostly across the lower abdomen and diarrhea following her chemo. She reports she has had a few small amounts of blood in the stool and contributes that to hemorrhoids. She denies any nausea or vomiting. But reports a decreased appetite. She came into the ER Friday morning and was diagnosed with diverticulitis, discharged home with antibiotics. However, patient states she was still not feeling well and did not feel she could manage at home so return to the emergency department. She was admitted at that time. CT scan abdomen pelvis had reported peritoneal disease with scattered omental caking and peritoneal deposits along the adnexa and cul-de-sac. Worsening moderate abdominal pelvic ascites. New moderate thickening of along the sigmoid colon. Acute diverticulitis not excluded. No abscess or free air. Some increasing prominence to the bile duct now measuring up to 8 mm. Patient does report history of diverticulitis. She reports her last colonoscopy was 7 years ago and was unremarkable. Her last paracentesis with 8.6 L removed was on January 07. Her past abdominal surgeries include appendectomy and . Patient also has a known history of breast cancer with mastectomy. Patient was treated for spontaneous bacterial peritonitis in October of this year. She follows with oncologist Dr. Lepe who manages her paracentesis. She states abdominal pain is controlled right now with pain medication, she has no further diarrhea since she has been admitted to the hospital and no nausea or vomiting. She is tolerating her diet. Patient has been afebrile, no leukocytosis. LFTs are all normal. 01/15/2024 Patient seen and examined today as a follow-up. She underwent paracentesis with 3.9 L removed. States abdominal pain improved. Diarrhea improved. Having bowel movements but they are soft brown. Denies any fevers or chills. Objective - Vital Signs Vital signs: Vital Signs Temp 97.6 F 01/15/24 07:00 Pulse 86 01/15/24 07:00 Resp 16 01/15/24 07:00 BP 129/67 01/15/24 07:00 Pulse Ox 96 01/15/24 07:00 FiO2 Intake & Output 01/14/24 01/15/24 01/15/24 18:59 06:59 18:59 Intake Total 120 Balance 120 Weight 95.254 kg Intake: IV 20 Invasive Line 1 20 Oral 100 Other: # Voids 1 - Exam General appearance: The patient is alert, oriented, appears in no acute distress. HET: Head is normocephalic and atraumatic. Conjunctiva pink. Sclera anicteric. Neck: Supple without lymphadenopathy. Abdomen: Soft, nontender, nondistended. Abdominal hernia. Extremities: Normal skin color and turgor. No pedal edema Skin: No rashes, no jaundice Neurological: No focal deficits. Alert and oriented. - Labs CBC & Chem 7: 01/14/24 07:33 01/14/24 07:33 Assessment and Plan (1) Abdominal pain Narrative/Plan: 83-year-old female with metastatic ovarian cancer currently following with oncology with new onset abdominal ascites diagnosed in October of this year also at that time being treated for SBP. Patient returns to the emergency department 2 days ago with complaints of weakness, diarrhea and abdominal pain following chemotherapy. She is on her second treatment of chemotherapy last Friday and following that over the weekend she was very weak, had diarrhea and abdominal pain. She is scheduled to have chemo again this Friday. On admission she had no leukocytosis and has been afebrile. She was thought to have possible diverticulitis and started on Rocephin and Flagyl. Gastroenterology consulted for ascites and abdominal pain. Oncology manages her ascites secondary to metastatic ovarian cancer. Will consult with interventional radiology for therapeutic paracentesis, can obtain culture and cell count however not likely dealing with SBP. 3.9 L of fluid removed. Abdominal discomfort improved. Diarrhea improved pain likely secondary to abdominal distention from ascites. Current Visit: Yes Status: Acute Priority: High Code(s): R10.9 - UNSPECIFIED ABDOMINAL PAIN SNOMED Code(s): 33523262 (2) Ascites Narrative/Plan: Unlikely SBP as ascites is secondary to malignancy not cirrhosis of the liver Current Visit: Yes Status: Acute Priority: High Code(s): R18.8 - OTHER ASCITES SNOMED Code(s): 020809854 (3) Diarrhea Narrative/Plan: Resolved, likely secondary to chemotherapy Current Visit: No Status: Acute Code(s): R19.7 - DIARRHEA, UNSPECIFIED SNOMED Code(s): 66924373 (4) Adenocarcinoma Current Visit: Yes Status: Acute Code(s): C80.1 - MALIGNANT (PRIMARY) NEOPLASM, UNSPECIFIED SNOMED Code(s): 241417892 (5) History of breast cancer Current Visit: Yes Status: Acute Code(s): Z85.3 - PERSONAL HISTORY OF MALIGNANT NEOPLASM OF BREAST SNOMED Code(s): 714809669 (6) Ovarian cancer Current Visit: Yes Status: Acute Priority: High Code(s): C56.9 - MALIGNANT NEOPLASM OF UNSPECIFIED OVARY SNOMED Code(s): 550319164 Plan: 1. Continue symptomatic and supportive care 2. Patient is status post paracentesis 3. Continue with recommendations from oncology, outpatient paracentesis per oncology 4. Continue with recommendations from general surgery 5. No further workup indicated by gastroenterology. LFTs are all normal. Thank you for this consultation, patient is cleared from gastroenterology for discharge. Dr. Rubin Lemus I agree with the dictator's note, documented as a scribe by Bethany Edwards.
--- NOTE | 2024-01-15 13:19 | US ---
EXAMINATION TYPE: US paracentesis abd w/image, diagnostic and therapeutic DATE OF EXAM: 01/15/2024 CLINICAL HISTORY: 83-year-old female with peritoneal disease and recurrent ascites, referred for par acentesis The procedure was discussed with the patient. The risks, complications, benefits, and alternatives we re discussed and any questions were answered. Informed consent was obtained. The patient was placed s upine on the ultrasound table and prepped and draped in the usual sterile fashion. All elements of maximal barrier technique were utilized. Ultrasound was utilized to determine the precise skin entry site along the right mid abdominal flank. A 5 Bengali One-Step catheter and trocar technique was utilized to access the ascites collection under direct ultrasound guidance. Approximately 3.7 liters of clear, yellow fluid was removed. Initial 120 mL sample of fluid was label ed and sent for laboratory analysis. Catheter was removed, hemostasis obtained, and a dressing placed. The patient was stable throughout the procedure and remained stable upon discharge from Department of Radiology. IMPRESSION: Successful diagnostic and therapeutic paracentesis under ultrasound guidance. 3.7 L of fluid removed.
[2024-01-15 13:41] VITALS: BP 111/53; PULSE 80; RESP 16; TEMP 97.8
--- NOTE | 2024-01-15 15:12 | P.PN ---
Subjective Progress Note Date: 01/15/24 CHIEF COMPLAINT: Abdominal pain HISTORY OF PRESENT ILLNESS: Patient is status post paracentesis. She had 3.7 L of fluid removed. Patient reports noticing improvement in her abdominal discomfort. She tolerated regular food yesterday. She is afebrile. Denies any nausea or vomiting. PHYSICAL EXAM: VITAL SIGNS: Reviewed. GENERAL: no acute distress. ABDOMEN: Soft. Less distended. Mild tenderness across lower abdomen NEUROLOGIC: Alert and oriented. Cranial nerves II through XII grossly intact. ASSESSMENT: 1. Lower abdominal pain, abdominal distention with diarrhea 2. Abdominal pain is likely related to patient's metastatic ovarian cancer and ascites. Patient with evidence of diverticulosis, unlikely to be diverticulitis. Patient has normal white count. CAT scan revealing scattered omental caking and peritoneal deposits along the adnexa and cul-de-sac 3. History of malignant abdominal ascites 4. History of ovarian cancer with metastatic disease to the back and liver 5. Recent chemotherapy 4 days ago 6. Chronic cholecystitis PLAN: -No surgical intervention planned -Continue antibiotics for possible diverticulitis. -Discussed ultrasound results with Dr. Terry. Findings are likely due to chronic cholecystitis. No surgical intervention planned -Resume regular diet Physician Dramatic Coach note has been reviewed by physician. Signing provider agrees with the documented findings, assessment, and plan of care. Objective - Vital Signs Vital signs: Vital Signs Temp 97.8 F 01/15/24 13:06 Pulse 80 01/15/24 13:06 Resp 16 01/15/24 13:06 BP 111/53 01/15/24 13:06 Pulse Ox 97 01/15/24 13:06 FiO2 Intake & Output 01/14/24 01/15/24 01/15/24 18:59 06:59 18:59 Intake Total 120 Balance 120 Weight 95.254 kg Intake: IV 20 Invasive Line 1 20 Oral 100 Other: # Voids 1 1 - Labs CBC & Chem 7: 01/14/24 07:33 01/14/24 07:33
--- NOTE | 2024-01-15 20:52 | PN ---
PROGRESS NOTE An 83-year-old white female, status post paracentesis. Blood pressure is 111/53, O2 is 97% on room air, temp 97.8, pulse 18, respiratory rate 16 to 18. Seen by Surgery. Surgery says to continue antibiotics for diverticulitis. Chronic cholecystitis, regular diet. abdominal ascites, history of metastatic disease to back and liver. 3.7 L of fluid removed today. Improving her abdominal discomfort. Regular food. She can possibly go home. Follow up outpatient. MMODL / IJN: [id number] /
[2024-01-16 05:13] LABS: Appearance,BF Hazy (Clear)
--- NOTE | 2024-01-16 16:06 | P.PN ---
Subjective Progress Note Date: 01/15/24 Principal diagnosis: Reason for follow-up is diverticulitis Patient is a 83-year-old female with a past medical history significant for metastatic ovarian cancer for the patient has been on chemotherapy last chemo was on Friday 2 days before admission to the hospital p resenting to the hospital for evaluation of abdominal distention pain and diarrhea, patient did have a CT suggested diverticulitis prompting this consultation. On today's evaluation that is 01/15/2024,the patient denies any fever or any chills, patient is breathing comfortably on room air, the patient denies chest pain shortness of breath and no significant cough, patient abdominal pain has decreased intensity no nausea vomiting tolerating a regular diet. No new lab has been obtained today Objective - Vital Signs Vital signs: Vital Signs Temp 97.6 F 01/15/24 07:00 Pulse 75 01/15/24 10:11 Resp 12 01/15/24 10:11 BP 109/56 01/15/24 10:11 Pulse Ox 96 01/15/24 10:11 FiO2 Intake & Output 01/14/24 01/15/24 01/15/24 18:59 06:59 18:59 Intake Total 120 Balance 120 Weight 95.254 kg Intake: IV 20 Invasive Line 1 20 Oral 100 Other: # Voids 1 - Exam GENERAL DESCRIPTION: An elderly female up in bed in no distress RESPIRATORY SYSTEM: Unlabored breathing , decreased breath sounds at bases HEART: S1 S2 regular rate and rhythm , ABDOMEN: Soft , less tenderness EXTREMITIES: No edema feet - Labs CBC & Chem 7: 01/14/24 07:33 01/14/24 07:33 Assessment and Plan (1) Diverticulitis Status: Acute Code(s): K57.92 - DVTRCLI OF INTEST, PART UNSP, W/O PERF OR ABSCESS W/O BLEED SNOMED Code(s): 697843021 Plan: 1patient with metastatic ovarian cancer on chemotherapy presents hospital abdominal pain in this patient with evidence of ascites and there was concern for possible acute semidiverticulitis patient however not running any fever did not have any elevated white count 2-patient seem to have subclinical improvement we will-continue with Rocephin and Flagyl while waiting for the workup to be completed Dictation was produced using [employer] dictation software. please excuse any grammatical, word or spelling errors. Time with Patient: Less than 30
== END 2024-01-15 19:00 | disposition home or self-care (01) ==
LOC: EC 16:09 → 6NMEDSUR 18:22 → 1SOBS 01-13 11:09
PROVIDERS: ADMIT Family Medicine; ATTEND Family Medicine
DX: K57.32 Diverticulitis of large intestine without perforation or abscess without bleeding (principal); K81.1 Chronic cholecystitis; C56.9 Malignant neoplasm of unspecified ovary; C78.7 Secondary malignant neoplasm of liver and intrahepatic bile duct; C79.51 Secondary malignant neoplasm of bone; R18.0 Malignant ascites; E86.0 Dehydration; K82.1 Hydrops of gallbladder; K83.8 Other specified diseases of biliary tract; N83.201 Unspecified ovarian cyst, right side; J44.9 Chronic obstructive pulmonary disease, unspecified; I10 Essential (primary) hypertension; E78.5 Hyperlipidemia, unspecified; Z85.3 Personal history of malignant neoplasm of breast; Z90.11 Acquired absence of right breast and nipple; Z92.21 Personal history of antineoplastic chemotherapy; Z79.82 Long term (current) use of aspirin; Z79.899 Other long term (current) drug therapy
CPT/HCPCS: 36415; 49083; 76700; 80053; 81001; 85025; 85610; 87070; 87075; 87205; 89050; 94640; 94760; 96361; 96365; 96366; 96367; 96375; 99285

== ENCOUNTER 2024-01-28 12:39 | Day surgery (SDC) | payer MEDICARE, SELFPAY ==
[2024-01-28 13:28] LABS: Mean Platelet Volume 7.1; Platelet Count 248 k/uL (150-450)
[2024-01-28 13:41] LABS: INR 0.9 (<1.2); Prothrombin Time 10.2 sec (10.0-12.5)
[2024-01-28 15:12] VITALS: BP 161/65; PULSE 84; RESP 16
--- NOTE | 2024-01-29 08:16 | US ---
Ultrasound-guided paracentesis. DATE OF EXAM: 01/28/2024 CLINICAL HISTORY: Ascites The procedure was discussed with the patient. The risks, complications, benefits, and alternatives we re discussed and any questions were answered. Informed consent was obtained. The patient was placed s upine on the ultrasound table and prepped and draped in the usual sterile fashion. All elements of maximal barrier technique were utilized. Under ultrasound guidance, access into the right lower quadrant was obtained, via the paracentesis catheter system and direct ultrasound guidanc e. Approximately 2.8 liters of straw-colored fluid was removed. The patient was stable throughout the pr ocedure and remained stable upon discharge from Department of Radiology. IMPRESSION: Successful paracentesis under ultrasound guidance. [facility], , 01/29/2024 8:13 AM
== END 2024-01-28 15:10 | disposition home or self-care (01) ==
LOC: RADPROMAIN 12:39
PROVIDERS: ATTEND Internal Medicine
DX: R18.8 Other ascites
CPT/HCPCS: 36415; 49083; 85049; 85610

== ENCOUNTER 2024-02-26 08:15 | Day surgery (SDC) | payer MEDICARE ==
[2024-02-26 09:05] VITALS: BP 145/80; PULSE 85; RESP 16; TEMP 98
--- NOTE | 2024-02-26 09:35 | US ---
EXAMINATION TYPE: US discontinued paracentesis DATE OF EXAM: 02/26/2024 8:59 AM CLINICAL INDICATION:Female, 83 years old with history of R18.8 ascites; referred for paracentesis COMPARISON: 01/28/2024 ATTENDING: Dr. Arora TECHNIQUE, FINDINGS, IMPRESSION: Initial ultrasound assessment of the 4 abdominal quadrants shows no ascites fluid for paracentesis. Exam is discontinued. [facility], , 02/26/2024 9:32 AM
== END 2024-02-26 09:00 | disposition home or self-care (01) ==
LOC: RADPROMAIN 08:15
PROVIDERS: ATTEND Internal Medicine
DX: R18.8 Other ascites (principal)
CPT/HCPCS: 76705

== ENCOUNTER 2024-03-01 06:21 | Day surgery (SDC) | payer MEDICARE ==
[2024-02-27 13:51] VITALS: BMI 35.6
[2024-03-01 07:28] VITALS: BP 150/62; PULSE 81; RESP 18; TEMP 97.6
[2024-03-01 07:30] LABS: African American GFR (CKD) >90 (>60 ml/min/1.73 sqM); Blood Urea Nitrogen 16 mg/dL (7-17); Non-African American GFR(CKD) 90 (>60 ml/min/1.73 sqM)
== END 2024-03-01 09:51 | disposition home or self-care (01) ==
LOC: CATHCVL 06:21
PROVIDERS: ATTEND Internal Medicine
DX: C56.9 Malignant neoplasm of unspecified ovary (principal); Z85.3 Personal history of malignant neoplasm of breast; Z80.3 Family history of malignant neoplasm of breast; Z80.1 Family history of malignant neoplasm of trachea, bronchus and lung
CPT/HCPCS: 36573; 82565; 84520

== ENCOUNTER 2024-03-02 06:04 | Day surgery (SDC) | payer MEDICARE ==
[2024-03-02 06:39] VITALS: RESP 16; TEMP 98
[2024-03-02] MEDS: LIDOCAINE 1% INJ 10MG/ML (20 ML MDV) SQ ONE (07:25)
--- NOTE | 2024-03-02 07:39 | P.PCN ---
Date of Procedure: 03/02/24 Preoperative Diagnosis: Metastatic adenocarcinoma need for chemotherapy Postoperative Diagnosis: Same Procedure(s) Performed: Left basilic vein peripherally inserted central venous catheter placement under ultrasound and fluoroscopic guidance Anesthesia: local Surgeon: Fran Ann Pathology: none sent Condition: stable Disposition: PACU Description of Procedure: After written and informed consent was obtained the patient and all risks, benefits and competitions were described the patient was brought to the Refinery Operator Assistant and laid in a supine position with her left arm outstretched on an armboard. The area of the left arm was prepped and draped in usual sterile fashion. Timeout was performed in normal fashion. Utilizing ultrasound the basilic vein was visualized and shown to be compressible without any visible thrombus. Under ultrasound guidance the basilic vein was then cannulated with a micropuncture needle and wire was placed under direct visualization of fluoroscopy. Introducer sheath was then placed. The catheter was measured and cut to the appropriate length which was 49 cm. The catheter was then guided through the breakaway sheath and the sheath was removed with good positioning was visualized under fluoroscopy. The catheter was pulled and flushed easily. It was then secured in place in normal fashion. Patient tolerated the procedure well was sent back to his room for recovery.
[2024-03-02 07:49] VITALS: BP 164/72; PULSE 78
--- NOTE | 2024-03-02 08:18 | IR ---
EXAMINATION TYPE: IR cvc insert >=5 years DATE OF EXAM: 03/02/2024 FLUOROSCOPY CHEMO, 49cm, left basilic vein, 1.4min fluoro, 1.72Kwya1. 9 images submitted. [facility], , 03/02/2024 8:15 AM
== END 2024-03-02 07:57 | disposition home or self-care (01) ==
LOC: CATHCVL 06:04
PROVIDERS: ATTEND Surgery
DX: C56.3 Malignant neoplasm of bilateral ovaries (principal); C78.7 Secondary malignant neoplasm of liver and intrahepatic bile duct; C79.51 Secondary malignant neoplasm of bone; R18.0 Malignant ascites; Z79.82 Long term (current) use of aspirin; Z79.899 Other long term (current) drug therapy; Z85.3 Personal history of malignant neoplasm of breast; Z87.01 Personal history of pneumonia (recurrent)
CPT/HCPCS: 36573; C1751; C1769; J2003

== ENCOUNTER 2024-03-03 06:50 | Emergency (ER) | payer MEDICARE ==
--- NOTE | 2024-03-03 07:14 | ED ---
Recheck HPI - General Chief Complaint: Recheck/Abnormal Lab/Rx Stated Complaint: Post op issue Time Seen by Provider: 03/03/24 07:02 Source: patient, RN notes reviewed Mode of arrival: ambulatory Limitations: no limitations - History of Present Illness Initial Comments: This is an 83-year-old female who presents to the emergency department for concerns of problems with her PICC line. Patient had a PICC line placed yesterday for chemotherapy. States that she was told that if she had bleeding she should come to the emergency department. When she woke up this morning she noticed that there was blood under the bandage, prompting her to come in for evaluation. She has not noticed any bleeding coming out of the bandage. - Related Data Home Medications Medication Instructions Recorded Confirmed Metoprolol Tartrate 25 mg PO BID 10/20/17 03/02/24 Aspirin 81 mg PO DAILY 10/14/23 03/02/24 Cyanocobalamin (Vitamin B-12) 1,000 mcg PO DAILY 01/28/24 03/02/24 [Vitamin B-12] Previous Rx's Medication Instructions Recorded Acetaminophen Tab [Tylenol] 650 mg PO Q6HR PRN tab 01/15/24 Ipratropium-Albuterol Nebulize 3 ml INHALATION RT-QID 30 Days 01/15/24 [Duoneb 0.5 mg-3 mg/3 ml Soln] #120 each Allergies Allergy/AdvReac Type Severity Reaction Status Date / Time No Known Allergies Allergy Verified 03/03/24 06:51 Review of Systems ROS Statement: Those systems with pertinent positive or pertinent negative responses have been documented in the HPI. ROS Other: All systems not noted in ROS Statement are negative. 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-last chemo 02-27-24 History of Any Multi-Drug Resistant Organisms: None Reported Past Surgical History: Appendectomy, Breast Surgery, Tonsillectomy Additional Past Surgical History / Comment(s): right breast mastectomy, Past Anesthesia/Blood Transfusion Reactions: No Reported Reaction Past Psychological History: No Psychological Hx Reported Smoking Status: Never smoker - Past Family History Mother Family Medical History: Hypertension General Exam Limitations: no limitations General appearance: alert, in no apparent distress Head exam: Present: atraumatic, normocephalic, normal inspection Respiratory exam: Present: normal lung sounds bilaterally. Absent: respiratory distress, wheezes, rales, rhonchi, stridor Cardiovascular Exam: Present: regular rate, normal rhythm, normal heart sounds. Absent: systolic murmur, diastolic murmur, rubs, gallop, clicks Extremities exam: Present: other (PICC line in place with dried blood underneath the bandage. No active bleeding) Neurological exam: Present: alert, oriented X3, CN II-XII intact Psychiatric exam: Present: normal affect, normal mood Course Vital Signs 03/03/24 03/03/24 06:51 07:31 Temperature 97.5 F L 98.1 F Pulse Rate 95 90 Respiratory 20 18 Rate Blood Pressure 128/62 126/78 O2 Sat by Pulse 96 Oximetry Medical Decision Making - Medical Decision Making This is an 83-year-old female who presents to the emergency department for concerns of problems with her PICC line. Was pt. sent in by a medical professional or institution? @ -No Did you speak to anyone other than the patient for history? @ -No Did you review nursing and triage notes? @ -Yes, and I agree, it is accurate with regards to the patient's symptoms. Were old charts reviewed? @ -No Differential Diagnosis? @ -PICC line malfunction, broken PICC line, clogged PICC line, dislodged PICC line, expected postop bleeding, this is not meant to be an all-inclusive list. EKG interpreted by me (3pts min.)? @ -Not obtained X-rays interpreted by me (1pt min.)? @ -Not obtained CT interpreted by me (1pt min.)? @ -Not obtained U/S interpreted by me (1pt. min.)? @ -Not obtained What testing was considered but not performed? (CT, X-rays, U/S, labs)? Why? @ -None What meds were considered but not given? Why? @ -None Did you discuss the management of the patient with other professionals? @ -No Did you reconcile home meds? @ -No Was smoking cessation discussed for >3mins.? @ -No Was critical care preformed (if so, how long)? @ -No Were there social determinants of health that impacted care today? How? (Homelessness, low income, unemployed, alcoholism, drug addiction, transportation, low edu. Level, literacy, decrease access to med. care, [place] [facility], rehab)? @ -No Was there de-escalation of care discussed even if they declined? (Discuss DNR or withdrawal of care, Hospice)? @ -No What co-morbidities impacted this encounter? (DM, HTN, Smoking, COPD, CAD, Cancer, CVA, Hep., AIDS, mental health diagnosis, sleep apnea, morbid obesity)? @ -Cancer Was patient admitted / discharged? @ -Discharged. On exam her PICC line was intact. The Tegaderm had dried blood underneath it. However, there was no active bleeding or bleeding seeping through the Tegaderm. Nursing staff flushed the PICC line and confirmed it was still functional. Advised the patient that she can be discharged home at this point. Advised she continue to monitor for any worsening bleeding or bleeding that starts to come through the bandage. Patient discharged home in stable condition. Case discussed with ED attending Dr. Buck. Return precautions reviewed in depth, the patient is instructed to return to the emergency department with any new, worsening, or concerning symptoms. Patient verbalized understanding. Undiagnosed new problem with uncertain prognosis? @ -None Drug Therapy requiring intensive monitoring for toxicity (Heparin, Nitro, Insulin, Cardizem)? @ -None Were any procedures done? @ -None Diagnosis/symptom? @ -Bleeding PICC line Acute, or Chronic, or Acute on Chronic? @ -Acute Uncomplicated (without systemic symptoms) or Complicated (systemic symptoms)? @ -Uncomplicated Side effects of treatment? @ -None Exacerbation, Progression, or Severe Exacerbation] @ -Not applicable Poses a threat to life or bodily function? @ -No Disposition Clinical Impression: Bleeding from PICC line Disposition: HOME SELF-CARE Instructions (If sedation given, give patient instructions): How to Care for Your PICC (Peripherally Inserted Central Catheter) (ED) Additional Instructions: Return to the emergency department with any new, worsening, or concerning symptoms, such as if the bleeding starts to go through or around the bandage. Follow up with your primary care provider in 1-2 days. Is patient prescribed a controlled substance at d/c from ED?: No Referrals: Brandon Hardwick MD [Primary Care Provider] - 1-2 days Time of Disposition: 07:14
[2024-03-03 07:33] VITALS: BP 126/78; PULSE 90; RESP 18; TEMP 98.1
== END 2024-03-03 07:33 | disposition home or self-care (01) ==
LOC: EC 06:50
DX: T82.838A Hemorrhage due to vascular prosthetic devices, implants and grafts, initial encounter (principal)
CPT/HCPCS: 99283

== ENCOUNTER 2024-03-30 08:06 | Day surgery (SDC) | payer MEDICARE, SELFPAY ==
[2024-03-30 08:28] VITALS: BP 175/74; PULSE 76; RESP 18; TEMP 97.9
[2024-03-30] MEDS ORDERED: ALBUMIN HUMAN 25% 50 ML in EMPTY BAG 1 BAG IVPB ONE (08:29)
--- NOTE | 2024-03-30 09:03 | US ---
EXAMINATION TYPE: US discontinued paracentesis DATE OF EXAM: 03/30/2024 8:43 AM COMPARISON: None. Previous Paracentesis CLINICAL INDICATION: Female, 83 years old with history of R18.8 ASCITES; , ascites TECHNIQUE/FINDINGS: Pulmonary imaging demonstrated no evidence of ascites. Exam was discontinued. IMPRESSION: No evidence of ascites. [facility], , 03/30/2024 9:01 AM
== END 2024-03-30 08:44 | disposition home or self-care (01) ==
LOC: RADPROMAIN 08:06
PROVIDERS: ATTEND Internal Medicine
DX: R18.8 Other ascites (principal); C50.919 Malignant neoplasm of unspecified site of unspecified female breast
CPT/HCPCS: 76705

== ENCOUNTER 2024-04-07 06:50 | Observation (INO) | payer MEDICARE, SELFPAY ==
--- NOTE | 2024-04-07 07:28 | ED ---
General Adult HPI - General Chief complaint: Weakness Stated complaint: Leg pain Time Seen by Provider: 04/07/24 06:53 Source: patient, RN notes reviewed Mode of arrival: ambulatory Limitations: no limitations - History of Present Illness Initial comments: 82-year-old female presents to the emergency department with chief complaint of bilateral leg pain and weakness. She states that she had recently received chemotherapy and after she developed generalized weakness leg pain and swelling. She reports mild nausea but no vomiting. She states that the only thing that she has been able to keep down is water and milk. She states that her urine has been darker than usual but no dysuria. She reports taking diuretics and antihypertensive medications. She denies pain in the back of her legs or unilateral leg swelling. She denies shortness of breath chest pain palpitations. - Related Data Home Medications Medication Instructions Recorded Confirmed Metoprolol Tartrate 25 mg PO BID 10/20/17 03/30/24 Aspirin 81 mg PO DAILY 10/14/23 03/30/24 Cyanocobalamin (Vitamin B-12) 1,000 mcg PO DAILY 01/28/24 03/30/24 [Vitamin B-12] Previous Rx's Medication Instructions Recorded Acetaminophen Tab [Tylenol] 650 mg PO Q6HR PRN tab 01/15/24 Ipratropium-Albuterol Nebulize 3 ml INHALATION RT-QID 30 Days 01/15/24 [Duoneb 0.5 mg-3 mg/3 ml Soln] #120 each Allergies Allergy/AdvReac Type Severity Reaction Status Date / Time No Known Allergies Allergy Verified 04/07/24 06:51 Review of Systems ROS Statement: Those systems with pertinent positive or pertinent negative responses have been documented in the HPI. ROS Other: All systems not noted in ROS Statement are negative. 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-last chemo 02-27-24 History of Any Multi-Drug Resistant Organisms: None Reported Past Surgical History: Appendectomy, Breast Surgery, Tonsillectomy Additional Past Surgical History / Comment(s): right breast mastectomy, Past Anesthesia/Blood Transfusion Reactions: No Reported Reaction Past Psychological History: No Psychological Hx Reported Smoking Status: Never smoker Past Alcohol Use History: None Reported Past Drug Use History: None Reported - Past Family History Mother Family Medical History: Hypertension General Exam Limitations: no limitations General appearance: alert, in no apparent distress Head exam: Present: atraumatic, normocephalic, normal inspection Eye exam: Present: normal appearance, PERRL, EOMI. Absent: scleral icterus, conjunctival injection, periorbital swelling ENT exam: Present: normal exam, mucous membranes moist Neck exam: Present: normal inspection. Absent: tenderness, meningismus, lymphadenopathy Respiratory exam: Present: normal lung sounds bilaterally. Absent: respiratory distress, wheezes, rales, rhonchi, stridor Cardiovascular Exam: Present: regular rate, normal rhythm, normal heart sounds. Absent: systolic murmur, diastolic murmur, rubs, gallop, clicks GI/Abdominal exam: Present: soft, normal bowel sounds. Absent: distended, tenderness, guarding, rebound, rigid Extremities exam: Present: normal inspection, full ROM, normal capillary refill. Absent: tenderness, pedal edema, joint swelling, calf tenderness Left Lower Leg exam: Present: swelling Right Lower Leg exam: Present: swelling Back exam: Present: normal inspection Neurological exam: Present: alert, oriented X3, CN II-XII intact Psychiatric exam: Present: normal affect, normal mood Skin exam: Present: warm, dry, intact, normal color. Absent: rash Course Vital Signs 04/07/24 06:51 Temperature 97.5 F L Pulse Rate 82 Respiratory 20 Rate Blood Pressure 138/69 O2 Sat by Pulse 99 Oximetry EKG Findings - EKG Comments: EKG Findings:: EKG performed at 7: 53 sinus rhythm with a rate of 84 [place] 23 QRS 89 QT/QTc 365/406 - EKG Results: EKG: interpreted by [facility] Medical Decision Making - Medical Decision Making Was pt. sent in by a medical professional or institution (, PA, DIRECTOR GEOTHERMAL OPERATIONS, urgent care, hospital, or jail...) When possible be specific @ -No Did you speak to anyone other than the patient for history (EMS, parent, family, police, friend...)? What history was obtained from this source @ -No Did you review nursing and triage notes (agree or disagree)? Why? @ -I reviewed and agree with nursing and triage notes Were old charts reviewed (outside hosp., previous admission, EMS record, old EKG, old radiological studies, urgent care reports/EKG's, jail records)? Report findings @ -No old charts were reviewed Differential Diagnosis (chest pain, altered mental status, abdominal pain women, abdominal pain men, vaginal bleeding, weakness, fever, dyspnea, syncope, headache, dizziness, GI bleed, back pain, seizure, CVA, palpatations, mental health, musculoskeletal)? @ -Differential Weakness: Hypoglycemia, shock, sepsis, hyponatremia, anemia, infection, DC, ETOH, adverse medicine reaction, overdose, stroke, this is not meant to be an all-inclusive list. EKG interpreted by me (3pts min.). @ -As above X-rays interpreted by me (1pt min.). @ -Chest x-ray questions right lobe pneumonia CT interpreted by me (1pt min.). @ -None done U/S interpreted by me (1pt. min.). @ -None done What testing was considered but not performed or refused? (CT, X-rays, U/S, labs)? Why? @ -None What meds were considered but not given or refused? Why? @ -None Did you discuss the management of the patient with other professionals (professionals i.e. , PA, DIRECTOR GEOTHERMAL OPERATIONS, lab, RT, psych nurse, social contact worker, technical support professional, teacher, motorcycle police officer, case briefer)? Give summary @ -Dr. Hardwick for admission Was smoking cessation discussed for >3mins.? @ -No Was critical care preformed (if so, how long)? @ -No Were there social determinants of health that impacted care today? How? (Homelessness, low income, unemployed, alcoholism, drug addiction, transportation, low edu. Level, literacy, decrease access to med. care, alf, re hab)? @ -No Was there de-escalation of care discussed even if they declined (Discuss DNR or withdrawal of care, Hospice)? DNR status @ -No What co-morbidities impacted this encounter? (DM, HTN, Smoking, COPD, CAD, Cancer, CVA, ARF, Chemo, Hep., AIDS, mental health diagnosis, sleep apnea, morbid obesity)? @ -[Cancer-ovarian/breast Was patient admitted / discharged? Hospital course, mention meds given and route, prescriptions, significant lab abnormalities, going to OR and other pertinent info. @ -Admitted patient presented for increasing weakness, difficulty ambulating, dehydration. Patient's laboratory studies did not reveal any significant findings. Patient extremely weak will be admitted for hydration, oncology evaluation and further treatment management. Undiagnosed new problem with uncertain prognosis? @ -No Drug Therapy requiring intensive monitoring for toxicity (Heparin, Nitro, Insulin, Cardizem)? @ -No Were any procedures done? @ -No Diagnosis/symptom? @ -Pneumonia, weakness, dehydration, cancer Acute, or Chronic, or Acute on Chronic? @ -Acute Uncomplicated (without systemic symptoms) or Complicated (systemic symptoms)? @ -Complicated Side effects of treatment? @ -No Exacerbation, Progression, or Severe Exacerbation? @ -No Poses a threat to life or bodily function? How? (Chest pain, USA, DC, pneumonia, PE, COPD, DKA, ARF, appy, cholecystitis, CVA, Diverticulitis, Homicidal, Suicidal, threat to staff... and all critical care pts) @ -Yes pneumonia, cancer - Lab Data Result diagrams: 04/07/24 07:41 04/07/24 07:41 Lab Results 04/07/24 04/07/24 04/07/24 Range/Units 07:41 07:41 07:41 WBC 6.9 (3.8-10.6) k/uL RBC 3.82 (3.80-5.40) m/uL Hgb 11.3 L (11.4-16.0) gm/dL Hct 34.6 (34.0-46.0) % MCV 90.4 (80.0-100.0) fL MCH 29.7 (25.0-35.0) pg MCHC 32.8 (31.0-37.0) g/dL RDW 17.4 H (11.5-15.5) % Plt Count 140 L (150-450) k/uL MPV 7.2 Neutrophils % 68 % Lymphocytes % 20 % Monocytes % 9 % Eosinophils % 1 % Basophils % 1 % Neutrophils # 4.6 (1.3-7.7) k/uL Lymphocytes # 1.4 (1.0-4.8) k/uL Monocytes # 0.6 (0-1.0) k/uL Eosinophils # 0.1 (0-0.7) k/uL Basophils # 0.0 (0-0.2) k/uL Poikilocytosis Slight Anisocytosis Slight Sodium 134 L (137-145) mmol/L Potassium 3.4 L (3.5-5.1) mmol/L Chloride 97 L (98-107) mmol/L Carbon Dioxide 31 H (22-30) mmol/L Anion Gap 6 mmol/L BUN 13 (7-17) mg/dL Creatinine 0.56 (0.52-1.04) mg/dL Est GFR (CKD-EPI)AfAm >90 (>60 ml/min/1.73 sqM) Est GFR (CKD-EPI)NonAf 87 (>60 ml/min/1.73 sqM) Glucose 111 H (74-99) mg/dL Plasma Lactic Acid Vito 1.4 (0.7-2.0) mmol/L Calcium 8.9 (8.4-10.2) mg/dL Magnesium 1.8 (1.6-2.3) mg/dL Total Bilirubin 2.2 H (0.2-1.3) mg/dL AST 18 (14-36) U/L ALT 11 (4-34) U/L Alkaline Phosphatase 61 (38-126) U/L Troponin I (0.000-0.034) ng/mL NT-Pro-B Natriuret Pep 618 pg/mL Total Protein 6.3 (6.3-8.2) g/dL Albumin 3.5 (3.5-5.0) g/dL Urine Color Urine Appearance (Clear) Urine pH (5.0-8.0) Ur Specific [place] (1.001-1.035) Urine Protein (Negative) Urine Glucose (UA) (Negative) Urine Ketones (Negative) Urine Blood (Negative) Urine Nitrite (Negative) Urine Bilirubin (Negative) Urine Urobilinogen (<2.0) mg/dL Ur Leukocyte Esterase (Negative) Urine RBC (0-5) /hpf Urine WBC (0-5) /hpf Ur Squamous Epith Cells (0-4) /hpf 04/07/24 04/07/24 Range/Units 07:41 09:04 WBC (3.8-10.6) k/uL RBC (3.80-5.40) m/uL Hgb (11.4-16.0) gm/dL Hct (34.0-46.0) % MCV (80.0-100.0) fL MCH (25.0-35.0) pg MCHC (31.0-37.0) g/dL RDW (11.5-15.5) % Plt Count (150-450) k/uL MPV Neutrophils % % Lymphocytes % % Monocytes % % Eosinophils % % Basophils % % Neutrophils # (1.3-7.7) k/uL Lymphocytes # (1.0-4.8) k/uL Monocytes # (0-1.0) k/uL Eosinophils # (0-0.7) k/uL Basophils # (0-0.2) k/uL Poikilocytosis Anisocytosis Sodium (137-145) mmol/L Potassium (3.5-5.1) mmol/L Chloride (98-107) mmol/L Carbon Dioxide (22-30) mmol/L Anion Gap mmol/L BUN (7-17) mg/dL Creatinine (0.52-1.04) mg/dL Est GFR (CKD-EPI)AfAm (>60 ml/min/1.73 sqM) Est GFR (CKD-EPI)NonAf (>60 ml/min/1.73 sqM) Glucose (74-99) mg/dL Plasma Lactic Acid Vito (0.7-2.0) mmol/L Calcium (8.4-10.2) mg/dL Magnesium (1.6-2.3) mg/dL Total Bilirubin (0.2-1.3) mg/dL AST (14-36) U/L ALT (4-34) U/L Alkaline Phosphatase (38-126) U/L Troponin I <0.012 (0.000-0.034) ng/mL NT-Pro-B Natriuret Pep pg/mL Total Protein (6.3-8.2) g/dL Albumin (3.5-5.0) g/dL Urine Color Yellow Urine Appearance Clear (Clear) Urine pH 7.5 (5.0-8.0) Ur Specific [place] 1.015 (1.001-1.035) Urine Protein Trace H (Negative) Urine Glucose (UA) Negative (Negative) Urine Ketones Negative (Negative) Urine Blood Small H (Negative) Urine Nitrite Negative (Negative) Urine Bilirubin Negative (Negative) Urine Urobilinogen 3.0 (<2.0) mg/dL Ur Leukocyte Esterase Trace H (Negative) Urine RBC 9 H (0-5) /hpf Urine WBC 2 (0-5) /hpf Ur Squamous Epith Cells 1 (0-4) /hpf Disposition Clinical Impression: Weakness, Dehydration, Pneumonia Disposition: ADMITTED IP TO THIS HOSP Condition: Fair Referrals: Brandon Hardwick MD [Primary Care Provider] - 1-2 days Time of Disposition: 10:21
[2024-04-07 08:29] LABS: Anisocytosis Slight; Basophils % (A) 1 %; Eosinophils # (A) 0.1 k/uL (0-0.7); Eosinophils % (A) 1 %; HCT 34.6 % (34.0-46.0); HGB 11.3 gm/dL (11.4-16.0); Lymphocytes # (A) 1.4 k/uL (1.0-4.8); Lymphocytes % (A) 20 %; MCH 29.7 pg (25.0-35.0); MCHC 32.8 g/dL (31.0-37.0); MCV 90.4 fL (80.0-100.0); Mean Platelet Volume 7.2; Monocytes # (A) 0.6 k/uL (0-1.0); Monocytes % (A) 9 %; Neutrophils # (A) 4.6 k/uL (1.3-7.7); Neutrophils % (A) 68 %; Platelet Count 140 k/uL (150-450); Poikilocytosis Slight; RBC 3.82 m/uL (3.80-5.40); RDW 17.4 % (11.5-15.5); WBC 6.9 k/uL (3.8-10.6)
[2024-04-07] MEDS: SODIUM CHLORIDE 0.9% 500 ML 500 ML IV STA (08:44)
[2024-04-07 08:48] LABS: African American GFR (CKD) >90 (>60 ml/min/1.73 sqM); Anion Gap 6 mmol/L; Blood Urea Nitrogen 13 mg/dL (7-17); Carbon Dioxide 31 mmol/L (22-30); Chloride 97 mmol/L (98-107); Glucose 111 mg/dL (74-99); Potassium 3.4 mmol/L (3.5-5.1); Sodium 134 mmol/L (137-145)
[2024-04-07 08:49] LABS: ALT 11 U/L (4-34); AST 18 U/L (14-36); Albumin 3.5 g/dL (3.5-5.0); Alkaline Phosphatase 61 U/L (38-126); Calcium 8.9 mg/dL (8.4-10.2); Magnesium 1.8 mg/dL (1.6-2.3); Non-African American GFR(CKD) 87 (>60 ml/min/1.73 sqM); Total Bilirubin 2.2 mg/dL (0.2-1.3); Total Protein 6.3 g/dL (6.3-8.2)
--- NOTE | 2024-04-07 08:49 | XR ---
EXAMINATION TYPE: XR chest 2V DATE OF EXAM: 04/07/2024 8:27 AM COMPARISON: 10/14/2023 CLINICAL INDICATION: Female, 83 years old with history of Weakness, , TECHNIQUE: AP and lateral views FINDINGS: Heart mildly enlarged. Medial right basilar opacity is increased. Mild interstitial density remains. Possible trace effusions on the lateral view. Left PICC tip seen to the lower SVC level. IMPRESSION: 1. Cardiomegaly with interstitial density, possible mild CHF with pulmonary vascular congestion. 2. Increased patchy medial right basilar opacity. 3. Trace effusions on the lateral view. [facility], , 04/07/2024 8:47 AM
[2024-04-07 08:56] LABS: NT-Pro-B-Type Natriuretic Pept 618 pg/mL
[2024-04-07 09:31] LABS: Appearance,Urine Clear (Clear); Bilirubin,Urine Negative (Negative); Blood,Urine Small (Negative); Color,Urine Yellow; Glucose,Urine (UA) Negative (Negative); Ketones,Urine Negative (Negative); Leukocyte Esterase,Urine Trace (Negative); Nitrite,Urine Negative (Negative); PH, Urine 7.5 (5.0-8.0); Protein,Urine Trace (Negative); RBC,Urine 9 /hpf (0-5); Specific Gravity,Urine 1.015 (1.001-1.035); Squamous Epithelial Cell,Urine 1 /hpf (0-4); WBC,Urine 2 /hpf (0-5)
[2024-04-07] MEDS ORDERED: PNEUMONIA PROTOCOL UTILIZED 1 EACH MISC PO PRN (10:21)
[2024-04-07] MEDS: SODIUM CHLORIDE 0.9% 1,000 ML IV SCH (10:59)
[2024-04-07] MEDS: AZITHROMYCIN 500 MG in SODIUM CHLORIDE 0.9% 250 ML IVPB STA (12:31)
--- NOTE | 2024-04-07 15:11 | P.CNPUL ---
History of Present Illness Consult date: 04/07/24 Requesting physician: Brandon Hardwick Reason for consult: abnormal CXR/CT Chief complaint: Lower extremity weakness History of present illness: This is an 83-year-old female patient with a known history of hypertension, hyperlipidemia, previous right sided breast cancer with mastectomy approximately 15 years ago. 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 A PET scan from November 2023 revealed mild uptake within the epigastric enlarged lymph node. At least 3 hepatic lesions suspicious for metastasis. Suspicious uptake within the adnexa and possible uterus. Multiple osseous metastasis within the spine. She has been receiving chemotherapy at 1 point on carboplatin/paclitaxel. Recent treatment was 2 weeks ago and was due for treatment this week on 04/09/2025. Since that time she had been having progressive weakness in her lower extremities initially just in the left leg and then the last day or 2 in both legs and difficulty with ambulation and significant weakness. He presented here to the emergency room for the same. X-ray reveals cardiomegaly with interstitial density and some pulmonary vascular congestion. There is patchy medial atelectatic changes in the right lung base. She has been initiated on normal saline at 75 mL/h. Started on Zosyn and azithromycin. Initiated on bronchodilators and IV Solu-Medrol. White count 6.9. Hemoglobin 11.3. Platelets 140. Sodium 134. Potassium 3.4. Bicarb 31. BUN 13. Creatinine 0.56. Glucose 111. She is seen today in consultation on the regular medical floor. She is currently laying flat in bed. Awake and alert in no acute dist ress. She has no pulmonary complaints. No shortness of breath, cough or congestion no hemoptysis. No chest pain or palpitations. No fever or chills. Still with main complaint of lower extremity weakness. Review of Systems REVIEW OF SYSTEMS: CONSTITUTIONAL: Denies any recent significant weight loss or weight gain. EYES: Denies change in vision. EARS, NOSE, MOUTH, THROAT: Denies headaches, denies sore throat. CARDIOVASCULAR: Denies chest pain, palpitations or syncopal episodes. RESPIRATORY: Denies shortness of breath, cough, congestion or hemoptysis. GASTROINTESTINAL: Denies change in appetite, denies abdominal pain GENITOURINARY: Denies hematuria, denies infections. MUSKULOSKELETAL: Positive for generalized weakness of the lower extremities, inability to walk. INTEGUMENTARY: Denies rash, denies eczema. NEUROLOGICAL: Denies recent memory loss, no recent seizure activity. PSYCHIATRIC: Denies anxiety, denies depression. HEMATOLOGIC/LYMPHATIC: Denies anemia, denies enlarged lymph nodes. 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-last chemo 02-27-24 History of Any Multi-Drug Resistant Organisms: None Reported Past Surgical History: Appendectomy, Breast Surgery, Tonsillectomy Additional Past Surgical History / Comment(s): right breast mastectomy, Past Anesthesia/Blood Transfusion Reactions: No Reported Reaction Past Psychological History: No Psychological Hx Reported Smoking Status: Never smoker Past Alcohol Use History: None Reported Past Drug Use History: None Reported - Past Family History Mother Family Medical History: Hypertension Medications and Allergies Home Medications Medication Instructions Recorded Confirmed Type Metoprolol Tartrate 25 mg PO TID-W/MEALS 10/20/17 04/07/24 History Aspirin 81 mg PO DAILY 10/14/23 04/07/24 History Acetaminophen Tab [Tylenol] 650 mg PO Q6HR PRN tab 01/15/24 04/07/24 Rx Ipratropium-Albuterol Nebulize 3 ml INHALATION RT-QID 30 Days 01/15/24 04/07/24 Rx [Duoneb 0.5 mg-3 mg/3 ml Soln] #120 each Cyanocobalamin (Vitamin B-12) 1,000 mcg PO DAILY 01/28/24 04/07/24 History [Vitamin B-12] Bumetanide [BUMEX] 2 mg PO DAILY 04/07/24 04/07/24 History Allergies Allergy/AdvReac Type Severity Reaction Status Date / Time No Known Allergies Allergy Verified 04/07/24 10:34 Physical Exam Vitals: Vital Signs Temp Pulse Resp BP Pulse Ox 04/07/24 13:52 98.2 F 104 H 22 110/67 99 04/07/24 12:00 100 19 124/59 93 L 04/07/24 10:30 87 22 126/57 94 L 04/07/24 10:27 97.9 F 92 18 126/74 95 04/07/24 09:00 82 20 132/86 95 04/07/24 08:30 84 22 145/100 96 04/07/24 08:00 78 22 132/63 95 04/07/24 06:51 97.5 F L 82 20 138/69 99 Intake and Output 04/06/24 04/07/24 04/07/24 22:59 06:59 14:59 Other: Weight 87.543 kg GENERAL EXAM: Alert, pleasant 83-year-old female, on 2 L nasal cannula, fairly comfortable in no apparent distress. HEAD: Normocephalic. EYES: Normal reaction of pupils, equal size. NOSE: Clear with pink turbinates. THROAT: No erythema or exudates. NECK: No masses, no JVD. CHEST: No chest wall deformity. LUNGS: Equal air entry with no crackles, wheeze, rhonchi or dullness. CVS: S1 and S2 normal with no audible murmur, regular rhythm. ABDOMEN: No hepatosplenomegaly, normal bowel sounds, no guarding or rigidity. SPINE: No scoliosis or deformity SKIN: No rashes CENTRAL NERVOUS SYSTEM: No focal deficits, tone is normal in all 4 extremities. EXTREMITIES: Generalized weakness of the bilateral lower extremities. There is no peripheral edema. No clubbing, no cyanosis. Peripheral pulses are intact. Results - Laboratory Findings CBC and BMP: 04/07/24 07:41 04/07/24 07:41 Abnormal lab findings: Abnormal Labs 04/07/24 04/07/24 04/07/24 07:41 07:41 09:04 Hgb 11.3 L RDW 17.4 H Plt Count 140 L Sodium 134 L Potassium 3.4 L Chloride 97 L Carbon Dioxide 31 H Glucose 111 H Total Bilirubin 2.2 H Urine Protein Trace H Urine Blood Small H Ur Leukocyte Esterase Trace H Urine RBC 9 H - Diagnostic Findings Chest x-ray: image reviewed Assessment and Plan Assessment: Generalized weakness mainly in the bilateral lower extremities with difficulty in ambulation Metastatic cancer, receiving chemotherapy, last treatment 2 weeks ago for 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 Atelectasis of the right lung base without pulmonary complaints History of breast cancer status post right mastectomy approximately 15 years ago Hypertension Hyperlipidemia Lifelong non-smoker Plan: The patient was seen and evaluated Chest x-ray, labs and medications reviewed CT scan of the chest, abdomen and pelvis pending Check a Procalcitonin Received Zosyn and azithromycin Titrate down the FiO2 as tolerated Add an incentive spirometer We will continue to follow and make further recommendations based on her clin ical status I have personally seen and examined the patient, performed the documentation and the assessment and plan as written. Number of minutes spent on the visit: 20 Dictation was produced using Ium dictation software. Please excuse any grammatical, word or spelling errors.
[2024-04-07] MEDS: IPRATROPIUM-ALBUTEROL 3 ML NEB INHALATION SCH (15:52)
--- NOTE | 2024-04-07 16:57 | CT ---
EXAMINATION TYPE: CT ChestAbdPelvis wo con DATE OF EXAM: 04/07/2024 1:47 PM COMPARISON: 01/12/2024 CLINICAL INDICATION: Female, 83 years old with history of hap/emesis/abd distention, Abdominal pain a nd distention TECHNIQUE: Axial images at 5 mm thick sections. Reconstructed images in the coronal plane. Delayed images through the kidneys. Contrast used: mL of , (none if empty) Oral contrast used: without Oral Contrast (none if empty) CT DLP: 843.5 mGycm, Automated exposure control for dose reduction was used. FINDINGS: CT CHEST: Portion of the thyroid visualized is normal. No suspicious lung nodules or focal infiltrates are present. No enlarged mediastinal or hilar adenopathy is evident. The ascending aorta diameter at the level of the main pulmonary artery is 4.5 cm. Aorta tapers throu gh its descending course through the abdomen. The main pulmonary artery diameter at the bifurcation is 3.[address] ABDOMEN: Liver: Normal Spleen: Normal Pancreas: Normal Adrenal glands: The adrenal glands are normal. Gallbladder: Herniated anterior to the lower ribs. Gallbladder itself appears intact. No gallstones a re identified. This is stable in appearance from comparison. Kidneys: No masses are evident. No hydronephrosis is present. No cysts are present. No renal stone s are evident. Aorta: Vascular calcification is within the aorta. Inferior vena cava: Normal. CT PELVIS: Loops of bowel within the abdomen and pelvis are normal. Multiple diverticuli within the sigmoid col on. No inflammatory changes adjacent to suggest acute diverticulitis identified. This study is with out oral contrast limiting bowel evaluation Appendix: Normal as visualized. Urinary bladder: Normal. Genitourinary structures: There may be a uterine fibroid present along the left lateral body of the u terus. Adnexa appear normal. No free fluid is within the pelvis. Osseous structures: No suspicious lytic or sclerotic lesions. IMPRESSION: 1. Ascending thoracic aortic aneurysm. 2. Previous ascites has resolved. 3. Diverticulosis without acute diverticulitis. 4. Uterine fibroid may be present [facility], Workstation: [facility], 04/07/2024 4:55 PM
[2024-04-07] MEDS: PIPERACILLIN-TAZOBACTAM 3.375 GM in SODIUM CHLORIDE 0.9% 100 ML IVPB SCH (17:43)
[2024-04-07] MEDS: methylPREDNISolone SOD SUCCI 40 MG/ML 1 ML VIAL IV SCH (17:44)
[2024-04-07] MEDS: HYDROmorphone 1 MG/ML 1 ML SYRINGE IVP PRN (18:12)
--- NOTE | 2024-04-07 19:20 | US ---
EXAMINATION TYPE: US venous doppler duplex LE BI DATE OF EXAM: 04/07/2024 7:11 PM COMPARISON: 10/15/23 CLINICAL INDICATION: Female, 83 years old with history of rule out DVTSwelling, no hx dvt. Not on thi nners, Pain TECHNIQUE: The lower extremity deep venous system is examined utilizing real time linear array sonog donna with graded compression, color doppler sonography, and spectral doppler. SIDE PERFORMED: Bilateral FINDINGS: VESSELS IMAGED: Common Femoral Vein Deep Femoral Vein Greater Saphenous Vein * Femoral Vein Popliteal Vein Small Saphenous Vein * Proximal Calf Veins (* superficial vessels) Right Leg: Negative for DVT, Color Doppler imaging shows patency of the vessels. Spectral waveforms are within normal limits. Left Leg: Negative for DVT, Color Doppler imaging shows patency of the vessels. Spectral waveforms a re within normal limits. Comp deferred bilateral distal femoral vein due to patient pain tolerance. There is a 4.2 x 2.2 x 2.3cm anechoic area seen within the medial popliteal fossa. ? bakers cyst vs other etiology IMPRESSION: Suboptimal study without convincing evidence for acute DVT. A [id number] sized pop liteal cyst in the right knee is felt present. [facility], , 04/07/2024 7:18 PM
[2024-04-07] MEDS: ACETAMINOPHEN TAB 325 MG TAB PO PRN (20:11)
--- NOTE | 2024-04-07 22:35 | P.CONS ---
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 last chemo on 02/27/2024 presenting to the hospital for evaluation of bilateral lower extremity pain weakness and swelling patient also complained of generalized weakness and no energy patient did have decreased oral intake and nausea but no vomiting also having some dark urine patient also complaining of shortness of breath on minimal exertion she did have a cough mild to moderate intensity with minimal sputum production no diarrhea with the symptoms the patient has been evaluated on presentation to the hospital patient was afebrile and no fever have recorded subsequently patient was nontachycardic hypotensive mildly hypoxic and is currently on 2 L nasal cannula oxygen patient did have a white count of 6.9 creatinine is 0.56 liver enzymes are normal, UA has been negative patient did have chest x-ray with cardiomegaly interstitial density mild CHF with pulmonary vascular congestion increased patchy medial right basilar opacity with concern for pneumonia patient did receive Rocephin and Zithromax in the ER subsequently has been switched over to Zosyn by admitting team infectious disease was consulted for pneumonia Review of Systems Positive point and negatives has been mentioned in the HPI, complete review of systems was performed and all other systems are negative 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-last chemo 02-27-24 History of Any Multi-Drug Resistant Organisms: None Reported Past Surgical History: Appendectomy, Breast Surgery, Tonsillectomy Additional Past Surgical History / Comment(s): right breast mastectomy, Past Anesthesia/Blood Transfusion Reactions: No Reported Reaction Past Psychological History: No Psychological Hx Reported Smoking Status: Never smoker Past Alcohol Use History: None Reported Past Drug Use History: None Reported - Past Family History Mother Family Medical History: Hypertension Medications and Allergies Home Medications Medication Instructions Recorded Confirmed Type Metoprolol Tartrate 25 mg PO TID-W/MEALS 10/20/17 04/07/24 History Aspirin 81 mg PO DAILY 10/14/23 04/07/24 History Acetaminophen Tab [Tylenol] 650 mg PO Q6HR PRN tab 01/15/24 04/07/24 Rx Ipratropium-Albuterol Nebulize 3 ml INHALATION RT-QID 30 Days 01/15/24 04/07/24 Rx [Duoneb 0.5 mg-3 mg/3 ml Soln] #120 each Cyanocobalamin (Vitamin B-12) 1,000 mcg PO DAILY 01/28/24 04/07/24 History [Vitamin B-12] Bumetanide [BUMEX] 2 mg PO DAILY 04/07/24 04/07/24 History Allergies Allergy/AdvReac Type Severity Reaction Status Date / Time No Known Allergies Allergy Verified 04/07/24 10:34 Physical Exam Vitals: Vital Signs Temp Pulse Resp BP Pulse Ox 04/07/24 12:00 100 19 124/59 93 L 04/07/24 10:30 87 22 126/57 94 L 04/07/24 10:27 97.9 F 92 18 126/74 95 04/07/24 09:00 82 20 132/86 95 04/07/24 08:30 84 22 145/100 96 04/07/24 08:00 78 22 132/63 95 04/07/24 06:51 97.5 F L 82 20 138/69 99 Intake and Output 04/06/24 04/07/24 04/07/24 22:59 06:59 14:59 Other: Weight 87.543 kg GENERAL DESCRIPTION: Elderly female up in bed, no distress. No tachypnea or accessory muscle of respiration use. HEENT: Shows Pallor , no scleral icterus. Oral mucous membrane is dry. NECK: Trachea central, no thyromegaly. LUNGS: Unlabored breathing. Decreased breath sound at the base HEART: S1, S2, regular rate and rhythm. No loud murmur ABDOMEN: Soft, no tenderness , EXTREMITIES: Diffuse swelling of bilateral lower extremity no significant redness SKIN: No rash, no masses palpable. NEUROLOGICAL: The patient is awake, alert, oriented x3, mood and affect normal. Results CBC & Chem 7: 04/07/24 07:41 04/07/24 07:41 Labs: Abnormal Lab Results - Last 24 Hours (Table) 04/07/24 04/07/24 04/07/24 Range/Units 07:41 07:41 09:04 Hgb 11.3 L (11.4-16.0) gm/dL RDW 17.4 H (11.5-15.5) % Plt Count 140 L (150-450) k/uL Sodium 134 L (137-145) mmol/L Potassium 3.4 L (3.5-5.1) mmol/L Chloride 97 L (98-107) mmol/L Carbon Dioxide 31 H (22-30) mmol/L Glucose 111 H (74-99) mg/dL Total Bilirubin 2.2 H (0.2-1.3) mg/dL Urine Protein Trace H (Negative) Urine Blood Small H (Negative) Ur Leukocyte Esterase Trace H (Negative) Urine RBC 9 H (0-5) /hpf Assessment and Plan (1) Leg swelling Current Visit: Yes Status: Acute Code(s): M79.89 - OTHER SPECIFIED SOFT TISSUE DISORDERS SNOMED Code(s): 045068532 (2) Chest x-ray abnormality Current Visit: Yes Status: Acute Code(s): R93.89 - ABNORMAL FINDINGS ON DX IMAGING OF OTH BODY STRUCTURES SNOMED Code(s): 374758279 Plan: 1patient presented hospital generalized weakness patient also complaining of increasing swelling to bilateral lower extremity in this patient who did have abnormal x-ray suggestive of cardiomegaly with interstitial density pulmonary vascular congestion [facility] suspicious is for CHF exacerbation rather than pneumonia as the patient not running any fever or any elevated white count 2we will check a Doppler ultrasound of the lower extremity to make sure no evidence of any DVT .3we will check her inflammatory markers and NT proBNP 4May continue with antibiotics while waiting for the workup to be completed We will follow on clinical condition and cultures to further adjust medication if needed Thank you for this consultation we will follow the patient along with you Dictation was produced using [employer] dictation software. please excuse any grammatical, word or spelling errors. Time with Patient: Greater than 30
--- NOTE | 2024-04-07 23:19 | HP ---
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 Cancer was found on the fluid. She is unable to keep anything down, both water and milk. Her urine has been darker than usual. She is on diuretics and hypertensive medications. She has bilateral leg swelling, chronic. She has chronic diastolic heart failure. HOME MEDICATIONS: 1. Metoprolol. 2. Aspirin. 3. B12. 4. Lasix. 5. DuoNeb. PAST MEDICAL HISTORY: Cancer as mentioned above, hypertension, COPD, asthma, dyslipidemia, sleep apnea, right breast cancer in 2014. SURGERIES: Appendectomy tonsillectomy. FAMILY HISTORY: Mother with hypertension. PHYSICAL EXAMINATION: GENERAL: She is a white female, obese. VITAL SIGNS: Reviewed. CARDIOVASCULAR: S1 and S2. LUNGS: Scattered rhonchi and wheeze. GI: Soft, nontender, and nondistended. HEMATOLOGIC: Negative Homans. VASCULAR: Normal dorsalis pedis, posterior . VITAL SIGNS: Temperature 97.5, pulse 82, respiratory rate 18 to 20, blood pressure 138/69. EKG: Sinus rhythm. ASSESSMENT: Hyponatremia, hypokalemia, acute on chronic anemia, pancytopenia, community-acquired pneumonia, Mullerian root uterine and ovarian cancer, on chemo. Broad-spectrum antibiotics. Prognosis guarded. Rehydrate. Treat for pneumonia. Please see further orders. MMODL / IJN: [id number] /
[2024-04-08] MEDS: CYANOCOBALAMIN 500 MCG TAB PO SCH (08:37)
[2024-04-08] MEDS: ASPIRIN 81 MG PO SCH (08:38)
[2024-04-08] MEDS: METOPROLOL TARTRATE 25 MG TAB PO SCH (08:38)
[2024-04-08] MEDS: AZITHROMYCIN 500 MG in SODIUM CHLORIDE 0.9% 250 ML IVPB SCH (08:40)
[2024-04-08] MEDS: BUMETANIDE 1 MG TAB PO SCH (08:41)
[2024-04-08 09:14] LABS: HCT 30.4 % (37.2-46.3); HGB 9.7 g/dL (12.0-15.0); MCH 29.2 pg (27.0-32.0); MCHC 31.9 g/dL (32.0-37.0); MCV 91.6 FL (80.0-97.0); Mean Platelet Volume 9.8 FL (9.5-12.2); NRBC Per 100 WBC 0 X 10*3/uL (0.00-0.01); Platelet Count 208 X 10*3/uL (140-440); RBC 3.32 X 10*6/uL (4.10-5.20); RDW 16.6 % (11.5-14.5); WBC 6.83 X 10*3/uL (4.50-10.00)
[2024-04-08 09:15] LABS: Basophils # (A) 0.01 X 10*3/uL (0.00-0.10); Basophils % (A) 0.1 %; Eosinophils # (A) 0 X 10*3/uL (0.04-0.35); Eosinophils % (A) 0 %; Lymphocytes % (A) 14.6 %; Monocytes # (A) 0.24 X 10*3/uL (0.20-1.00); Monocytes % (A) 3.5 %; Neutrophils # (A) 5.54 X 10*3/uL (1.80-7.70); Neutrophils % (A) 81.2 %
[2024-04-08 09:24] LABS: ALT 10 U/L (8-44); AST 17 U/L (13-35); Albumin 3.4 g/dL (3.8-4.9); Albumin/Globulin Ratio 1.36 Ratio (1.60-3.17); Alkaline Phosphatase 57 U/L (41-126); BUN/Creat Ratio 17.33 Ratio (12.00-20.00); Blood Urea Nitrogen 10.4 mg/dL (9.0-27.0); Calcium 8.7 mg/dL (8.7-10.3); Chloride 101 mmol/L (96-109); Globulin 2.5 g/dL (1.6-3.3); Glucose 189 mg/dL (70-110); Potassium 3.8 mmol/L (3.5-5.5); Sodium 138 mmol/L (135-145); Total Bilirubin 1.3 mg/dL (0.3-1.2); Total Protein 5.9 g/dL (6.2-8.2)
[2024-04-08 10:33] LABS: NT-Pro-B-Type Natriuretic Pept 947 pg/mL (0-450)
[2024-04-08] MEDS ORDERED: HYDROmorphone 0.5 MG/0.5 ML SYRINGE IVP PRN (10:38)
[2024-04-08] MEDS ORDERED: HYDROcodone/APAP 5-325MG 1 EACH TAB PO PRN (10:39)
--- NOTE | 2024-04-08 11:35 | P.CONS ---
History of Present Illness - Reason for Consult Consult date: 04/08/24 hx ovarian cancer Requesting physician: Valentin Burgos - Chief Complaint leg swelling, weakness - History of Present Illness Ms. Perez is an 83-year-old woman with a history of ovarian cancer. She follows with Dr. Neil Lepe. She was admitted to [facility] on 10/14/2023 with chest discomfort along with generalized weakness. Abdominal imaging noted abdominal ascites along with possible cirrhosis. She underwent paracentesis on 10/17/2023 for obtaining 6.5 L of straw-colored fluid. Cytology was reported as adenocarcinoma with possible mammary primary that was positive for MOC-31 and E-cadherin along with focal GATA3 positivity. Mammogram on 11/03/2023 noted subtle asymmetry at the 12 o'clock position in the middle depth of the left breast with breast ultrasound revealing benign cyst measuring 5 mm 11 o'clock position with no findings concerning for malignancy in either breast. PET/CT on 11/20/2023 noted concern for FDG avid malignancy in the thoracic and lumbar spine, 3 FDG avid lesions in the liver along with enlarged bilateral adnexa. Pelvic ultrasound of the uterus on 11/28/2023 revealed cyst in the right ovary measuring 1.4 cm in the largest parameter with fibroid uterus. She had a history of breast cancer in the right breast status post mastectomy in 2002 and subsequently had lumpectomy in the left breast in 2017. She did not receive any adjuvant radiation, endocrine, or chemotherapy. PET/CT performed on 11/20/2023 noted evidence of FDG avid malignancy in the thoracic and lumbar spine, liver, and bilateral adnexa. Following discussion with pathology, in light of the clinical findings on PET/CT, additional testing was performed and it was felt that the adenocarcinoma was of an ovarian primary. She did start cycle 1, day 1 of weekly carboplatin/paclitaxel on 01/02/2024, and was hospitalized at [facility] on 01/13/2024 through 01/16/2024 due to nausea and was improved following paracentesis. She has had progressive fatigue and intermittent orthostatic dizziness occasionally requiring naps with no falls. I do believe she is having progressive fatigue and orthostatic dizziness secondary to chemotherapy induced anemia. Most recently she completed cycle 4 on 03/26/24. Patient presented to the emergency room with complaints of weakness and bilateral lower extremity pain and swelling and back pain. Patient report since her last cycle she been having decreased oral intake and progressing weakness and associated dizziness. She also reports has been having mild cough with sputum which has improved. Denies nausea vomiting diarrhea, fever and chills. Denies bowel and urinary incontinence. Today, she is denying back pain. On admit chest x-ray showing cardiomegaly with interstitial density, possible mild CHF with pulmonary vascular congestion. Increased patchy medial right basilar opacity. Trace effusions. CT chest abdomen pelvis without contrast was obtained showing ascending thoracic aortic aneurysm. Previous ascites now resolved. Diverticulosis with possible uterine fibroid. Bilateral lower extrem ity Dopplers was negative for DVT. Patient was started on IV antibiotics for possible pneumonia. Sputum culture pending. WBC 6.9, hemoglobin 11.3, platelets 140,000. Creatinine 0.56, GFR greater than 90. Bilirubin 2.2, LFTs WNL. BNP 618. Patient is afebrile, SpO2 98% on 3 L. Review of Systems 10 point ROS is negative except as stated in the HPI 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-last chemo 02-27-24 History of Any Multi-Drug Resistant Organisms: None Reported Past Surgical History: Appendectomy, Breast Surgery, Tonsillectomy Additional Past Surgical History / Comment(s): right breast mastectomy, Past Anesthesia/Blood Transfusion Reactions: No Reported Reaction Past Psychological History: No Psychological Hx Reported Smoking Status: Never smoker Past Alcohol Use History: None Reported Past Drug Use History: None Reported - Past Family History Mother Family Medical History: Hypertension Medications and Allergies Home Medications Medication Instructions Recorded Confirmed Type Metoprolol Tartrate 25 mg PO TID-W/MEALS 10/20/17 04/07/24 History Aspirin 81 mg PO DAILY 10/14/23 04/07/24 History Acetaminophen Tab [Tylenol] 650 mg PO Q6HR PRN tab 01/15/24 04/07/24 Rx Ipratropium-Albuterol Nebulize 3 ml INHALATION RT-QID 30 Days 01/15/24 04/07/24 Rx [Duoneb 0.5 mg-3 mg/3 ml Soln] #120 each Cyanocobalamin (Vitamin B-12) 1,000 mcg PO DAILY 01/28/24 04/07/24 History [Vitamin B-12] Bumetanide [BUMEX] 2 mg PO DAILY 04/07/24 04/07/24 History Allergies Allergy/AdvReac Type Severity Reaction Status Date / Time No Known Allergies Allergy Verified 04/07/24 10:34 Physical Exam Vitals: Vital Signs Temp Pulse Pulse Resp BP BP Pulse Ox 04/08/24 08:41 76 04/08/24 08:29 72 98 04/08/24 07:39 95.9 F L 90 17 136/71 97 04/08/24 01:53 98.3 F 78 12 104/58 97 04/07/24 19:52 99.6 F 103 H 12 95/53 92 L 04/07/24 16:05 106 H 04/07/24 15:56 112 H 96 04/07/24 14:49 98.2 F 104 H 17 144/74 95 04/07/24 13:52 98.2 F 104 H 22 110/67 99 04/07/24 12:00 100 19 124/59 93 L 04/07/24 10:30 87 22 126/57 94 L 04/07/24 10:27 97.9 F 92 18 126/74 95 Intake and Output 04/07/24 04/08/24 04/08/24 22:59 06:59 14:59 Intake Total 540 Balance 540 Intake: Oral 540 Other: Voiding Method Bedside Commode Incontinent Weight 87.543 kg - Constitutional General appearance: average body habitus, no acute distress - EENT Eyes: anicteric sclerae, EOMI ENT: hearing grossly normal - Respiratory Respiratory: right: rales - Cardiovascular Rhythm: regular leg Peripheral Edema: bilateral: 2+ - Gastrointestinal General gastrointestinal: soft, no tenderness - Integumentary Integumentary: no cyanotic - Musculoskeletal no midline tenderness Musculoskeletal: generalized weakness, strength equal bilaterally - Psychiatric Psychiatric: A&O x's 3 Results CBC & Chem 7: 04/08/24 04:48 04/08/24 04:48 Labs: Abnormal Lab Results - Last 24 Hours (Table) 04/07/24 Range/Units 09:04 Urine Protein Trace H (Negative) Urine Blood Small H (Negative) Ur Leukocyte Esterase Trace H (Negative) Urine RBC 9 H (0-5) /hpf Chest x-ray: report reviewed CT scan - abdomen: report reviewed CT scan - chest: report reviewed CT scan - pelvis: report reviewed Assessment and Plan (1) Dehydration Current Visit: Yes Status: Acute Priority: High Code(s): E86.0 - DEHYDRATION SNOMED Code(s): 96255510 (2) Leg swelling Current Visit: Yes Status: Acute Priority: High Code(s): M79.89 - OTHER SPECIFIED SOFT TISSUE DISORDERS SNOMED Code(s): 856203549 (3) Weakness Current Visit: Yes Status: Acute Priority: High Code(s): R53.1 - WEAKNESS SNOMED Code(s): 42182542 (4) Ovarian cancer Current Visit: Yes Status: Acute Priority: High Code(s): C56.9 - MALIGNANT NEOPLASM OF UNSPECIFIED OVARY SNOMED Code(s): 220875199 Plan: Weakness, leg swelling/pain: Presented with complaints of weakness and bilateral lower extremity pain and swelling and back pain. Since her last cycle she been having decreased oral intake and progressing weakness and associated dizziness and troubles with ambulating. She also reports has been having mild productive cough. Back pain now resolved, denies bowel and urinary incontinence. -On admit chest x-ray showing cardiomegaly with interstitial density, possible mild CHF with pulmonary vascular congestion. Increased patchy medial right basilar opacity. Trace effusions. CT chest abdomen pelvis without contrast was obtained showing ascending thoracic aortic aneurysm. Previous ascites now resolved. Diverticulosis with possible uterine fibroid. -Bilateral lower extremity Dopplers were negative for DVT. -IV antibiotics started for possible pneumonia. Sputum culture pending. ID following -Counts stable, WBC 6.9, ANC 4.6, hemoglobin 11.3, platelets 140,000. -Agree with fluid hydration -PT/OT consulted -Due to previous FDG avid malignancy in the thoracic and lumbar spine, and c/o lower extremity pain and weakness, will obtain CT thoracic and lumbar spine to further evaluate. Reported weakness does appear to be generalized in nature, with no focal neuro deficits, sx more likely to be r/t poor oral intake/dehydration and chemo side effects Ovarian cancer: -Oncology history and plan as dictated in HPI -Completed cycle 4 of weekly Carbo/Taxol on 03/26/24 -Will hold next cycle and obtain treatment response PET CT prior to proceeding with further treatment. Clinic f/u scheduled on 04/12 Updated pt and family on POC Doctor attests: I performed a history and physical examination of this patient, developed impression and plan of care. Discussed with dictator. I agree with dictators note, documented as a scribe.
--- NOTE | 2024-04-08 11:52 | XR ---
EXAMINATION TYPE: XR chest 2V DATE OF EXAM: 04/08/2024 7:35 AM COMPARISON: 04/07/2024 CLINICAL INDICATION: Female, 83 years old with history of pneumonia, , TECHNIQUE: Frontal and lateral views FINDINGS: The heart is mild to moderately enlarged. Hyperinflation. Mild interstitial density may be increased. Ongoing focal airspace opacity in the right base. Slight worsening trace bilateral pleural effusions . There is a left PICC line, tip appears to be at the mid SVC level. IMPRESSION: 1. COPD. Superimposed cardiomegaly and increased interstitial density. Trace bilateral pleural effusi ons are also increasing. Correlate to exclude the development of mild CHF. 2. Ongoing focal airspace disease/pneumonia at the medial right base. [facility], , 04/08/2024 11:50 AM
--- NOTE | 2024-04-08 13:55 | P.PN ---
Subjective Progress Note Date: 04/08/24 This is an 83-year-old female patient with a known history of hypertension, hyperlipidemia, previous right sided breast cancer with mastectomy approximately 15 years ago. 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 A PET scan from November 2023 revealed mild uptake within the epigastric enlarged lymph node. At least 3 hepatic lesions suspicious for metastasis. Suspicious uptake within the adnexa and possible uterus. Multiple osseous metastasis within the spine. She has been receiving chemotherapy at 1 point on carboplatin/paclitaxel. Recent treatment was 2 weeks ago and was due for treatment this week on 04/09/2025. Since that time she had been having progressive weakness in her lower extremities initially just in the left leg and then the last day or 2 in both legs and difficulty with ambulation and significant weakness. He presented here to the emergency room for the same. X-ray reveals cardiomegaly with interstitial density and some pulmonary vascular congestion. There is patchy medial atelectatic changes in the right lung base. She has been initiated on normal saline at 75 mL/h. Started on Zosyn and azithromycin. Initiated on bronchodilators and IV Solu-Medrol. White count 6.9. Hemoglobin 11.3. Platelets 140. Sodium 134. Potassium 3.4. Bicarb 31. BUN 13. Creatinine 0.56. Glucose 111. She is seen today in consultation on the regular medical floor. She is currently laying flat in bed. Awake and alert in no acute distress. She has no pulmonary complaints. No shortness of breath, cough or congestion no hemoptysis. No chest pain or palpitations. No fever or chills. Still with main complaint of lower extremity weakness. The patient is seen today April 08, 2024 in follow-up on the regular medical floor. She is currently resting comfortably in bed. Awake and alert in no acute distress. She is feeling a bit stronger today compared to yesterday. Denies any worsening shortness of breath, cough or congestion. Maintaining good O2 saturations in the 90s on 2 L/min per nasal cannula. Her repeat procalcitonin was still negative at 0.16. Lung sounds are clear. White count 6.8. Hemoglobin 9.7. Platelets 208. Sodium 138. Potassium 3.8. Bicarb 27. BUN 10. Creatinine 0.6. Glucose 189. She remains on antibiotics and steroids. Objective - Vital Signs Vital signs: Vital Signs Temp 95.9 F L 04/08/24 07:39 Pulse 76 04/08/24 08:41 Resp 17 04/08/24 07:39 BP 136/71 04/08/24 07:39 Pulse Ox 93 L 04/08/24 12:13 FiO2 Intake & Output 04/07/24 04/08/24 04/08/24 18:59 06:59 18:59 Intake Total 540 Balance 540 Weight 87.543 kg Intake: Oral 540 Other: Voiding Method Bedside Commode Bedside Commode Incontinent Incontinent - Exam GENERAL EXAM: Alert, 83-year-old female, on 2 L nasal cannula, comfortable in no apparent distress. HEAD: Normocephalic. EYES: Normal reaction of pupils, equal size. NOSE: Clear with pink turbinates. THROAT: No erythema or exudates. NECK: No masses, no JVD. CHEST: No chest wall deformity. LUNGS: Equal air entry with no crackles, wheeze, rhonchi or dullness. CVS: S1 and S2 normal with no audible murmur, regular rhythm. ABDOMEN: No hepatosplenomegaly, normal bowel sounds, no guarding or rigidity. SPINE: No scoliosis or deformity SKIN: No rashes CENTRAL NERVOUS SYSTEM: No focal deficits, tone is normal in all 4 extremities. EXTREMITIES: Generalized weakness of the bilateral lower extremities. There is no peripheral edema. No clubbing, no cyanosis. Peripheral pulses are intact. - Labs CBC & Chem 7: 04/08/24 04:48 04/08/24 04:48 Labs: Abnormal Lab Results - Last 24 Hours (Table) 04/08/24 04/08/24 Range/Units 04:48 04:48 RBC 3.32 L (4.10-5.20) X 10*6/uL Hgb 9.7 L (12.0-15.0) g/dL Hct 30.4 L (37.2-46.3) % MCHC 31.9 L (32.0-37.0) g/dL RDW 16.6 H (11.5-14.5) % Eosinophils # 0 L (0.04-0.35) X 10*3/uL Glucose 189 H (70-110) mg/dL Total Bilirubin 1.3 H (0.3-1.2) mg/dL C-Reactive Protein 8.50 H (0.00-0.80) mg/dL NT-Pro-B Natriuret Pep 947 H (0-450) pg/mL Total Protein 5.9 L (6.2-8.2) g/dL Albumin 3.4 L (3.8-4.9) g/dL Albumin/Globulin Ratio 1.36 L (1.60-3.17) Ratio Assessment and Plan Assessment: Generalized weakness mainly in the bilateral lower extremities with difficulty in ambulation suspect secondary to chemotherapy treatments Metastatic cancer, receiving chemotherapy, last treatment 2 weeks ago for 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 Procalcitonin negative x 2 History of breast cancer status post right mastectomy approximately 15 years ago Hypertension Hyperlipidemia Lifelong non-smoker Plan: The patient was seen and evaluated Labs and medications reviewed Procalcitonin negative x 2 Titrate down/off the FiO2 as tolerated Continue incentive spirometer hourly Increase her activity as tolerated This patient was seen independently by the pulmonary nurse practitioner addressing pulmonary issues I have personally seen and examined the patient, performed the documentation and the assessment and plan as written. Number of minutes spent on the visit: 25 Dictation was produced using [employer] dictation software. Please excuse any grammatical, word or spelling errors.
--- NOTE | 2024-04-08 15:19 | P.PN ---
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 On today's evaluation that is 04/08/2024,the patient remains to be afebrile, patient is on 2 L nasal cannula supplemental oxygen and breathing slightly comfortably denies any chest pain did have minimal cough no vomiting or diarrhea. Patient white count 6.83, creatinine 0.6 Objective - Vital Signs Vital signs: Vital Signs Temp 95.9 F L 04/08/24 07:39 Pulse 76 04/08/24 08:41 Resp 17 04/08/24 07:39 BP 136/71 04/08/24 07:39 Pulse Ox 98 04/08/24 08:29 FiO2 Intake & Output 04/07/24 04/08/24 04/08/24 18:59 06:59 18:59 Intake Total 540 Balance 540 Weight 87.543 kg Intake: Oral 540 Other: Voiding Method Bedside Commode Incontinent - Exam GENERAL DESCRIPTION: An elderly female lying in bed in no distress RESPIRATORY SYSTEM: Unlabored breathing , decreased breath sounds at bases HEART: S1 S2 regular rate and rhythm , ABDOMEN: Soft , no tenderness EXTREMITIES: Swelling to the leg no redness - Labs CBC & Chem 7: 04/08/24 04:48 04/08/24 04:48 Labs: Abnormal Lab Results - Last 24 Hours (Table) 04/08/24 04/08/24 Range/Units 04:48 04:48 RBC 3.32 L (4.10-5.20) X 10*6/uL Hgb 9.7 L (12.0-15.0) g/dL Hct 30.4 L (37.2-46.3) % MCHC 31.9 L (32.0-37.0) g/dL RDW 16.6 H (11.5-14.5) % Eosinophils # 0 L (0.04-0.35) X 10*3/uL Glucose 189 H (70-110) mg/dL Total Bilirubin 1.3 H (0.3-1.2) mg/dL C-Reactive Protein 8.50 H (0.00-0.80) mg/dL NT-Pro-B Natriuret Pep 947 H (0-450) pg/mL Total Protein 5.9 L (6.2-8.2) g/dL Albumin 3.4 L (3.8-4.9) g/dL Albumin/Globulin Ratio 1.36 L (1.60-3.17) Ratio Assessment and Plan (1) Leg swelling Current Visit: Yes Status: Acute Priority: High Code(s): M79.89 - OTHER SPECIFIED SOFT TISSUE DISORDERS SNOMED Code(s): 746733818 (2) Chest x-ray abnormality Current Visit: Yes Status: Acute Code(s): R93.89 - ABNORMAL FINDINGS ON DX IMAGING OF OTH BODY STRUCTURES SNOMED Code(s): 703869274 Plan: 1patient presented hospital generalized weakness patient also complaining of increasing swelling to bilateral lower extremity in this patient who did have abnormal x-ray suggestive of cardiomegaly with interstitial density pulmonary vascular congestion [facility] suspicious is for CHF exacerbation rather than pneumonia as the patient not running any fever or any elevated white count 2- Doppler ultrasound of the lower extremity egative for DVT 3repeat chest x-ray of the right lower leg pneumonia we will continue with the Zosyn awaiting culture to finalize Dictation was produced using Quriation software. please excuse any grammatical, word or spelling errors. Time with Patient: Less than 30
[2024-04-08] MEDS: DOCUSATE 100 MG CAP PO SCH (20:53)
--- NOTE | 2024-04-09 03:58 | PN ---
PROGRESS NOTE OBJECTIVE: VITAL SIGNS: Pulse ox is 96% on 2 L. Blood pressure 100/63, respiratory rate 16 to 18, pulse 80 to 85, temp 98.2. CARDIOVASCULAR: S1, S2. LUNGS: Transmitted upper sounds. GI: Soft. HEMATOLOGY: Negative Homans. PSYCH: Fair mood and affect. LABORATORY DATA: White count 6.83, hemoglobin is 9.7, sodium 138, potassium 3.8. Urine Legionella was negative. Albumin is low. Dr. Yousif saw her from Infectious Disease. She came in with acute respiratory infection, acute on chronic diastolic heart failure. She came in with sickness with cough, congestion, shortness of breath with phlegm production similar to pneumonia, not CHF. Continue with Zosyn. Wait for final cultures. She has been getting chemo. She has multisystem secondary to chemo for cancer with chemo and immunotherapy for the ovarian uterine cancer stage IV, malignant adenocarcinoma with bone, liver METS, atelectasis of lung base, breast cancer, right mastectomy, hypertension O2. Wait for Infectious Disease to come up with further plan of tech, recent sputum cultures, etc. MMODL / IJN: [id number] /
--- NOTE | 2024-04-09 11:35 | P.CRDCN ---
History of Present Illness History of present illness: HISTORY OF PRESENT ILLNESS: This is a 83-year-old female with a past medical history significant for breast cancer, hypertension, hyperlipidemia, normal coronary arteries. Patient follows in the office with Dr. Key. We have been asked to see the patient in consultation for irregular EKG. Patient examined at the bedside. Patient states she was recently told she had pneumonia. She states at home she was not feeling well and was not eating or drinking well. She reports generalized weakness. She came to the ER for further evaluation. She states she is feeling better. She denies chest pain or pressure. Denies shortness of breath. DIAGNOSTICS: - EKG reveals sinus mechanism with PVCs. No signs of acute ischemia. - Chest xray COPD. Superimposed cardiomegaly and increased interstitial density. Trace bilateral pleural effusions. Ongoing focal airspace disease/pneumonia at the medial right base - Laboratory data: WBC 6.83. Hemoglobin 9.4. Platelet count 208. Sodium 138. Potassium 3.8. BUN 10. Creatinine 0.6. Troponin negative x 1. proBNP 618. Repeat 947. - Current home cardiac medications include metoprolol tartrate 25 mg 3 times a day aspirin 81 mg daily and Bumex 2 mg daily - Most recent echocardiogram obtained in October 2023 revealed ejection fraction 55 to 60%, mild MR, mild TR - Cardiac catheterization history: 2011 revealing normal coronary arteries - Patient underwent Lexiscan stress test in September 2023 which was negative for ischemia - Patient underwent event monitor in October 2023 for 2 weeks with no significant arrhythmia noted. No VT, SVT, or atrial fibrillation. Predominantly sinus mechanism. REVIEW OF SYSTEMS: At the time of my exam: CONSTITUTIONAL: Denies fever or chills. HEENT: Denies blurred vision, vision changes, or eye pain. Denies hemoptysis CARDIOVASCULAR: Denies chest pain. Denies orthopnea. Denies PND. Denies palpitations RESPIRATORY: Denies shortness of breath. GASTROINTESTINAL: Denies abdominal pain. Denies nausea or vomiting. HEMATOLOGIC: Denies bleeding disorders. GENITOURINARY: Denies any blood in urine. SKIN: Denies pruitis. Denies rash. PHYSICAL EXAM: VITAL SIGNS: Reviewed. GENERAL: Well-developed in no acute distress. HEENT: Head is normocephalic. Pupils are equal, round. Sclerae anicteric. Mucous membranes of the mouth are moist. Neck supple. No JVD or thyromegaly LUNGS: Respirations even and unlabored. Lungs essentially clear to auscultation bilaterally. HEART: Regular rate and rhythm. S1 and S2 heard. ABDOMEN: Soft. Nondistended. Nontender. EXTREMITIES: Normal range of motion. No clubbing or cyanosis. Peripheral pulses intact. No lower extremity edema NEUROLOGIC: Awake and alert. Oriented x 3. 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 Please reconsult if needed Nurse practitioner note has been reviewed by physician. Signing provider agrees with the documented findings, assessment, and plan of care documented by [employer] as a scribe. 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-last chemo 02-27-24 History of Any Multi-Drug Resistant Organisms: None Reported Past Surgical History: Appendectomy, Breast Surgery, Tonsillectomy Additional Past Surgical History / Comment(s): right breast mastectomy, Past Anesthesia/Blood Transfusion Reactions: No Reported Reaction Past Psychological History: No Psychological Hx Reported Smoking Status: Never smoker Past Alcohol Use History: None Reported Past Drug Use History: None Reported - Past Family History Mother Family Medical History: Hypertension Medications and Allergies Home Medications Medication Instructions Recorded Confirmed Type Metoprolol Tartrate 25 mg PO TID-W/MEALS 10/20/17 04/07/24 History Aspirin 81 mg PO DAILY 10/14/23 04/07/24 History Acetaminophen Tab [Tylenol] 650 mg PO Q6HR PRN tab 01/15/24 04/07/24 Rx Ipratropium-Albuterol Nebulize 3 ml INHALATION RT-QID 30 Days 01/15/24 04/07/24 Rx [Duoneb 0.5 mg-3 mg/3 ml Soln] #120 each Cyanocobalamin (Vitamin B-12) 1,000 mcg PO DAILY 01/28/24 04/07/24 History [Vitamin B-12] Bumetanide [BUMEX] 2 mg PO DAILY 04/07/24 04/07/24 History Allergies Allergy/AdvReac Type Severity Reaction Status Date / Time No Known Allergies Allergy Verified 04/07/24 10:34 Physical Exam Vitals: Vital Signs Temp Pulse Pulse Resp BP Pulse Ox 04/09/24 07:55 76 04/09/24 07:54 96 04/09/24 07:33 98.1 F 70 17 117/53 95 04/09/24 00:54 98.0 F 80 16 116/60 92 L 04/08/24 18:50 98.2 F 88 16 117/57 92 L 04/08/24 13:07 98.2 F 85 18 100/63 96 04/08/24 12:13 93 L 04/08/24 08:41 76 04/08/24 08:29 72 98 Intake and Output 04/08/24 04/09/24 04/09/24 22:59 06:59 14:59 Other: Voiding Method Toilet Diaper # Voids 1 # Bowel Movements 1 Results 04/08/24 04:48 04/08/24 04:48 Cardiac Enzymes 04/08/24 Range/Units 04:48 AST 17 (13-35) U/L CBC 04/08/24 Range/Units 04:48 WBC 6.83 (4.50-10.00) X 10*3/uL RBC 3.32 L (4.10-5.20) X 10*6/uL Hgb 9.7 L (12.0-15.0) g/dL Hct 30.4 L (37.2-46.3) % Plt Count 208 (140-440) X 10*3/uL Comprehensive Metabolic Panel 04/08/24 Range/Units 04:48 Sodium 138 (135-145) mmol/L Potassium 3.8 (3.5-5.5) mmol/L Chloride 101 (96-109) mmol/L Carbon Dioxide 27.0 (21.6-31.8) mmol/L BUN 10.4 (9.0-27.0) mg/dL Creatinine 0.6 (0.6-1.5) mg/dL Glucose 189 H (70-110) mg/dL Calcium 8.7 (8.7-10.3) mg/dL AST 17 (13-35) U/L ALT 10 (8-44) U/L Alkaline Phosphatase 57 (41-126) U/L Total Protein 5.9 L (6.2-8.2) g/dL Albumin 3.4 L (3.8-4.9) g/dL Current Medications Generic Name Dose Route Start Last Admin Trade Name Freq PRN Reason Stop Dose Admin Acetaminophen 650 mg 04/07/24 17:50 04/08/24 20:53 Acetaminophen Tab 325 Mg Tab PO 650 mg Q6HR PRN Administration Mild Pain or Fever > 100.5 Hydrocodone Bitart/Acetaminophen 1 each 04/08/24 10:39 Hydrocodone/Apap 5-325mg 1 Each Tab PO Q4HR PRN Moderate Pain (Scale 4 to 6) Albuterol/Ipratropium 3 ml 04/07/24 16:00 04/09/24 07:54 Ipratropium-Albuterol 3 Ml Neb INHALATION Not Given RT-QID RICKIE Aspirin 81 mg 04/08/24 09:00 04/08/24 08:38 Aspirin 81 Mg PO 81 mg DAILY RICKIE Administration Bumetanide 2 mg 04/08/24 09:00 04/08/24 08:41 Bumetanide 1 Mg Tab PO 2 mg DAILY RICKEI Administration Cyanocobalamin 1,000 mcg 04/08/24 09:00 04/08/24 08:37 Cyanocobalamin 500 Mcg Tab PO 1,000 mcg DAILY RICKIE Administration Docusate Sodium 100 mg 04/08/24 21:00 04/08/24 20:53 Docusate 100 Mg Cap PO 100 mg BID RICKIE Administration Hydromorphone HCl 0.5 mg 04/08/24 10:38 Hydromorphone 0.5 Mg/0.5 Ml Syringe IVP Q4HR PRN Severe Breakthrough Pain 7-10 Sodium Chloride 1,000 mls @ 75 mls/hr 04/07/24 10:30 04/09/24 05:25 Saline 0.9% IV Not Given .[id number] RICKIE Piperacillin Sod/Tazobactam 100 mls @ 25 mls/hr 04/07/24 16:00 04/08/24 23:49 Sod 3.375 gm/ Sodium Chloride IVPB 25 mls/hr Q8HR RICKIE Administration Protocol Azithromycin 500 mg/ Sodium 250 mls @ 250 mls/hr 04/08/24 09:00 04/08/24 08:4 0 Chloride IVPB 04/09/24 09:59 250 mls/hr DAILY RICKIE Administration Protocol Methylprednisolone Sodium Succinate 40 mg 04/07/24 16:00 04/08/24 23:51 Methylprednisolone Sod Succi 40 Mg/Ml 1 Ml Vial IV 40 mg Q8HR RICKIE Administration Metoprolol Tartrate 25 mg 04/08/24 07:30 04/08/24 18:33 Metoprolol Tartrate 25 Mg Tab PO 25 mg TID-W/MEALS RICKIE Administration Miscellaneous Information 1 each 04/07/24 10:21 Pneumonia Protocol Utilized 1 Each Misc PO ONCE PRN Per Protocol Intake and Output 04/08/24 04/09/24 04/09/24 22:59 06:59 14:59 Other: Voiding Method Toilet Diaper # Voids 1 # Bowel Movements 1 04/08/24 04:48 04/08/24 04:48
--- NOTE | 2024-04-09 12:39 | P.PN ---
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 On today's evaluation that is 04/09/2024, the patient continues to be afebrile, the patient is on 2 L current oxygen and breathing comfortably, the Pt denies having any chest pain or cough, the patient denies having any abdominal pain no vomiting or any diarrhea mention feeling better. Patient did not have a lab draw today sputum culture has been negative chest x- ray from yesterday COPD focal airspace disease medial right lung Objective - Vital Signs Vital signs: Vital Signs Temp 98.1 F 04/09/24 07:33 Pulse 76 04/09/24 07:55 Resp 17 04/09/24 07:33 BP 117/53 04/09/24 07:33 Pulse Ox 96 04/09/24 07:54 FiO2 Intake & Output 04/08/24 04/09/24 04/09/24 18:59 06:59 18:59 Intake Total 240 Balance 240 Intake: Oral 240 Other: Voiding Method Bedside Commode Toilet Toilet Incontinent Diaper Diaper # Voids 1 1 1 # Bowel Movements 1 - Exam GENERAL DESCRIPTION: An elderly female lying in bed in no distress RESPIRATORY SYSTEM: Unlabored breathing , decreased breath sounds at bases HEART: S1 S2 regular rate and rhythm , ABDOMEN: Soft , no tenderness EXTREMITIES: Swelling to the leg no redness - Labs CBC & Chem 7: 04/08/24 04:48 04/08/24 04:48 Labs: Microbiology - Last 24 Hours (Table) 04/08/24 08:59 Gram Stain - Final Sputum Sputum Culture - Final Assessment and Plan (1) Leg swelling Current Visit: Yes Status: Acute Priority: High Code(s): M79.89 - OTHER SPECIFIED SOFT TISSUE DISORDERS SNOMED Code(s): 123536760 (2) Chest x-ray abnormality Current Visit: Yes Status: Acute Code(s): R93.89 - ABNORMAL FINDINGS ON DX IMAGING OF OTH BODY STRUCTURES SNOMED Code(s): 333320924 Plan: 1patient presented hospital generalized weakness patient also complaining of increasing swelling to bilateral lower extremity in this patient who did have abnormal x-ray suggestive of cardiomegaly with interstitial density pulmonary vascular congestion [facility] suspicious is for CHF exacerbation rather than pneumonia as the patient not running any fever or any elevated white count 2- Doppler ultrasound of the lower extremity egative for DVT 3repeat chest x-ray of the right lower lung atelectasis patient did have procalcitonin x 2 reported normal antibiotics has been discontinued patient will monitor closely off antibiotic Dictation was produced using [employer] dictation software. please excuse any grammatical, word or spelling errors.
--- NOTE | 2024-04-09 15:07 | P.PN ---
Subjective Progress Note Date: 04/09/24 This is an 83-year-old female patient with a known history of hypertension, hyperlipidemia, previous right sided breast cancer with mastectomy approximately 15 years ago. 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 A PET scan from November 2023 revealed mild uptake within the epigastric enlarged lymph node. At least 3 hepatic lesions suspicious for metastasis. Suspicious uptake within the adnexa and possible uterus. Multiple osseous metastasis within the spine. She has been receiving chemotherapy at 1 point on carboplatin/paclitaxel. Recent treatment was 2 weeks ago and was due for treatment this week on 04/09/2025. Since that time she had been having progressive weakness in her lower extremities initially just in the left leg and then the last day or 2 in both legs and difficulty with ambulation and significant weakness. He presented here to the emergency room for the same. X-ray reveals cardiomegaly with interstitial density and some pulmonary vascular congestion. There is patchy medial atelectatic changes in the right lung base. She has been initiated on normal saline at 75 mL/h. Started on Zosyn and azithromycin. Initiated on bronchodilators and IV Solu-Medrol. White count 6.9. Hemoglobin 11.3. Platelets 140. Sodium 134. Potassium 3.4. Bicarb 31. BUN 13. Creatinine 0.56. Glucose 111. She is seen today in consultation on the regular medical floor. She is currently laying flat in bed. Awake and alert in no acute distress. She has no pulmonary complaints. No shortness of breath, cough or congestion no hemoptysis. No chest pain or palpitations. No fever or chills. Still with main complaint of lower extremity weakness. The patient is seen today April 08, 2024 in follow-up on the regular medical floor. She is currently resting comfortably in bed. Awake and alert in no acute distress. She is feeling a bit stronger today compared to yesterday. Denies any worsening shortness of breath, cough or congestion. Maintaining good O2 saturations in the 90s on 2 L/min per nasal cannula. Her repeat procalcitonin was still negative at 0.16. Lung sounds are clear. White count 6.8. Hemoglobin 9.7. Platelets 208. Sodium 138. Potassium 3.8. Bicarb 27. BUN 10. Creatinine 0.6. Glucose 189. She remains on antibiotics and steroids. The patient is seen today April 09, 2024 in follow-up on the regular medical floor. She is currently sitting up at the bedside. Awake and alert in no acute distress. Getting stronger each day. Up ambulating with a walker and assistance. She denies any shortness of breath, cough or congestion. Sputum culture revealed no growth. Procalcitonin negative. No leukocytosis. She remains afebrile. Hemodynamically stable. Maintaining O2 saturations in the 90s on room air. She is continued on DuoNeb inhalations, Solu-Medrol. Remains on oral diuretics. Objective - Vital Signs Vital signs: Vital Signs Temp 97.8 F 04/09/24 13:00 Pulse 74 04/09/24 13:00 Resp 18 04/09/24 13:00 BP 135/53 04/09/24 13:00 Pulse Ox 92 L 04/09/24 13:00 FiO2 Intake & Output 04/08/24 04/09/24 04/09/24 18:59 06:59 18:59 Intake Total 240 Balance 240 Intake: Oral 240 Other: Voiding Method Bedside Commode Toilet Toilet Incontinent Diaper Diaper # Voids 1 1 1 # Bowel Movements 1 - Exam GENERAL EXAM: Alert, 83-year-old female, sitting up at the bedside, on room air, comfortable in no apparent distress. HEAD: Normocephalic. EYES: Normal reaction of pupils, equal size. NOSE: Clear with pink turbinates. THROAT: No erythema or exudates. NECK: No masses, no JVD. CHEST: No chest wall deformity. LUNGS: Equal air entry with no crackles, wheeze, rhonchi or dullness. CVS: S1 and S2 normal with no audible murmur, regular rhythm. ABDOMEN: No hepatosplenomegaly, normal bowel sounds, no guarding or rigidity. SPINE: No scoliosis or deformity SKIN: No rashes CENTRAL NERVOUS SYSTEM: No focal deficits, tone is normal in all 4 extremities. EXTREMITIES: There is no peripheral edema. No clubbing, no cyanosis. Peripheral pulses are intact. 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 Procalcitonin negative x 2 History of breast cancer status post right mastectomy approximately 15 years ago Hypertension Hyperlipidemia Lifelong non-smoker Plan: The patient was seen and evaluated Labs and medications reviewed Stable and on room air Continue incentive spirometer Increase her activity as tolerated Working well with physical therapy Plan is for home with home care tomorrow This patient was seen independently by the pulmonary nurse practitioner addressing pulmonary issues I have personally seen and examined the patient, performed the documentation and the assessment and plan as written. Number of minutes spent on the visit: 23 Dictation was produced using [employer] dictation software. Please excuse any grammatical, word or spelling errors.
--- NOTE | 2024-04-09 17:53 | P.PN ---
Subjective Progress Note Date: 04/09/24 No acute events. Reporting improvement in symptoms. Denies n/v/d, tolerating oral intake. Working with PT, able to ambulate in room without walker. Objective - Vital Signs Vital signs: Vital Signs Temp 97.8 F 04/09/24 13:00 Pulse 74 04/09/24 13:00 Resp 18 04/09/24 13:00 BP 135/53 04/09/24 13:00 Pulse Ox 92 L 04/09/24 13:00 FiO2 Intake & Output 04/08/24 04/09/24 04/09/24 18:59 06:59 18:59 Intake Total 240 Balance 240 Intake: Oral 240 Other: Voiding Method Bedside Commode Toilet Toilet Incontinent Diaper Diaper # Voids 1 1 1 # Bowel Movements 1 - Constitutional General appearance: Present: no acute distress - EENT Eyes: Present: anicteric sclerae, EOMI ENT: Present: hearing grossly normal - Respiratory Details: breathing is even and unlabored - Cardiovascular Details: skin warm and dry - Gastrointestinal General gastrointestinal: Present: soft. Absent: tenderness - Integumentary Integumentary: Absent: cyanotic, jaundiced - Musculoskeletal Musculoskeletal: Present: strength equal bilaterally - Psychiatric Psychiatric: Present: A&O x's 3 - Labs CBC & Chem 7: 04/08/24 04:48 04/08/24 04:48 Labs: Microbiology - Last 24 Hours (Table) 04/08/24 08:59 Gram Stain - Final Sputum Sputum Culture - Final - Imaging and Cardiology Chest x-ray: report reviewed CT thoracic/lumbar spine reviewed Assessment and Plan (1) Dehydration Current Visit: Yes Status: Acute Priority: High Code(s): E86.0 - DEHYDRATION SNOMED Code(s): 05709244 (2) Leg swelling Current Visit: Yes Status: Acute Priority: High Code(s): M79.89 - OTHER SPECIFIED SOFT TISSUE DISORDERS SNOMED Code(s): 897002948 (3) Weakness Current Visit: Yes Status: Acute Priority: High Code(s): R53.1 - WEAKNESS SNOMED Code(s): 67631271 (4) Ovarian cancer Current Visit: Yes Status: Acute Priority: High Code(s): C56.9 - MALIGNANT NEOPLASM OF UNSPECIFIED OVARY SNOMED Code(s): 196436317 Plan: Weakness, leg swelling/pain: Presented with complaints of weakness and bilateral lower extremity pain and swelling and back pain. Since her last cycle she been having decreased oral intake and progressing weakness and associated dizziness and troubles with ambulating. She also reports has been having mild productive cough. Back pain now resolved, denies bowel and urinary incontinence. -On admit chest x-ray showing cardiomegaly with interstitial density, possible mild CHF with pulmonary vascular congestion. Increased patchy medial right basilar opacity. Trace effusions. CT chest abdomen pelvis without contrast was obtained showing ascending thoracic aortic aneurysm. Previous ascites now resolved. Diverticulosis with possible uterine fibroid. -Bilateral lower extremity Dopplers were negative for DVT. -IV antibiotics started for possible pneumonia. Sputum culture negative. ID pulm following. Abx now d/c. Continues bumex -Counts stable -Agree with fluid hydration -PT/OT following. Ambulating without walker, strength improving -Due to previous FDG avid malignancy in the thoracic and lumbar spine, and c/o lower extremity pain and weakness, will obtain CT thoracic and lumbar spine to further evaluate. Reported weakness does appear to be generalized in nature, with no focal neuro deficits noted. Sx more likely to be r/t poor oral intake/dehydration and chemo side effects. CT Scan of L/S showed no suspicious acute osseous abnormality within the thoracic and lumbar spine Ovarian cancer: -Oncology history and plan as dictated in HPI -Completed cycle 4 of weekly Carbo/Taxol on 03/26/24 -Will hold next cycle and obtain treatment response PET CT prior to proceeding with further treatment. Clinic f/u scheduled on 04/12 Updated pt and family on POC Doctor attests: I performed a history and physical examination of this patient, developed impression and plan of care. Discussed with dictator. I agree with dictators note, documented as a scribe.
--- NOTE | 2024-04-09 22:27 | CA ---
Transthoracic Echo Report Name: Nelsy Perez Age: 83 Gender: F : 1940 Exam Date: 04/09/2024 14:31 Exam Location: [facility] Ht (in): 62 Wt (lb): 193 Ordering Physician: Brandon Hardwick MD Attending/Referring Phys: Senior Java Web Developer Dora Armenta RDCS Procedure CPT: Indications: Irregular EKG Cardiac Hx: Technical Quality: Technically difficult study Contrast 1: Definity Total Dose (mL): 2 Contrast 2: Total Dose (mL): MEASUREMENTS (Male / Female) Normal Values 2D ECHO LV Diastolic Diameter PLAX 5.2 cm 4.2 - 5.9 / 3.9 - 5.3 cm LV Systolic Diameter PLAX 2.7 cm IVS Diastolic Thickness 1.4 cm 0.6 - 1.0 / 0.6 - 0.9 cm LVPW Diastolic Thickness 1.4 cm 0.6 - 1.0 / 0.6 - 0.9 cm LV Relative Wall Thickness 0.6 RV Internal Dim ED PLAX 3.8 cm LVOT Diameter 2.0 cm LV Diastolic Volume MOD BP 92.0 cm??? 67 - 155 / 56 - 104 cm??? LV Systolic Volume MOD BP 39.7 cm??? 22 - 58 / 19 - 49 cm??? LV Ejection Fraction MOD BP 56.9 % >= 55 % LV Cardiac Index MOD BP 2044.0 cm???/min???m??? LV Diastolic Volume MOD 4C 78.4 cm??? LV Systolic Volume MOD 4C 36.0 cm??? LV Ejection Fraction MOD 4C 54.1 % LV Cardiac Index MOD 4C 1656.3 cm???/min???m??? LV Diastolic Length 4C 7.9 cm LV Systolic Length 4C 7.3 cm LV Diastolic Volume MOD 2C 100.9 cm??? LV Systolic Volume MOD 2C 40.2 cm??? LV Ejection Fraction MOD 2C 60.2 % LV Cardiac Index MOD 2C 2370.2 cm???/min???m??? LV Diastolic Length 2C 8.5 cm LV Systolic Length 2C 6.7 cm LA Volume 75.3 cm??? 18 - 58 / 22 - 52 cm??? LA Volume Index 37.7 cm???/m??? 16 - 28 cm???/m??? M-MODE Aortic Root Diameter MM 3.2 cm LA Systolic Diameter MM 3.8 cm LA Ao Ratio MM 1.2 AV Cusp Separation MM 2.0 cm DOPPLER AI Peak Velocity 394.9 cm/s AI Peak Gradient 62.4 mmHg AI Pressure Half Time 370.7 ms LVOT Peak Velocity 111.4 cm/s LVOT Peak Gradient 5.0 mmHg LVOT Velocity Time Integral 29.7 cm LVOT Stroke Volume 95.7 cm??? LVOT Stroke Volume Index 50.9 ml/m??? LVOT Cardiac Index 3738.9 cm???/min???m??? MV Area PHT 3.7 cm??? Mitral E Point Velocity 110.3 cm/s Mitral A Point Velocity 161.8 cm/s Mitral E to A Ratio 0.7 MV Deceleration Time 202.9 ms MV E' Velocity 5.7 cm/s Mitral E to MV E' Ratio 19.5 FINDINGS Left Ventricle Moderately increased left ventricular wall thickness. Left ventricular cavity size normal. Normal left ventricular systolic function with no obvious regional wall motion abnormalities. Left ventricular ejection fraction is estimated at 55-60 %. Grade 1 diastolic dysfunction. Right Ventricle Mild right ventricular dilatation. Right ventricular systolic pressure within normal limits. Right Atrium Right atrium not well visualized. Left Atrium Moderately increased left atrial volume. Mildly increased left atrial area. Mitral Valve Structurally normal mitral valve. Mitral valve thickened. Moderate mitral annular calcification. Syon-sh-onnukzbt mitral regurgitation. Aortic Valve No aortic valve stenosis or regurgitation. Tricuspid Valve Structurally normal tricuspid valve. Mild tricuspid regurgitation. Pulmonic Valve Structurally normal pulmonic valve. Pericardium No pericardial effusion. Aorta Normal size aortic root and proximal ascending aorta. CONCLUSIONS Left ventricular ejection fraction 55-60% Moderately increased left ventricular thickness Moderate mitral calcification Wdkr-kf-ukkybtah mitral regurgitation Mild tricuspid regurgitation No pericardial effusion Previewed by: Dr. Romero Arnett DO (Electronically Signed) Final Date: 09 April 2024 22:25
[2024-04-10 00:58] VITALS: TEMP 98.5
--- NOTE | 2024-04-10 02:01 | PN ---
PROGRESS NOTE SUBJECTIVE: An 83-year-old white female, remains on IV Solu-Medrol, came with fluid overload, respiratory infection. Hemoglobin is 9.7. The patient appears to be feeling better. She is saturating 92% on room air. OBJECTIVE: VITAL SIGNS: Blood pressure 135/53, temp 97.8, pulse 74, respiratory rate 18. CARDIOVASCULAR: S1, S2. HEMATOLOGY: Negative Homans. PSYCH: Fair mood and affect. She wants to be discharged. I will most likely discharge her today as she is feeling better. She complains of bronchitis with COPD exacerbation, acute on chronic diastolic heart failure. Ultrasound of the leg is negative for DVT. Possibly discharge home. Follow up as an outpatient. She appears to be improved. MMODL / IJN: [id number] /
[2024-04-10 07:36] VITALS: BP 164/71; PULSE 70; RESP 17
[2024-04-10] MEDS: methylPREDNISolone 4 MG TAB TAPER PO SCH (08:36)
--- NOTE | 2024-04-10 12:35 | P.PN ---
Subjective Progress Note Date: 04/10/24 This is an 83-year-old female patient with a known history of hypertension, hyperlipidemia, previous right sided breast cancer with mastectomy approximately 15 years ago. 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 A PET scan from November 2023 revealed mild uptake within the epigastric enlarged lymph node. At least 3 hepatic lesions suspicious for metastasis. Suspicious uptake within the adnexa and possible uterus. Multiple osseous metastasis within the spine. She has been receiving chemotherapy at 1 point on carboplatin/paclitaxel. Recent treatment was 2 weeks ago and was due for treatment this week on 04/09/2025. Since that time she had been having progressive weakness in her lower extremities initially just in the left leg and then the last day or 2 in both legs and difficulty with ambulation and significant weakness. He presented here to the emergency room for the same. X-ray reveals cardiomegaly with interstitial density and some pulmonary vascular congestion. There is patchy medial atelectatic changes in the right lung base. She has been initiated on normal saline at 75 mL/h. Started on Zosyn and azithromycin. Initiated on bronchodilators and IV Solu-Medrol. White count 6.9. Hemoglobin 11.3. Platelets 140. Sodium 134. Potassium 3.4. Bicarb 31. BUN 13. Creatinine 0.56. Glucose 111. She is seen today in consultation on the regular medical floor. She is currently laying flat in bed. Awake and alert in no acute distress. She has no pulmonary complaints. No shortness of breath, cough or congestion no hemoptysis. No chest pain or palpitations. No fever or chills. Still with main complaint of lower extremity weakness. The patient is seen today April 08, 2024 in follow-up on the regular medical floor. She is currently resting comfortably in bed. Awake and alert in no acute distress. She is feeling a bit stronger today compared to yesterday. Denies any worsening shortness of breath, cough or congestion. Maintaining good O2 saturations in the 90s on 2 L/min per nasal cannula. Her repeat procalcitonin was still negative at 0.16. Lung sounds are clear. White count 6.8. Hemoglobin 9.7. Platelets 208. Sodium 138. Potassium 3.8. Bicarb 27. BUN 10. Creatinine 0.6. Glucose 189. She remains on antibiotics and steroids. The patient is seen today April 09, 2024 in follow-up on the regular medical floor. She is currently sitting up at the bedside. Awake and alert in no acute distress. Getting stronger each day. Up ambulating with a walker and assistance. She denies any shortness of breath, cough or congestion. Sputum culture revealed no growth. Procalcitonin negative. No leukocytosis. She remains afebrile. Hemodynamically stable. Maintaining O2 saturations in the 90s on room air. She is continued on DuoNeb inhalations, Solu-Medrol. Remains on oral diuretics. The patient is seen today April 10, 2024 in follow-up on the regular medical floor. She is awake and alert in no acute distress. Sitting up at the bedside. Her is present. She denies any worsening shortness of breath, cough or congestion. She has been getting stronger. She has been up ambulating with assistance and a walker. Continue O2 saturations in the 90s on room air. She is afebrile. Sputum culture revealed no growth. She remains on bronchodilators and steroids. Objective - Vital Signs Vital signs: Vital Signs Temp 98.5 F 04/10/24 07:36 Pulse 70 04/10/24 08:00 Resp 17 04/10/24 08:00 BP 164/71 04/10/24 07:36 Pulse Ox 97 04/10/24 07:36 FiO2 Intake & Output 04/09/24 04/10/24 04/10/24 18:59 06:59 18:59 Intake Total 240 Balance 240 Intake: Oral 240 Other: Voiding Method Toilet Toilet Toilet Diaper Diaper Diaper # Voids 4 2 - Exam GENERAL EXAM: Alert, very pleasant 83-year-old female, on room air, comfortable in no apparent distress. HEAD: Normocephalic. EYES: Normal reaction of pupils, equal size. NOSE: Clear with pink turbinates. THROAT: No erythema or exudates. NECK: No masses, no JVD. CHEST: No chest wall deformity. LUNGS: Equal air entry with no crackles, wheeze, rhonchi or dullness. CVS: S1 and S2 normal with no audible murmur, regular rhythm. ABDOMEN: No hepatosplenomegaly, normal bowel sounds, no guarding or rigidity. SPINE: No scoliosis or deformity SKIN: No rashes CENTRAL NERVOUS SYSTEM: No focal deficits, tone is normal in all 4 extremities. EXTREMITIES: There is no peripheral edema. No clubbing, no cyanosis. Peripheral pulses are intact. 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 Procalcitonin negative x 2 History of breast cancer status post right mastectomy approximately 15 years ago Hypertension Hyperlipidemia Lifelong non-smoker Plan: The patient was seen and evaluated Medications reviewed Stable and on room air Continue incentive spirometer Continued on bronchodilators, steroids To follow closely with medical oncology postdischarge This patient was seen independently by the pulmonary nurse practitioner addressing pulmonary issues I have personally seen and examined the patient, performed the documentation and the assessment and plan as written. Number of minutes spent on the visit: 24 Dictation was produced using [employer] dictation software. Please excuse any grammatical, word or spelling errors.
== END 2024-04-10 10:11 | disposition home health service (06) ==
LOC: EC 06:50 → 5NMEDONC 09:57
PROVIDERS: ADMIT Family Medicine; ATTEND Family Medicine
DX: J44.0 Chronic obstructive pulmonary disease with (acute) lower respiratory infection (principal); J18.9 Pneumonia, unspecified organism; J90 Pleural effusion, not elsewhere classified; J98.11 Atelectasis; E86.0 Dehydration; E87.1 Hypo-osmolality and hyponatremia; E87.6 Hypokalemia; M79.604 Pain in right leg; M79.605 Pain in left leg; C56.9 Malignant neoplasm of unspecified ovary; C78.7 Secondary malignant neoplasm of liver and intrahepatic bile duct; C79.51 Secondary malignant neoplasm of bone; I50.33 Acute on chronic diastolic (congestive) heart failure; I11.0 Hypertensive heart disease with heart failure; I71.21 Aneurysm of the ascending aorta, without rupture; I49.3 Ventricular premature depolarization; D61.818 Other pancytopenia; D64.81 Anemia due to antineoplastic chemotherapy; T45.1X5A Adverse effect of antineoplastic and immunosuppressive drugs, initial encounter; R26.2 Difficulty in walking, not elsewhere classified; E78.5 Hyperlipidemia, unspecified; K57.90 Diverticulosis of intestine, part unspecified, without perforation or abscess without bleeding; R59.9 Enlarged lymph nodes, unspecified; M79.89 Other specified soft tissue disorders; Z79.82 Long term (current) use of aspirin; Z79.630 Long term (current) use of alkylating agent; Z79.633 Long term (current) use of mitotic inhibitor; Z79.899 Other long term (current) drug therapy; Z85.3 Personal history of malignant neoplasm of breast; Z90.11 Acquired absence of right breast and nipple
CPT/HCPCS: 96376 ×4; 96366 ×3; 96367 ×2; 96375; 96361; 96365; 99285; 36415; 94640 ×2; 94760 ×3; 93005; 97161; 97165; 83880 ×2; 80053 ×2; 87449; 83605; 83735 ×2; 84484; 85025 ×2; 86140; 81001; 87070; 87205; 84145 ×2; 71046 ×2; 93970; 71250; 74176; G0378 ×4; C8929; J2543 ×2; J0456 ×2; J0696; Q9957; J1171; J7509; J2919 ×4; 93306

== ENCOUNTER → 2024-04-22 | Outpatient (CLI) | payer MEDICARE ==
--- NOTE | 2024-04-23 16:34 | PE ---
EXAMINATION TYPE: PET CT fusion skull to thigh DATE OF EXAM: 04/22/2024 CLINICAL INDICATION:Female, 84 years old with history of C56.1 RIGHT OVARIAN CANCER; TECHNIQUE: Following the intravenous administration of 8.14 mCi of F-18 FDG, whole body images are performed from the skull base to the midthigh. Images are reviewed on the computer in the coronal, a xial, and sagittal planes. Reconstructed rotating images are created on independent workstation and reviewed on the computer. A non-contrast CT is performed in conjunction with the PET scan. Glucose level 128 mg/dL CT DLP: 633.34 mGycm, Automated exposure control for dose reduction was used. COMPARISON: CT 04/07/2024, PET/CT 11/20/2023, MRI: None FINDINGS: Mediastinal SUV mean is 2.3. Hepatic parenchyma SUV mean is 3.1 SKULL BASE AND NECK: No suspicious radiotracer activity. CHEST, MEDIASTINUM, AND HILAR REGION: No suspicious radiotracer activity. ABDOMEN AND PELVIS: No suspicious radiotracer activity. MUSCULOSKELETAL STRUCTURES: Positive response to therapy with decrease in visible FDG avid metastatic foci throughout the osseous structures. No suspicious uptake identified. OTHER CT: Atherosclerosis of the arterial vasculature. Scattered colonic diverticula. Fat-containing inguinal hernias bilaterally. Diastases of the rectus abdominis muscle. Streaky edema in the lower naheed ngs. IMPRESSION: Positive response to therapy with no remaining suspicious uptake identified. [facility], , 04/23/2024 4:32 PM
== END | disposition home or self-care (01) ==
LOC: RADPETMAIN 13:06
PROVIDERS: ATTEND Internal Medicine
DX: C56.1 Malignant neoplasm of right ovary (principal)
CPT/HCPCS: 78815; A9552

== ENCOUNTER 2024-06-03 06:13 | Emergency (ER) | payer MEDICARE ==
[2024-06-03] MEDS: HYDROcodone/APAP 5-325MG 1 EACH TAB PO STA (06:56)
--- NOTE | 2024-06-03 07:02 | ED ---
Lower Extremity Injury HPI - General Chief Complaint: Extremity Injury, Lower Stated Complaint: Left knee pain Time Seen by Provider: 06/03/24 06:15 Source: patient, family, RN notes reviewed Limitations: no limitations - History of Present Illness Initial Comments: 84-year-old female presents emergency department chief complaint of left knee pain. Patient states she has had an injection in her knee in the past. Patient states over the last several days she has had increasing pain states it hurts to weight-bear. Patient states that she only took some Tylenol. Patient denies any fevers or chills no redness states it is swollen but does swell at times. No calf pain no proximal leg pain no back pain denies bowel, bladder and cons retention no saddle anesthesias. - Related Data Home Medications Medication Instructions Recorded Confirmed Metoprolol Tartrate 25 mg PO TID-W/MEALS 10/20/17 04/07/24 Aspirin 81 mg PO DAILY 10/14/23 04/07/24 Cyanocobalamin (Vitamin B-12) 1,000 mcg PO DAILY 01/28/24 04/07/24 [Vitamin B-12] Bumetanide [BUMEX] 2 mg PO DAILY 04/07/24 04/07/24 Previous Rx's Medication Instructions Recorded Acetaminophen Tab [Tylenol] 650 mg PO Q6HR PRN tab 01/15/24 Ipratropium-Albuterol Nebulize 3 ml INHALATION RT-QID 30 Days 01/15/24 [Duoneb 0.5 mg-3 mg/3 ml Soln] #120 each methylPREDNISolone Dose Pack 24 mg PO DAILY 5 Days #1 tab 04/09/24 [Medrol Dose Pack] HYDROcodone/APAP 5-325MG [[place] 5] 1 each PO Q6HR PRN #12 tab 06/03/24 Allergies Allergy/AdvReac Type Severity Reaction Status Date / Time No Known Allergies Allergy Verified 06/03/24 06:25 Review of Systems ROS Statement: Those systems with pertinent positive or pertinent negative responses have been documented in the HPI. ROS Other: All systems not noted in ROS Statement are negative. 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-last chemo 02-27-24 History of Any Multi-Drug Resistant Organisms: None Reported Past Surgical History: Appendectomy, Breast Surgery, Tonsillectomy Additional Past Surgical History / Comment(s): right breast mastectomy, Past Anesthesia/Blood Transfusion Reactions: No Reported Reaction Past Psychological History: No Psychological Hx Reported Smoking Status: Never smoker Past Alcohol Use History: None Reported Past Drug Use History: None Reported - Past Family History Mother Family Medical History: Hypertension General Exam Limitations: no limitations General appearance: alert, in no apparent distress Head exam: Present: atraumatic, normocephalic, normal inspection Eye exam: Present: normal appearance, PERRL, EOMI. Absent: scleral icterus, conjunctival injection, periorbital swelling Neck exam: Present: normal inspection, full ROM. Absent: tenderness, meningismus, lymphadenopathy Respiratory exam: Present: normal lung sounds bilaterally. Absent: respiratory distress, wheezes, rales, rhonchi, stridor Cardiovascular Exam: Present: regular rate, normal rhythm, normal heart sounds. Absent: systolic murmur, diastolic murmur, rubs, gallop, clicks Extremities exam: Present: other (Left knee there is moderate swelling no erythema no increase in warmth, neurovascular intact pain with anterior palpation, range of motion. No calf tenderness) Course Vital Signs 06/03/24 06:25 Temperature 97.3 F L Pulse Rate 73 Respiratory 18 Rate Blood Pressure 157/83 O2 Sat by Pulse 97 Oximetry Medical Decision Making - Medical Decision Making Was pt. sent in by a medical professional or institution (JOHN Briceno, [employer]ELOPMENT MANAGER, urgent care, hospital, or alf...) When possible be specific @ -No Did you speak to anyone other than the patient for history (EMS, parent, family, police, friend...)? What history was obtained from this source @ -No Did you review nursing and triage notes (agree or disagree)? Why? @ -I reviewed and agree with nursing and triage notes Were old charts reviewed (outside hosp., previous admission, EMS record, old EKG, old radiological studies, urgent care reports/EKG's, alf records)? Report findings @ -No old charts were reviewed Differential Diagnosis (chest pain, altered mental status, abdominal pain women, abdominal pain men, vaginal bleeding, weakness, fever, dyspnea, syncope, headache, dizziness, GI bleed, back pain, seizure, CVA, palpatations, mental health, musculoskeletal)? @ -Knee pain, knee effusion, osteoarthritis, leg fracture EKG interpreted by me (3pts min.). @ -None X-rays interpreted by me (1pt min.). @ -Left knee showing severe tricompartmental arthritis CT interpreted by me (1pt min.). @ -None done U/S interpreted by me (1pt. min.). @ -None done What testing was considered but not performed or refused? (CT, X-rays, U/S, labs)? Why? @ -None What meds were considered but not given or refused? Why? @ -None Did you discuss the management of the patient with other professionals (professionals i.e. Dr., PA, [employer]ELOP[employer] MANAGER, lab, RT, psych nurse, oncology social work, assembler semiconductor, teacher, chief accounting officer, social work case manager)? Give summary @ -No Was smoking cessation discussed for >3mins.? @ -No Was critical care preformed (if so, how long)? @ -No Were there social determinants of health that impacted care today? How? (Homelessness, low income, unemployed, alcoholism, drug addiction, transportation, low edu. Level, literacy, decrease access to med. care, residential, rehab)? @ -No Was there de-escalation of care discussed even if they declined (Discuss DNR or withdrawal of care, Hospice)? DNR status @ -No What co-morbidities impacted this encounter? (DM, HTN, Smoking, COPD, CAD, Cancer, CVA, ARF, Chemo, Hep., AIDS, mental health diagnosis, sleep apnea, morbid obesity)? @ -None Was patient admitted / discharged? Hospital course, mention meds given and route, prescriptions, significant lab abnormalities, going to OR and other pertinent info. @ -[Discharge patient has severe arthritis of her left knee patient pain and increasing she advised to follow-up with orthopedics. Undiagnosed new problem with uncertain prognosis? @ -No Drug Therapy requiring intensive monitoring for toxicity (Heparin, Nitro, Insulin, Cardizem)? @ -No Were any procedures done? @ -No Diagnosis/symptom? @ -Left knee pain, osteoarthritis Acute, or Chronic, or Acute on Chronic? @ -Acute Uncomplicated (without systemic symptoms) or Complicated (systemic symptoms)? @ -Uncomplicated Side effects of treatment? @ -No Exacerbation, Progression, or Severe Exacerbation? @ -No Poses a threat to life or bodily function? How? (Chest pain, [place], [place], pneumonia, PE, COPD, DKA, ARF, appy, cholecystitis, CVA, Diverticulitis, Homicidal, Suicidal, threat to staff... and all critical care pts) @ -No Disposition Clinical Impression: Tricompartment osteoarthritis of left knee, Knee pain Disposition: HOME SELF-CARE Condition: Stable Instructions (If sedation given, give patient instructions): Knee Pain (ED) Additional Instructions: Please return to the Emergency Department if symptoms worsen or any other concerns. Prescriptions: HYDROcodone/APAP 5-325MG [[place] 5] 1 each PO Q6HR PRN #12 tab PRN Reason: Pain Is patient prescribed a controlled substance at d/c from ED?: Yes When asked, does pt state using other controlled substances?: No If prescribed controlled substance>3 days was MAPS reviewed?: Prescribed <3 Days If opioid is for acute pain is fill amount 7 days or less?: Yes If Rx opioid, was Start Talking consent form obtained?: Yes Referrals: None,Stated [Primary Care Provider] - 1-2 days Severino Isabel MD [STAFF PHYSICIAN] - 1-2 days Time of Disposition: 08:03
--- NOTE | 2024-06-03 07:09 | XR ---
EXAMINATION TYPE: XR knee complete LT DATE OF EXAM: 06/03/2024 6:59 AM INDICATION: Patient age:Female; 84 years old; Reason for study: pain; PHH. pain COMPARISON: None. TECHNIQUE: The Left knee(s) was examined in Frontal, lateral and oblique projections. FINDINGS: No acute fracture or dislocation. Tricompartmental mental joint space narrowing with britton inal osteophytosis and sclerosis. Ccei-pk-zorw contact involving the medial and lateral femorotibial temporal joint spaces. Calcium deposits are identified within both menisci. No soft tissue swelling. No joint effusion. Vascular sclerosis. IMPRESSION: 1. No acute osseous pathology. 2. Advanced tricompartmental osteoarthritic changes. 3. Chondrocalcinosis. [facility], , 06/03/2024 7:07 AM
[2024-06-03 08:21] VITALS: BP 149/86; PULSE 71; RESP 16; TEMP 97.7
== END 2024-06-03 08:21 | disposition home or self-care (01) ==
LOC: EC 06:13
DX: M17.12 Unilateral primary osteoarthritis, left knee (principal)
CPT/HCPCS: 99283

== ENCOUNTER 2024-06-28 07:39 | Emergency (ER) | payer MEDICARE ==
[2024-06-28 07:43] VITALS: TEMP 97.8
--- NOTE | 2024-06-28 07:55 | ED ---
Extremity Problem HPI - General Chief complaint: Extremity Problem,Nontraumatic Stated complaint: Swelling in left hand Time Seen by Provider: 06/28/24 07:51 Source: patient, family (), RN notes reviewed, old records reviewed Mode of arrival: wheelchair Limitations: no limitations - History of Present Illness Initial comments: 84-year-old female presented to the ER for evaluation of left hand pain. Patient reports 3 days ago she noticed redness and swelling to her left fourth PIP joint. She states yesterday she noted proximally spreading erythema and tenderness to her dorsal hand. This morning upon waking up she noticed significant swelling and pain to third PIP joint. She denies any injuries or traumas. Patient does report a history of ovarian cancer and recently finished chemotherapy 1 month ago. She has tried using Biofreeze and prescribed pain medication without relief of discomfort. No no wounds. No history of blood clots, gout or diabetes. Not currently on blood thinners. Patient denies any fevers, chills or other complaints at this time. - Related Data Home Medications Medication Instructions Recorded Confirmed Metoprolol Tartrate 25 mg PO TID@0500,1200,1900 10/20/17 06/28/24 Aspirin 81 mg PO DAILY@1200 10/14/23 06/28/24 Cyanocobalamin (Vitamin B-12) 1,000 mcg PO DAILY@0500 01/28/24 06/28/24 [Vitamin B-12] Bumetanide [BUMEX] 2 mg PO DAILY@0500 04/07/24 06/28/24 Previous Rx's Medication Instructions Recorded Cephalexin [Keflex] 500 mg PO Q6HR #40 cap 06/28/24 Sulfamethox-Tmp 800-160Mg [Bactrim 1 each PO Q12HR #20 tab 06/28/24 Ds] Allergies Allergy/AdvReac Type Severity Reaction Status Date / Time No Known Allergies Allergy Verified 06/28/24 10:01 Review of Systems ROS Statement: Those systems with pertinent positive or pertinent negative responses have been documented in the HPI. ROS Other: All systems not noted in ROS Statement are negative. 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-last chemo 02-27-24 History of Any Multi-Drug Resistant Organisms: None Reported Past Surgical History: Appendectomy, Breast Surgery, Tonsillectomy Additional Past Surgical History / Comment(s): right breast mastectomy, Past Anesthesia/Blood Transfusion Reactions: No Reported Reaction Past Psychological History: No Psychological Hx Reported Smoking Status: Never smoker Past Alcohol Use History: None Reported Past Drug Use History: None Reported - Past Family History Mother Family Medical History: Hypertension General Exam Limitations: no limitations General appearance: alert, in no apparent distress Respiratory exam: Present: normal lung sounds bilaterally. Absent: respiratory distress, wheezes, rales, rhonchi, stridor Cardiovascular Exam: Present: regular rate, normal rhythm, normal heart sounds. Absent: systolic murmur, diastolic murmur, rubs, gallop, clicks Extremities exam: Present: full ROM, tenderness (Left fourth and third PIP joint. There is edema and erythema noted. No wounds. ), normal capillary refill (2+ left radial pulse) Neurological exam: Present: alert, oriented X3, CN II-XII intact Skin exam: Present: warm, dry, intact, normal color. Absent: rash Course Vital Signs 06/28/24 06/28/24 06/28/24 07:40 09:30 10:33 Temperature 97.8 F Pulse Rate 76 75 76 Respiratory 16 18 18 Rate Blood Pressure 180/82 149/77 133/78 O2 Sat by Pulse 95 97 98 Oximetry Medical Decision Making - Medical Decision Making Was pt. sent in by a medical professional or institution (, PA, QUALITY TESTER, urgent care, hospital, or usp...) When possible be specific @ -No Did you speak to anyone other than the patient for history (EMS, parent, family, police, friend...)? What history was obtained from this source @ -Patient's , at bedside, aiding in HPI and past medical history. Did you review nursing and triage notes (agree or disagree)? Why? @ -I reviewed and agree with nursing and triage notes Were old charts reviewed (outside hosp., previous admission, EMS record, old EKG, old radiological studies, urgent care reports/EKG's, usp records)? Report findings @ -No old charts were reviewed Differential Diagnosis (chest pain, altered mental status, abdominal pain women, abdominal pain men, vaginal bleeding, weakness, fever, dyspnea, syncope, headache, dizziness, GI bleed, back pain, seizure, CVA, palpatations, mental health, musculoskeletal)? @ -Differential Musculoskeletal: Muscular strain, contusion, ligament sprain, fracture, arthritis, septic arthritis, bursitis, cellulitis, muscle spasm, nerve compression, DVT, arterial occlusion, herpes zoster, electrolyte abnormality, tumor.... This is not meant to be in all inclusive list EKG interpreted by me (3pts min.). @ -None done X-rays interpreted by me (1pt min.). @ -Left hand x-ray interpreted by me negative for acute fractures. CT interpreted by me (1pt min.). @ -None done U/S interpreted by me (1pt. min.). @ -None done What testing was considered but not performed or refused? (CT, X-rays, U/S, labs)? Why? @ -None What meds were considered but not given or refused? Why? @ -None Did you discuss the management of the patient with other professionals (professionals i.e. , PA, QUALITY TESTER, lab, RT, psych nurse, director of social services, bottle line worker, teacher, immigration officer, field case manager)? Give summary @ -No Was smoking cessation discussed for >3mins.? @ -No Was critical care preformed (if so, how long)? @ -No Were there social determinants of health that impacted care today? How? (Homelessness, low income, unemployed, alcoholism, drug addiction, transportation, low edu. Level, literacy, decrease access to med. care, prison, rehab)? @ -No Was there de-escalation of care discussed even if they declined (Discuss DNR or withdrawal of care, Hospice)? DNR status @ -No What co-morbidities impacted this encounter? (DM, HTN, Smoking, COPD, CAD, Cancer, CVA, ARF, Chemo, Hep., AIDS, mental health diagnosis, sleep apnea, morbid obesity)? @ -History of ovarian cancer recently ended chemotherapy. Was patient admitted / discharged? Hospital course, mention meds given and route, prescriptions, significant lab abnormalities, going to OR and other pertinent info. @ -Discharge. 84-year-old female presented to the ER for evaluation of right hand pain and swelling. Exam remarkable for erythema and edema noted to left fourth and third PIP joints extending into the hand. No wounds. Area is exquisitely tender to touch. Patient is neurovascularly intact. Workup in the ER remarkable for leukocytosis of 16.8 with a left shift. Lactic 1.6. CRP mildly elevated at 1.2. Uric acid 6.7. X-ray negative for acute fractures. Pat ient given symptomatic control in the ER with Tylenol and Toradol. Tetanus updated. Patient will be started on Bactrim and Keflex and advised to follow-up closely with hand surgeon, referral given. Strict return parameters discussed. Patient discharged in stable condition with follow-up to PCP and hand surgeon. Patient verbally expressed understanding agree with care plan. Case discussed with ED attending, Dr. Chavarria. Undiagnosed new problem with uncertain prognosis? @ -No Drug Therapy requiring intensive monitoring for toxicity (Heparin, Nitro, Insulin, Cardizem)? @ -No Were any procedures done? @ -No Diagnosis/symptom? @ -Hand cellulitis Acute, or Chronic, or Acute on Chronic? @ -Acute Uncomplicated (without systemic symptoms) or Complicated (systemic symptoms)? @ -Uncomplicated Side effects of treatment? @ -No Exacerbation, Progression, or Severe Exacerbation? @ -No Poses a threat to life or bodily function? How? (Chest pain, [place], AR, pneumonia, PE, COPD, DKA, ARF, appy, cholecystitis, CVA, Diverticulitis, Homicidal, Suicidal, threat to staff... and all critical care pts) @ -Low at this time - Lab Data Result diagrams: 06/28/24 08:31 06/28/24 08:31 Lab Results 06/28/24 06/28/24 06/28/24 Range/Units 08:31 08:31 08:31 WBC 16.8 H (3.8-10.6) k/uL RBC 4.39 (3.80-5.40) m/uL Hgb 12.7 (11.4-16.0) gm/dL Hct 38.3 (34.0-46.0) % MCV 87.3 (80.0-100.0) fL MCH 29.0 (25.0-35.0) pg MCHC 33.3 (31.0-37.0) g/dL RDW 14.8 (11.5-15.5) % Plt Count 210 (150-450) k/uL MPV 7.2 Neutrophils % 81 % Lymphocytes % 11 % Monocytes % 5 % Eosinophils % 2 % Basophils % 0 % Neutrophils # 13.7 H (1.3-7.7) k/uL Lymphocytes # 1.9 (1.0-4.8) k/uL Monocytes # 0.8 (0-1.0) k/uL Eosinophils # 0.3 (0-0.7) k/uL Basophils # 0.1 (0-0.2) k/uL Sodium 136 L (137-145) mmol/L Potassium 4.0 (3.5-5.1) mmol/L Chloride 94 L (98-107) mmol/L Carbon Dioxide 32 H (22-30) mmol/L Anion Gap 10 mmol/L BUN 23 H (7-17) mg/dL Creatinine 0.61 (0.52-1.04) mg/dL Est GFR (CKD-EPI)AfAm >90 (>60 ml/min/1.73 sqM) Est GFR (CKD-EPI)NonAf 84 (>60 ml/min/1.73 sqM) Glucose 111 H (74-99) mg/dL Plasma Lactic Acid Vito 1.6 (0.7-2.0) mmol/L Uric Acid 6.7 (3.7-7.4) mg/dL Calcium 9.5 (8.4-10.2) mg/dL Total Bilirubin 1.5 H (0.2-1.3) mg/dL AST 20 (14-36) U/L ALT 16 (4-34) U/L Alkaline Phosphatase 79 (38-126) U/L C-Reactive Protein 1.2 H (<1.0) mg/dL Total Protein 7.1 (6.3-8.2) g/dL Albumin 4.2 (3.5-5.0) g/dL - Radiology Data Radiology results: report reviewed, image reviewed Disposition Clinical Impression: Cellulitis Disposition: HOME SELF-CARE Condition: Stable Instructions (If sedation given, give patient instructions): Cellulitis (ED) Additional Instructions: Follow-up with PCP and hand specialist. Take antibiotics as prescribed. Return to the ER for any new or worsening concerns. Prescriptions: Sulfamethox-Tmp 800-160Mg [Bactrim Ds] 1 each PO Q12HR #20 tab Cephalexin [Keflex] 500 mg PO Q6HR #40 cap Is patient prescribed a controlled substance at d/c from ED?: No Referrals: Brandon Hardwick MD [Primary Care Provider] - 1-2 days Skye Cardona [Doctor of Osteopathic Medicine] - 1-2 days Time of Disposition: 10:18
[2024-06-28] MEDS: KETOROLAC 15 MG/ML 1 ML VIAL IVP STA (08:26)
[2024-06-28] MEDS: ACETAMINOPHEN TAB 325 MG TAB PO STA (08:39)
[2024-06-28 08:41] LABS: Basophils # (A) 0.1 k/uL (0-0.2); Basophils % (A) 0 %; Eosinophils # (A) 0.3 k/uL (0-0.7); Eosinophils % (A) 2 %; HCT 38.3 % (34.0-46.0); HGB 12.7 gm/dL (11.4-16.0); Lymphocytes # (A) 1.9 k/uL (1.0-4.8); Lymphocytes % (A) 11 %; MCHC 33.3 g/dL (31.0-37.0); MCV 87.3 fL (80.0-100.0); Mean Platelet Volume 7.2; Monocytes # (A) 0.8 k/uL (0-1.0); Monocytes % (A) 5 %; Neutrophils # (A) 13.7 k/uL (1.3-7.7); Neutrophils % (A) 81 %; Platelet Count 210 k/uL (150-450); RBC 4.39 m/uL (3.80-5.40); RDW 14.8 % (11.5-15.5); WBC 16.8 k/uL (3.8-10.6)
[2024-06-28 08:54] LABS: ALT 16 U/L (4-34); AST 20 U/L (14-36); African American GFR (CKD) >90 (>60 ml/min/1.73 sqM); Albumin 4.2 g/dL (3.5-5.0); Alkaline Phosphatase 79 U/L (38-126); Anion Gap 10 mmol/L; Blood Urea Nitrogen 23 mg/dL (7-17); Calcium 9.5 mg/dL (8.4-10.2); Carbon Dioxide 32 mmol/L (22-30); Chloride 94 mmol/L (98-107); Glucose 111 mg/dL (74-99); Non-African American GFR(CKD) 84 (>60 ml/min/1.73 sqM); Sodium 136 mmol/L (137-145); Total Bilirubin 1.5 mg/dL (0.2-1.3); Total Protein 7.1 g/dL (6.3-8.2); Uric Acid 6.7 mg/dL (3.7-7.4)
--- NOTE | 2024-06-28 08:55 | XR ---
EXAMINATION TYPE: XR hand complete LT DATE OF EXAM: 06/28/2024 8:47 AM COMPARISON: None. CLINICAL INDICATION: Female, 84 years old with history of 3 and 4th digit swelling and pain, pain TECHNIQUE: 3 view(s) obtained. FINDINGS: There is mild diffuse soft tissue swelling of the proximal third and fourth digits. No acute fractures are evident. Degenerative joint changes are present notably at the first carpometa carpal junction. Calcification of the joint spaces of the index and middle fingers is noted. Some sof t tissue swelling over the metacarpal phalangeal joint regions on the lateral projection. IMPRESSION: 1. No acute osseous abnormality. 2. Soft tissue swelling metacarpophalangeal joints dorsal region and proximal third and fourth digits . 3. Degenerative joint changes [facility], , 06/28/2024 8:52 AM
[2024-06-28 09:30] VITALS: RESP 18
[2024-06-28 09:44] LABS: C Reactive Protein 1.2 mg/dL (<1.0)
[2024-06-28] MEDS: DIPH,PERTUS(ACELL)TETVAC-LF 0.5 ML VIAL IM ONE (10:27)
[2024-06-28 10:34] VITALS: BP 133/78; PULSE 76
== END 2024-06-28 10:38 | disposition home or self-care (01) ==
LOC: EC 07:39
DX: L03.114 Cellulitis of left upper limb (principal); Z85.43 Personal history of malignant neoplasm of ovary; Z85.3 Personal history of malignant neoplasm of breast; Z23 Encounter for immunization
CPT/HCPCS: 36415; 80053; 83605; 84550; 85025; 86140; 73130; 90715; 99283; 90471; 96374; J1885

== ENCOUNTER → 2024-07-16 | Outpatient (CLI) | payer MEDICARE ==
[2024-07-16 13:14] LABS: African American GFR (CKD) >90 (>60 ml/min/1.73 sqM); Blood Urea Nitrogen 35 mg/dL (7-17); Non-African American GFR(CKD) 84 (>60 ml/min/1.73 sqM)
--- NOTE | 2024-07-16 14:17 | CT ---
EXAMINATION TYPE: CT ChestAbdPelvis w con CT DLP: 1282.40 mGycm, Automated exposure control for dose reduction was used. DATE OF EXAM: 07/16/2024 1:51 PM COMPARISON: PET CT 04/22/2024, 11/20/2023, CT chest abdomen and pelvis 04/07/2024, CT abdomen and pelvi s 01/12/2024, CT chest 10/20/2023 CLINICAL INDICATION:Female, 84 years old with history of C56.9 MALIGNANT NEOPLASM OF UNSPECIFIED OVAR Y; PHH, hx of breast and ovarian ca Technique: Multiple axial images of the chest, abdomen, and pelvis were obtained following the intrav enous administration of 100 mL Isovue-300. Two-dimensional coronal and sagittal reconstructions were obtained. Findings: CHEST: LUNGS/ PLEURA: No pleural effusion, pneumothorax, focal consolidation. Right lower lobe linear scarri ng. A suspicious pulmonary nodule or mass. AIRWAY: Patent and unremarkable.. HEART: Cardiomegaly is demonstrated.No pericardial effusion Mild coronary artery calcifications prese nt. Prominent epicardial fat pad redemonstrated. MEDIASTINUM: No evidence of adenopathy. VASCULATURE: Mild atherosclerotic calcification of the aorta and its branches. Aortic root measures up to 3.5 cm. 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 No extension into the arch. Conventional three-vessel aortic arch. The descending thoracic aorta measur es up to 3.1 cm. No central pulmonary filling defect to suggest pulmonary aneurysm. MUSCULOSKELETAL: No acute osseous abnormalities. Punctate calcifications within the insertions of the bilateral supraspinatus/infraspinatus regions. No aggressive osseous lesion. Altered level degenerat betina disc disease. S-shaped scoliotic curvature of the thoracolumbar spine. SOFT TISSUES/LYMPH NODES: Right breast is surgically absent. No axillary adenopathy. LOWER NECK: No significant findings. ABDOMEN: ABDOMEN LIVER: Unremarkable GALLBLADDER AND BILE DUCTS: Similar distended gallbladder. There is some fluid surrounding the fundus . No intrahepatic biliary ductal dilatation. Similar prominence of the common bile duct measuring up to 8 mm. PANCREAS: Unremarkable. SPLEEN: Not enlarged. 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 ADRENAL GLANDS: Unremarkable. KIDNEYS AND URETERS: No evidence of hydronephrosis or renal calculus. The kidneys enhance symmetrical ly. Right renal 2.4 cm cyst. PELVIS BLADDER: Unremarkable REPRODUCTIVE: Anteverted uterus with calcified fundal 1 cm fibroid ABDOMEN & PELVIS STOMACH AND BOWEL: Stomach and duodenum are unremarkable. Extensive distal colonic diverticulosis wit hout evidence for acute diverticulitis. No evidence of bowel obstruction. PERITONEUM: No evidence of pneumoperitoneum or free fluid. Similar region of omental caking with calc ification in the mid anterior abdomen (series 4, image 83). There is some mild residual FDG activity in this region on prior PET/CT. VASCULATURE: Mild atherosclerotic calcifications are present throughout the abdominal aorta and its b ranches. No abdominal aortic aneurysm. Pelvic phleboliths. Portal venous system appears patent. MUSCULOSKELETAL: No acute osseous abnormalities. No aggressive osseous lesion. Grade 1 anterolisthesi s of L4 on L5 without evidence of pars defects. Degenerative changes of the pubic symphysis. S-shaped scoliotic curvature of the thoracolumbar spine. LYMPH NODES: No gross evidence for lymphadenopathy. SOFT TISSUE/ABDOMINAL WALL: Postsurgical changes of anterior abdominal wall without hernia identified . Fat filled bilateral inguinal hernias. IMPRESSION: 1. Similar omental caking in the mid anterior abdomen. Demonstrated some mild residual FDG activity on prior PET/CT. Residual disease is not excluded. No new evidence of metastasis. 2. Similar colon resection with some trace fluid at the fundus. Correlate clinically for acute derek cystitis. This can be further evaluated with ultrasound as clinically indicated. 3. Similar mild prominence of the common bile duct. No intrahepatic biliary duct dilatation. [facility], , 07/16/2024 2:14 PM
== END | disposition home or self-care (01) ==
LOC: RADCTMAIN 12:01
PROVIDERS: ATTEND Internal Medicine
DX: C56.9 Malignant neoplasm of unspecified ovary (principal); C50.919 Malignant neoplasm of unspecified site of unspecified female breast; K40.20 Bilateral inguinal hernia, without obstruction or gangrene, not specified as recurrent; K82.8 Other specified diseases of gallbladder
CPT/HCPCS: 82565; 84520; 71260; 74177; 36415; Q9967

== ENCOUNTER → 2024-10-11 | Outpatient (CLI) | payer MEDICARE ==
[2024-10-11 10:15] LABS: HCT 38.3 % (37.2-46.3); HGB 12.3 g/dL (12.0-15.0); MCH 29.2 pg (27.0-32.0); MCHC 32.1 g/dL (32.0-37.0); Mean Platelet Volume 9.4 FL (9.5-12.2); NRBC Per 100 WBC 0.02 X 10*3/uL (0.00-0.01); Platelet Count 305 X 10*3/uL (140-440); RBC 4.21 X 10*6/uL (4.10-5.20); RDW 13.9 % (11.5-14.5); WBC 14.04 X 10*3/uL (4.50-10.00)
[2024-10-11 10:24] LABS: Blood Urea Nitrogen 27.2 mg/dL (9.0-27.0); Chloride 95 mmol/L (96-109); Glucose 126 mg/dL (70-110); Potassium 3.9 mmol/L (3.5-5.5); Sodium 137 mmol/L (135-145)
[2024-10-11 10:25] LABS: ALT 22 U/L (8-44); AST 21 U/L (13-35); Albumin 3.6 g/dL (3.8-4.9); Albumin/Globulin Ratio 1.57 Ratio (1.60-3.17); Alkaline Phosphatase 80 U/L (41-126); Calcium 9.2 mg/dL (8.7-10.3); Carbon Dioxide 29.6 mmol/L (21.6-31.8); Globulin 2.3 g/dL (1.6-3.3); Total Bilirubin 1.1 mg/dL (0.3-1.2); Total Protein 5.9 g/dL (6.2-8.2)
== END | disposition home or self-care (01) ==
LOC: LABWHC1 06:47
PROVIDERS: ATTEND Internal Medicine Gastroenterology
DX: K74.60 Unspecified cirrhosis of liver (principal)
CPT/HCPCS: 36415; 80053; 82105; 85027

== ENCOUNTER 2024-11-04 09:15 | Observation (INO) | payer MEDICARE ==
--- NOTE | 2024-11-04 10:03 | ED ---
General Adult HPI - General Chief complaint: Shortness of Breath Stated complaint: GUERA Time Seen by Provider: 11/04/24 09:20 Source: patient, RN notes reviewed, old records reviewed Mode of arrival: wheelchair Limitations: no limitations - History of Present Illness Initial comments: This is an 84-year-old female presents to the emergency department stating that she has had ovarian cancer and problems with her liver such that she has ascites. Patient was last here for a paracentesis back in March. Patient comes in today because her primary medical care doctor Dr. Hardwick sent her in because she was having difficulty breathing and it was believed that it was secondary to the ascites. Patient denies any chest pain or abdominal pain. Patient has any nausea vomiting. Patient denies any fever chills or cough. Patient states she does have a hard time breathing because her abdomen is getting so enlarged. - Related Data Home Medications Medication Instructions Recorded Confirmed Metoprolol Tartrate 25 mg PO BID-W/MEALS 10/20/17 11/04/24 Bumetanide [BUMEX] 1 mg PO DAILY 04/07/24 11/04/24 Aspirin EC [Ecotrin Low Dose] 81 mg PO HS 11/04/24 11/04/24 Ipratropium-Albuterol Nebulize 3 ml INHALATION RT-BID 11/04/24 11/04/24 [Duoneb 0.5 mg-3 mg/3 ml Soln] Allergies Allergy/AdvReac Type Severity Reaction Status Date / Time No Known Allergies Allergy Verified 11/04/24 10:21 Review of Systems ROS Statement: Those systems with pertinent positive or pertinent negative responses have been documented in the HPI. ROS Other: All systems not noted in ROS Statement are negative. 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-last chemo 02-27-24 History of Any Multi-Drug Resistant Organisms: None Reported Past Surgical History: Appendectomy, Breast Surgery, Tonsillectomy Additional Past Surgical History / Comment(s): right breast mastectomy, Past Anesthesia/Blood Transfusion Reactions: No Reported Reaction Past Psychological History: No Psychological Hx Reported Smoking Status: Never smoker Past Alcohol Use History: None Reported Past Drug Use History: None Reported - Past Family History Mother Family Medical History: Hypertension General Exam - General Exam Comments Initial Comments: GENERAL: Patient is well-developed and well-nourished. Patient is nontoxic and well- hydrated and is in mild distress. ENT: Neck is soft and supple. No significant lymphadenopathy is noted. Oropharynx is clear. Moist mucous membranes. Neck has full range of motion without eliciting any pain. EYES: The sclera were anicteric and conjunctiva were pink and moist. Extraocular movements were intact and pupils were equal round and reactive to light. Eyelids were unremarkable. PULMONARY: Unlabored respirations. Good breath sounds bilaterally. No audible rales rhonchi or wheezing was noted. CARDIOVASCULAR: There is a regular rate and rhythm without any murmurs gallops or rubs. ABDOMEN: Abdomen is extremely large typical of ascites SKIN: Skin is clear with no lesions or rashes and otherwise unremarkable. NEUROLOGIC: Patient is alert and oriented x3. Cranial nerves II through XII are grossly intact. Motor and sensory are also intact. Normal speech, volume and content. Symmetrical smile. MUSCULOSKELETAL: Normal extremities with adequate strength and full range of motion. 2+ edema bilateral LYMPHATICS: No significant lymphadenopathy is noted PSYCHIATRIC: Normal psychiatric evaluation. Limitations: no limitations Course Vital Signs 11/04/24 11/04/24 09:18 12:05 Temperature 97.8 F Pulse Rate 88 92 Respiratory 20 20 Rate Blood Pressure 131/71 139/68 O2 Sat by Pulse 96 95 Oximetry Medical Decision Making - Medical Decision Making EKG is interpreted by myself and EKG shows an sinus rhythm at 90 bpm AL 177 QRS is 91 QT interval is 362 QTc is 410. Patient's EKG shows no ST segment elevation or depression. Was pt. sent in by a medical professional or institution (, PA, HOSE SPRAYER, urgent care, hospital, or fpc...) When possible be specific @ -No Did you speak to anyone other than the patient for history (EMS, parent, family, police, friend...)? What history was obtained from this source @ -No Did you review nursing and triage notes (agree or disagree)? Why? @ -I reviewed and agree with nursing and triage notes Were old charts reviewed (outside hosp., previous admission, EMS record, old EKG, old radiological studies, urgent care reports/EKG's, fpc records)? Report findings @ -No old charts were reviewed Differential Diagnosis? @ -Differential Dyspnea: Coronary syndrome, arrhythmia, tamponade, asthma, COPD, pulmonary embolism, pneumonia, pneumothorax, pulmonary effusion, anaphylaxis, diabetic ketoacidosis, flailed chest, pulmonary contusion, diaphragmatic rupture, anemia, neuromuscular, this is not meant to be an all-inclusive list. EKG interpreted by me (3pts min.). @ -As above X-rays interpreted by me (1pt min.). @ -Chest x-ray shows no acute abnormality. CT interpreted by me (1pt min.). @ -None done U/S interpreted by me (1pt. min.). @ -None done What testing was considered but not performed or refused? (CT, X-rays, U/S, labs)? Why? @ -None What meds were considered but not given or refused? Why? @ -None Did you discuss the management of the patient with other professionals (professionals i.e. , PA, HOSE SPRAYER, lab, RT, psych nurse, social work case manager, commutator repairer, teacher, employment officer, disability case manager)? Give summary @ -I spoke with Dr. Hardwick he agreed to admit the patient admit the patient and wrote admitting orders Was smoking cessation discussed for >3mins.? @ -No Was critical care preformed (if so, how long)? @ -No Were there social determinants of health that impacted care today? How? (Homelessness, low income, unemployed, alcoholism, drug addiction, transportation, low edu. Level, literacy, decrease access to med. care, longterm, r ehab)? @ -No Was there de-escalation of care discussed even if they declined (Discuss DNR or withdrawal of care, Hospice)? DNR status @ -No What co-morbidities impacted this encounter? (DM, HTN, Smoking, COPD, CAD, Cancer, CVA, ARF, Chemo, Hep., AIDS, mental health diagnosis, sleep apnea, morbid obesity)? @ -None Was patient admitted / discharged? Hospital course, mention meds given and route, prescriptions, significant lab abnormalities, going to OR and other pertinent info. @ -Patient will be admitted and will be scheduled for a paracentesis. Patient will be admitted to Dr. Hardwick and I wrote admitting orders. Undiagnosed new problem with uncertain prognosis? @ -No Drug Therapy requiring intensive monitoring for toxicity (Heparin, Nitro, Insulin, Cardizem)? @ -No Were any procedures done? @ -No Diagnosis/symptom? @ -Dyspnea Acute, or Chronic, or Acute on Chronic? @ -Acute Uncomplicated (without systemic symptoms) or Complicated (systemic symptoms)? @ -Complicated Side effects of treatment? @ -No Exacerbation, Progression, or Severe Exacerbation? @ -No Poses a threat to life or bodily function? How? (Chest pain, [place], [place], pneumonia, PE, COPD, DKA, ARF, appy, cholecystitis, CVA, Diverticulitis, Homicidal, Suicidal, threat to staff... and all critical care pts) @ -No Diagnosis/symptom? @ -Ascites Acute, or Chronic, or Acute on Chronic? @ -Acute Uncomplicated (without systemic symptoms) or Complicated (systemic symptoms)? @ -Complicated Side effects of treatment? @ -None Exacerbation, Progression, or Severe Exacerbation] @ -No Poses a threat to life or bodily function? @ -No - Lab Data Result diagrams: 11/04/24 10:10 11/04/24 10:10 Lab Results 11/04/24 11/04/24 11/04/24 Range/Units 10:10 10:10 10:10 WBC 11.35 H (4.50-10.00) 10*3/uL RBC 3.56 L (4.10-5.20) 10*6/uL Hgb 10.3 L (12.0-15.0) g/dL Hct 31.5 L (37.2-46.3) % MCV 88.5 (80.0-97.0) fL MCH 28.9 (27.0-32.0) pg MCHC 32.7 (32.0-37.0) g/dL Plt Count 345 (140-440) 10*3/uL MPV 8.4 L (9.5-12.2) fL Immature Gran % (Auto) 0.5 % Neutrophils % 73.0 % Lymphocytes % 16.5 % Monocytes % 9.1 % Eosinophils % 0.4 % Basophils % 0.5 % Immature Gran # 0.06 H (0.00-0.04) 10*3/uL Neutrophils # 8.29 H (1.80-7.70) 10*3/uL Lymphocytes # 1.87 (0.90-5.00) 10*3/uL Monocytes # 1.03 H (0.20-1.00) 10*3/uL Eosinophils # 0.04 (0.04-0.35) 10*3/uL Basophils # 0.06 (0.00-0.10) 10*3/uL PT 10.7 (10.0-12.5) sec INR 1.0 (<1.2) APTT 24.0 (22.0-30.0) sec Sodium 136 L (137-145) mmol/L Potassium 4.0 (3.5-5.1) mmol/L Chloride 96 L (98-107) mmol/L Carbon Dioxide 31 H (22-30) mmol/L Anion Gap 9 mmol/L BUN 22 H (7-17) mg/dL Creatinine 0.68 (0.52-1.04) mg/dL Est GFR (CKD-EPI)AfAm >90 (>60 ml/min/1.73 sqM) Est GFR (CKD-EPI)NonAf 81 (>60 ml/min/1.73 sqM) Glucose 115 H (74-99) mg/dL Plasma Lactic Acid Vito (0.7-2.0) mmol/L Calcium 9.2 (8.4-10.2) mg/dL Magnesium 1.8 (1.6-2.3) mg/dL Total Bilirubin 1.3 (0.2-1.3) mg/dL AST 25 (14-36) U/L ALT 14 (4-34) U/L Alkaline Phosphatase 107 (38-126) U/L Troponin I (0.000-0.034) ng/mL NT-Pro-B Natriuret Pep 685 pg/mL Total Protein 6.0 L (6.3-8.2) g/dL Albumin 3.2 L (3.5-5.0) g/dL 11/04/24 11/04/24 Range/Units 10:10 10:10 WBC (4.50-10.00) 10*3/uL RBC (4.10-5.20) 10*6/uL Hgb (12.0-15.0) g/dL Hct (37.2-46.3) % MCV (80.0-97.0) fL MCH (27.0-32.0) pg MCHC (32.0-37.0) g/dL Plt Count (140-440) 10*3/uL MPV (9.5-12.2) fL Immature Gran % (Auto) % Neutrophils % % Lymphocytes % % Monocytes % % Eosinophils % % Basophils % % Immature Gran # (0.00-0.04) 10*3/uL Neutrophils # (1.80-7.70) 10*3/uL Lymphocytes # (0.90-5.00) 10*3/uL Monocytes # (0.20-1.00) 10*3/uL Eosinophils # (0.04-0.35) 10*3/uL Basophils # (0.00-0.10) 10*3/uL PT (10.0-12.5) sec INR (<1.2) APTT (22.0-30.0) sec Sodium (137-145) mmol/L Potassium (3.5-5.1) mmol/L Chloride (98-107) mmol/L Carbon Dioxide (22-30) mmol/L Anion Gap mmol/L BUN (7-17) mg/dL Creatinine (0.52-1.04) mg/dL Est GFR (CKD-EPI)AfAm (>60 ml/min/1.73 sqM) Est GFR (CKD-EPI)NonAf (>60 ml/min/1.73 sqM) Glucose (74-99) mg/dL Plasma Lactic Acid Vito 1.8 (0.7-2.0) mmol/L Calcium (8.4-10.2) mg/dL Magnesium (1.6-2.3) mg/dL Total Bilirubin (0.2-1.3) mg/dL AST (14-36) U/L ALT (4-34) U/L Alkaline Phosphatase (38-126) U/L Troponin I <0.012 (0.000-0.034) ng/mL NT-Pro-B Natriuret Pep pg/mL Total Protein (6.3-8.2) g/dL Albumin (3.5-5.0) g/dL Disposition Clinical Impression: Ascites, Dyspnea Disposition: ADMITTED IP TO THIS HOSP Referrals: Brandon Hardwick MD [Primary Care Provider] - 1-2 days Time of Disposition: 13:06
[2024-11-04 10:22] LABS: Basophils # (A) 0.06 10*3/uL (0.00-0.10); Basophils % (A) 0.5 %; Eosinophils # (A) 0.04 10*3/uL (0.04-0.35); Eosinophils % (A) 0.4 %; HCT 31.5 % (37.2-46.3); HGB 10.3 g/dL (12.0-15.0); Lymphocytes # (A) 1.87 10*3/uL (0.90-5.00); Lymphocytes % (A) 16.5 %; MCH 28.9 pg (27.0-32.0); MCHC 32.7 g/dL (32.0-37.0); MCV 88.5 fL (80.0-97.0); Monocytes # (A) 1.03 10*3/uL (0.20-1.00); Monocytes % (A) 9.1 %; Neutrophils # (A) 8.29 10*3/uL (1.80-7.70); Neutrophils % (A) 73.0 %; Platelet Count 345 10*3/uL (140-440); RBC 3.56 10*6/uL (4.10-5.20); RDW 14.8 % (11.5-14.5); WBC 11.35 10*3/uL (4.50-10.00)
[2024-11-04 10:35] LABS: ALT 14 U/L (4-34); AST 25 U/L (14-36); African American GFR (CKD) >90 (>60 ml/min/1.73 sqM); Albumin 3.2 g/dL (3.5-5.0); Alkaline Phosphatase 107 U/L (38-126); Anion Gap 9 mmol/L; Blood Urea Nitrogen 22 mg/dL (7-17); Calcium 9.2 mg/dL (8.4-10.2); Carbon Dioxide 31 mmol/L (22-30); Chloride 96 mmol/L (98-107); Glucose 115 mg/dL (74-99); Magnesium 1.8 mg/dL (1.6-2.3); Non-African American GFR(CKD) 81 (>60 ml/min/1.73 sqM); Potassium 4.0 mmol/L (3.5-5.1); Sodium 136 mmol/L (137-145); Total Protein 6.0 g/dL (6.3-8.2)
--- NOTE | 2024-11-04 10:36 | US ---
EXAMINATION TYPE: US abdomen limited DATE OF EXAM: 11/04/2024 COMPARISON: us CLINICAL INDICATION: Female, 84 years old with history of Check ascites for possible paracentesis; AB D distention TECHNIQUE: Grayscale imaging of the abdomen for ascites. FINDINGS: Moderate amount of ascites throughout abdomen IMPRESSION: As above [facility], , 11/04/2024 10:34 AM
--- NOTE | 2024-11-04 10:37 | XR ---
EXAMINATION TYPE: XR chest 2V DATE OF EXAM: 11/04/2024 10:31 AM COMPARISON: 04/08/2024 CLINICAL INDICATION: Female, 84 years old with history of difficulty breathing: Shortness of breath TECHNIQUE: XR chest 2V views of the chest are obtained. FINDINGS: Scattered senescent parenchymal changes noted. Hyperinflation compatible with COPD. No evidence for infiltrate. Right basilar discoid atelectasis. Small effusions difficult to exclude. Heart size is stable. Mediastinal structures are stable and grossly unremarkable. No evidence for hilar prominence. Degenerative changes dorsal spine. IMPRESSION: 1. No evidence for acute pulmonary disease. [facility], , 11/04/2024 10:35 AM
[2024-11-04 10:43] LABS: NT-Pro-B-Type Natriuretic Pept 685 pg/mL
[2024-11-04 11:08] LABS: INR 1.0 (<1.2); Partial Thromboplastin Time 24.0 sec (22.0-30.0); Prothrombin Time 10.7 sec (10.0-12.5)
[2024-11-04] MEDS: ALBUMIN HUMAN 25% 50 ML in EMPTY BAG 1 BAG IVPB SCH (15:25)
--- NOTE | 2024-11-04 16:34 | US ---
EXAMINATION TYPE: US paracentesis abd w/image DATE OF EXAM: 11/04/2024 CLINICAL HISTORY: 84-year-old female ascites, recurrent, history of ovarian cancer. The procedure was discussed with the patient. The risks, complications, benefits, and alternatives we re discussed and any questions were answered. Informed consent was obtained. The patient was placed s upine on the ultrasound table and prepped and draped in the usual sterile fashion. All elements of maximal barrier technique were utilized. Ultrasound was utilized to determine the precise skin entry site along the right lower quadrant. A 5 [place] One-Step catheter and trocar technique was utilized to access the ascites collection under direct ultrasound guidance. Approximately 10.6 liters of dark maroon fluid was removed. Catheter was removed, hemostasis obtained, and a dressing placed. The patient was stable throughout the procedure and remained stable upon discharge from Department of Radiology. IMPRESSION: Successful therapeutic paracentesis under ultrasound guidance. 10.6 L of fluid removed. [facility], , 11/04/2024 4:32 PM
[2024-11-04 21:28] LABS: Appearance,BF Bloody (Clear)
[2024-11-04 21:56] LABS: Albumin, Fluid Source Ascites
[2024-11-04] MEDS: IPRATROPIUM-ALBUTEROL 3 ML NEB INHALATION SCH (22:09)
[2024-11-04] MEDS: ASPIRIN 81 MG PO SCH (22:14)
[2024-11-04] MEDS: FUROSEMIDE 10 MG/ML 2 ML VIAL IV SCH (22:15)
[2024-11-05] MEDS: METOPROLOL TARTRATE 25 MG TAB PO SCH (08:18)
[2024-11-05] MEDS ORDERED: NON FORMULARY DRUG (Bumetanide [Bumex] 2 MG Tablet) PO SCH (09:00)
[2024-11-06 00:32] LABS: Basophils # (A) 0.05 10*3/uL (0.00-0.10); Basophils % (A) 0.4 %; Eosinophils # (A) 0.14 10*3/uL (0.04-0.35); Eosinophils % (A) 1.2 %; HCT 30.6 % (37.2-46.3); HGB 9.7 g/dL (12.0-15.0); Lymphocytes # (A) 2.20 10*3/uL (0.90-5.00); Lymphocytes % (A) 19.5 %; MCH 28.4 pg (27.0-32.0); MCHC 31.7 g/dL (32.0-37.0); MCV 89.5 fL (80.0-97.0); Monocytes # (A) 1.12 10*3/uL (0.20-1.00); Monocytes % (A) 9.9 %; Neutrophils # (A) 7.74 10*3/uL (1.80-7.70); Neutrophils % (A) 68.6 %; Platelet Count 314 10*3/uL (140-440); RBC 3.42 10*6/uL (4.10-5.20); RDW 15.1 % (11.5-14.5); WBC 11.29 10*3/uL (4.50-10.00)
[2024-11-06 01:05] LABS: ALT 13 U/L (4-34); AST 23 U/L (14-36); African American GFR (CKD) >90 (>60 ml/min/1.73 sqM); Albumin 2.7 g/dL (3.5-5.0); Albumin/Globulin Ratio 1.1; Alkaline Phosphatase 92 U/L (38-126); Anion Gap 7 mmol/L; Blood Urea Nitrogen 17 mg/dL (7-17); Calcium 8.8 mg/dL (8.4-10.2); Carbon Dioxide 31 mmol/L (22-30); Chloride 97 mmol/L (98-107); Globulin 2.5 g/dL; Glucose 107 mg/dL (74-99); Non-African American GFR(CKD) 81 (>60 ml/min/1.73 sqM); Potassium 3.4 mmol/L (3.5-5.1); Sodium 135 mmol/L (137-145); Total Protein 5.2 g/dL (6.3-8.2)
[2024-11-06] MEDS: RIFAXIMIN 550 MG TABLET PO SCH (01:15)
[2024-11-06] MEDS: LACTULOSE 20 GM/30 ML CUP PO SCH (01:15)
[2024-11-06] MEDS: POTASSIUM CHLORIDE ER 20 MEQ TAB.ER PO SCH (09:15)
[2024-11-06] MEDS: CEFDINIR 300 MG CAP PO SCH (09:15)
--- NOTE | 2024-11-06 09:24 | PN ---
PROGRESS NOTE SUBJECTIVE: The patient wants to go home today. We will discharge her. Hemoglobin is 9.7, white count 11.29, sodium 135, potassium 3.4, CO2 is 31, and albumin is 2.7. Fluid shows a lot of red cells, very few white cells. Possibly we will send her home on some antibiotics for a week or so. She wants to go home. She is feeling better after paracentesis. No GI is available. OBJECTIVE: VITAL SIGNS: Temperature 98.2, blood pressure 143/72, and O2 92% on room air. CARDIOVASCULAR: S1, S2. LUNGS: Transmitted upper airway sounds. GI: Soft. PLAN: To discharge her home, to follow up as an outpatient. Prognosis guarded. Start Xifaxan and lactulose. Start some broad-spectrum antibiotics for a week. Prognosis guarded. MMODL / IJN: [id number] /
[2024-11-06 10:16] VITALS: BP 143/72; PULSE 88; RESP 17; TEMP 98.2
--- NOTE | 2024-11-08 09:27 | HP ---
HISTORY AND PHYSICAL came in with [id number] CHF with fluid overload and severe anasarca. She had a paracentesis done of 10 L. No GI cover is available. We will possibly send her home tomorrow. She is on IV Lasix at this time. PAST MEDICAL HISTORY: History of breast cancer, hypertension, dyslipidemia, and ovarian cancer Mullerian recently diagnosed 2 years ago, metastatic. MEDICATIONS: At home include: 1. Metoprolol 25 b.i.d. 2. Bumex 1 mg daily. 3. Aspirin 81 daily. 4. DuoNeb t.i.d. PAST SURGICAL HISTORY: Appendectomy, breast surgery, tonsillectomy, and right breast mastectomy. SOCIAL HISTORY: Does not smoke. She does not drink alcohol. FAMILY HISTORY: Mother with hypertension. REVIEW OF SYSTEMS: Fourteen-point review of systems is positive for dyspnea, shortness of breath, worse with exertion, increased abdominal girth and swelling, increased abdominal pain, large amount of weight gain, and worsening shortness of breath due to severe anasarca changes. She has history of possibly autoimmune cirrhosis like a year ago. Her last paracentesis was over a year ago. DIAGNOSTIC STUDIES: EKG, sinus rhythm. PHYSICAL EXAMINATION: VITAL SIGNS: Reviewed. CARDIOVASCULAR: S1 and S2. LUNGS: Scattered rhonchi and rales. No wheeze. EXTREMITIES: Large abdominal ascites with abdominal distention. 3+ pedal edema and anasarca-type changes. 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 2. History of Mullerian cancer, metastatic. 3. History of breast cancer. 4. Chronic obstructive pulmonary disease. 5. Hypertension. 6. [id number] anemia. PLAN: Send the fluid to the lab. BNP is 625. The liver enzymes are in the normal range. Troponin is negative. Possible discharge home tomorrow after IV Lasix for 24 hours. Possibly start on Xifaxan for autoimmune cirrhosis and possibly lactulose. Prognosis is guarded. MMODL / IJN: [id number] /
== END 2024-11-06 09:25 | disposition home or self-care (01) ==
LOC: EC 09:15 → 5NMEDONC 13:08
PROVIDERS: ADMIT Family Medicine; ATTEND Family Medicine
DX: C56.9 Malignant neoplasm of unspecified ovary (principal); R18.0 Malignant ascites; K74.69 Other cirrhosis of liver; I11.0 Hypertensive heart disease with heart failure; I50.9 Heart failure, unspecified; J44.9 Chronic obstructive pulmonary disease, unspecified; D64.9 Anemia, unspecified; E78.5 Hyperlipidemia, unspecified; Z85.3 Personal history of malignant neoplasm of breast; Z85.43 Personal history of malignant neoplasm of ovary; Z79.899 Other long term (current) drug therapy; Z79.82 Long term (current) use of aspirin
CPT/HCPCS: 96376; 96374; 99285; 36415; 94640 ×2; 94760; 93005; 88108; 88305; 83880; 80053 ×2; 82042; 89050; 82140; 83605; 83735; 84484; 85025 ×2; 85610; 85730; 87070; 87205; 87075; 71046; 76705; 49083; G0378 ×3; P9047; J1938 ×2

== ENCOUNTER → 2024-11-12 | Outpatient (CLI) | payer MEDICARE ==
--- NOTE | 2024-11-12 10:15 | MM ---
Reason for Exam: Hx of breast cancer, mastectomy. Last screening mammogram was performed 12 month(s) ago. Patient History: Menarche at age 13. First Full-Term at age 17. Postmenopausal. Breast cancer, right, age 50. Core Biopsy on the Right side. 2017, Excisional Biopsy on the Left side. 07/12/2002, Malignant Lumpectomy on the right side. 07/29/2002, Mastectomy on the Right side. 12/04/2001, Benign Stereotactic Core Biopsy on the right side. Prior Study Comparison: 03/15/2022 Left MG 3D diag mammo w/cad LT, [facility]. 03/17/2023 Left MG 3D diag mammo w/cad LT, [facility]. 11/03/2023 Left MG 3D diag mammo w/cad LT, [facility]. Tissue Density: Left: The breasts are heterogeneously dense, which may obscure small masses. Findings: Benign appearing linear and vascular calcifications throughout the left breast are redemonstrated. There is no suspicious group of microcalcifications or new suspicious mass in the left breast. Overall Assessment: Benign, BI-RAD 2 Management: Screening Mammogram of the left breast in 1 year. . Patient should continue monthly self-breast exams. A clinical breast exam by your physician is recommended on an annual basis. This exam should not preclude additional follow-up of suspicious palpable abnormalities. Note on Hyacinth scores and lifetime risk: 1. A Hyacinth score greater than 3% is considered moderate risk. If this is the case, consider specialist referral to assess eligibility for a risk reducing agent. 2. If overall lifetime risk for the development of breast cancer is 20% or higher, the patient may qualify for future screening with alternating mammogram and breast MRI. [facility], , 11/12/2024 10:12 AM. Electronically signed and approved by: Kaleb Adkins M.D.
== END | disposition home or self-care (01) ==
LOC: RADMAMWWP 09:19
PROVIDERS: ATTEND Family Medicine
DX: Z12.31 Encounter for screening mammogram for malignant neoplasm of breast (principal); R92.1 Mammographic calcification found on diagnostic imaging of breast; R92.332 Mammographic heterogeneous density, left breast; Z78.0 Asymptomatic menopausal state; Z80.3 Family history of malignant neoplasm of breast; Z85.3 Personal history of malignant neoplasm of breast; Z90.11 Acquired absence of right breast and nipple
CPT/HCPCS: 77067